=== PATIENT | male | born 1955 | race Caucasian/White ===

== ENCOUNTER 2019-01-18 03:02 | Inpatient (IN) | payer OTHER ==
[~2019-01-18] VITALS: Ht 175.3 cm; Wt 85.0 kg
[2019-01-18] VITALS (13 sets, daily range): BP systolic 126–130; BP diastolic 60–61; PULSE 78–88; RESP 20–30; Ht 175.3 cm; Wt 85.0 kg
[2019-01-18] MEDS ORDERED: NORepinephrine 8MG/250 ML (PMX 250 ML IV STA (03:18)
[2019-01-18] MEDS ORDERED: MIDAZOLAM (DRIP) 50 mg/50 mL 50 ML IV STA (03:18)
[2019-01-18] MEDS ORDERED: SODIUM CHLORIDE 0.9% 1L BAG IV* STA (03:18)
[2019-01-18] MEDS ORDERED: CEFEPIME 1GM/50 ML (PMX) 50 ML IVPB ONE (03:30)
[2019-01-18] MEDS ORDERED: VANCOMYCIN 1 GM (PMX) 250 ML IVPB ONE (03:30)
[2019-01-18] MEDS ORDERED: ACETAMINOPHEN 650 MG SUPP PR ONE ×2 (03:30→10:00)
--- NOTE | 2019-01-18 03:31 | ERD ---
ER Documentation Chief Complaint Chief Complaint bib ra from longterm for sob, aloc HPI This is a 63-year-old man brought in by EMS from longterm for decreased oxygen saturation while at the longterm, low blood pressure, and fever. EMS states systolic blood pressure was 70 mmHg at the scene and patient had dyspnea and oxygen saturation in the mid 80s while at the longterm. He did develop a fever today. Patient does have a history of functional quadriplegia lower extremity contractures, sacral decubitus ulcers, diabetes mellitus, hyperlipidemia, BPH, hypertension, depression, UTIs, dysphagia. HPI obtained by reviewing longterm records and speaking to EMS ROS All systems reviewed and are negative except as per history of present illness. Allergies Allergies: Coded Allergies: Unknown: Unable to obtain (Unverified , 01/18/19) PMhx/Soc Hypertension, diabetes mellitus, functional quadriplegia with lower extremity contractures, bedbound state, decubitus ulcers, BPH, depression Hx Respiratory Disorders: Yes (acute respiratory failure ) Hx Cardiac Disorders: Yes (malformations of heart, htn, hyperlipidemia ) Hx Miscellaneous Medical Probl: Yes (contractures) Hx Alcohol Use: No Hx Substance Use: No Hx Tobacco Use: No Smoking Status: Never smoker FmHx Family History: No diabetes Physical Exam Vitals Vital Signs Date Temp Pulse Resp B/P (MAP) Pulse Ox O2 O2 Flow FiO2 Time Delivery Rate 01/18/19 139 31 98/76 (83) 100 [place] 04:30 l Ventilato r 01/18/19 101.7 138 35 111/92 100 [place] 04:15 (98) l Ventilato r 01/18/19 101.7 04:11 01/18/19 126 33 94/61 (72) 100 [place] 04:00 l Ventilato r 01/18/19 131 37 87/51 (63) 100 [place] 03:45 l Ventilato r 01/18/19 133 34 75/49 (58) 100 [place] 03:36 l Ventilato r 01/18/19 131 23 100/66 97 [place] 03:14 (77) l Ventilato r 01/18/19 101.9 128 36 82/53 (63) 100 03:08 01/18/19 99.0 131 20 100/66 100 Room Air 03:08 (77) Physical Exam Const: Elderly, chronically debilitated appearing man, dyspneic, tachypneic, febrile HEENT: Dry mucous membranes, pink conjunctive a, eyes closed, no cervical spine deformity Resp: Poor breath sounds bilaterally, diminished breath sounds on the left, no wheezing or stridor Cardio: Tachycardic and regular Abd: Soft, non tender, non distended. No guarding or masses Skin: Hot to touch, no lacerations or hematomas, skin examination to the buttocks and sacrum deferred Ext: No cyanosis, or edema, calves symmetrical, bilateral lower extremity contractures with diffuse muscular wasting Neur: Eyes closed patient nonverbal, bilateral lower extremity contractures Result Diagram: 01/18/1931201/18/19312 Results 24 hrs Laboratory Tests Test 01/18/19 03:13 01/18/19 03:24 White Blood Count 14.6 10^3/ul Red Blood Count 2.33 10^6/ul Hemoglobin 7.0 g/dl Hematocrit 24.7 % Mean Corpuscular Volume 106.0 fl Mean Corpuscular Hemoglobin 30.0 pg Mean Corpuscular Hemoglobin Concent 28.3 g/dl Red Cell Distribution Width 19.4 % Platelet Count 126 10^3/UL Mean Platelet Volume 11.2 fl Immature Granulocytes % 0.500 % Neutrophils % 57.5 % Lymphocytes % 36.6 % Monocytes % 4.5 % Eosinophils % 0.8 % Basophils % 0.1 % Nucleated Red Blood Cells % 0.0 /100WBC Immature Granulocytes # 0.080 10^3/ul Neutrophils # 8.4 10^3/ul Lymphocytes # 5.4 10^3/ul Monocytes # 0.7 10^3/ul Eosinophils # 0.1 10^3/ul Basophils # 0.0 10^3/ul Nucleated Red Blood Cells # 0.0 10^3/ul Prothrombin Time 20.9 Sec Prothrombin Time Ratio 1.6 INR International Normalized Ratio 1.79 Activated Partial Thromboplast Time 37.1 Sec Sodium Level 169 mmol/L Potassium Level 4.3 mmol/L Chloride Level 140 mmol/L Carbon Dioxide Level 24 mmol/L Anion Gap 5 Blood Urea Nitrogen 38 mg/dl Creatinine 3.08 mg/dl Est Glomerular Filtrat Rate mL/min 21 mL/min Glucose Level 114 mg/dl Calcium Level 8.1 mg/dl Total Bilirubin 0.2 mg/dl Direct Bilirubin 0.00 mg/dl Indirect Bilirubin 0.2 mg/dl Aspartate Amino Transf (AST/SGOT) 49 IU/L Alanine Aminotransferase (ALT/SGPT) 10 IU/L Alkaline Phosphatase 170 IU/L Troponin I 0.052 ng/ml Total Protein 7.3 g/dl Albumin 2.2 g/dl Globulin 5.10 g/dl Albumin/Globulin Ratio 0.43 Lipase 43 U/L POC Venous Lactate 2.7 mmol/L Current Medications Medications Dose Sig/Maureen Start Time Status Last (Trade) Ordered Route PRN Stop Time Admin Dose Reason Admin Sodium 5,000 ml BOLUS OVER 2 01/18/19 DC 01/18/19 Chloride HOURS STAT 03:18 03:30 (NS) IV* 01/18/19 03:22 250 ml @ ONCE STAT 01/18/19 01/18/19 Norepinephrin 7.5 mls/hr IV 03:18 01/19/19 03:38 e 12:37 Vancomycin 250 ml @ ONCE ONCE 01/18/19 01/18/19 HCl 125 mls/hr IVPB 03:30 04:37 01/18/19 05:29 Cefepime HCl 50 ml @ ONCE ONCE 01/18/19 DC 01/18/19 100 mls/hr IVPB 03:30 03:51 01/18/19 03:59 650 mg ONCE ONCE 01/18/19 DC 01/18/19 Acetaminophen ID 03:30 04:11 (Tylenol 01/18/19 03:31 Supp) Midazolam 50 ml @ 3 ONCE STAT 01/18/19 01/18/19 HCl mls/hr IV 03:18 04:01 01/18/19 19:57 Lorazepam 2 mg ONCE ONCE 01/18/19 DC 01/18/19 (Ativan) IV 04:00 03:58 01/18/19 04:01 Procedures/[facility] IV line was established patient was placed on air sampling and monitoring rhythm strip revealed a sinus rhythm at about narrow complex tachycardia at 140 bpm with upright P and T waves. Patient was febrile, blood and urine cultures have been ordered results are pending I will follow-up EKG performed, read by me revealed sinus tachycardia at 141 bpm, left axis deviation, intraventricular block with a QRS duration of 128 ms, prolonged QT at 511 ms, deep T wave inversions diffusely, no ST elevations or depressions noted Endotracheal Intubation by me: Pre assessment performed. Patient given etomidate 20 mg IV and 100 mg of succinylcholine IV Pre-oxygenation performed with 100% oxygen RSI: Performed w/o complication or hypoxic events. Medications as ordered. Blade: 4.0 ET Tube: 7.5 cm Depth: 21 cm at the lip Intubation confirmed by colorimetric CO2, equal breath sounds, quiet over the stomach. Central Line Placement by me: After the patient was consented and a time out was performed, appropriate hand hygiene was performed, the skin site was fully prepped and maximal sterile barrier technique was employed where the patient was sterilely draped, and the provider wore a mask and sterile gown and gloves. Anesthesia: 1% lidocaine locally Location: Right subclavian vein Device: Multiple lumen Technique: Seldinger technique. Secured with suture. Results: Venous return from all ports with easy saline flush. No complications. The entire guide wire retrieved and disposed of. ED Ultrasound: Central line placed by me using concurrent ultrasound guidance done using sterile technique. Real time image archived in the medical record confirms vascular anatomy. Chest X-ray 1V Interpreted by me: Central line in SVC, Normal soft tissue, No evidence of pneumothorax. ET tube is in place above the karin although it was later advanced 2 cm, sternotomy wires are present, left parapneumonic effusion I administered about 5 L normal saline IV for dehydration and septic shock, he was given cefepime 1 g IV and vancomycin 1 g IV. He was also given acetaminophen per rectum for fever CBC revealed a mild leukocytosis of 15 and anemia with a hemoglobin of 7, electrolytes were abnormal with hyponatremia at 169 and acute kidney injury and dehydration with a BUN/creatinine of 38/3.1, liver function tests were unremarkable, troponin was negative, urine analysis is also been ordered results are pending I will follow-up Patient's infectious symptoms have not stabilized and the patient is at risk of rapid decompensation. The patient will be admitted for careful hydration, antibiotic therapy, and infectious source control. SEVERE SEPSIS CRITERIA: Infectious source: Pneumonia End organ damage indicated by: [Lactate > 2.0 mmol/L Hypotension (SBP < 90 or >40 mmHG drop or MAP < 65) Acute Resp Failure (sat < 92% w/o oxygen) SEPSIS MANAGEMENT Time of recognition of sepsis: Upon arrival. Time of recognition of severe sepsis: severe sepsis at this time]. Time of recognition of septic shock: septic shock at this time]. 3 HOUR BUNDLE Blood cultures x 2 before broad-spectrum antibiotics: Yes 30 ml/kg NS bolus completed Initial lactate 2.7 Repeat lactate pending SEPTIC SHOCK ASSESSMENT: No lactic acid > 4.0 Yes persistent hypotension (SBP < 90 or 40 mmHg drop, MAP < 65) despite 30 mL/kg IV fluid bolus VOLUME REASSESSMENT FOR SEPTIC SHOCK: Reevaluation Time: 0340 Temp 100.8 F, BP 100/60, heart rate 130 bpm, respiratory rate 20 breaths/min, oxygen saturation 98% intubated Heart tachycardic and regular Lungs crackles at the left lung Skin hot and dry to touch Cap Refill less than 2 seconds Peripheral pulses radially present PERSISTENT HYPOTENSION TREATMENT: Comfort care no Central line: Right subclavian vein line placed Vasopressor started Levophed I considered further perfusion assessment with CVP measurement, SCVO2, bedside ultrasound volume assessment, passive leg raise, trial of further fluid bolus. And proceeded with 30 ml/kg fluid bolus of NSS, broad spectrum antibiotics, and admission. CRITICAL CARE: Critical care time 55 minutes, this was time separate from other billable procedures. Emergent fluid management while maintaining close respiratory support. Provision of immediate and broad-spectrum antibiotic therapy. Simultaneous assessment for possible sources in order to direct targeted therapy. Consideration for invasive and chemical support to prevent cardiopulmonary collapse. Critical care time is independent of procedures performed. Accepting Care Team: Current data and ongoing care discussed. Time: Time of admission Primary Provider: Hospitalist Consulting: Infectious disease and pulmonology Outstanding Data: none Departure Diagnosis: Primary Impression: Acute respiratory failure Respiratory failure complication: hypoxia and hypercapnia Qualified Codes: J96.01 - Acute respiratory failure with hypoxia; J96.02 - Acute respiratory failure with hypercapnia Additional Impressions: Septic shock Healthcare-associated pneumonia Acute dehydration Acute kidney injury Condition: Critical IJEOMA GALO MD Jan 18, 2019 03:31
[2019-01-18] MEDS ORDERED: LORAZEPAM 2 MG INJ IV ONE (04:00)
[2019-01-18] MEDS ORDERED: VANCOMYCIN IV PER PHARMACY XX SCH (09:30)
[2019-01-18] MEDS: DEXTROSE 5% 1,000 ML IV SCH (10:02)
[2019-01-18] MEDS: PIPER-TAZO 2.25 GM (PMX) 50 ML IVPB SCH ×3 (10:25→22:43)
[2019-01-18] MEDS ORDERED: ACET-2047 PO (10:49)
[2019-01-18] MEDS ORDERED: MUCO4 NEB (10:50)
[2019-01-18] MEDS ORDERED: ASPI81TA52 PO (10:52)
[2019-01-18] MEDS ORDERED: ARGI1POW19 PO (10:52)
[2019-01-18] MEDS ORDERED: ATOR40TA68 PO (10:52)
[2019-01-18] MEDS ORDERED: MAGN400O19 PO (10:53)
[2019-01-18] MEDS ORDERED: FER325 PO (10:54)
[2019-01-18] MEDS ORDERED: BISA10SU55 RC (10:54)
[2019-01-18] MEDS ORDERED: DIV250 PO (10:56)
[2019-01-18] MEDS ORDERED: CEFT1PIG2 IVPB (10:57)
[2019-01-18] MEDS ORDERED: CALC600T24 PO (10:58)
[2019-01-18] MEDS ORDERED: NA P133E39 RC (10:59)
[2019-01-18] MEDS ORDERED: ASCO500C7 PO (11:00)
[2019-01-18] MEDS ORDERED: LEVA0.634 INHALATION (11:00)
[2019-01-18] MEDS ORDERED: VANC1VIA2 IV (11:01)
[2019-01-18] MEDS ORDERED: TAMS-14 PO (11:02)
[2019-01-18] MEDS ORDERED: AMIN30LI5 PO (11:03)
[2019-01-18] MEDS ORDERED: HYDR-4011 PO ×3 (11:04→11:06)
[2019-01-18] MEDS ORDERED: MULT-275 PO (11:07)
[2019-01-18] MEDS ORDERED: MAGN400T27 PO (11:07)
[2019-01-18] MEDS ORDERED: ESCI10TA PO (11:08)
[2019-01-18] MEDS ORDERED: LAMO25TA8 PO (11:08)
[2019-01-18] MEDS ORDERED: LACT20SO2 PO (11:09)
[2019-01-18] MEDS ORDERED: LANT3I SC (11:10)
[2019-01-18] MEDS ORDERED: IPRA3AMP29 INHALATION (11:10)
[2019-01-18] MEDS ORDERED: SACC250C PO (11:11)
[2019-01-18] MEDS ORDERED: PIPE3.374 IVPB (11:12)
[2019-01-18] MEDS ORDERED: VANCOMYCIN 750 MG (PMX) 250 ML IVPB ONE (12:00)
--- NOTE | 2019-01-18 14:07 | CONS ---
Assessment/Plan Assessment/Plan Assessment/Plan (Daily) 1. acute hyperkalemia 2. acute On chronic renal failure due to ATN from septic shock 3. acute hypoxemic respiratory failure intubated on ventilator 2/2 Health care associated PNA 4. Septic shock on levophed 2/2 PNA 5. acute hypernatremia 6. H/O quadriplegia 7. H/o CAD s/p CABG 8. H/O HTN 9. H/o sacral decubitus s/p debridement before [facility]. [facility] Plan: IV abx for PNA, renally dose all abx and monitor electrolytes IVF D5W at 125 cc/hr IV abx zosyn and vancomycin for PNA coverage, Renally dose all abx and monitor electorlytes follow upn Cx, Uric acid, CK total wiht AM labs Thanks for consultation, Mariana oneill Consultation Date/Type/Reason Admit Date/Time 01/18/2019 Date of Consultation: Jan 18, 2019 Type of Consult NEPHROLOGY Reason for Consultation acute kidney injury, Hyperkalemia Requesting Provider: FELICITAS LAZARO MD Date/Time of Note DATE: 01/18/19 TIME: 14:06 Hx of Present Illness 63-year-old male residing at senior care facility with history of a quadriplegia was brought in by the paramedics after he was noted to have hypoxia and altered mental status. Initial systolic blood pressure was 70 and oxygen saturation was in the mid 80s. The patient has bilateral lower extremity co ntractures, multiple sacral decubiti, type 2 diabetes mellitus and hypertension.Initial evaluation revealed acute hypoxemic respiratory failure and evidence of sepsis. The patient was intubated. White blood cell count was 14.6 and hemoglobin was low at 7. Serum sodium was 169 with BUN of 39 and creatinine of 3.08. Initial serum lactate was 2.7 and repeat serum lactate was 2.1. Chest x-ray showed dense left lower lobe infiltrate and possible effusion. Renal has been consulted for acute hyperkalemia, acute on chronic renal failure Pt intuabted for acute hypxoemci respiratory failure Subjective hx not possible: pt non-verbal, pt critical status, other (on BIPAP) Past Medical History Medical History: other (quadriplegia, CAD H/o IL, h/o HTN, h/o possibel CKD ) Home Meds Reported Medications Ujrnxcpjymky-Antl-Qyynzxqd,Iso (ZOSYN 3.375 GM GALAXY BAG) 3.375 Gm/50 Ml Froz.piggy, 3.375 GM IVPB Q6, EA 01/18/19 Saccharomyces Boulardii* (Florastor*) 250 Mg Cap, 250 MG PO BID, CAP 01/18/19 Insulin Glargine* (Lantus*) 100 Unit/Ml Soln, 6 UNIT SC QHS, #1 VIAL 01/18/19 Ipratropium-Albuterol (Ipratropium-Albuterol) 0.5-3 Mg/3 Ml Ampul.neb, 3 ML INHALATION Q6 PRN for WHEEZING AND SOB, #30 VIAL 01/18/19 Lactulose* (Lactulose*) 20 Gm/30 Ml Solution, 20 GM PO BID, ML 01/18/19 Lamotrigine* (Lamotrigine*) 25 Mg Tablet, 25 MG PO BID, TAB 01/18/19 Escitalopram Oxalate* (Lexapro*) 10 Mg Tablet, 10 MG PO DAILY, #30 TAB 01/18/19 Magnesium Oxide* (Mag-Oxide*) 400 Mg Tablet, 400 MG PO TID, TAB 01/18/19 Multivitamin with Minerals (Daily Vitamin Formula-Minerals) 1 Each Tablet, 1 EACH PO DAILY, TAB 01/18/19 Hydrocodone/Acetaminophen ([place] 5-325 Tablet) 1 Each Tablet, 1 EACH PO Q4 PRN for PAIN 4-7, TAB 01/18/19 Hydrocodone/Acetaminophen ([place] 5-325 Tablet) 1 Each Tablet, 1 EACH PO 30 MIN PRIOR TO W/C PRN for PAIN, TAB 01/18/19 Hydrocodone/Acetaminophen ([place] 5-325 Tablet) 1 Each Tablet, 2 EACH PO Q4 PRN for PAIN 8-10, TAB 01/18/19 Amino Acids/Protein Hydrolys (Pro-Stat Awc Liquid) 30 Ml Liquid, 30 ML PO TID DILUTE WITH 30ML WATER 01/18/19 Tamsulosin Hcl* (Flomax*) 0.4 Mg Cap.er.24h, 0.4 MG PO HS, CAP 01/18/19 Vancomycin HCl (Vancomycin HCl) 1 Gm Vial, 1 GM IV DAILY PRN for FEVER, VIAL 01/18/19 Ascorbic Acid* (Vitamin C*) 500 Mg Capsule.sa, 500 MG PO DAILY, CAP 01/18/19 Levalbuterol Hcl* (Levalbuterol Hcl*) 0.63 Mg/3 Ml Vial.neb, 0.63 MG INHALATION Q6H PRN for WHEEZING AND SOB, VIAL 01/18/19 Sodium Phosphate,Roane-Dibasic (Enema Ready To Use) 133 Ml Enema, 133 ML RC EVERY 3 DAYS PRN for CONSTIPATION, ENEMA 01/18/19 Calcium Carbonate* (Calcium Carbonate*) 600 MG Ca Tab, 600 MG PO BID, TAB 01/18/19 Ceftriaxone Sod* (Rocephin* 1GM/50ML (PMX)) 1 Gm/50 Ml Iv.soln., 1 GM IVPB QHS, EA 01/18/19 Divalproex Sodium* (Divalproex Sodium*) 250 Mg Tablet.dr, 750 MG PO BID, #90 TAB 01/18/19 Ferrous Sulfate* (Ferrous Sulfate*) 325 Mg Tabec, 325 MG PO DAILY, TAB 01/18/19 Bisacodyl (Dulcolax) 10 Mg Supp.rect, 10 MG RC PRN PRN for CONSTIPATION, SUPP.RECT 01/18/19 Magnesium Hydroxide* (Milk Of Magnesia*) 400 Mg/5 Ml Oral.susp, 30 ML PO DAILY PRN for CONSTIPATION, ML 01/18/19 Atorvastatin* (Atorvastatin*) 40 Mg Tablet, 40 MG PO QHS, #30 TAB 01/18/19 Aspirin (Low Dose Aspirin) 81 Mg Tablet.dr, 81 MG PO DAILY, #30 TAB 01/18/19 Arginine/Ascorbate Sod/Eric AC (Arginaid Powder) 1 Each Powd.pack, 1 EACH PO BID DISOLVE IN 120MLS WATER 01/18/19 Acetylcysteine* (Mucomyst*) 4 Ml Soln, 3 ML NEB TID, EA 01/18/19 Acetaminophen* (Acetaminophen*) 650 Mg Tablet, 650 MG PO Q6H PRN for ELEVATED TEMPERATURE, #30 TAB OVER 101 01/18/19 Medications Current Medications Norepinephrine 250 ml @ 7.5 mls/hr ONCE STAT IV Last administered on 01/18/19at 03:38; Admin Dose 7.5 MLS/HR; Start 01/18/19 at 03:18; Stop 01/19/19 at 12:37 Midazolam HCl 50 ml @ 3 mls/hr ONCE STAT IV Last administered on 01/18/19at 04:01; Admin Dose 3 MLS/HR; Start 01/18/19 at 03:18; Stop 01/18/19 at 19:57 Dextrose 1,000 ml @ 120 mls/hr Q8H20M IV Last administered on 01/18/19at 10:02; Admin Dose 120 MLS/HR; Start 01/18/19 at 09:30 Vancomycin HCl (Vanco Iv Per Pharmacy) VANCOMYCIN PER PHARMACY PER PROTOCOL XX ; Start 01/18/19 at 09:30 Piperacillin Sod/ Tazobactam Sod 50 ml @ 100 mls/hr Q8 IVPB Last administered on 01/18/19at 10:25; Admin Dose 100 MLS/HR; Start 01/18/19 at 09:30 Allergies: Coded Allergies: Sulfa (Sulfonamide Antibiotics) (Verified Allergy, Unknown, 01/18/19) Past Surgical History Past Surgical Hx: other (CABG, H/o Debridement for sacral decubitus ) Social History Alcohol Use: none Smoking Status: Never smoker Drug Use: none Exam/Review of Systems Exam Vitals Vital Signs Date Temp Pulse Resp B/P (MAP) Pulse Ox O2 O2 Flow FiO2 Time Delivery Rate 01/18/19 80 26 104/53 100 [place] 13:00 (70) l Ventilato r 01/18/19 35 12:34 01/18/19 100.4 12:30 Intake and Output 01/17/19 01/17/19 01/18/19 1515:00 23:00 07:00 IntakeIntake Total 50 ml BalanceBalance 50 ml Constitutional: distress, other (moderate to severe distress , intubated on ventilator ) Head: normocephalic Eyes: nl conjunctiva ENMT: intubated, other (ET tube in place ) Neck: supple, non-tender Respiratory: congested cough, diminished breath sounds, wheezing Cardiovascular: regular rate and rhythm, nl pulses Gastrointestinal: soft, non-tender Musculoskeletal: other (Contracture of extremities ) Extremities: normal pulses Neurological: other (Uncooperative due to Intubated on ventilator ) Results Result Diagram: 01/18/19 0313 01/18/19 0313 Results 24hrs Laboratory Tests Test 01/18/19 03:13 01/18/19 03:24 01/18/19 04:30 01/18/19 04:47 White Blood Count 14.6 H Red Blood Count 2.33 L Hemoglobin 7.0 L Hematocrit 24.7 L Mean Corpuscular 106.0 H Volume Mean Corpuscular 30.0 Hemoglobin Mean Corpuscular 28.3 L Hemoglobin Concen t Red Cell 19.4 H Distribution Width Platelet Count 126 L Mean Platelet 11.2 H Volume Immature 0.500 H Granulocytes % Neutrophils % 57.5 Lymphocytes % 36.6 Monocytes % 4.5 Eosinophils % 0.8 Basophils % 0.1 Nucleated Red 0.0 Blood Cells % Immature 0.080 H Granulocytes # Neutrophils # 8.4 H Lymphocytes # 5.4 H Monocytes # 0.7 Eosinophils # 0.1 Basophils # 0.0 Nucleated Red 0.0 Blood Cells # Prothrombin Time 20.9 H Prothrombin Time 1.6 Ratio INR International 1.79 Normalized Ratio Activated 37.1 H Partial Thrombopl ast Time Sodium Level 169 *H Potassium Level 4.3 Chloride Level 140 H Carbon Dioxide 24 Level Anion Gap 5 Blood Urea 38 H Nitrogen Creatinine 3.08 H Est Glomerular 21 L Filtrat Rate mL/min Glucose Level 114 Calcium Level 8.1 L Total Bilirubin 0.2 Direct Bilirubin 0.00 Indirect 0.2 Bilirubin Aspartate Amino 49 H Transf (AST/SGOT) Alanine 10 L Aminotransferase (ALT/SGPT) Alkaline 170 H Phosphatase Troponin I 0.052 Total Protein 7.3 Albumin 2.2 L Globulin 5.10 H Albumin/Globulin 0.43 Ratio Lipase 43 POC Venous 2.7 *H Lactate Blood Gas Blood arterial Specimen Source Arterial Blood 01/18/2019 4:50:0 Date Drawn 0 AM Arterial Blood pH 7.333 L (Temp corrected) Arterial Blood 38.8 pCO2 (Temp correct) Arterial Blood 205.2 H pO2 (Temp corrected) Arterial Blood 20.1 L HCO3 Arterial Blood -5.3 L Base Excess Arterial Blood 99.2 H Oxygen Saturation Aníbal Test ACCEPTAB Arterial Blood Right Radial Gas Puncture Site Arterial 0.3 Blood Carboxyhemo globin Arterial Blood 0.5 Methemoglobin Blood Gas A-a O2 469.0 H Differential Oxyhemoglobin 98.4 Percent Blood Gas 37.0 Temperature Blood Gas 16.0 Respiration Rate Blood Gas Actual 33 Respiration Rate Blood Gas VENT - AC Modality FiO2 100.0 Blood Gas Tidal 500.0 Volume Blood Gas Low 5.0 PEEP Setting Blood Gas MM Notified Whom Blood Gas 01/18/2019 4:57:0 Notified Time 0 AM Urine Color YELLOW Urine Clarity CLOUDY A Urine pH 5.0 Urine Specific 1.013 [place] Urine Ketones NEGATIVE Urine Nitrite NEGATIVE Urine Bilirubin NEGATIVE Urine NEGATIVE Urobilinogen Urine Leukocyte 3+ H Esterase Urine Microscopic 29 H RBC Urine Microscopic > 182 H WBC Urine Bacteria FEW A Urine Hemoglobin 2+ H Urine Glucose NEGATIVE Urine Total NEGATIVE Protein Test 01/18/19 05:18 01/18/19 07:10 Lactic Acid Level 2.1 *H 2.1 *H Medications Medication Current Medications Norepinephrine 250 ml @ 7.5 mls/hr ONCE STAT IV Last administered on 01/18/19at 03:38; Admin Dose 7.5 MLS/HR; Start 01/18/19 at 03:18; Stop 01/19/19 at 12:37 Midazolam HCl 50 ml @ 3 mls/hr ONCE STAT IV Last administered on 01/18/19at 04:01; Admin Dose 3 MLS/HR; Start 01/18/19 at 03:18; Stop 01/18/19 at 19:57 Dextrose 1,000 ml @ 120 mls/hr Q8H20M IV Last administered on 01/18/19at 10:02; Admin Dose 120 MLS/HR; Start 01/18/19 at 09:30 Vancomycin HCl (Vanco Iv Per Pharmacy) VANCOMYCIN PER PHARMACY PER PROTOCOL XX ; Start 01/18/19 at 09:30 Piperacillin Sod/ Tazobactam Sod 50 ml @ 100 mls/hr Q8 IVPB Last administered on 01/18/19at 10:25; Admin Dose 100 MLS/HR; Start 01/18/19 at 09:30 TONIO SOOD MD Jan 18, 2019 14:06
--- NOTE | 2019-01-18 17:26 | HP ---
DATE OF ADMISSION: 01/18/2019 CHIEF COMPLAINT: Shortness of breath and altered level of consciousness. HISTORY OF PRESENT ILLNESS: A 63-year-old male residing at snf facility with history of a quadriplegia was brought in by the paramedics after he was noted to have hypoxia and altered mental status. Initial systolic blood pressure was 70 and oxygen saturation was in the mid 80s. The patie nt has bilateral lower extremity contractures, multiple sacral decubiti, type 2 diabetes mellitus and hypertension. Initial evaluation revealed acute hypoxemic respiratory failure and evidence of sepsis. The patient was intubated. White blood cell count was 14.6 and hemoglobin was low at 7. Serum sodium was 169 wi th BUN of 39 and creatinine of 3.08. Initial serum lactate was 2.7 and repeat serum lactate was 2.1. Chest x-ray showed dense left lower lobe infiltrate and possible effusion. PHYSICAL EXAMINATION: GENERAL: Well-developed, well-nourished male who is intubated and sedated. VITAL SIGNS: Blood pressure 109/59, respiration 28, pulse 94, temperature 100.4. LUNGS: Bilateral rhonchi with rales at the bases. CARDIAC: Regular rate and rhythm. No murmurs, rubs or gallops. ABDOMEN: Soft. Normoactive bowel sounds. EXTREMITIES: With diffuse muscular atrophy and contractures. Decubitus ulcer noted on the right pos terior shoulder and sacral area as well as bilateral feet. ASSESSMENT: 1. A 63-year-old male with acute hypoxemic respiratory failure requiring mechanical ventilation. 2. Healthcare-associated pneumonia. 3. Rule out sepsis. 4. Marked hypernatremia. 5. Dehydration. 6. Acute versus chronic kidney disease. 7. Quadriplegia. 8. Type 2 diabetes mellitus. 9. Hyperlipidemia. 10. Benign prostatic hyperplasia. 11. History of hypertension. 12. Chronic depression. 13. History of dysphagia. PLAN: 1. Admit to ICU, IV vancomycin and Zosyn. Continue pressors. 2. Ventilatory management. 3. Pulmonary and renal consultations were requested. Dictated By: FELICITAS GRECO/NTS Conf#: [id number] DID#: [id number] CC: BHAVIN BARROW MD;*End*
[2019-01-18] MEDS ORDERED: DEXTROSE 50% 50 ML SYRINGE IV PRN ×2 (23:30)
[2019-01-18] MEDS ORDERED: GLUCOSE GEL 15 GRAM TUBE PO PRN ×2 (23:30)
[2019-01-18] MEDS ORDERED: GLUCOSE GEL 15 GRAM TUBE BUCCAL PRN (23:30)
[2019-01-18] MEDS ORDERED: MIDAZOLAM (DRIP) 50 mg/50 mL 50 ML IV SCH (23:30)
[2019-01-18] MEDS ORDERED: GLUCAGON 1 MG INJ IM PRN (23:30)
[2019-01-19] VITALS (53 sets, daily range): BP systolic 71–124; BP diastolic 41–68; PULSE 75–122; RESP 13–39
[2019-01-19] MEDS: INSULIN ASPART [NOVOLOG] 3 ML PEN SC SCH ×6 (01:00→21:00)
[2019-01-19] MEDS: DEXTROSE 5% 1,000 ML IV SCH ×4 (01:41→18:04)
[2019-01-19] MEDS ORDERED: PENDING SANTYL ORDER FOR WOUND CARE XX PRN (02:00)
[2019-01-19] MEDS: PIPER-TAZO 2.25 GM (PMX) 50 ML IVPB SCH ×3 (05:39→22:00)
--- NOTE | 2019-01-19 08:02 | CONS ---
DATE OF ADMISSION: 01/18/2019 DATE OF CONSULTATION: REASON FOR CONSULTATION: Ventilator management. Thank you, ____, for this consultation. HISTORY OF PRESENT ILLNESS: This is a 64-year-old gentleman brought in from detention facility for increasing shortness of breath, altered mental status, found to be hypotensive, hypoxemic, requi ring emergent intubation and mechanical ventilation. Few further details are available. The patient apparently has dementia, dysphagia, sacral decubitus ulcers, diabetes mellitus, quadriplegia per [facility] rt. PAST MEDICAL HISTORY: As above. MEDICATIONS: Per chart. ALLERGIES: NONE. SOCIAL HISTORY: Nonsmoker, no alcohol, no history of drug use. FAMILY HISTORY: Noncontributory. SYSTEMS REVIEW: A 12-point review of systems unable to perform. PHYSICAL EXAMINATION: GENERAL: Elderly gentleman, orally intubated on mechanical ventilation, appears comfortable at rest, no acute distress. VITAL SIGNS: T-max 100.4, pulse is 94, blood pressure 109/59, O2 saturation 96%, FIO2 of 35%, orally intubated. NECK: Supple. No JVD or lymphadenopathy. CARDIAC: S1, S2, no added sounds or murmurs. CHEST: Diminished air entry bilaterally. ABDOMEN: Soft, nontender. No guarding or rebound. EXTREMITIES: No cyanosis, clubbing of bleeding. NEUROLOGIC: Generalized weakness. LABORATORY DATA: Sodium 159, potassium 4.3, BUN 38, creatinine 3.08. INR 1.79. DIAGNOSTIC DATA: Chest x-ray was reviewed, showed dense left lower lobe pneumonia with possible effu ramirez. IMPRESSION: 1. Likely healthcare-associated pneumonia. 2. Septic shock. 3. Functional quadriplegia. 4. History of dysphagia. 5. Incomplete data. PLAN: 1. Continue broad-spectrum antibiotics. 2. Pending cultures. 3. Vasopressor support. 4. Volume resuscitation. 5. IV fluids for hyponatremia and renal failure, likely prerenal in origin. Dictated By: BHAVIN VASQUEZ/HEMAL Conf#: [id number] DID#: [id number]
[2019-01-19] MEDS: ACETAMINOPHEN 650 MG SUPP PR PRN (09:27)
--- NOTE | 2019-01-19 09:34 | CONS ---
Consult Date/Type/Reason Admit Date/Time Jan 18, 2019 at 04:19 Initial Consult Date Type of Consult Pulmonary Date/Time of Note DATE: 01/19/19 TIME: 09:31 Subjective Orally intubated on mechanical ventilation. Continues mechanical ventilation not opening eyes or following commands yet. History of intracerebral hemorrhage and CVA with underlying psychiatric disorder. Objective Vital Signs Date Temp Pulse Resp B/P (MAP) Pulse Ox O2 O2 Flow FiO2 Time Delivery Rate 01/19/19 100.8 09:27 01/19/19 92 26 99 08:30 01/19/19 113/66 Mechanica 08:00 (82) l Ventilato r 01/19/19 40 05:05 Intake and Output 01/18/19 01/18/19 01/19/19 1515:00 23:00 07:00 IntakeIntake Total 650 ml 672 ml 1009 ml OutputOutput Total 350 ml 400 ml BalanceBalance 300 ml 272 ml 1009 ml Exam PHYSICAL EXAMINATION: GENERAL: Elderly gentleman, orally intubated on mechanical ventilation, appears comfortable at rest, no acute distress. VITAL SIGNS: NECK: Supple. No JVD or lymphadenopathy. CARDIAC: S1, S2, no added sounds or murmurs. CHEST: Diminished air entry bilaterally. ABDOMEN: Soft, nontender. No guarding or rebound. EXTREMITIES: No cyanosis, clubbing of bleeding. NEUROLOGIC: Generalized weakness. Vent Setting Ventilator Support Mode: AC Fraction of Inspired Oxygen pe: 40 Positive End Expiratory Pressu: 5.0 Results/Medications Result Diagram: 01/19/19 0430 01/19/19 0430 Results 24 hrs Laboratory Tests Test 01/18/19 14:19 01/19/19 04:30 01/19/19 07:00 01/19/19 09:02 Urine Eosinophils 0.0 % Urine Random 48.59 Creatinine Urine Random 68 Sodium Urine 1.13 Protein/Creatinine Ratio Urine Total 55.0 H Protein White Blood Count 13.8 H Red Blood Count 3.00 #L Hemoglobin 8.8 #L Hematocrit 29.1 L Mean Corpuscular 97.0 Volume Mean Corpuscular 29.3 Hemoglobin Mean Corpuscular 30.2 L Hemoglobin Concent Red Cell 19.9 H Distribution Width Platelet Count 122 L Mean Platelet 11.0 H Volume Immature 1.000 H Granulocytes % Neutrophils % Lymphocytes % Monocytes % Eosinophils % Basophils % Nucleated Red 0.1 H Blood Cells % Immature 0.140 H Granulocytes # Neutrophils # Lymphocytes # Monocytes # Eosinophils # Basophils # Nucleated Red Blood Cells # Sodium Level 167 *H Potassium Level 3.3 L Chloride Level 139 H Carbon Dioxide 23 Level Anion Gap 5 Blood Urea 34 H Nitrogen Creatinine 2.48 H Est Glomerular 26 L Filtrat Rate mL/min Glucose Level 119 Uric Acid 6.2 Calcium Level 8.0 L Creatine Kinase 122 Blood Gas Specimen Blood arterial Source Arterial Blood 01/19/2019 8:14:28 Date Drawn AM Arterial Blood pH 7.414 (Temp corrected) Arterial Blood 30.2 L pCO2 (Temp correct) Arterial Blood pO2 93.2 (Temp corrected) Arterial Blood 18.9 L HCO3 Arterial Blood -4.8 L Base Excess Arterial Blood 96.4 Oxygen Saturation Aníbal Test ACCEPTAB Arterial Blood Gas Right Radial Puncture Site Arterial 0.3 Blood Carboxyhemog lobin Arterial Blood 0.3 Methemoglobin Blood Gas A-a O2 157.3 H Differential Oxyhemoglobin 95.8 Percent Blood Gas 37.0 Temperature Blood Gas 16.0 Respiration Rate Blood Gas Actual 25 Respiration Rate Blood Gas Modality VENT - AC FiO2 40.0 Blood Gas Tidal 500.0 Volume Blood Gas Low PEEP 5.0 Setting Blood Gas Notified TM Whom Blood Gas Notified 01/19/2019 8:37:06 Time AM Bedside Glucose 105 Medications Current Medications Norepinephrine 250 ml @ 7.5 mls/hr ONCE STAT IV Last administered on 01/18/19at 03:38; Admin Dose 7.5 MLS/HR; Start 01/18/19 at 03:18; Stop 01/19/19 at 12:37 Dextrose 1,000 ml @ 125 mls/hr Q8H IV Last administered on 01/19/19at 02:47; Admin Dose 125 MLS/HR; Start 01/18/19 at 09:30 Vancomycin HCl (Vanco Iv Per Pharmacy) VANCOMYCIN PER PHARMACY PER PROTOCOL XX ; Start 01/18/19 at 09:30 Piperacillin Sod/ Tazobactam Sod 50 ml @ 100 mls/hr Q8 IVPB Last administered on 01/19/19at 05:39; Admin Dose 100 MLS/HR; Start 01/18/19 at 09:30 Midazolam HCl 50 ml @ 1 mls/hr TITRATE IV Last administered on 01/19/19at 02:47; Admin Dose 2 MLS/HR; Start 01/18/19 at 23:30 Insulin Aspart (Novolog Insulin Pen) NOVOLOG *MODERATE* ALGORI... Q4H SC ; Start 01/19/19 at 01:00 Miscellaneous Information 1 ea NOTE XX ; Start 01/18/19 at 23:30 Glucose (Glutose) 15 gm Q15M PRN PO DECREASED GLUCOSE; Start 01/18/19 at 23:30 Glucose (Glutose) 22.5 gm Q15M PRN PO DECREASED GLUCOSE; Start 01/18/19 at 23:30 Dextrose (D50w Syringe) 25 ml Q15M PRN IV DECREASED GLUCOSE; Start 01/18/19 at 23:30 Dextrose (D50w Syringe) 50 ml Q15M PRN IV DECREASED GLUCOSE; Start 01/18/19 at 23:30 Glucagon (Glucagen) 1 mg Q15M PRN IM DECREASED GLUCOSE; Start 01/18/19 at 23:30 Glucose (Glutose) 15 gm Q15M PRN BUCCAL DECREASED GLUCOSE; Start 01/18/19 at 23:30 Miscellaneous Information (Pending [facility] Order For Wound Care) This patient berg... PRN PRN XX WOUND CARE; Start 01/19/19 at 02:00 Acetaminophen (Tylenol Supp) 650 mg Q6H PRN [place] temp > 100.4F Last administered on 01/19/19at 09:27; Admin Dose 650 MG; Start 01/19/19 at 09:00 Assessment/Plan Hospital Course (Demo Recall) IMPRESSION: 1. Likely healthcare-associated pneumonia. 2. Status post septic shock. 3. Functional quadriplegia. 4. History of dysphagia. 5. Hypoxemic respiratory failure PLAN: 1. Continue broad-spectrum antibiotics. 2. Pending cultures. 3. Vasopressor support. 4. Volume resuscitation. 5. IV fluids for hyponatremia and renal failure, likely prerenal in origin. 6. Continue mechanical ventilation. 7. Nasogastric tube placement and tube feeding with free water. Critical care time 40 minutes overall prognosis guarded. BHAVIN BARROW MD, [facility] Jan 19, 2019 09:34
--- NOTE | 2019-01-19 10:00 | PN ---
Date/Time of Note Date/Time of Note DATE: 01/19/19 TIME: 09:57 Subjective Remains intubated and sedated Objective Vitals Vital Signs Date Temp Pulse Resp B/P (MAP) Pulse Ox O2 O2 Flow FiO2 Time Delivery Rate 01/19/19 100.8 09:27 01/19/19 92 26 99 08:30 01/19/19 113/66 Mechanica 08:00 (82) l Ventilato r 01/19/19 40 05:05 Intake and Output 01/18/19 01/18/19 01/19/19 1515:00 23:00 07:00 IntakeIntake Total 650 ml 672 ml 1009 ml OutputOutput Total 350 ml 400 ml BalanceBalance 300 ml 272 ml 1009 ml Bilateral rhonchi. Rales at the bases Regular rate and rhythm no murmurs or gallops Soft normoactive bowel sounds No edema Results Result Diagram: 01/19/19 0430 01/19/19 0430 Medications Medications Current Medications Norepinephrine 250 ml @ 7.5 mls/hr ONCE STAT IV Last administered on 01/18/19at 03:38; Admin Dose 7.5 MLS/HR; Start 01/18/19 at 03:18; Stop 01/19/19 at 12:37 Dextrose 1,000 ml @ 125 mls/hr Q8H IV Last administered on 01/19/19at 02:47; Admin Dose 125 MLS/HR; Start 01/18/19 at 09:30 Vancomycin HCl (Vanco Iv Per Pharmacy) VANCOMYCIN PER PHARMACY PER PROTOCOL XX ; Start 01/18/19 at 09:30 Piperacillin Sod/ Tazobactam Sod 50 ml @ 100 mls/hr Q8 IVPB Last administered on 01/19/19at 05:39; Admin Dose 100 MLS/HR; Start 01/18/19 at 09:30 Midazolam HCl 50 ml @ 1 mls/hr TITRATE IV Last administered on 01/19/19at 02:47; Admin Dose 2 MLS/HR; Start 01/18/19 at 23:30 Insulin Aspart (Novolog Insulin Pen) NOVOLOG *MODERATE* ALGORI... Q4H SC ; Start 01/19/19 at 01:00 Miscellaneous Information 1 ea NOTE XX ; Start 01/18/19 at 23:30 Glucose (Glutose) 15 gm Q15M PRN PO DECREASED GLUCOSE; Start 01/18/19 at 23:30 Glucose (Glutose) 22.5 gm Q15M PRN PO DECREASED GLUCOSE; Start 01/18/19 at 23:30 Dextrose (D50w Syringe) 25 ml Q15M PRN IV DECREASED GLUCOSE; Start 01/18/19 at 23:30 Dextrose (D50w Syringe) 50 ml Q15M PRN IV DECREASED GLUCOSE; Start 01/18/19 at 23:30 Glucagon (Glucagen) 1 mg Q15M PRN IM DECREASED GLUCOSE; Start 01/18/19 at 23:30 Glucose (Glutose) 15 gm Q15M PRN BUCCAL DECREASED GLUCOSE; Start 01/18/19 at 23:30 [facility] This patient berg... PRN PRN XX WOUND CARE; Start 01/19/19 at 02:00 Acetaminophen (Tylenol Supp) 650 mg Q6H PRN [place] temp > 100.4F Last administered on 01/19/19at 09:27; Admin Dose 650 MG; Start 01/19/19 at 09:00 VTE Prophylaxis SCD applied (from Nsg): Yes Lines/Catheters IV Catheter Type: Saline Lock Jenkins in Place: Yes Cont'd jenkins catheter reason: pres ulcer contaminated by urine Assessment/Plan Assessment/Plan A 63-year-old male with acute hypoxemic respiratory failure, on mechanical ventilation Bilateral aspiration pneumonia, recurrent Dysphasia History of hemorrhagic CVA in September 2018 Bipolar affective disorder Schizophrenia Multiple decubitus ulcers Bedridden state Continue ventilatory management Continue broad-spectrum antibiotics Arranged G-tube placement after patient is medically stable I had a long discussion with patient's son and brother. Patient is full code. FELICITAS LAZARO MD Jan 19, 2019 10:00
--- NOTE | 2019-01-19 11:48 | CONS ---
Assessment/Plan Assessment/Plan Assessment/Plan (Daily) 1. acute hyperkalemia 2. acute On chronic renal failure due to ATN from septic shock 3. acute hypoxemic respiratory failure intubated on ventilator 2/2 Health care associated PNA 4. Septic shock on levophed 2/2 PNA 5. acute hypernatremia 6. H/O quadriplegia 7. H/o CAD s/p CABG 8. H/O HTN 9. H/o sacral decubitus s/p debridement before 10. [facility] Plan: IV abx for PNA, renally dose all abx and monitor electrolytes IVF D5W at 125 cc/hr, Na improving to 167, BUN/Cr 34/2.48, K stable making good urine output IV abx zosyn and vancomycin for PNA coverage, Renally dose all abx and monitor electorlytes no acute indication for HD at this time Ventilator management as per pulmonary will follow up Consultation Date/Type/Reason Admit Date/Time Jan 18, 2019 at 04:19 Initial Consult Date Date/Time of Note DATE: 01/19/19 TIME: 11:48 24 HR Interval Summary Free Text/Dictation pt remains intubated, sedated on ventilator, BP stable, on levophed Exam/Review of Systems Exam Vitals Vital Signs Date Temp Pulse Resp B/P (MAP) Pulse Ox O2 O2 Flow FiO2 Time Delivery Rate 01/19/19 78 23 97 40 11:07 01/19/19 124/63 11:00 (83) 01/19/19 97.8 10:30 01/19/19 Mechanical 08:00 Ventilator Intake and Output 01/18/19 01/18/19 01/19/19 1515:00 23:00 07:00 IntakeIntake Total 650 ml 672 ml 1009 ml OutputOutput Total 350 ml 400 ml BalanceBalance 300 ml 272 ml 1009 ml Results Result Diagram: 01/19/19 0430 01/19/19 0430 Results 24hrs Laboratory Tests Test 01/18/19 14:19 01/19/19 04:30 01/19/19 07:00 01/19/19 09:02 Urine Eosinophils 0.0 % Urine Random 48.59 Creatinine Urine Random 68 Sodium Urine 1.13 Protein/Creatinine Ratio Urine Total 55.0 H Protein White Blood Count 13.8 H Red Blood Count 3.00 #L Hemoglobin 8.8 #L Hematocrit 29.1 L Mean Corpuscular 97.0 Volume Mean Corpuscular 29.3 Hemoglobin Mean Corpuscular 30.2 L Hemoglobin Concent Red Cell 19.9 H Distribution Width Platelet Count 122 L Mean Platelet 11.0 H Volume Immature 1.000 H Granulocytes % Neutrophils % Segmented 54 Neutrophils % (Manual) Band Neutrophils % 29 H (Manual) Lymphocytes % Lymphocytes % 14 L (Manual) Monocytes % Monocytes % 2 (Manual) Eosinophils % Basophils % Basophils % 1 (Manual) Nucleated Red 0.1 H Blood Cells % Immature 0.140 H Granulocytes # Neutrophils # Neutrophils # 8.0 H (Manual) Band Neutrophils # 4.0 H Lymphocytes 1.9 (Manual) Lymphocytes # Monocytes # Monocytes # 0.2 L (Manual) Eosinophils # Basophils # Basophils # 0.1 H (Manual) Nucleated Red Blood Cells # Platelet Estimate DECREASED Polychromasia 2+ Sodium Level 167 *H Potassium Level 3.3 L Chloride Level 139 H Carbon Dioxide 23 Level Anion Gap 5 Blood Urea 34 H Nitrogen Creatinine 2.48 H Est Glomerular 26 L Filtrat Rate mL/min Glucose Level 119 Uric Acid 6.2 Calcium Level 8.0 L Creatine Kinase 122 Blood Gas Specimen Blood arterial Source Arterial Blood 01/19/2019 8:14:28 Date Drawn AM Arterial Blood pH 7.414 (Temp corrected) Arterial Blood 30.2 L pCO2 (Temp correct) Arterial Blood pO2 93.2 (Temp corrected) Arterial Blood 18.9 L HCO3 Arterial Blood -4.8 L Base Excess Arterial Blood 96.4 Oxygen Saturation Aníbal Test ACCEPTAB Arterial Blood Gas Right Radial Puncture Site Arterial 0.3 Blood Carboxyhemog lobin Arterial Blood 0.3 Methemoglobin Blood Gas A-a O2 157.3 H Differential Oxyhemoglobin 95.8 Percent Blood Gas 37.0 Temperature Blood Gas 16.0 Respiration Rate Blood Gas Actual 25 Respiration Rate Blood Gas Modality VENT - AC FiO2 40.0 Blood Gas Tidal 500.0 Volume Blood Gas Low PEEP 5.0 Setting Blood Gas Notified TM Whom Blood Gas Notified 01/19/2019 8:37:06 Time AM Bedside Glucose 105 Medications Medication Current Medications Norepinephrine 250 ml @ 7.5 mls/hr ONCE STAT IV Last administered on 01/18/19at 03:38; Admin Dose 7.5 MLS/HR; Start 01/18/19 at 03:18; Stop 01/19/19 at 12:37 Dextrose 1,000 ml @ 125 mls/hr Q8H IV Last administered on 01/19/19at 10:21; Admin Dose 125 MLS/HR; Start 01/18/19 at 09:30 Vancomycin HCl (Vanco Iv Per Pharmacy) VANCOMYCIN PER PHARMACY PER PROTOCOL XX ; Start 01/18/19 at 09:30 Piperacillin Sod/ Tazobactam Sod 50 ml @ 100 mls/hr Q8 IVPB Last administered on 01/19/19at 05:39; Admin Dose 100 MLS/HR; Start 01/18/19 at 09:30 Midazolam HCl 50 ml @ 1 mls/hr TITRATE IV Last administered on 01/19/19at 02:47; Admin Dose 2 MLS/HR; Start 01/18/19 at 23:30 Insulin Aspart (Novolog Insulin Pen) NOVOLOG *MODERATE* ALGORI... Q4H SC ; Start 01/19/19 at 01:00 Miscellaneous Information 1 ea NOTE XX ; Start 01/18/19 at 23:30 Glucose (Glutose) 15 gm Q15M PRN PO DECREASED GLUCOSE; Start 01/18/19 at 23:30 Glucose (Glutose) 22.5 gm Q15M PRN PO DECREASED GLUCOSE; Start 01/18/19 at 23:30 Dextrose (D50w Syringe) 25 ml Q15M PRN IV DECREASED GLUCOSE; Start 01/18/19 at 23:30 Dextrose (D50w Syringe) 50 ml Q15M PRN IV DECREASED GLUCOSE; Start 01/18/19 at 23:30 Glucagon (Glucagen) 1 mg Q15M PRN IM DECREASED GLUCOSE; Start 01/18/19 at 23:30 Glucose (Glutose) 15 gm Q15M PRN BUCCAL DECREASED GLUCOSE; Start 01/18/19 at 23:30 Miscellaneous Information (Pending [facility] Order For Wound Care) This patient berg... PRN PRN XX WOUND CARE; Start 01/19/19 at 02:00 Acetaminophen (Tylenol Supp) 650 mg Q6H PRN [place] temp > 100.4F Last administered on 01/19/19at 09:27; Admin Dose 650 MG; Start 01/19/19 at 09:00 TONIO SOOD MD Jan 19, 2019 11:48
[2019-01-19] MEDS ORDERED: FENTAnyl 50 MCG/ML VIAL ONE (16:21)
[2019-01-19] MEDS ORDERED: FENTAnyl 50 MCG/ML VIAL IV ONE (16:30)
--- NOTE | 2019-01-19 17:09 | CONS ---
Assessment/Plan Assessment/Plan Assessment/Plan (Daily) Grade 4 decubitus ulcer, needs debridement and wound VAC dressing. Consultation Date/Type/Reason Admit Date/Time Jan 18, 2019 at 04:19 Date of Consultation: Jan 19, 2019 Type of Consult Surgical Date/Time of Note DATE: 01/19/19 TIME: 16:57 Hx of Present Illness A 63-year-old male residing at longterm facility with history of a quadriplegia was brought in by the paramedics after he was noted to have hypoxia and altered mental status. Initial systolic blood pressure was 70 and oxygen saturation was in the mid 80s. The patient has bilateral lower extremity contractures, multiple sacral decubiti, type 2 diabetes mellitus and hypertension. Initial evaluation revealed acute hypoxemic respiratory failure and evidence of sepsis. The patient was intubated. White blood cell count was 14.6 and hemoglobin was low at 7. Serum sodium was 169 with BUN of 39 and creatinine of 3.08. Initial serum lactate was 2.7 and repeat serum lactate was 2.1. Chest x- ray showed dense left lower lobe infiltrate and possible effusion. Patient was admitted to the ICU and I was called for decubitus ulcers. Subjective hx not possible: other (Intubated) Past Medical History Medical History: diabetes, renal disease Home Meds Reported Medications Ommmrtrlylsr-Irus-Hswpngvw,Iso (ZOSYN 3.375 GM GALAXY BAG) 3.375 Gm/50 Ml Froz.piggy, 3.375 GM IVPB Q6, EA 01/18/19 Saccharomyces Boulardii* (Florastor*) 250 Mg Cap, 250 MG PO BID, CAP 01/18/19 Insulin Glargine* (Lantus*) 100 Unit/Ml Soln, 6 UNIT SC QHS, #1 VIAL 01/18/19 Ipratropium-Albuterol (Ipratropium-Albuterol) 0.5-3 Mg/3 Ml Ampul.neb, 3 ML INHALATION Q6 PRN for WHEEZING AND SOB, #30 VIAL 01/18/19 Lactulose* (Lactulose*) 20 Gm/30 Ml Solution, 20 GM PO BID, ML 01/18/19 Lamotrigine* (Lamotrigine*) 25 Mg Tablet, 25 MG PO BID, TAB 01/18/19 Escitalopram Oxalate* (Lexapro*) 10 Mg Tablet, 10 MG PO DAILY, #30 TAB 01/18/19 Magnesium Oxide* (Mag-Oxide*) 400 Mg Tablet, 400 MG PO TID, TAB 01/18/19 Multivitamin with Minerals (Daily Vitamin Formula-Minerals) 1 Each Tablet, 1 EACH PO DAILY, TAB 01/18/19 Hydrocodone/Acetaminophen ([place] 5-325 Tablet) 1 Each Tablet, 1 EACH PO Q4 PRN for PAIN 4-7, TAB 01/18/19 Hydrocodone/Acetaminophen ([place] 5-325 Tablet) 1 Each Tablet, 1 EACH PO 30 MIN PRIOR TO W/C PRN for PAIN, TAB 01/18/19 Hydrocodone/Acetaminophen ([place] 5-325 Tablet) 1 Each Tablet, 2 EACH PO Q4 PRN for PAIN 8-10, TAB 01/18/19 Amino Acids/Protein Hydrolys (Pro-Stat Awc Liquid) 30 Ml Liquid, 30 ML PO TID DILUTE WITH 30ML WATER 01/18/19 Tamsulosin Hcl* (Flomax*) 0.4 Mg Cap.er.24h, 0.4 MG PO HS, CAP 01/18/19 Vancomycin HCl (Vancomycin HCl) 1 Gm Vial, 1 GM IV DAILY PRN for FEVER, VIAL 01/18/19 Ascorbic Acid* (Vitamin C*) 500 Mg Capsule.sa, 500 MG PO DAILY, CAP 01/18/19 Levalbuterol Hcl* (Levalbuterol Hcl*) 0.63 Mg/3 Ml Vial.neb, 0.63 MG INHALATION Q6H PRN for WHEEZING AND SOB, VIAL 01/18/19 Sodium Phosphate,[place]-Dibasic (Enema Ready To Use) 133 Ml Enema, 133 ML RC EVERY 3 DAYS PRN for CONSTIPATION, ENEMA 01/18/19 Calcium Carbonate* (Calcium Carbonate*) 600 MG Ca Tab, 600 MG PO BID, TAB 01/18/19 Ceftriaxone Sod* (Rocephin* 1GM/50ML (PMX)) 1 Gm/50 Ml Iv.soln., 1 GM IVPB QHS, EA 01/18/19 Divalproex Sodium* (Divalproex Sodium*) 250 Mg Tablet.dr, 750 MG PO BID, #90 TAB 01/18/19 Ferrous Sulfate* (Ferrous Sulfate*) 325 Mg Tabec, 325 MG PO DAILY, TAB 01/18/19 Bisacodyl (Dulcolax) 10 Mg Supp.rect, 10 MG RC PRN PRN for CONSTIPATION, SUPP.RECT 01/18/19 Magnesium Hydroxide* (Milk Of Magnesia*) 400 Mg/5 Ml Oral.susp, 30 ML PO DAILY PRN for CONSTIPATION, ML 01/18/19 Atorvastatin* (Atorvastatin*) 40 Mg Tablet, 40 MG PO QHS, #30 TAB 01/18/19 Aspirin (Low Dose Aspirin) 81 Mg Tablet.dr, 81 MG PO DAILY, #30 TAB 01/18/19 Arginine/Ascorbate Sod/Eric AC (Arginaid Powder) 1 Each Powd.pack, 1 EACH PO BID DISOLVE IN 120MLS WATER 01/18/19 Acetylcysteine* (Mucomyst*) 4 Ml Soln, 3 ML NEB TID, EA 01/18/19 Acetaminophen* (Acetaminophen*) 650 Mg Tablet, 650 MG PO Q6H PRN for ELEVATED TEMPERATURE, #30 TAB OVER 101 01/18/19 Medications Current Medications Dextrose 1,000 ml @ 125 mls/hr Q8H IV Last administered on 01/19/19at 10:21; Admin Dose 125 MLS/HR; Start 01/18/19 at 09:30 Vancomycin HCl (Vanco Iv Per Pharmacy) VANCOMYCIN PER PHARMACY PER PROTOCOL XX ; Start 01/18/19 at 09:30 Piperacillin Sod/ Tazobactam Sod 50 ml @ 100 mls/hr Q8 IVPB Last administered on 01/19/19at 14:00; Admin Dose 100 MLS/HR; Start 01/18/19 at 09:30 Midazolam HCl 50 ml @ 1 mls/hr TITRATE IV Last administered on 01/19/19at 02:47; Admin Dose 2 MLS/HR; Start 01/18/19 at 23:30 Insulin Aspart (Novolog Insulin Pen) NOVOLOG *MODERATE* ALGORI... Q4H SC ; Start 01/19/19 at 01:00 Miscellaneous Information 1 ea NOTE XX ; Start 01/18/19 at 23:30 Glucose (Glutose) 15 gm Q15M PRN PO DECREASED GLUCOSE; Start 01/18/19 at 23:30 Glucose (Glutose) 22.5 gm Q15M PRN PO DECREASED GLUCOSE; Start 01/18/19 at 23:30 Dextrose (D50w Syringe) 25 ml Q15M PRN IV DECREASED GLUCOSE; Start 01/18/19 at 23:30 Dextrose (D50w Syringe) 50 ml Q15M PRN IV DECREASED GLUCOSE; Start 01/18/19 at 23:30 Glucagon (Glucagen) 1 mg Q15M PRN IM DECREASED GLUCOSE; Start 01/18/19 at 23:30 Glucose (Glutose) 15 gm Q15M PRN BUCCAL DECREASED GLUCOSE; Start 01/18/19 at 23:30 Miscellaneous Information (Pending [facility] Order For Wound Care) This patient berg... PRN PRN XX WOUND CARE; Start 01/19/19 at 02:00 Acetaminophen (Tylenol Supp) 650 mg Q6H PRN [place] temp > 100.4F Last administered on 01/19/19at 09:27; Admin Dose 650 MG; Start 01/19/19 at 09:00 Vancomycin HCl 1.5 gm/Sodium Chloride 250 ml @ 83.333 mls/ hr Q36H IVPB ; Start 01/19/19 at 23:00 Allergies: Coded Allergies: Sulfa (Sulfonamide Antibiotics) (Verified Allergy, Unknown, 01/18/19) Social History Smoking Status: Former smoker Exam/Review of Systems Exam Vitals Vital Signs Date Temp Pulse Resp B/P (MAP) Pulse Ox O2 O2 Flow FiO2 Time Delivery Rate 01/19/19 92 16:00 01/19/19 24 95 15:30 01/19/19 118/66 15:00 (83) 01/19/19 98.7 Mechanical 12:00 Ventilator 01/19/19 40 11:07 Intake and Output 01/18/19 01/18/19 01/19/19 1515:00 23:00 07:00 IntakeIntake Total 650 ml 672 ml 1009 ml OutputOutput Total 350 ml 400 ml 140 ml BalanceBalance 300 ml 272 ml 869 ml Extremities: other (Extremities are edematous posterior dry pressure ulcers on the both heels.) Skin: other (Large decubitus grade 4 pressure ulcer at the sacrum area with bone exposed) Results Result Diagram: 01/19/19 0430 01/19/19 0430 Results 24hrs Laboratory Tests Test 01/19/19 04:30 01/19/19 07:00 01/19/19 09:02 01/19/19 14:44 White Blood Count 13.8 H Red Blood Count 3.00 #L Hemoglobin 8.8 #L Hematocrit 29.1 L Mean Corpuscular 97.0 Volume Mean Corpuscular 29.3 Hemoglobin Mean Corpuscular 30.2 L Hemoglobin Concent Red Cell 19.9 H Distribution Width Platelet Count 122 L Mean Platelet 11.0 H Volume Immature 1.000 H Granulocytes % Neutrophils % Segmented 54 Neutrophils % (Manual) Band Neutrophils % 29 H (Manual) Lymphocytes % Lymphocytes % 14 L (Manual) Monocytes % Monocytes % 2 (Manual) Eosinophils % Basophils % Basophils % 1 (Manual) Nucleated Red 0.1 H Blood Cells % Immature 0.140 H Granulocytes # Neutrophils # Neutrophils # 8.0 H (Manual) Band Neutrophils # 4.0 H Lymphocytes 1.9 (Manual) Lymphocytes # Monocytes # Monocytes # 0.2 L (Manual) Eosinophils # Basophils # Basophils # 0.1 H (Manual) Nucleated Red Blood Cells # Platelet Estimate DECREASED Polychromasia 2+ Sodium Level 167 *H Potassium Level 3.3 L Chloride Level 139 H Carbon Dioxide 23 Level Anion Gap 5 Blood Urea 34 H Nitrogen Creatinine 2.48 H Est Glomerular 26 L Filtrat Rate mL/min Glucose Level 119 Uric Acid 6.2 Calcium Level 8.0 L Creatine Kinase 122 Blood Gas Specimen Blood arterial Source Arterial Blood 01/19/2019 8:14:28 Date Drawn AM Arterial Blood pH 7.414 (Temp corrected) Arterial Blood 30.2 L pCO2 (Temp correct) Arterial Blood pO2 93.2 (Temp corrected) Arterial Blood 18.9 L HCO3 Arterial Blood -4.8 L Base Excess Arterial Blood 96.4 Oxygen Saturation Aníbal Test ACCEPTAB Arterial Blood Gas Right Radial Puncture Site Arterial 0.3 Blood Carboxyhemog lobin Arterial Blood 0.3 Methemoglobin Blood Gas A-a O2 157.3 H Differential Oxyhemoglobin 95.8 Percent Blood Gas 37.0 Temperature Blood Gas 16.0 Respiration Rate Blood Gas Actual 25 Respiration Rate Blood Gas Modality VENT - AC FiO2 40.0 Blood Gas Tidal 500.0 Volume Blood Gas Low PEEP 5.0 Setting Blood Gas Notified TM Whom Blood Gas Notified 01/19/2019 8:37:06 Time AM Bedside Glucose 105 109 Medications Medication Current Medications Dextrose 1,000 ml @ 125 mls/hr Q8H IV Last administered on 01/19/19at 10:21; Admin Dose 125 MLS/HR; Start 01/18/19 at 09:30 Vancomycin HCl (Vanco Iv Per Pharmacy) VANCOMYCIN PER PHARMACY PER PROTOCOL XX ; Start 01/18/19 at 09:30 Piperacillin Sod/ Tazobactam Sod 50 ml @ 100 mls/hr Q8 IVPB Last administered on 01/19/19at 14:00; Admin Dose 100 MLS/HR; Start 01/18/19 at 09:30 Midazolam HCl 50 ml @ 1 mls/hr TITRATE IV Last administered on 01/19/19at 02:47; Admin Dose 2 MLS/HR; Start 01/18/19 at 23:30 Insulin Aspart (Novolog Insulin Pen) NOVOLOG *MODERATE* ALGORI... Q4H SC ; Start 01/19/19 at 01:00 Miscellaneous Information 1 ea NOTE XX ; Start 01/18/19 at 23:30 Glucose (Glutose) 15 gm Q15M PRN PO DECREASED GLUCOSE; Start 01/18/19 at 23:30 Glucose (Glutose) 22.5 gm Q15M PRN PO DECREASED GLUCOSE; Start 01/18/19 at 23:30 Dextrose (D50w Syringe) 25 ml Q15M PRN IV DECREASED GLUCOSE; Start 01/18/19 at 23:30 Dextrose (D50w Syringe) 50 ml Q15M PRN IV DECREASED GLUCOSE; Start 01/18/19 at 23:30 Glucagon (Glucagen) 1 mg Q15M PRN IM DECREASED GLUCOSE; Start 01/18/19 at 23:30 Glucose (Glutose) 15 gm Q15M PRN BUCCAL DECREASED GLUCOSE; Start 01/18/19 at 23:30 Miscellaneous Information (Pending [facility] Order For Wound Care) This patient berg... PRN PRN XX WOUND CARE; Start 01/19/19 at 02:00 Acetaminophen (Tylenol Supp) 650 mg Q6H PRN [place] temp > 100.4F Last administered on 01/19/19at 09:27; Admin Dose 650 MG; Start 01/19/19 at 09:00 Vancomycin HCl 1.5 gm/Sodium Chloride 250 ml @ 83.333 mls/ hr Q36H IVPB ; Start 01/19/19 at 23:00 DALTON MCADAMS MD Jan 19, 2019 17:08
--- NOTE | 2019-01-19 17:12 | OPR ---
Date/Time of Note Date/Time of Note DATE: 01/19/19 TIME: 17:09 Operative Report Procedure Date: Jan 19, 2019 Preoperative Diagnosis Sacral decubitus ulcer grade 4 Postoperative Diagnosis The same Operation/Procedure Performed Debridement of the sacral decubitus ulcer and vacuum dressing applied Surgeon see signature line Ux Ui Designer None Anesthesia Type: moderate sedation Estimated Blood Loss: 0 - 10 ml's Transfusion none Specimen None Grafts/Implants none Complications none Pt Condition Post Procedure: critical Disposition: other (ICU) Indications Large decubitus ulcer 20 x 20 cm in the sacral area with bone exposed Procedure Description The patient was placed in the left lateral decubitus position. The old dressing was removed. The wound was debrided using Munoz scissors until the viable tissue encountered. After that pulse irrigation was used to washout the that partic les. The form from wound VAC dressing was trimmed accordingly and placed in the wound. Sterile adhesive dressing was applied. Wound VAC machine connected. However because of the moderate bleeding no vacuum was maintained. The dressing was reapplied. DALTON MCADAMS MD Jan 19, 2019 17:12
[2019-01-19] MEDS ORDERED: KETOROLAC 30 MG INJ IV STA (18:59)
[2019-01-19] MEDS ORDERED: KETOROLAC 15 MG INJ IV PRN (19:00)
[2019-01-19] MEDS: NORepinephrine 8MG/250 ML (PMX 250 ML IV SCH (20:10)
--- NOTE | 2019-01-19 20:29 | CONS ---
Assessment/Plan Assessment/Plan Problems: (1) Decubitus ulcer, heel, left, unstageable Comment: Currently there is no clinical indication of infection coming from the left heel decubitus ulceration. Continue heel protection and elevation. Continue dry dressing changes. Continue to monitor. (2) Decubitus ulcer of right heel, stage 1 Comment: Currently there is no clinical indication of infection. There is webspace maceration on the right foot which needs to be painted with Betadine. Monitor daily. (3) Onychomycosis Comment: Debridement at bedside will be arranged. (4) Acute kidney injury Status: Acute (5) Acute respiratory failure Status: Acute Qualifiers: Qualified Codes: J96.01 - Acute respiratory failure with hypoxia; J96.02 - Acute respiratory failure with hypercapnia (6) Acute dehydration Status: Acute (7) Septic shock Status: Acute (8) Healthcare-associated pneumonia Status: Acute (9) Erythrasma Comment: Betadine to be painted between the third and fourth webspace on the right foot. Assessment/Plan (Daily) Thank you again for involving me in the care of this patient. If you have any questions regarding this case, please feel free to contact me at pager: [phone] or reach me at mobile: [phone]. Consultation Date/Type/Reason Admit Date/Time Jan 18, 2019 at 04:19 Date of Consultation: Jan 19, 2019 Type of Consult Foot and ankle surgery Reason for Consultation Evaluation of multiple ulcerations of both feet Date/Time of Note DATE: 01/19/19 TIME: 20:23 Hx of Present Illness Thank you very much for your kind consultation. As you very well know this is a 63-year-old male patient who normally resides at a [place] [facility] facility with history of quadriplegia. He was brought in by paramedics after he was noted to have hypoxia and altered mental status. Currently he is at the intensive care unit at [facility]. Patient has multiple medical problems including type 2 diabetes mellitus, hypertension, multiple sacral decubiti, current multiple foot decubitus ulcerations. Patient's family was present in the room. Subjective hx not possible: pt non-verbal Past Medical History Medical History: diabetes, renal disease Home Meds Reported Medications Fhjwkkvufjrb-Lbet-Rirzzfwx,Iso (ZOSYN 3.375 GM GALAXY BAG) 3.375 Gm/50 Ml Froz.piggy, 3.375 GM IVPB Q6, EA 01/18/19 Saccharomyces Boulardii* (Florastor*) 250 Mg Cap, 250 MG PO BID, CAP 01/18/19 Insulin Glargine* (Lantus*) 100 Unit/Ml Soln, 6 UNIT SC QHS, #1 VIAL 01/18/19 Ipratropium-Albuterol (Ipratropium-Albuterol) 0.5-3 Mg/3 Ml Ampul.neb, 3 ML INHALATION Q6 PRN for WHEEZING AND SOB, #30 VIAL 01/18/19 Lactulose* (Lactulose*) 20 Gm/30 Ml Solution, 20 GM PO BID, ML 01/18/19 Lamotrigine* (Lamotrigine*) 25 Mg Tablet, 25 MG PO BID, TAB 01/18/19 Escitalopram Oxalate* (Lexapro*) 10 Mg Tablet, 10 MG PO DAILY, #30 TAB 01/18/19 Magnesium Oxide* (Mag-Oxide*) 400 Mg Tablet, 400 MG PO TID, TAB 01/18/19 Multivitamin with Minerals (Daily Vitamin Formula-Minerals) 1 Each Tablet, 1 EACH PO DAILY, TAB 01/18/19 Hydrocodone/Acetaminophen ([place] 5-325 Tablet) 1 Each Tablet, 1 EACH PO Q4 PRN for PAIN 4-7, TAB 01/18/19 Hydrocodone/Acetaminophen ([place] 5-325 Tablet) 1 Each Tablet, 1 EACH PO 30 MIN PRIOR TO W/C PRN for PAIN, TAB 01/18/19 Hydrocodone/Acetaminophen ([place] 5-325 Tablet) 1 Each Tablet, 2 EACH PO Q4 PRN for PAIN 8-10, TAB 01/18/19 Amino Acids/Protein Hydrolys (Pro-Stat Awc Liquid) 30 Ml Liquid, 30 ML PO TID DILUTE WITH 30ML WATER 01/18/19 Tamsulosin Hcl* (Flomax*) 0.4 Mg Cap.er.24h, 0.4 MG PO HS, CAP 01/18/19 Vancomycin HCl (Vancomycin HCl) 1 Gm Vial, 1 GM IV DAILY PRN for FEVER, VIAL 01/18/19 Ascorbic Acid* (Vitamin C*) 500 Mg Capsule.sa, 500 MG PO DAILY, CAP 01/18/19 Levalbuterol Hcl* (Levalbuterol Hcl*) 0.63 Mg/3 Ml Vial.neb, 0.63 MG INHALATION Q6H PRN for WHEEZING AND SOB, VIAL 01/18/19 Sodium Phosphate,[place]-Dibasic (Enema Ready To Use) 133 Ml Enema, 133 ML RC EVERY 3 DAYS PRN for CONSTIPATION, ENEMA 01/18/19 Calcium Carbonate* (Calcium Carbonate*) 600 MG Ca Tab, 600 MG PO BID, TAB 01/18/19 Ceftriaxone Sod* (Rocephin* 1GM/50ML (PMX)) 1 Gm/50 Ml Iv.soln., 1 GM IVPB QHS, EA 01/18/19 Divalproex Sodium* (Divalproex Sodium*) 250 Mg Tablet.dr, 750 MG PO BID, #90 TAB 01/18/19 Ferrous Sulfate* (Ferrous Sulfate*) 325 Mg Tabec, 325 MG PO DAILY, TAB 01/18/19 Bisacodyl (Dulcolax) 10 Mg Supp.rect, 10 MG RC PRN PRN for CONSTIPATION, SUPP.RECT 01/18/19 Magnesium Hydroxide* (Milk Of Magnesia*) 400 Mg/5 Ml Oral.susp, 30 ML PO DAILY PRN for CONSTIPATION, ML 01/18/19 Atorvastatin* (Atorvastatin*) 40 Mg Tablet, 40 MG PO QHS, #30 TAB 01/18/19 Aspirin (Low Dose Aspirin) 81 Mg Tablet.dr, 81 MG PO DAILY, #30 TAB 01/18/19 Arginine/Ascorbate Sod/Eric AC (Arginaid Powder) 1 Each Powd.pack, 1 EACH PO BID DISOLVE IN 120MLS WATER 01/18/19 Acetylcysteine* (Mucomyst*) 4 Ml Soln, 3 ML NEB TID, EA 01/18/19 Acetaminophen* (Acetaminophen*) 650 Mg Tablet, 650 MG PO Q6H PRN for ELEVATED TEMPERATURE, #30 TAB OVER 101 01/18/19 Medications Current Medications Dextrose 1,000 ml @ 125 mls/hr Q8H IV Last administered on 01/19/19at 18:04; Admin Dose 125 MLS/HR; Start 01/18/19 at 09:30 Vancomycin HCl (Vanco Iv Per Pharmacy) VANCOMYCIN PER PHARMACY PER PROTOCOL XX ; Start 01/18/19 at 09:30 Piperacillin Sod/ Tazobactam Sod 50 ml @ 100 mls/hr Q8 IVPB Last administered on 01/19/19at 14:00; Admin Dose 100 MLS/HR; Start 01/18/19 at 09:30 Midazolam HCl 50 ml @ 1 mls/hr TITRATE IV Last administered on 01/19/19at 02:47; Admin Dose 2 MLS/HR; Start 01/18/19 at 23:30 Insulin Aspart (Novolog Insulin Pen) NOVOLOG *MODERATE* ALGORI... Q4H SC ; Start 01/19/19 at 01:00 Miscellaneous Information 1 ea NOTE XX ; Start 01/18/19 at 23:30 Glucose (Glutose) 15 gm Q15M PRN PO DECREASED GLUCOSE; Start 01/18/19 at 23:30 Glucose (Glutose) 22.5 gm Q15M PRN PO DECREASED GLUCOSE; Start 01/18/19 at 23:30 Dextrose (D50w Syringe) 25 ml Q15M PRN IV DECREASED GLUCOSE; Start 01/18/19 at 23:30 Dextrose (D50w Syringe) 50 ml Q15M PRN IV DECREASED GLUCOSE; Start 01/18/19 at 23:30 Glucagon (Glucagen) 1 mg Q15M PRN IM DECREASED GLUCOSE; Start 01/18/19 at 23:30 Glucose (Glutose) 15 gm Q15M PRN BUCCAL DECREASED GLUCOSE; Start 01/18/19 at 23:30 Miscellaneous Information (Pending [facility] Order For Wound Care) This patient berg... PRN PRN XX WOUND CARE; Start 01/19/19 at 02:00 Acetaminophen (Tylenol Supp) [address] temp > 100.4F Last administered on 01/19/19at 09:27; Admin Dose 650 MG; Start 01/19/19 at 09:00 Vancomycin HCl 1.5 gm/Sodium Chloride 250 ml @ 83.333 mls/ hr Q36H IVPB ; Start 01/19/19 at 23:00 Ketorolac Tromethamine (Toradol) 15 mg Q6H PRN IV PAIN; Start 01/19/19 at 19:00; Stop 01/22/19 at 18:59 Norepinephrine 250 ml @ 1.875 mls/ hr TITRATE IV Last administered on 01/19/19at 20:10; Admin Dose 15 MLS/HR; Start 01/19/19 at 20:00 Sodium Hypochlorite ([place]ak[place] Diluted ()) 1 applic BID TP ; Start 01/19/19 at 21:00 Allergies: Coded Allergies: Sulfa (Sulfonamide Antibiotics) (Verified Allergy, Unknown, 01/18/19) Social History Smoking Status: Former smoker Exam/Review of Systems Exam Vitals Vital Signs Date Temp Pulse Resp B/P (MAP) Pulse Ox O2 O2 Flow FiO2 Time Delivery Rate 01/19/19 118 35 99/61 (74) 93 18:30 01/19/19 40 17:33 01/19/19 98.8 Mechanical 16:00 Ventilator Intake and Output 01/18/19 01/18/19 01/19/19 1515:00 23:00 07:00 IntakeIntake Total 650 ml 672 ml 1009 ml OutputOutput Total 350 ml 400 ml 140 ml BalanceBalance 300 ml 272 ml 869 ml Exam Patient is laying supine in bed, intubated and nonverbal. Bilateral feet are in heel elevators and protectors. Both were removed along with the bandaging. On the left foot patient has a dry 3 x 3 cm black eschar located on the medial aspect of the left heel. There is no indication of fluctuance on examination and no erythema surrounding the wound. There is no bleeding and no pus present. No malodor noted. Patient does have a small area of excoriation on the lateral left foot as well along with thickened yellow toenails. The right foot has a m ilder dry eschar on the medial aspect of the heel along with a larger decubitus ulceration on the lateral right foot. Patient has +2 dorsalis pedis and posterior tibial pulses bilaterally with extensive edema of the foot on both sides. Labs reviewed. Results Result Diagram: 01/19/19 0430 01/19/19 0430 Results 24hrs Laboratory Tests Test 01/19/19 04:30 01/19/19 07:00 01/19/19 09:02 01/19/19 14:44 White Blood Count 13.8 H Red Blood Count 3.00 #L Hemoglobin 8.8 #L Hematocrit 29.1 L Mean Corpuscular 97.0 Volume Mean Corpuscular 29.3 Hemoglobin Mean Corpuscular 30.2 L Hemoglobin Concent Red Cell 19.9 H Distribution Width Platelet Count 122 L Mean Platelet 11.0 H Volume Immature 1.000 H Granulocytes % Neutrophils % Segmented 54 Neutrophils % (Manual) Band Neutrophils % 29 H (Manual) Lymphocytes % Lymphocytes % 14 L (Manual) Monocytes % Monocytes % 2 (Manual) Eosinophils % Basophils % Basophils % 1 (Manual) Nucleated Red 0.1 H Blood Cells % Immature 0.140 H Granulocytes # Neutrophils # Neutrophils # 8.0 H (Manual) Band Neutrophils # 4.0 H Lymphocytes 1.9 (Manual) Lymphocytes # Monocytes # Monocytes # 0.2 L (Manual) Eosinophils # Basophils # Basophils # 0.1 H (Manual) Nucleated Red Blood Cells # Platelet Estimate DECREASED Polychromasia 2+ Sodium Level 167 *H Potassium Level 3.3 L Chloride Level 139 H Carbon Dioxide 23 Level Anion Gap 5 Blood Urea 34 H Nitrogen Creatinine 2.48 H Est Glomerular 26 L Filtrat Rate mL/min Glucose Level 119 Uric Acid 6.2 Calcium Level 8.0 L Creatine Kinase 122 Blood Gas Specimen Blood arterial Source Arterial Blood 01/19/2019 8:14:28 Date Drawn AM Arterial Blood pH 7.414 (Temp corrected) Arterial Blood 30.2 L pCO2 (Temp correct) Arterial Blood pO2 93.2 (Temp corrected) Arterial Blood 18.9 L HCO3 Arterial Blood -4.8 L Base Excess Arterial Blood 96.4 Oxygen Saturation Aníbal Test ACCEPTAB Arterial Blood Gas Right Radial Puncture Site Arterial 0.3 Blood Carboxyhemog lobin Arterial Blood 0.3 Methemoglobin Blood Gas A-a O2 157.3 H Differential Oxyhemoglobin 95.8 Percent Blood Gas 37.0 Temperature Blood Gas 16.0 Respiration Rate Blood Gas Actual 25 Respiration Rate Blood Gas Modality VENT - AC FiO2 40.0 Blood Gas Tidal 500.0 Volume Blood Gas Low PEEP 5.0 Setting Blood Gas Notified TM Whom Blood Gas Notified 01/19/2019 8:37:06 Time AM Bedside Glucose 105 109 Test 01/19/19 18:00 Bedside Glucose 130 Medications Medication Current Medications Dextrose 1,000 ml @ 125 mls/hr Q8H IV Last administered on 01/19/19at 18:04; Admin Dose 125 MLS/HR; Start 01/18/19 at 09:30 Vancomycin HCl (Vanco Iv Per Pharmacy) VANCOMYCIN PER PHARMACY PER PROTOCOL XX ; Start 01/18/19 at 09:30 Piperacillin Sod/ Tazobactam Sod 50 ml @ 100 mls/hr Q8 IVPB Last administered on 01/19/19at 14:00; Admin Dose 100 MLS/HR; Start 01/18/19 at 09:30 Midazolam HCl 50 ml @ 1 mls/hr TITRATE IV Last administered on 01/19/19at 02:47; Admin Dose 2 MLS/HR; Start 01/18/19 at 23:30 Insulin Aspart (Novolog Insulin Pen) NOVOLOG *MODERATE* ALGORI... Q4H SC ; Start 01/19/19 at 01:00 Miscellaneous Information 1 ea NOTE XX ; Start 01/18/19 at 23:30 Glucose (Glutose) 15 gm Q15M PRN PO DECREASED GLUCOSE; Start 01/18/19 at 23:30 Glucose (Glutose) 22.5 gm Q15M PRN PO DECREASED GLUCOSE; Start 01/18/19 at 23:30 Dextrose (D50w Syringe) 25 ml Q15M PRN IV DECREASED GLUCOSE; Start 01/18/19 at 23:30 Dextrose (D50w Syringe) 50 ml Q15M PRN IV DECREASED GLUCOSE; Start 01/18/19 at 23:30 Glucagon (Glucagen) 1 mg Q15M PRN IM DECREASED GLUCOSE; Start 01/18/19 at 23:30 Glucose (Glutose) 15 gm Q15M PRN BUCCAL DECREASED GLUCOSE; Start 01/18/19 at 23:30 Miscellaneous Information (Pending [facility] Order For Wound Care) This patient berg... PRN PRN XX WOUND CARE; Start 01/19/19 at 02:00 Acetaminophen (Tylenol Supp) [address] temp > 100.4F Last administered on 01/19/19at 09:27; Admin Dose 650 MG; Start 01/19/19 at 09:00 Vancomycin HCl 1.5 gm/Sodium Chloride 250 ml @ 83.333 mls/ hr Q36H IVPB ; Start 01/19/19 at 23:00 Ketorolac Tromethamine (Toradol) 15 mg Q6H PRN IV PAIN; Start 01/19/19 at 19:00; Stop 01/22/19 at 18:59 Norepinephrine 250 ml @ 1.875 mls/ hr TITRATE IV Last administered on 01/19/19at 20:10; Admin Dose 15 MLS/HR; Start 01/19/19 at 20:00 Sodium Hypochlorite (Dakins Diluted (1/40)) 1 applic BID TP ; Start 01/19/19 at 21:00 CHAPO DENTON DPM Jan 19, 2019 20:29
[2019-01-19] MEDS: DAKINS 0.0125%(1/40) 473 ML SOLUTION TP SCH (21:00)
[2019-01-19] MEDS: VANCOMYCIN HCL 1.5 GM in SOD CHLORIDE 0.9% 250 ML IVPB SCH (23:00)
[2019-01-20] VITALS (90 sets, daily range): BP systolic 86–125; BP diastolic 47–70; PULSE 70–97; RESP 13–31
[2019-01-20] MEDS: INSULIN ASPART [NOVOLOG] 3 ML PEN SC SCH ×6 (03:03→20:22)
[2019-01-20] MEDS: PIPER-TAZO 2.25 GM (PMX) 50 ML IVPB SCH ×3 (05:14→21:05)
[2019-01-20] MEDS: DEXTROSE 5% 1,000 ML IV SCH ×4 (05:15→21:06)
[2019-01-20] MEDS ORDERED: SOD CHLORIDE 0.9% 250 ML IV* ONE (07:05)
[2019-01-20] MEDS ORDERED: POTASSIUM CHLORIDE 20 MEQ POWDER FOR ORAL SOLN GTB ONE (07:30)
--- NOTE | 2019-01-20 08:58 | PN ---
Date/Time of Note Date/Time of Note DATE: 01/20/19 TIME: 08:55 Subjective Remains intubated and sedated Objective Vitals Vital Signs Date Temp Pulse Resp B/P (MAP) Pulse Ox O2 O2 Flow FiO2 Time Delivery Rate 01/20/19 98.1 77 23 113/61 97 Mechanical 08:00 (78) Ventilator 01/20/19 30 07:24 Intake and Output 01/19/19 01/19/19 01/20/19 1515:00 23:00 07:00 IntakeIntake Total 915 ml 1304.625 ml 1264.25 ml OutputOutput Total 1250 ml 610 ml 255 ml BalanceBalance -335 ml 694.625 ml 1009.25 ml Bilateral rhonchi Regular rate and rhythm no murmurs or gallops Soft normoactive bowel sounds No edema Results Result Diagram: 01/20/1942901/20/19429 Medications Medications Current Medications Dextrose 1,000 ml @ 125 mls/hr Q8H IV Last administered on 01/20/19at 05:15; Admin Dose 125 MLS/HR; Start 01/18/19 at 09:30 Vancomycin HCl (Vanco Iv Per Pharmacy) VANCOMYCIN PER PHARMACY PER PROTOCOL XX ; Start 01/18/19 at 09:30 Piperacillin Sod/ Tazobactam Sod 50 ml @ 100 mls/hr Q8 IVPB Last administered on 01/20/19at 05:14; Admin Dose 100 MLS/HR; Start 01/18/19 at 09:30 Midazolam HCl 50 ml @ 1 mls/hr TITRATE IV Last administered on 01/19/19at 02:47; Admin Dose 2 MLS/HR; Start 01/18/19 at 23:30 Insulin Aspart (Novolog Insulin Pen) NOVOLOG *MODERATE* ALGORI... Q4H SC Last administered on 01/20/19at 08:42; Admin Dose 2 UNIT; Start 01/19/19 at 01:00 Miscellaneous Information 1 ea NOTE XX ; Start 01/18/19 at 23:30 Glucose (Glutose) 15 gm Q15M PRN PO DECREASED GLUCOSE; Start 01/18/19 at 23:30 Glucose (Glutose) 22.5 gm Q15M PRN PO DECREASED GLUCOSE; Start 01/18/19 at 23:30 Dextrose (D50w Syringe) 25 ml Q15M PRN IV DECREASED GLUCOSE; Start 01/18/19 at 23:30 Dextrose (D50w Syringe) 50 ml Q15M PRN IV DECREASED GLUCOSE; Start 01/18/19 at 23:30 Glucagon (Glucagen) 1 mg Q15M PRN IM DECREASED GLUCOSE; Start 01/18/19 at 23:30 Glucose (Glutose) 15 gm Q15M PRN BUCCAL DECREASED GLUCOSE; Start 01/18/19 at 23:30 Miscellaneous Information [facility] This patient berg... PRN PRN XX WOUND CARE; Start 01/19/19 at 02:00 Acetaminophen (Tylenol Supp) 650 mg Q6H PRN [place] temp > 100.4F Last administered on 01/19/19at 09:27; Admin Dose 650 MG; Start 01/19/19 at 09:00 Vancomycin HCl 1.5 gm/Sodium Chloride 250 ml @ 83.333 mls/ hr Q36H IVPB Last administered on 01/19/19at 23:00; Admin Dose 83.333 MLS/HR; Start 01/19/19 at 23:00 Ketorolac Tromethamine (Toradol) 15 mg Q6H PRN IV PAIN; Start 01/19/19 at 19:00; Stop 01/22/19 at 18:59 Norepinephrine 250 ml @ 1.875 mls/ hr TITRATE IV Last administered on 01/19/19at 20:10; Admin Dose 15 MLS/HR; Start 01/19/19 at 20:00 Sodium Hypochlorite (Dakins Diluted (1/40)) 1 applic BID TP ; Start 01/19/19 at 21:00 VTE Prophylaxis Risk score (from Nsg)>0 risk: 10 SCD applied (from Nsg): Yes Lines/Catheters IV Catheter Type: Saline Lock Jenkins in Place: Yes Cont'd jenkins catheter reason: pres ulcer contaminated by urine Assessment/Plan Assessment/Plan 63-year-old male with recurrent aspiration pneumonia Acute hypoxemic respiratory failure Dysphasia History of hemorrhagic CVA Chronic debilitation Sacral decubitus ulcer. Status post bedside debridement Bilateral heel pressure ulcers with eschar Recurrent anemia due to acute blood loss Type 2 diabetes mellitus Acute on chronic kidney disease Hypokalemia Continue current therapy Transfuse 2 units of packed RBC Potassium supplementation Pulmonary, podiatry, general surgery follow-up FELICITAS LAZARO MD 2, 2019 08:58
[2019-01-20] MEDS: DAKINS 0.0125%(1/40) 473 ML SOLUTION TP SCH ×2 (09:02→21:58)
--- NOTE | 2019-01-20 09:44 | CONS ---
Consult Date/Type/Reason Admit Date/Time Jan 18, 2019 at 04:19 Initial Consult Date Type of Consult Pulmonary Date/Time of Note DATE: 01/20/19 TIME: 09:43 Subjective Status post debridement of sacral decubitus ulcer with moderate blood loss currently requiring vasopressors and receiving packed red blood cells. Neurologically remains unchanged. Objective Vital Signs Date Temp Pulse Resp B/P (MAP) Pulse Ox O2 O2 Flow FiO2 Time Delivery Rate 01/20/19 77 08:00 01/20/19 98.1 23 113/61 97 Mechanical 08:00 (78) Ventilator 01/20/19 30 07:24 Intake and Output 01/19/19 01/19/19 01/20/19 1515:00 23:00 07:00 IntakeIntake Total 915 ml 1304.625 ml 1264.25 ml OutputOutput Total 1250 ml 610 ml 255 ml BalanceBalance -335 ml 694.625 ml 1009.25 ml Exam PHYSICAL EXAMINATION: GENERAL: Elderly gentleman, orally intubated on mechanical ventilation, appears comfortable at rest, no acute distress. VITAL SIGNS: NECK: Supple. No JVD or lymphadenopathy. CARDIAC: S1, S2, no added sounds or murmurs. CHEST: Diminished air entry bilaterally. ABDOMEN: Soft, nontender. No guarding or rebound. EXTREMITIES: No cyanosis, clubbing of bleeding. NEUROLOGIC: Generalized weakness. Vent Setting Ventilator Support Mode: AC Fraction of Inspired Oxygen pe: 30 Positive End Expiratory Pressu: 5.0 Results/Medications Result Diagram: 01/20/19 0430 01/20/19 0430 Results 24 hrs Laboratory Tests Test 01/19/19 14:44 01/19/19 18:00 01/20/19 02:57 01/20/19 04:30 Bedside Glucose 109 130 180 White Blood Count 13.4 H Red Blood Count 2.43 L Hemoglobin 7.2 L Hematocrit 23.7 L Mean Corpuscular 97.5 Volume Mean Corpuscular 29.6 Hemoglobin Mean Corpuscular 30.4 L Hemoglobin Concent Red Cell 19.1 H Distribution Width Platelet Count 81 #L Mean Platelet 11.3 H Volume Immature 0.700 H Granulocytes % Neutrophils % 74.3 Lymphocytes % 19.2 Monocytes % 4.0 Eosinophils % 1.6 Basophils % 0.2 Nucleated Red Blood 0.1 H Cells % Immature 0.100 H Granulocytes # Neutrophils # 9.9 H Lymphocytes # 2.6 Monocytes # 0.5 Eosinophils # 0.2 Basophils # 0.0 Nucleated Red Blood 0.0 Cells # Sodium Level 160 H Potassium Level 2.9 *L Chloride Level 133 H Carbon Dioxide 23 Level Anion Gap 4 L Blood Urea Nitrogen 35 H Creatinine 2.57 H Est Glomerular 25 L Filtrat Rate mL/min Glucose Level 136 Calcium Level 8.0 L Test 01/20/19 04:46 01/20/19 05:26 01/20/19 08:28 Lab Scanned Report BLOOD TRANSFUSION Bedside Glucose 143 158 Medications Current Medications Dextrose 1,000 ml @ 125 mls/hr Q8H IV Last administered on 01/20/19at 05:15; Admin Dose 125 MLS/HR; Start 01/18/19 at 09:30 Vancomycin HCl (Vanco Iv Per Pharmacy) VANCOMYCIN PER PHARMACY PER PROTOCOL XX ; Start 01/18/19 at 09:30 Piperacillin Sod/ Tazobactam Sod 50 ml @ 100 mls/hr Q8 IVPB Last administered on 01/20/19at 05:14; Admin Dose 100 MLS/HR; Start 01/18/19 at 09:30 Midazolam HCl 50 ml @ 1 mls/hr TITRATE IV Last administered on 01/19/19at 02:47; Admin Dose 2 MLS/HR; Start 01/18/19 at 23:30 Insulin Aspart (Novolog Insulin Pen) NOVOLOG *MODERATE* ALGORI... Q4H SC Last administered on 01/20/19at 08:42; Admin Dose 2 UNIT; Start 01/19/19 at 01:00 Miscellaneous Information 1 ea NOTE XX ; Start 01/18/19 at 23:30 Glucose (Glutose) 15 gm Q15M PRN PO DECREASED GLUCOSE; Start 01/18/19 at 23:30 Glucose (Glutose) 22.5 gm Q15M PRN PO DECREASED GLUCOSE; Start 01/18/19 at 23:30 Dextrose (D50w Syringe) 25 ml Q15M PRN IV DECREASED GLUCOSE; Start 01/18/19 at 23:30 Dextrose (D50w Syringe) 50 ml Q15M PRN IV DECREASED GLUCOSE; Start 01/18/19 at 23:30 Glucagon (Glucagen) 1 mg Q15M PRN IM DECREASED GLUCOSE; Start 01/18/19 at 23:30 Glucose (Glutose) 15 gm Q15M PRN BUCCAL DECREASED GLUCOSE; Start 01/18/19 at 23:30 Miscellaneous Information (Pending [facility] Order For Wound Care) This patient berg... PRN PRN XX WOUND CARE; Start 01/19/19 at 02:00 Acetaminophen (Tylenol Supp) 650 mg Q6H PRN [place] temp > 100.4F Last administered on 01/19/19at 09:27; Admin Dose 650 MG; Start 01/19/19 at 09:00 Vancomycin HCl 1.5 gm/Sodium Chloride 250 ml @ 83.333 mls/ hr Q36H IVPB Last administered on 01/19/19at 23:00; Admin Dose 83.333 MLS/HR; Start 01/19/19 at 23:00 Ketorolac Tromethamine (Toradol) 15 mg Q6H PRN IV PAIN; Start 01/19/19 at 19:00; Stop 01/22/19 at 18:59 Norepinephrine 250 ml @ 1.875 mls/ hr TITRATE IV Last administered on 01/19/19at 20:10; Admin Dose 15 MLS/HR; Start 01/19/19 at 20:00 Sodium Hypochlorite (Dakins Diluted (/40)) 1 applic BID TP Last administered on 01/20/19at 09:02; Admin Dose 1 APPLIC; Start 01/19/19 at 21:00 Assessment/Plan Hospital Course (Demo Recall) IMPRESSION: 1. Likely healthcare-associated pneumonia. 2. Status post septic shock. 3. Functional quadriplegia. 4. History of dysphagia. 5. Hypoxemic respiratory failure 6. Significant decubitus ulcer status post debridement. PLAN: 1. Continue broad-spectrum antibiotics. 2. Antibiotics per primary team 3. Vasopressor support. 4. Volume resuscitation. PRBCs 5. Increase free water per nasogastric tube. 6. Continue mechanical ventilation. 7. Nasogastric tube feeding Critical care time 40 minutes overall prognosis guarded. BHAVIN BARROW MD, [facility] Jan 20, 2019 09:44
[2019-01-20] MEDS ORDERED: POTASSIUM CHLORIDE 100 ML IVPB ONE (10:00)
--- NOTE | 2019-01-20 10:06 | CONS ---
Assessment/Plan Assessment/Plan Assessment/Plan (Daily) 1. acute hyperkalemia 2. acute On chronic renal failure due to ATN from septic shock 3. acute hypoxemic respiratory failure intubated on ventilator 2/2 Health care associated PNA 4. Septic shock on levophed 2/2 PNA 5. acute hypernatremia 6. H/O quadriplegia 7. H/o CAD s/p CABG 8. H/O HTN 9. H/o sacral decubitus s/p debridement before 10. [facility] Plan: BUN/cr 34/2.27, Na improved to 156- Continue IVF D5W at 125 cc/hr , making good urine output IV abx zosyn and vancomycin for PNA coverage, Renally dose all abx and monitor electorlytes no acute indication for HD at this time Ventilator management as per pulmonary will follow up Consultation Date/Type/Reason Admit Date/Time Jan 18, 2019 at 04:19 Initial Consult Date Type of Consult NEPHROLOGY Requesting Provider: FELICITAS LAZARO MD Date/Time of Note DATE: 01/20/19 TIME: 10:06 Exam/Review of Systems Exam Vitals Vital Signs Date Temp Pulse Resp B/P (MAP) Pulse Ox O2 O2 Flow FiO2 Time Delivery Rate 01/20/19 80 27 97 30 09:49 01/20/19 98.1 113/61 Mechanical 08:00 (78) Ventilator Intake and Output 01/19/19 01/19/19 01/20/19 1515:00 23:00 07:00 IntakeIntake Total 915 ml 1304.625 ml 1264.25 ml OutputOutput Total 1250 ml 610 ml 255 ml BalanceBalance -335 ml 694.625 ml 1009.25 ml Exam GENERAL: , orally intubated on mechanical ventilation, appears comfortable at rest, no acute distress. NECK: Supple. No JVD or lymphadenopathy. CARDIAC: S1, S2, RRR, no murmur CHEST: Bilateral coarse BS+, no wheezing ABDOMEN: Soft, nontender. No guarding or rebound. EXTREMITIES: No cyanosis, clubbing of bleeding. + jenkins catheter NEUROLOGIC: Generalized weakness. Results Result Diagram: 01/20/19 0430 01/20/19 0430 Results 24hrs Laboratory Tests Test 01/19/19 14:44 01/19/19 18:00 01/20/19 02:57 01/20/19 04:30 Bedside Glucose 109 130 180 White Blood Count 13.4 H Red Blood Count 2.43 L Hemoglobin 7.2 L Hematocrit 23.7 L Mean Corpuscular 97.5 Volume Mean Corpuscular 29.6 Hemoglobin Mean Corpuscular 30.4 L Hemoglobin Concent Red Cell 19.1 H Distribution Width Platelet Count 81 #L Mean Platelet 11.3 H Volume Immature 0.700 H Granulocytes % Neutrophils % 74.3 Lymphocytes % 19.2 Monocytes % 4.0 Eosinophils % 1.6 Basophils % 0.2 Nucleated Red Blood 0.1 H Cells % Immature 0.100 H Granulocytes # Neutrophils # 9.9 H Lymphocytes # 2.6 Monocytes # 0.5 Eosinophils # 0.2 Basophils # 0.0 Nucleated Red Blood 0.0 Cells # Sodium Level 160 H Potassium Level 2.9 *L Chloride Level 133 H Carbon Dioxide 23 Level Anion Gap 4 L Blood Urea Nitrogen 35 H Creatinine 2.57 H Est Glomerular 25 L Filtrat Rate mL/min Glucose Level 136 Calcium Level 8.0 L Test 01/20/19 04:46 01/20/19 05:26 01/20/19 08:28 Lab Scanned Report BLOOD TRANSFUSION Bedside Glucose 143 158 Medications Medication Current Medications Dextrose 1,000 ml @ 125 mls/hr Q8H IV Last administered on 01/20/19at 05:15; Admin Dose 125 MLS/HR; Start 01/18/19 at 09:30 Vancomycin HCl (Vanco Iv Per Pharmacy) VANCOMYCIN PER PHARMACY PER PROTOCOL XX ; Start 01/18/19 at 09:30 Piperacillin Sod/ Tazobactam Sod 50 ml @ 100 mls/hr Q8 IVPB Last administered on 01/20/19at 05:14; Admin Dose 100 MLS/HR; Start 01/18/19 at 09:30 Midazolam HCl 50 ml @ 1 mls/hr TITRATE IV Last administered on 01/19/19at 02:47; Admin Dose 2 MLS/HR; Start 01/18/19 at 23:30 Insulin Aspart (Novolog Insulin Pen) NOVOLOG *MODERATE* ALGORI... Q4H SC Last administered on 01/20/19at 08:42; Admin Dose 2 UNIT; Start 01/19/19 at 01:00 Miscellaneous Information 1 ea NOTE XX ; Start 01/18/19 at 23:30 Glucose (Glutose) 15 gm Q15M PRN PO DECREASED GLUCOSE; Start 01/18/19 at 23:30 Glucose (Glutose) 22.5 gm Q15M PRN PO DECREASED GLUCOSE; Start 01/18/19 at 23:30 Dextrose (D50w Syringe) 25 ml Q15M PRN IV DECREASED GLUCOSE; Start 01/18/19 at 23:30 Dextrose (D50w Syringe) 50 ml Q15M PRN IV DECREASED GLUCOSE; Start 01/18/19 at 23:30 Glucagon (Glucagen) 1 mg Q15M PRN IM DECREASED GLUCOSE; Start 01/18/19 at 23:30 Glucose (Glutose) 15 gm Q15M PRN BUCCAL DECREASED GLUCOSE; Start 01/18/19 at 23:30 Miscellaneous Information [facility] This patient berg... PRN PRN XX WOUND CARE; Start 01/19/19 at 02:00 Acetaminophen (Tylenol Supp) 650 mg Q6H PRN [place] temp > 100.4F Last administered on 01/19/19at 09:27; Admin Dose 650 MG; Start 01/19/19 at 09:00 Vancomycin HCl 1.5 gm/Sodium Chloride 250 ml @ 83.333 mls/ hr Q36H IVPB Last administered on 01/19/19at 23:00; Admin Dose 83.333 MLS/HR; Start 01/19/19 at 23:00 Ketorolac Tromethamine (Toradol) 15 mg Q6H PRN IV PAIN; Start 01/19/19 at 19:00; Stop 01/22/19 at 18:59 Norepinephrine 250 ml @ 1.875 mls/ hr TITRATE IV Last administered on 01/19/19at 20:10; Admin Dose 15 MLS/HR; Start 01/19/19 at 20:00 Sodium Hypochlorite (Dakins Diluted (40)) 1 applic BID TP Last administered on 01/20/19at 09:02; Admin Dose 1 APPLIC; Start 01/19/19 at 21:00 Potassium Chloride 100 ml @ 50 mls/hr ONCE ONCE IVPB ; Start 01/20/19 at 10:00; Stop 01/20/19 at 11:59 TONIO SOOD MD Jan 20, 2019 10:06
[2019-01-20] MEDS: NORepinephrine 8MG/250 ML (PMX 250 ML IV SCH (18:37)
--- NOTE | 2019-01-20 23:49 | PN ---
Date/Time of Note Date/Time of Note DATE: 01/20/19 TIME: 23:48 Assessment/Plan Lines/Catheters IV Catheter Type (from [facility]): Central Line Garcia in Place (from [facility]): Yes Exam/Review of Systems Vital Signs Vitals Vital Signs Date Temp Pulse Resp B/P (MAP) Pulse Ox O2 O2 Flow FiO2 Time Delivery Rate 01/20/19 82 16 99/59 (72) 98 23:15 01/20/19 Mechanical 23:00 Ventilator 01/20/19 98.1 20:00 01/20/19 30 20:00 Intake and Output 01/19/19 01/19/19 01/20/19 1515:00 23:00 07:00 IntakeIntake Total 915 ml 1304.625 ml 1264.25 ml OutputOutput Total 1250 ml 610 ml 255 ml BalanceBalance -335 ml 694.625 ml 1009.25 ml Results Result Diagram: 01/20/19 1830 01/20/19 1553 CHAPO DENTON DPM Jan 20, 2019 23:49
[2019-01-21] VITALS (50 sets, daily range): BP systolic 88–117; BP diastolic 49–73; PULSE 77–106; RESP 13–33
[2019-01-21] MEDS: INSULIN ASPART [NOVOLOG] 3 ML PEN SC SCH ×6 (00:42→20:59)
[2019-01-21] MEDS: PIPER-TAZO 2.25 GM (PMX) 50 ML IVPB SCH ×3 (05:30→21:32)
[2019-01-21] MEDS: DEXTROSE 5% 1,000 ML IV SCH (05:31)
[2019-01-21] MEDS: DAKINS 0.0125%(1/40) 473 ML SOLUTION TP SCH ×2 (08:04→21:04)
--- NOTE | 2019-01-21 09:14 | PN ---
Date/Time of Note Date/Time of Note DATE: 01/21/19 TIME: 09:11 Subjective Remains intubated. Opens his eyes Objective Vitals Vital Signs Date Temp Pulse Resp B/P (MAP) Pulse Ox O2 O2 Flow FiO2 Time Delivery Rate 01/21/19 30 07:44 01/21/19 91 27 113/57 96 Mechanical 06:00 (75) Ventilator 01/21/19 98.7 04:00 Intake and Output 01/20/19 01/20/19 01/21/19 1515:00 23:00 07:00 IntakeIntake Total 2089.725 ml 1644.75 ml 1714.375 ml OutputOutput Total 270 ml 310 ml 395 ml BalanceBalance 1819.725 ml 1334.75 ml 1319.375 ml Bilateral rhonchi Regular rate and rhythm Soft normoactive bowel sounds Diffuse edema especially in bilateral hands Results Result Diagram: 01/21/19 0414 01/21/19 0414 Medications Medications Current Medications Vancomycin HCl (Vanco Iv Per Pharmacy) VANCOMYCIN PER PHARMACY PER PROTOCOL XX ; Start 01/18/19 at 09:30 Piperacillin Sod/ Tazobactam Sod 50 ml @ 100 mls/hr Q8 IVPB Last administered on 01/21/19at 05:30; Admin Dose 100 MLS/HR; Start 01/18/19 at 09:30 Midazolam HCl 50 ml @ 1 mls/hr TITRATE IV Last administered on 01/19/19at 02:47; Admin Dose 2 MLS/HR; Start 01/18/19 at 23:30 Insulin Aspart (Novolog Insulin Pen) NOVOLOG *MODERATE* ALGORI... Q4H SC Last administered on 01/20/19at 08:42; Admin Dose 2 UNIT; Start 01/19/19 at 01:00 Miscellaneous Information 1 ea NOTE XX ; Start 01/18/19 at 23:30 Glucose (Glutose) 15 gm Q15M PRN PO DECREASED GLUCOSE; Start 01/18/19 at 23:30 Glucose (Glutose) 22.5 gm Q15M PRN PO DECREASED GLUCOSE; Start 01/18/19 at 23:30 Dextrose (D50w Syringe) 25 ml Q15M PRN IV DECREASED GLUCOSE; Start 01/18/19 at 23:30 Dextrose (D50w Syringe) 50 ml Q15M PRN IV DECREASED GLUCOSE; Start 01/18/19 at 23:30 Glucagon (Glucagen) 1 mg Q15M PRN IM DECREASED GLUCOSE; Start 01/18/19 at 23:30 Glucose (Glutose) 15 gm Q15M PRN BUCCAL DECREASED GLUCOSE; Start 01/18/19 at 23:30 Misc[facility] This patient berg... PRN PRN XX WOUND CARE; Start 01/19/19 at 02:00 Acetaminophen (Tylenol Supp) 650 mg Q6H PRN [place] temp > 100.4F Last administered on 01/19/19at 09:27; Admin Dose 650 MG; Start 01/19/19 at 09:00 Vancomycin HCl 1.5 gm/Sodium Chloride 250 ml @ 83.333 mls/ hr Q36H IVPB Last administered on 01/19/19at 23:00; Admin Dose 83.333 MLS/HR; Start 01/19/19 at 23:00 Ketorolac Tromethamine (Toradol) 15 mg Q6H PRN IV PAIN; Start 01/19/19 at 19:00; Stop 01/22/19 at 18:59 Norepinephrine 250 ml @ 1.875 mls/ hr TITRATE IV Last administered on 01/20/19at 18:37; Admin Dose 3.75 MLS/HR; Start 01/19/19 at 20:00 Sodium Hypochlorite (Dakins Diluted (1/40)) 1 applic BID TP Last administered on 01/21/19at 08:04; Admin Dose 1 APPLIC; Start 01/19/19 at 21:00 Morphine Sulfate (morphine) 2 mg Q4H PRN IV SEVERE PAIN LEVEL 7-10; Start 01/21/19 at 08:30 VTE Prophylaxis Risk score (from Nsg)>0 risk: 11 SCD applied (from Nsg): Yes Lines/Catheters IV Catheter Type: Saline Lock Jenkins in Place: Yes Cont'd jenkins catheter reason: pres ulcer contaminated by urine Assessment/Plan Assessment/Plan 63-year-old male with acute hypoxemic respiratory failure Bilateral aspiration pneumonia Dysphagia Stage III chronic kidney disease Hypernatremia, improved Dehydration Sacral decub ulcer, status post debridement Bilateral heel pressure ulcers with eschar History of hemorrhagic CVA Chronic debilitation Acute blood loss anemia, stable post transfusion Type 2 diabetes mellitus Continue current therapy Wean off the ventilator NG tube feeding Discontinue IV fluid Pulmonary, surgical, podiatry follow-up FELICITAS LAZARO MD Jan 21, 2019 09:14
[2019-01-21] MEDS: VANCOMYCIN HCL 1.5 GM in SOD CHLORIDE 0.9% 250 ML IVPB SCH (10:24)
[2019-01-21] MEDS: LANSOPRAZOLE 30 MG CAP NGT SCH (10:24)
--- NOTE | 2019-01-21 11:26 | CONS ---
Assessment/Plan Assessment/Plan Assessment/Plan (Daily) 1. acute hyperkalemia 2. acute On chronic renal failure due to ATN from septic shock 3. acute hypoxemic respiratory failure intubated on ventilator 2/2 Health care associated PNA 4. Septic shock on levophed 2/2 PNA 5. acute hypernatremia 6. H/O quadriplegia 7. H/o CAD s/p CABG 8. H/O HTN 9. 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 Plan: BUN/cr 35/2.29, Na improved to 155- Continue IVF D5W at 125 cc/hr , making good urine output IV abx zosyn and vancomycin for PNA coverage, Renally dose all abx and monitor electorlytes no acute indication for HD at this time Ventilator management as per pulmonary will follow up Consultation Date/Type/Reason Admit Date/Time Jan 18, 2019 at 04:19 Initial Consult Date Type of Consult NEPHROLOGY Requesting Provider: FELICITAS LAZARO MD Date/Time of Note DATE: 01/21/19 TIME: 11:26 Exam/Review of Systems Exam Vitals Vital Signs Date Temp Pulse Resp B/P (MAP) Pulse Ox O2 O2 Flow FiO2 Time Delivery Rate 01/21/19 92 27 102/63 98 Mechanical 10:00 (76) Ventilator 01/21/19 99.4 08:00 01/21/19 30 07:44 Intake and Output 01/20/19 01/20/19 01/21/19 1515:00 23:00 07:00 IntakeIntake Total 2089.725 ml 1644.75 ml 1754.375 ml OutputOutput Total 270 ml 310 ml 455 ml BalanceBalance 1819.725 ml 1334.75 ml 1299.375 ml Results Result Diagram: 01/21/19 0414 01/21/19 0414 Results 24hrs Laboratory Tests Test 01/20/19 12:57 01/20/19 15:53 01/20/19 17:34 01/20/19 18:30 Bedside Glucose 95 132 Sodium Level 156 H Potassium Level 3.8 Chloride Level 131 H Carbon Dioxide 23 Level Anion Gap 2 L Blood Urea Nitrogen 34 H Creatinine 2.27 H Est Glomerular 29 L Filtrat Rate mL/min Glucose Level 143 Calcium Level 8.0 L Phosphorus Level 3.9 Hemoglobin 8.5 L Hematocrit 26.9 L Test 01/20/19 20:21 01/21/19 00:42 01/21/19 04:14 01/21/19 04:58 Bedside Glucose 115 140 White Blood Count 12.2 H Red Blood Count 2.94 #L Hemoglobin 8.5 L Hematocrit 26.8 L Mean Corpuscular 91.2 Volume Mean Corpuscular 28.9 L Hemoglobin Mean Corpuscular 31.7 L Hemoglobin Concent Red Cell 19.8 H Distribution Width Platelet Count 73 L Mean Platelet 12.0 H Volume Immature 0.600 H Granulocytes % Neutrophils % Segmented 69 Neutrophils % (Manual) Band Neutrophils % 1 (Manual) Lymphocytes % Lymphocytes % 24 (Manual) Monocytes % Monocytes % 2 (Manual) Eosinophils % Eosinophils % 4 (Manual) Basophils % Nucleated Red Blood 0.0 Cells % Immature 0.070 H Granulocytes # Neutrophils # Neutrophils # 8.4 H (Manual) Band Neutrophils # 0.1 Lymphocytes 2.9 (Manual) Lymphocytes # 2.9 Monocytes # 0.2 L Monocytes # 0.2 L (Manual) Eosinophils # 0.5 Basophils # Nucleated Red Blood Cells # Polychromasia 1+ Hypochromasia 1+ Sodium Level 155 H Potassium Level 3.5 Chloride Level 128 H Carbon Dioxide 24 Level Anion Gap 3 L Blood Urea Nitrogen 35 H Creatinine 2.29 H Est Glomerular 29 L Filtrat Rate mL/min Glucose Level 119 Calcium Level 7.7 L Phosphorus Level 3.4 Magnesium Level 2.5 Lab Scanned Report BLOOD TRANSFUSION Test 01/21/19 05:00 01/21/19 05:30 01/21/19 08:03 01/21/19 09:29 Stool Occult Blood NEGATIVE Bedside Glucose 124 126 Lab Scanned Report REFERENCE LAB Medications Medication Current Medications Vancomycin HCl (Vanco Iv Per Pharmacy) VANCOMYCIN PER PHARMACY PER PROTOCOL XX ; Start 01/18/19 at 09:30 Piperacillin Sod/ Tazobactam Sod 50 ml @ 100 mls/hr Q8 IVPB Last administered on 01/21/19at 05:30; Admin Dose 100 MLS/HR; Start 01/18/19 at 09:30 Midazolam HCl 50 ml @ 1 mls/hr TITRATE IV Last administered on 01/19/19at 02:47; Admin Dose 2 MLS/HR; Start 01/18/19 at 23:30 Insulin Aspart (Novolog Insulin Pen) NOVOLOG *MODERATE* ALGORI... Q4H SC Last administered on 01/20/19at 08:42; Admin Dose 2 UNIT; Start 01/19/19 at 01:00 Miscellaneous Information 1 ea NOTE XX ; Start 01/18/19 at 23:30 Glucose (Glutose) 15 gm Q15M PRN PO DECREASED GLUCOSE; Start 01/18/19 at 23:30 Glucose (Glutose) 22.5 gm Q15M PRN PO DECREASED GLUCOSE; Start 01/18/19 at 23:30 Dextrose (D50w Syringe) 25 ml Q15M PRN IV DECREASED GLUCOSE; Start 01/18/19 at 23:30 Dextrose (D50w Syringe) 50 ml Q15M PRN IV DECREASED GLUCOSE; Start 01/18/19 at 23:30 Glucagon (Glucagen) 1 mg Q15M PRN IM DECREASED GLUCOSE; Start 01/18/19 at 23:30 Glucose (Glutose) 15 gm Q15M PRN BUCCAL DECREASED GLUCOSE; Start 01/18/19 at 23:30 Miscellaneous Information (Pending [facility] Order For Wound Care) This patient berg... PRN PRN XX WOUND CARE; Start 01/19/19 at 02:00 Acetaminophen (Tylenol Supp) 650 mg Q6H PRN [place] temp > 100.4F Last administered on 01/19/19at 09:27; Admin Dose 650 MG; Start 01/19/19 at 09:00 Vancomycin HCl 1.5 gm/Sodium Chloride 250 ml @ 83.333 mls/ hr Q36H IVPB Last administered on 01/21/19at 10:24; Admin Dose 83.333 MLS/HR; Start 01/19/19 at 23:00 Ketorolac Tromethamine (Toradol) 15 mg Q6H PRN IV PAIN; Start 01/19/19 at 19:00; Stop 01/22/19 at 18:59 Norepinephrine 250 ml @ 1.875 mls/ hr TITRATE IV Last administered on 01/20/19at 18:37; Admin Dose 3.75 MLS/HR; Start 01/19/19 at 20:00 Sodium Hypochlorite (Dakins Diluted (40)) 1 applic BID TP Last administered on 01/21/19at 08:04; Admin Dose 1 APPLIC; Start 01/19/19 at 21:00 Morphine Sulfate (morphine) 2 mg Q4H PRN IV SEVERE PAIN LEVEL 7-10; Start 01/21/19 at 08:30 Lansoprazole (Prevacid) 30 mg DAILY@06 NGT Last administered on 01/21/19at 10:24; Admin Dose 30 MG; Start 01/21/19 at 10:00 TONIO SOOD MD Jan 21, 2019 11:26
--- NOTE | 2019-01-21 11:55 | CONS ---
Consult Date/Type/Reason Admit Date/Time Jan 18, 2019 at 04:19 Initial Consult Date Type of Consult Pulmonary Requesting Provider: FELICITAS LAZARO MD Date/Time of Note DATE: 01/21/19 TIME: 11:54 Subjective Continues mechanical ventilation remains mostly somnolent. Currently off vasopressors IV fluids on hold. Status post packed cell transfusion pending wound VAC. Objective Vital Signs Date Temp Pulse Resp B/P (MAP) Pulse Ox O2 O2 Flow FiO2 Time Delivery Rate 01/21/19 92 27 102/63 98 Mechanical 10:00 (76) Ventilator 01/21/19 99.4 08:00 01/21/19 30 07:44 Intake and Output 01/20/19 01/20/19 01/21/19 1515:00 23:00 07:00 IntakeIntake Total 2089.725 ml 1644.75 ml 1754.375 ml OutputOutput Total 270 ml 310 ml 455 ml BalanceBalance 1819.725 ml 1334.75 ml 1299.375 ml Exam PHYSICAL EXAMINATION: GENERAL: Elderly gentleman, orally intubated on mechanical ventilation, appears comfortable at rest, no acute distress. VITAL SIGNS: NECK: Supple. No JVD or lymphadenopathy. CARDIAC: S1, S2, no added sounds or murmurs. CHEST: Diminished air entry bilaterally. ABDOMEN: Soft, nontender. No guarding or rebound. EXTREMITIES: No cyanosis, clubbing of bleeding. NEUROLOGIC: Generalized weakness. Vent Setting Ventilator Support Mode: AC Fraction of Inspired Oxygen pe: 30 Positive End Expiratory Pressu: 5.0 Results/Medications Result Diagram: 01/21/19 0414 01/21/19 0414 Results 24 hrs Laboratory Tests Test 01/20/19 12:57 01/20/19 15:53 01/20/19 17:34 01/20/19 18:30 Bedside Glucose 95 132 Sodium Level 156 H Potassium Level 3.8 Chloride Level 131 H Carbon Dioxide 23 Level Anion Gap 2 L Blood Urea Nitrogen 34 H Creatinine 2.27 H Est Glomerular 29 L Filtrat Rate mL/min Glucose Level 143 Calcium Level 8.0 L Phosphorus Level 3.9 Hemoglobin 8.5 L Hematocrit 26.9 L Test 01/20/19 20:21 01/21/19 00:42 01/21/19 04:14 01/21/19 04:58 Bedside Glucose 115 140 White Blood Count 12.2 H Red Blood Count 2.94 #L Hemoglobin 8.5 L Hematocrit 26.8 L Mean Corpuscular 91.2 Volume Mean Corpuscular 28.9 L Hemoglobin Mean Corpuscular 31.7 L Hemoglobin Concent Red Cell 19.8 H Distribution Width Platelet Count 73 L Mean Platelet 12.0 H Volume Immature 0.600 H Granulocytes % Neutrophils % Segmented 69 Neutrophils % (Manual) Band Neutrophils % 1 (Manual) Lymphocytes % Lymphocytes % 24 (Manual) Monocytes % Monocytes % 2 (Manual) Eosinophils % Eosinophils % 4 (Manual) Basophils % Nucleated Red Blood 0.0 Cells % Immature 0.070 H Granulocytes # Neutrophils # Neutrophils # 8.4 H (Manual) Band Neutrophils # 0.1 Lymphocytes 2.9 (Manual) Lymphocytes # 2.9 Monocytes # 0.2 L Monocytes # 0.2 L (Manual) Eosinophils # 0.5 Basophils # Nucleated Red Blood Cells # Polychromasia 1+ Hypochromasia 1+ Sodium Level 155 H Potassium Level 3.5 Chloride Level 128 H Carbon Dioxide 24 Level Anion Gap 3 L Blood Urea Nitrogen 35 H Creatinine 2.29 H Est Glomerular 29 L Filtrat Rate mL/min Glucose Level 119 Calcium Level 7.7 L Phosphorus Level 3.4 Magnesium Level 2.5 Lab Scanned Report BLOOD TRANSFUSION Test 01/21/19 05:00 01/21/19 05:30 01/21/19 08:03 01/21/19 09:29 Stool Occult Blood NEGATIVE Bedside Glucose 124 126 Lab Scanned Report REFERENCE LAB Medications Current Medications Vancomycin HCl (Vanco Iv Per Pharmacy) VANCOMYCIN PER PHARMACY PER PROTOCOL XX ; Start 01/18/19 at 09:30 Piperacillin Sod/ Tazobactam Sod 50 ml @ 100 mls/hr Q8 IVPB Last administered on 01/21/19at 05:30; Admin Dose 100 MLS/HR; Start 01/18/19 at 09:30 Midazolam HCl 50 ml @ 1 mls/hr TITRATE IV Last administered on 01/19/19at 02:47; Admin Dose 2 MLS/HR; Start 01/18/19 at 23:30 Insulin Aspart (Novolog Insulin Pen) NOVOLOG *MODERATE* ALGORI... Q4H SC Last administered on 01/20/19at 08:42; Admin Dose 2 UNIT; Start 01/19/19 at 01:00 Miscellaneous Information 1 ea NOTE XX ; Start 01/18/19 at 23:30 Glucose (Glutose) 15 gm Q15M PRN PO DECREASED GLUCOSE; Start 01/18/19 at 23:30 Glucose (Glutose) 22.5 gm Q15M PRN PO DECREASED GLUCOSE; Start 01/18/19 at 23:30 Dextrose (D50w Syringe) 25 ml Q15M PRN IV DECREASED GLUCOSE; Start 01/18/19 at 23:30 Dextrose (D50w Syringe) 50 ml Q15M PRN IV DECREASED GLUCOSE; Start 01/18/19 at 23:30 Glucagon (Glucagen) 1 mg Q15M PRN IM DECREASED GLUCOSE; Start 01/18/19 at 23:30 Glucose (Glutose) 15 gm Q15M PRN BUCCAL DECREASED GLUCOSE; Start 01/18/19 at 23:30 Miscellaneous Information (Pending [facility] Order For Wound Care) This patient h a... PRN PRN XX WOUND CARE; Start 01/19/19 at 02:00 Acetaminophen (Tylenol Supp) 650 mg Q6H PRN [place] temp > 100.4F Last administered on 01/19/19at 09:27; Admin Dose 650 MG; Start 01/19/19 at 09:00 Vancomycin HCl 1.5 gm/Sodium Chloride 250 ml @ 83.333 mls/ hr Q36H IVPB Last administered on 01/21/19at 10:24; Admin Dose 83.333 MLS/HR; Start 01/19/19 at 23:00 Ketorolac Tromethamine (Toradol) 15 mg Q6H PRN IV PAIN; Start 01/19/19 at 19:00; Stop 01/22/19 at 18:59 Norepinephrine 250 ml @ 1.875 mls/ hr TITRATE IV Last administered on 01/20/19at 18:37; Admin Dose 3.75 MLS/HR; Start 01/19/19 at 20:00 Sodium Hypochlorite (Dakins Diluted (40)) 1 applic BID TP Last administered on 01/21/19at 08:04; Admin Dose 1 APPLIC; Start 01/19/19 at 21:00 Morphine Sulfate (morphine) 2 mg Q4H PRN IV SEVERE PAIN LEVEL 7-10; Start 01/21/19 at 08:30 Lansoprazole (Prevacid) 30 mg DAILY@06 NGT Last administered on 01/21/19at 10:24; Admin Dose 30 MG; Start 01/21/19 at 10:00 Assessment/Plan Hospital Course (Demo Recall) IMPRESSION: 1. Likely healthcare-associated pneumonia. 2. Status post septic shock. 3. Functional quadriplegia. 4. History of dysphagia. 5. Hypoxemic respiratory failure 6. Significant decubitus ulcer status post debridement. 7. Encephalopathy possibly worsening toxic metabolic questionable new CVA PLAN: 1. Continue broad-spectrum antibiotics. 2. Antibiotics per primary team 3. Vasopressor support. 4. Volume resuscitation. PRBCs monitor H&H 5. Increase free water per nasogastric tube. 6. Continue mechanical ventilation. 7. Nasogastric tube feeding 8. CT head noncontrast Critical care time 40 minutes overall prognosis guarded. BHAVIN BARROW MD, [facility] Jan 21, 2019 11:55
--- NOTE | 2019-01-21 16:58 | CONS ---
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 Patient seen in collaboration with CC: ANDREY MEJÍA MD ; Consultation Date/Type/Reason Admit Date/Time Jan 18, 2019 at 04:19 Date of Consultation: Jan 21, 2019 Type of Consult Gastroenterology Reason for Consultation PEG placement Requesting Provider: FELICITAS LAZARO MD Date/Time of Note DATE: 01/21/19 TIME: 16:27 Hx of Present Illness This is a 63-year-old male with past medical history of dysphagia, bipolar/schizophrenia, CABG, CKD, sacral decubitus ulcer, hemorrhagic CVA, type 2 DM, and functional quadriplegia who resides in nursing home facility. He was brought into the ED by paramedics for altered mental status, hypotension, and hypoxemia requiring emergent intubation and mechanical ventilation. He was diagnosed with healthcare associated pneumonia, placed on broad-spectrum antibiotics, vasopressors, and transferred to ICU. Really has NG tube tolerating tube feeding well. GIs been consulted for possible PEG placement. Currently son is at bedside as patient is nonverbal he states he is decision- maker for his father. He states dysphagia was first noted in October and has become progressively worse and he is concerned about his father's caloric intake. Discussed possibility of PEG tube I reviewed risk/benefits of sedation and procedure patient son verbalized understanding and is agreeable disgusted that this procedure would not take place tomorrow as it is a holiday and only open for lifesaving procedures therefore would likely occur on Saturday again understanding was verbalized and agreed upon Subjective hx not possible: pt critical status Past Medical History Medical History: other (quadriplegia, CAD H/o MA, h/o HTN, h/o possibel CKD ) Home Meds Reported Medications Gvxuprhbxclx-Yyww-Nizdykbz,Iso (ZOSYN 3.375 GM GALAXY BAG) 3.375 Gm/50 Ml Froz .piggy, 3.375 GM IVPB Q6, EA 01/18/19 Saccharomyces Boulardii* (Florastor*) 250 Mg Cap, 250 MG PO BID, CAP 01/18/19 Insulin Glargine* (Lantus*) 100 Unit/Ml Soln, 6 UNIT SC QHS, #1 VIAL 01/18/19 Ipratropium-Albuterol (Ipratropium-Albuterol) 0.5-3 Mg/3 Ml Ampul.neb, 3 ML INHALATION Q6 PRN for WHEEZING AND SOB, #30 VIAL 01/18/19 Lactulose* (Lactulose*) 20 Gm/30 Ml Solution, 20 GM PO BID, ML 01/18/19 Lamotrigine* (Lamotrigine*) 25 Mg Tablet, 25 MG PO BID, TAB 01/18/19 Escitalopram Oxalate* (Lexapro*) 10 Mg Tablet, 10 MG PO DAILY, #30 TAB 01/18/19 Magnesium Oxide* (Mag-Oxide*) 400 Mg Tablet, 400 MG PO TID, TAB 01/18/19 Multivitamin with Minerals (Daily Vitamin Formula-Minerals) 1 Each Tablet, 1 EACH PO DAILY, TAB 01/18/19 Hydrocodone/Acetaminophen (Pavillion 5-325 Tablet) 1 Each Tablet, 1 EACH PO Q4 PRN for PAIN 4-7, TAB 01/18/19 Hydrocodone/Acetaminophen (Pavillion 5-325 Tablet) 1 Each Tablet, 1 EACH PO 30 MIN PRIOR TO W/C PRN for PAIN, TAB 01/18/19 Hydrocodone/Acetaminophen (Pavillion 5-325 Tablet) 1 Each Tablet, 2 EACH PO Q4 PRN for PAIN 8-10, TAB 01/18/19 Amino Acids/Protein Hydrolys (Pro-Stat Awc Liquid) 30 Ml Liquid, 30 ML PO TID DILUTE WITH 30ML WATER 01/18/19 Tamsulosin Hcl* (Flomax*) 0.4 Mg Cap.er.24h, 0.4 MG PO HS, CAP 01/18/19 Vancomycin HCl (Vancomycin HCl) 1 Gm Vial, 1 GM IV DAILY PRN for FEVER, VIAL 01/18/19 Ascorbic Acid* (Vitamin C*) 500 Mg Capsule.sa, 500 MG PO DAILY, CAP 01/18/19 Levalbuterol Hcl* (Levalbuterol Hcl*) 0.63 Mg/3 Ml Vial.neb, 0.63 MG INHALATION Q6H PRN for WHEEZING AND SOB, VIAL 01/18/19 Sodium Phosphate,[place]-Dibasic (Enema Ready To Use) 133 Ml Enema, 133 ML RC EVERY 3 DAYS PRN for CONSTIPATION, ENEMA 01/18/19 Calcium Carbonate* (Calcium Carbonate*) 600 MG Ca Tab, 600 MG PO BID, TAB 01/18/19 Ceftriaxone Sod* (Rocephin* 1GM/50ML (PMX)) 1 Gm/50 Ml Iv.soln., 1 GM IVPB QHS, EA 01/18/19 Divalproex Sodium* (Divalproex Sodium*) 250 Mg Tablet.dr, 750 MG PO BID, #90 TAB 01/18/19 Ferrous Sulfate* (Ferrous Sulfate*) 325 Mg Tabec, 325 MG PO DAILY, TAB 01/18/19 Bisacodyl (Dulcolax) 10 Mg Supp.rect, 10 MG RC PRN PRN for CONSTIPATION, SUPP.RECT 01/18/19 Magnesium Hydroxide* (Milk Of Magnesia*) 400 Mg/5 Ml Oral.susp, 30 ML PO DAILY PRN for CONSTIPATION, ML 01/18/19 Atorvastatin* (Atorvastatin*) 40 Mg Tablet, 40 MG PO QHS, #30 TAB 01/18/19 Aspirin (Low Dose Aspirin) 81 Mg Tablet.dr, 81 MG PO DAILY, #30 TAB 01/18/19 Arginine/Ascorbate Sod/Eric AC (Arginaid Powder) 1 Each Powd.pack, 1 EACH PO BID DISOLVE IN 120MLS WATER 01/18/19 Acetylcysteine* (Mucomyst*) 4 Ml Soln, 3 ML NEB TID, EA 01/18/19 Acetaminophen* (Acetaminophen*) 650 Mg Tablet, 650 MG PO Q6H PRN for ELEVATED TEMPERATURE, #30 TAB OVER 101 01/18/19 Medications Current Medications Vancomycin HCl (Vanco Iv Per Pharmacy) VANCOMYCIN PER PHARMACY PER PROTOCOL XX ; Start 01/18/19 at 09:30 Piperacillin Sod/ Tazobactam Sod 50 ml @ 100 mls/hr Q8 IVPB Last administered on 01/21/19at 05:30; Admin Dose 100 MLS/HR; Start 01/18/19 at 09:30 Midazolam HCl 50 ml @ 1 mls/hr TITRATE IV Last administered on 01/19/19at 02:47; Admin Dose 2 MLS/HR; Start 01/18/19 at 23:30 Insulin Aspart (Novolog Insulin Pen) NOVOLOG *MODERATE* ALGORI... Q4H SC Last administered on 01/20/19at 08:42; Admin Dose 2 UNIT; Start 01/19/19 at 01:00 Miscellaneous Information 1 ea NOTE XX ; Start 01/18/19 at 23:30 Glucose (Glutose) 15 gm Q15M PRN PO DECREASED GLUCOSE; Start 01/18/19 at 23:30 Glucose (Glutose) 22.5 gm Q15M PRN PO DECREASED GLUCOSE; Start 01/18/19 at 23:30 Dextrose (D50w Syringe) 25 ml Q15M PRN IV DECREASED GLUCOSE; Start 01/18/19 at 23:30 Dextrose (D50w Syringe) 50 ml Q15M PRN IV DECREASED GLUCOSE; Start 01/18/19 at 23:30 Glucagon (Glucagen) 1 mg Q15M PRN IM DECREASED GLUCOSE; Start 01/18/19 at 23:30 Glucose (Glutose) 15 gm Q15M PRN BUCCAL DECREASED GLUCOSE; Start 01/18/19 at 23:30 Miscellaneous Information (Pending [facility] Order For Wound Care) This patient berg... PRN PRN XX WOUND CARE; Start 01/19/19 at 02:00 Acetaminophen (Tylenol Supp) 650 mg Q6H PRN DC temp > 100.4F Last administered on 01/19/19at 09:27; Admin Dose 650 MG; Start 01/19/19 at 09:00 Vancomycin HCl 1.5 gm/Sodium Chloride 250 ml @ 83.333 mls/ hr Q36H IVPB Last administered on 01/21/19at 10:24; Admin Dose 83.333 MLS/HR; Start 01/19/19 at 23:00 Ketorolac Tromethamine (Toradol) 15 mg Q6H PRN IV PAIN; Start 01/19/19 at 19:00; Stop 01/22/19 at 18:59 Norepinephrine 250 ml @ 1.875 mls/ hr TITRATE IV Last administered on 01/20/19at 18:37; Admin Dose 3.75 MLS/HR; Start 01/19/19 at 20:00 Sodium Hypochlorite (Dakins Diluted ()) 1 applic BID TP Last administered on 01/21/19at 08:04; Admin Dose 1 APPLIC; Start 01/19/19 at 21:00 Morphine Sulfate (morphine) 2 mg Q4H PRN IV SEVERE PAIN LEVEL 7-10; Start 01/21 at 08:30 Lansoprazole (Prevacid) 30 mg DAILY@06 NGT Last administered on 01/21/19at 10:24; Admin Dose 30 MG; Start 01/21/19 at 10:00 Miscellaneous Information (*Rx Drug Level Order Reminder*) VANCO TR 01/22 AT 2200 2200 ONCE XX ; Start 01/22/19 at 22:00; Stop 01/22/19 at 22:01 Allergies: Coded Allergies: Sulfa (Sulfonamide Antibiotics) (Verified Allergy, Unknown, 01/18/19) Past Surgical History Past Surgical Hx: other (CABG, H/o Debridement for sacral decubitus ) Social History Alcohol Use: none Smoking Status: Former smoker Drug Use: none Exam/Review of Systems Exam Vitals Vital Signs Date Temp Pulse Resp B/P (MAP) Pulse Ox O2 O2 Flow FiO2 Time Delivery Rate 01/21/19 89 23 100 30 13:58 01/21/19 98.3 104/58 Mechanical 12:00 (73) Ventilator Intake and Output 01/20/19 01/20/19 01/21/19 1515:00 23:00 07:00 IntakeIntake Total 2089.725 ml 1644.75 ml 1754.375 ml OutputOutput Total 270 ml 310 ml 455 ml BalanceBalance 1819.725 ml 1334.75 ml 1299.375 ml Constitutional: other (opens eyes, intuabted, off pressors ) Head: normocephalic Neck: supple Respiratory: crackles/rales Cardiovascular: regular rate and rhythm Gastrointestinal: soft, bowel sounds Results Result Diagram: 01/21/19 0414 01/21/19 0414 Results 24hrs Laboratory Tests Test 01/20/19 17:34 01/20/19 18:30 01/20/19 20:21 01/21/19 00:42 Bedside Glucose 132 115 140 Hemoglobin 8.5 L Hematocrit 26.9 L Test 01/21/19 04:14 01/21/19 04:58 01/21/19 05:00 01/21/19 05:30 White Blood Count 12.2 H Red Blood Count 2.94 #L Hemoglobin 8.5 L Hematocrit 26.8 L Mean Corpuscular 91.2 Volume Mean Corpuscular 28.9 L Hemoglobin Mean Corpuscular 31.7 L Hemoglobin Concent Red Cell 19.8 H Distribution Width Platelet Count 73 L Mean Platelet 12.0 H Volume Immature 0.600 H Granulocytes % Neutrophils % Segmented 69 Neutrophils % (Manual) Band Neutrophils % 1 (Manual) Lymphocytes % Lymphocytes % 24 (Manual) Monocytes % Monocytes % 2 (Manual) Eosinophils % Eosinophils % 4 (Manual) Basophils % Nucleated Red Blood 0.0 Cells % Immature 0.070 H Granulocytes # Neutrophils # Neutrophils # 8.4 H (Manual) Band Neutrophils # 0.1 Lymphocytes 2.9 (Manual) Lymphocytes # 2.9 Monocytes # 0.2 L Monocytes # 0.2 L (Manual) Eosinophils # 0.5 Basophils # Nucleated Red Blood Cells # Polychromasia 1+ Hypochromasia 1+ Sodium Level 155 H Potassium Level 3.5 Chloride Level 128 H Carbon Dioxide 24 Level Anion Gap 3 L Blood Urea Nitrogen 35 H Creatinine 2.29 H Est Glomerular 29 L Filtrat Rate mL/min Glucose Level 119 Calcium Level 7.7 L Phosphorus Level 3.4 Magnesium Level 2.5 Lab Scanned Report BLOOD TRANSFUSION Stool Occult Blood NEGATIVE Bedside Glucose 124 Test 01/21/19 08:03 01/21/19 09:29 01/21/19 12:20 Bedside Glucose 126 123 Lab Scanned Report REFERENCE LAB Medications Medication Current Medications Vancomycin HCl (Vanco Iv Per Pharmacy) VANCOMYCIN PER PHARMACY PER PROTOCOL XX ; Start 01/18/19 at 09:30 Piperacillin Sod/ Tazobactam Sod 50 ml @ 100 mls/hr Q8 IVPB Last administered on 01/21/19at 05:30; Admin Dose 100 MLS/HR; Start 01/18/19 at 09:30 Midazolam HCl 50 ml @ 1 mls/hr TITRATE IV Last administered on 01/19/19at 02:47; Admin Dose 2 MLS/HR; Start 01/18/19 at 23:30 Insulin Aspart (Novolog Insulin Pen) NOVOLOG *MODERATE* ALGORI... Q4H SC Last administered on 01/20/19at 08:42; Admin Dose 2 UNIT; Start 01/19/19 at 01:00 Miscellaneous Information 1 ea NOTE XX ; Start 01/18/19 at 23:30 Glucose (Glutose) 15 gm Q15M PRN PO DECREASED GLUCOSE; Start 01/18/19 at 23:30 Glucose (Glutose) 22.5 gm Q15M PRN PO DECREASED GLUCOSE; Start 01/18/19 at 23:30 Dextrose (D50w Syringe) 25 ml Q15M PRN IV DECREASED GLUCOSE; Start 01/18/19 at 23:30 Dextrose (D50w Syringe) 50 ml Q15M PRN IV DECREASED GLUCOSE; Start 01/18/19 at 23:30 Glucagon (Glucagen) 1 mg Q15M PRN IM DECREASED GLUCOSE; Start 01/18/19 at 23:30 Glucose (Glutose) 15 gm Q15M PRN BUCCAL DECREASED GLUCOSE; Start 01/18/19 at 23:30 Miscellaneous Information (Pending [facility] Order For Wound Care) This patient berg... PRN PRN XX WOUND CARE; Start 01/19/19 at 02:00 Acetaminophen (Tylenol Supp) 650 mg Q6H PRN DC temp > 100.4F Last administered on 01/19/19at 09:27; Admin Dose 650 MG; Start 01/19/19 at 09:00 Vancomycin HCl 1.5 gm/Sodium Chloride 250 ml @ 83.333 mls/ hr Q36H IVPB Last administered on 01/21/19at 10:24; Admin Dose 83.333 MLS/HR; Start 01/19/19 at 23:00 Ketorolac Tromethamine (Toradol) 15 mg Q6H PRN IV PAIN; Start 01/19/19 at 19:00; Stop 01/22/19 at 18:59 Norepinephrine 250 ml @ 1.875 mls/ hr TITRATE IV Last administered on 01/20/19at 18:37; Admin Dose 3.75 MLS/HR; Start 01/19/19 at 20:00 Sodium Hypochlorite (Dakins Diluted ()) 1 applic BID TP Last administered on 01/21/19at 08:04; Admin Dose 1 APPLIC; Start 01/19/19 at 21:00 Morphine Sulfate (morphine) 2 mg Q4H PRN IV SEVERE PAIN LEVEL 7-10; Start at 08:30 Lansoprazole (Prevacid) 30 mg DAILY@06 NGT Last administered on 01/21/19at 10:24; Admin Dose 30 MG; Start 01/21/19 at 10:00 Miscellaneous Information (*Rx Drug Level Order Reminder*) ARSEN GU 01/22 AT 2200 2200 ONCE XX ; Start 01/22/19 at 22:00; Stop 01/22/19 at 22:01 FRITZ JOYCE Jan 21, 2019 16:48
[2019-01-21] MEDS: ASCORBIC ACID 500 MG TAB NGT SCH (21:00)
[2019-01-22] VITALS (36 sets, daily range): BP systolic 110–143; BP diastolic 56–76; PULSE 76–95; RESP 17–28
[2019-01-22] MEDS: INSULIN ASPART [NOVOLOG] 3 ML PEN SC SCH ×6 (01:00→21:11)
[2019-01-22] MEDS: LANSOPRAZOLE 30 MG CAP NGT SCH (05:46)
[2019-01-22] MEDS: PIPER-TAZO 2.25 GM (PMX) 50 ML IVPB SCH ×3 (05:46→21:09)
[2019-01-22] MEDS ORDERED: PANTOPRAZOLE 40 MG INJ IV SCH (06:00)
[2019-01-22] MEDS: ZINC SULFATE 220 MG CAP NGT SCH (09:45)
[2019-01-22] MEDS: ASCORBIC ACID 500 MG TAB NGT SCH ×2 (09:45→21:09)
[2019-01-22] MEDS: DAKINS 0.0125%(1/40) 473 ML SOLUTION TP SCH ×2 (09:45→21:09)
--- NOTE | 2019-01-22 10:11 | PN ---
Date/Time of Note Date/Time of Note DATE: 01/22/19 TIME: 09:59 Assessment/Plan VTE Prophylaxis Risk score (from Nsg)>0 risk: 10 SCD applied (from Nsg): Yes Pharmacological prophylaxis: other (scds) Lines/Catheters IV Catheter Type (from Nrsg): Central Line Central line still needed: Yes (meds) Urinary Cath still in place: Yes Reason Cath still needed: other (indicate) (monitor output) Assessment/Plan Hospital Course Summary Assessment and Plan: Assessment: Progressive dysphagia Respiratory Failure- intubated on MV 2/ to PNA Pneumonia on broad-spectrum antibiotics Status post septic shock Normocytic anemia Coagulopathy- improved CKD Hypernatremiaimproving plan hypertension Diabetes, type II Decubitus ulcer -S/p debridement of the sacral decubitus ulcer and vacuum dressing applied Functional quadriplegia History of questionable hemorrhagic CVA History of CABG-2009 Plan: NPO after midnight for PEG tomorrow Endoscopy - risks/benefits/alternatives/indications of procedure and sedation/anesthesia discussed with patient's son who states understanding and gives informed consent to proceed. Patient seen in collaboration with Subjective: Course reviewed with nursing staff Patient interviewed and examined All labs, imaging and other results reviewed The patient appears comfortable, edmundo TF well No over night events. will continues to monitor Currently off pressors PHYSICAL EXAMINATION: GENERAL: Intubated on MV- opens eyes SKIN: No lesions HEAD: Normocephalic, atraumatic, no tenderness. EYES: Pupils equal reactive to light and accommodation, no discharge. EARS/NOSE AND THROAT: Ears normal, nose normal. NECK: Supple, no masses CHEST: Inspection within normal limits. CARDIOVASCULAR: Heart: Regular rate and rhythm RESPIRATORY: Rhonchi- intubated on MV GASTROINTESTINAL AND LIVER: Abdomen: Soft, non tenderness, non-distended, no hernias, no masses, no organomegaly, no ascites, no guarding, no rebound tende rness, normoactive bowel sounds. Rectal: Deferred. Result Diagram: 01/22/19 0415 01/22/19 0415 Results 24hrs Laboratory Tests Test 01/21/19 12:20 01/21/19 16:55 01/21/19 20:57 01/22/19 01:08 Bedside Glucose 123 126 152 136 Test 01/22/19 04:15 01/22/19 05:39 01/22/19 09:44 White Blood Count 12.7 H Red Blood Count 2.96 L Hemoglobin 8.6 L Hematocrit 26.9 L Mean Corpuscular Volume 90.9 Mean Corpuscular 29.1 Hemoglobin Mean Corpuscular 32.0 Hemoglobin Concent Red Cell Distribution 19.1 H Width Platelet Count 77 L Mean Platelet Volume 11.9 H Immature Granulocytes % 0.800 H Neutrophils % 74.1 Segmented Neutrophils 60 % (Manual) Band Neutrophils % 11 H (Manual) Lymphocytes % 19.6 Lymphocytes % (Manual) 20 Monocytes % 4.0 Monocytes % (Manual) 4 Eosinophils % 1.3 Eosinophils % (Manual) 3 Basophils % 0.2 Basophils % (Manual) 1 Myelocytes % (Manual) 1 H Nucleated Red Blood 0.0 Cells % Immature Granulocytes # 0.100 H Neutrophils # 9.4 H Neutrophils # (Manual) 7.8 H Band Neutrophils # 1.3 H Lymphocytes (Manual) 2.5 Lymphocytes # 2.5 Monocytes # 0.5 Monocytes # (Manual) 0.5 Eosinophils # 0.2 Basophils # 0.0 Basophils # (Manual) 0.1 H Myelocytes # 0.1 H Nucleated Red Blood 0.0 Cells # Platelet Estimate DECREASED Polychromasia 3+ Poikilocytosis 2+ Anisocytosis 2+ Macrocytosis 1+ Prothrombin Time 16.0 #H Prothrombin Time Ratio 1.3 INR International 1.27 Normalized Ratio Sodium Level 154 H Potassium Level 3.3 L Chloride Level 126 H Carbon Dioxide Level 25 Anion Gap 3 L Blood Urea Nitrogen 32 H Creatinine 2.01 H Est Glomerular Filtrat 34 L Rate mL/min Glucose Level 132 Calcium Level 7.9 L Bedside Glucose 143 120 Exam/Review of Systems Exam Vitals Vital Signs Date Temp Pulse Resp B/P (MAP) Pulse Ox O2 O2 Flow FiO2 Time Delivery Rate 01/22/19 82 23 123/61 100 Mechanical 09:00 (81) Ventilator 01/22/19 99.7 08:00 01/22/19 30 05:05 Intake and Output 01/21/19 01/21/19 01/22/19 1515:00 23:00 07:00 IntakeIntake Total 1015.2 ml 710 ml 865 ml OutputOutput Total 485 ml 590 ml 610 ml BalanceBalance 530.2 ml 120 ml 255 ml Results Results 24hrs Laboratory Tests Test 01/21/19 12:20 01/21/19 16:55 01/21/19 20:57 01/22/19 01:08 Bedside Glucose 123 126 152 136 Test 01/22/19 04:15 01/22/19 05:39 01/22/19 09:44 White Blood Count 12.7 H Red Blood Count 2.96 L Hemoglobin 8.6 L Hematocrit 26.9 L Mean Corpuscular Volume 90.9 Mean Corpuscular 29.1 Hemoglobin Mean Corpuscular 32.0 Hemoglobin Concent Red Cell Distribution 19.1 H Width Platelet Count 77 L Mean Platelet Volume 11.9 H Immature Granulocytes % 0.800 H Neutrophils % 74.1 Segmented Neutrophils 60 % (Manual) Band Neutrophils % 11 H (Manual) Lymphocytes % 19.6 Lymphocytes % (Manual) 20 Monocytes % 4.0 Monocytes % (Manual) 4 Eosinophils % 1.3 Eosinophils % (Manual) 3 Basophils % 0.2 Basophils % (Manual) 1 Myelocytes % (Manual) 1 H Nucleated Red Blood 0.0 Cells % Immature Granulocytes # 0.100 H Neutrophils # 9.4 H Neutrophils # (Manual) 7.8 H Band Neutrophils # 1.3 H Lymphocytes (Manual) 2.5 Lymphocytes # 2.5 Monocytes # 0.5 Monocytes # (Manual) 0.5 Eosinophils # 0.2 Basophils # 0.0 Basophils # (Manual) 0.1 H Myelocytes # 0.1 H Nucleated Red Blood 0.0 Cells # Platelet Estimate DECREASED Polychromasia 3+ Poikilocytosis 2+ Anisocytosis 2+ Macrocytosis 1+ Prothrombin Time 16.0 #H Prothrombin Time Ratio 1.3 INR International 1.27 Normalized Ratio Sodium Level 154 H Potassium Level 3.3 L Chloride Level 126 H Carbon Dioxide Level 25 Anion Gap 3 L Blood Urea Nitrogen 32 H Creatinine 2.01 H Est Glomerular Filtrat 34 L Rate mL/min Glucose Level 132 Calcium Level 7.9 L Bedside Glucose 143 120 Medications Medication Current Medications Vancomycin HCl (Vanco Iv Per Pharmacy) VANCOMYCIN PER PHARMACY PER PROTOCOL XX ; Start 01/18/19 at 09:30 Piperacillin Sod/ Tazobactam Sod 50 ml @ 100 mls/hr Q8 IVPB Last administered on 01/22/19at 05:46; Admin Dose 100 MLS/HR; Start 01/18/19 at 09:30 Midazolam HCl 50 ml @ 1 mls/hr TITRATE IV Last administered on 01/19/19at 02:47; Admin Dose 2 MLS/HR; Start 01/18/19 at 23:30 Insulin Aspart (Novolog Insulin Pen) NOVOLOG *MODERATE* ALGORI... Q4H SC Last a dministered on 01/22/19at 05:42; Admin Dose 2 UNIT; Start 01/19/19 at 01:00 Miscellaneous Information 1 ea NOTE XX ; Start 01/18/19 at 23:30 Glucose (Glutose) 15 gm Q15M PRN PO DECREASED GLUCOSE; Start 01/18/19 at 23:30 Glucose (Glutose) 22.5 gm Q15M PRN PO DECREASED GLUCOSE; Start 01/18/19 at 23:30 Dextrose (D50w Syringe) 25 ml Q15M PRN IV DECREASED GLUCOSE; Start 01/18/19 at 23:30 Dextrose (D50w Syringe) 50 ml Q15M PRN IV DECREASED GLUCOSE; Start 01/18/19 at 23:30 Glucagon (Glucagen) 1 mg Q15M PRN IM DECREASED GLUCOSE; Start 01/18/19 at 23:30 Glucose (Glutose) 15 gm Q15M PRN BUCCAL DECREASED GLUCOSE; Start 01/18/19 at 23:30 Miscellaneous Information (Pending [facility] Order For Wound Care) This patient berg... PRN PRN XX WOUND CARE; Start 01/19/19 at 02:00 Acetaminophen (Tylenol Supp) 650 mg Q6H PRN [place] temp > 100.4F Last administered on 01/19/19at 09:27; Admin Dose 650 MG; Start 01/19/19 at 09:00 Vancomycin HCl 1.5 gm/Sodium Chloride 250 ml @ 83.333 mls/ hr Q36H IVPB Last administered on 01/21/19at 10:24; Admin Dose 83.333 MLS/HR; Start 01/19/19 at 23:00 Ketorolac Tromethamine (Toradol) 15 mg Q6H PRN IV PAIN; Start 01/19/19 at 19:00; Stop 01/22/19 at 18:59 Norepinephrine 250 ml @ 1.875 mls/ hr TITRATE IV Last administered on 01/20/19at 18:37; Admin Dose 3.75 MLS/HR; Start 01/19/19 at 20:00 Sodium Hypochlorite (Dakins Diluted ()) 1 applic BID TP Last administered on 01/22/19at 09:45; Admin Dose 1 APPLIC; Start 01/19/19 at 21:00 Morphine Sulfate (morphine) 2 mg Q4H PRN IV SEVERE PAIN LEVEL 7-10; Start 01/21/19 at 08:30 Lansoprazole (Prevacid) 30 mg DAILY@06 NGT Last administered on 01/22/19at 05:46; Admin Dose 30 MG; Start 01/21/19 at 10:00 Miscellaneous Information (*Rx Drug Level Order Reminder*) CHATAO TR 01/22 AT 2200 2200 ONCE XX ; Start 01/22/19 at 22:00; Stop 01/22/19 at 22:01 Zinc Sulfate (Zinc Sulfate) 220 mg DAILY NGT Last administered on 01/22/19at 09:45; Admin Dose 220 MG; Start 01/22/19 at 09:00 Ascorbic Acid (Vitamin C) 500 mg BID NGT Last administered on 01/22/19at 09:45; Admin Dose 500 MG; Start 01/21/19 at 21:00 FRITZ JOYCE Jan 22, 2019 10:09
--- NOTE | 2019-01-22 10:37 | CONS ---
Assessment/Plan Assessment/Plan Assessment/Plan (Daily) 1. acute hyperkalemia 2. acute On chronic renal failure due to ATN from septic shock 3. acute hypoxemic respiratory failure intubated on ventilator 2/2 Health care associated PNA 4. Septic shock on levophed 2/2 PNA 5. acute hypernatremia 6. H/O quadriplegia 7. H/o CAD s/p CABG 8. H/O HTN 9. 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 Plan: BUN/cr 32/2.01, Na improved to 154, K 3.3- off IVF now, KCl 20mEQ IV x 1 dose now - making good urine output IV abx zosyn and vancomycin for PNA coverage, Renally dose all abx and monitor electorlytes no acute indication for HD at this time Ventilator management as per pulmonary will follow up Consultation Date/Type/Reason Admit Date/Time Jan 18, 2019 at 04:19 Initial Consult Date Type of Consult NEPHROLOGY Requesting Provider: FELICITAS LAZARO MD Date/Time of Note DATE: 01/22/19 TIME: 10:37 Exam/Review of Systems Exam Vitals Vital Signs Date Temp Pulse Resp B/P (MAP) Pulse Ox O2 O2 Flow FiO2 Time Delivery Rate 01/22/19 82 23 123/61 100 Mechanical 09:00 (81) Ventilator 01/22/19 99.7 08:00 01/22/19 30 05:05 Intake and Output 01/21/19 01/21/19 01/22/19 1515:00 23:00 07:00 IntakeIntake Total 1015.2 ml 710 ml 865 ml OutputOutput Total 485 ml 590 ml 610 ml BalanceBalance 530.2 ml 120 ml 255 ml Exam GENERAL: , orally intubated on mechanical ventilation, appears comfortable at rest, no acute distress. NECK: Supple. No JVD or lymphadenopathy. CARDIAC: S1, S2, RRR, no murmur CHEST: Bilateral coarse BS+, no wheezing ABDOMEN: Soft, nontender. No guarding or rebound. EXTREMITIES: No cyanosis, clubbing of bleeding. + jenkins catheter NEUROLOGIC: Generalized weakness. Results Result Diagram: 01/22/19 0415 01/22/19 0415 Results 24hrs Laboratory Tests Test 01/21/19 12:20 01/21/19 16:55 01/21/19 20:57 01/22/19 01:08 Bedside Glucose 123 126 152 136 Test 01/22/19 04:15 01/22/19 05:39 01/22/19 09:44 White Blood Count 12.7 H Red Blood Count 2.96 L Hemoglobin 8.6 L Hematocrit 26.9 L Mean Corpuscular Volume 90.9 Mean Corpuscular 29.1 Hemoglobin Mean Corpuscular 32.0 Hemoglobin Concent Red Cell Distribution 19.1 H Width Platelet Count 77 L Mean Platelet Volume 11.9 H Immature Granulocytes % 0.800 H Neutrophils % 74.1 Segmented Neutrophils 60 % (Manual) Band Neutrophils % 11 H (Manual) Lymphocytes % 19.6 Lymphocytes % (Manual) 20 Monocytes % 4.0 Monocytes % (Manual) 4 Eosinophils % 1.3 Eosinophils % (Manual) 3 Basophils % 0.2 Basophils % (Manual) 1 Myelocytes % (Manual) 1 H Nucleated Red Blood 0.0 Cells % Immature Granulocytes # 0.100 H Neutrophils # 9.4 H Neutrophils # (Manual) 7.8 H Band Neutrophils # 1.3 H Lymphocytes (Manual) 2.5 Lymphocytes # 2.5 Monocytes # 0.5 Monocytes # (Manual) 0.5 Eosinophils # 0.2 Basophils # 0.0 Basophils # (Manual) 0.1 H Myelocytes # 0.1 H Nucleated Red Blood 0.0 Cells # Platelet Estimate DECREASED Polychromasia 3+ Poikilocytosis 2+ Anisocytosis 2+ Macrocytosis 1+ Prothrombin Time 16.0 #H Prothrombin Time Ratio 1.3 INR International 1.27 Normalized Ratio Sodium Level 154 H Potassium Level 3.3 L Chloride Level 126 H Carbon Dioxide Level 25 Anion Gap 3 L Blood Urea Nitrogen 32 H Creatinine 2.01 H Est Glomerular Filtrat 34 L Rate mL/min Glucose Level 132 Calcium Level 7.9 L Bedside Glucose 143 120 Medications Medication Current Medications Vancomycin HCl (Vanco Iv Per Pharmacy) VANCOMYCIN PER PHARMACY PER PROTOCOL XX ; Start 01/18/19 at 09:30 Piperacillin Sod/ Tazobactam Sod 50 ml @ 100 mls/hr Q8 IVPB Last administered on 01/22/19at 05:46; Admin Dose 100 MLS/HR; Start 01/18/19 at 09:30 Midazolam HCl 50 ml @ 1 mls/hr TITRATE IV Last administered on 01/19/19at 02:47; Admin Dose 2 MLS/HR; Start 01/18/19 at 23:30 Insulin Aspart (Novolog Insulin Pen) NOVOLOG *MODERATE* ALGORI... Q4H SC Last administered on 01/22/19at 05:42; Admin Dose 2 UNIT; Start 01/19/19 at 01:00 Miscellaneous Information 1 ea NOTE XX ; Start 01/18/19 at 23:30 Glucose (Glutose) 15 gm Q15M PRN PO DECREASED GLUCOSE; Start 01/18/19 at 23:30 Glucose (Glutose) 22.5 gm Q15M PRN PO DECREASED GLUCOSE; Start 01/18/19 at 23:30 Dextrose (D50w Syringe) 25 ml Q15M PRN IV DECREASED GLUCOSE; Start 01/18/19 at 23:30 Dextrose (D50w Syringe) 50 ml Q15M PRN IV DECREASED GLUCOSE; Start 01/18/19 at 23:30 Glucagon (Glucagen) 1 mg Q15M PRN IM DECREASED GLUCOSE; Start 01/18/19 at 23:30 Glucose (Glutose) 15 gm Q15M PRN BUCCAL DECREASED GLUCOSE; Start 01/18/19 at 23:30 [facility] This patient berg... PRN PRN XX WOUND CARE; Start 01/19/19 at 02:00 Acetaminophen (Tylenol Supp) 650 mg Q6H PRN [place] temp > 100.4F Last administered on 01/19/19at 09:27; Admin Dose 650 MG; Start 01/19/19 at 09:00 Vancomycin HCl 1.5 gm/Sodium Chloride 250 ml @ 83.333 mls/ hr Q36H IVPB Last a dministered on 01/21/19at 10:24; Admin Dose 83.333 MLS/HR; Start 01/19/19 at 23:00 Ketorolac Tromethamine (Toradol) 15 mg Q6H PRN IV PAIN; Start 01/19/19 at 19:00; Stop 01/22/19 at 18:59 Norepinephrine 250 ml @ 1.875 mls/ hr TITRATE IV Last administered on 01/20/19at 18:37; Admin Dose 3.75 MLS/HR; Start 01/19/19 at 20:00 Sodium Hypochlorite (Dakins Diluted ()) 1 applic BID TP Last administered on 01/22/19at 09:45; Admin Dose 1 APPLIC; Start 01/19/19 at 21:00 Morphine Sulfate (morphine) 2 mg Q4H PRN IV SEVERE PAIN LEVEL 7-10; Start 01/21/19 at 08:30 Lansoprazole (Prevacid) 30 mg DAILY@06 NGT Last administered on 01/22/19at 05:46; Admin Dose 30 MG; Start 01/21/19 at 10:00 Miscellaneous Information (*Rx Drug Level Order Reminder*) VANCO TR 01/22 AT 2200 2200 ONCE XX ; Start 01/22/19 at 22:00; Stop 01/22/19 at 22:01 Zinc Sulfate (Zinc Sulfate) 220 mg DAILY NGT Last administered on 01/22/19at 09:45; Admin Dose 220 MG; Start 01/22/19 at 09:00 Ascorbic Acid (Vitamin C) 500 mg BID NGT Last administered on 01/22/19at 09:45; Admin Dose 500 MG; Start 01/21/19 at 21:00 TONIO SOOD MD Jan 22, 2019 10:37
[2019-01-22] MEDS ORDERED: POTASSIUM CHLORIDE 100 ML IVPB ONE (11:00)
--- NOTE | 2019-01-22 11:14 | PN ---
Date/Time of Note Date/Time of Note DATE: 01/22/19 TIME: 11:12 Subjective Patient remains intubated Objective Vitals Vital Signs Date Temp Pulse Resp B/P (MAP) Pulse Ox O2 O2 Flow FiO2 Time Delivery Rate 01/22/19 82 23 123/61 100 Mechanical 09:00 (81) Ventilator 01/22/19 99.7 08:00 01/22/19 30 05:05 Intake and Output 01/21/19 01/21/19 01/22/19 1515:00 23:00 07:00 IntakeIntake Total 1015.2 ml 710 ml 865 ml OutputOutput Total 485 ml 590 ml 610 ml BalanceBalance 530.2 ml 120 ml 255 ml Bilateral rhonchi Regular rate and rhythm no murmurs or gallops Soft normoactive bowel sounds Diffuse edema Results Result Diagram: 01/22/19 0415 01/22/19 0415 Medications Medications Current Medications Vancomycin HCl (Vanco Iv Per Pharmacy) VANCOMYCIN PER PHARMACY PER PROTOCOL XX ; Start 01/18/19 at 09:30 Piperacillin Sod/ Tazobactam Sod 50 ml @ 100 mls/hr Q8 IVPB Last administered on 01/22/19at 05:46; Admin Dose 100 MLS/HR; Start 01/18/19 at 09:30 Midazolam HCl 50 ml @ 1 mls/hr TITRATE IV Last administered on 01/19/19at 02:47; Admin Dose 2 MLS/HR; Start 01/18/19 at 23:30 Insulin Aspart (Novolog Insulin Pen) NOVOLOG *MODERATE* ALGORI... Q4H SC Last administered on 01/22/19at 05:42; Admin Dose 2 UNIT; Start 01/19/19 at 01:00 Miscellaneous Information 1 ea NOTE XX ; Start 01/18/19 at 23:30 Glucose (Glutose) 15 gm Q15M PRN PO DECREASED GLUCOSE; Start 01/18/19 at 23:30 Glucose (Glutose) 22.5 gm Q15M PRN PO DECREASED GLUCOSE; Start 01/18/19 at 23:30 Dextrose (D50w Syringe) 25 ml Q15M PRN IV DECREASED GLUCOSE; Start 01/18/19 at 23:30 Dextrose (D50w Syringe) 50 ml Q15M PRN IV DECREASED GLUCOSE; Start 01/18/19 at 23:30 Glucagon (Glucagen) 1 mg Q15M PRN IM DECREASED GLUCOSE; Start 01/18/19 at 23:30 Glucose (Glutose) 15 gm Q15M PRN BUCCAL DECREASED GLUCOSE; Start 01/18/19 at 2 3:30 [facility] This patient berg... PRN PRN XX WOUND CARE; Start 01/19/19 at 02:00 Acetaminophen (Tylenol Supp) 650 mg Q6H PRN [place] temp > 100.4F Last administered on 01/19/19at 09:27; Admin Dose 650 MG; Start 01/19/19 at 09:00 Vancomycin HCl 1.5 gm/Sodium Chloride 250 ml @ 83.333 mls/ hr Q36H IVPB Last administered on 01/21/19at 10:24; Admin Dose 83.333 MLS/HR; Start 01/19/19 at 23:00 Ketorolac Tromethamine (Toradol) 15 mg Q6H PRN IV PAIN; Start 01/19/19 at 19:00; Stop 01/22/19 at 18:59 Norepinephrine 250 ml @ 1.875 mls/ hr TITRATE IV Last administered on 01/20/19at 18:37; Admin Dose 3.75 MLS/HR; Start 01/19/19 at 20:00 Sodium Hypochlorite (Dakins Diluted ()) 1 applic BID TP Last administered on 01/22/19at 09:45; Admin Dose 1 APPLIC; Start 01/19/19 at 21:00 Morphine Sulfate (morphine) 2 mg Q4H PRN IV SEVERE PAIN LEVEL 7-10; Start 01/21/19 at 08:30 Lansoprazole (Prevacid) 30 mg DAILY@06 NGT Last administered on 01/22/19at 05:46; Admin Dose 30 MG; Start 01/21/19 at 10:00 Miscellaneous Information (*Rx Drug Level Order Reminder*) VANCO TR 01/22 AT 2200 2200 ONCE XX ; Start 01/22/19 at 22:00; Stop 01/22/19 at 22:01 Zinc Sulfate (Zinc Sulfate) 220 mg DAILY NGT Last administered on 01/22/19at 09:45; Admin Dose 220 MG; Start 01/22/19 at 09:00 Ascorbic Acid (Vitamin C) 500 mg BID NGT Last administered on 01/22/19at 09:45; Admin Dose 500 MG; Start 01/21/19 at 21:00 Potassium Chloride 100 ml @ 50 mls/hr ONCE ONCE IVPB ; Start 01/22/19 at 11:00; Stop 01/22/19 at 12:59 VTE Prophylaxis Risk score (from [facility] [place])>0 risk: 10 SCD applied (from [facility] [place]): Yes Lines/Catheters IV Catheter Type: Saline Lock Jenkins in Place: Yes Cont'd jenkins catheter reason: pres ulcer contaminated by urine Assessment/Plan Assessment/Plan 63-year-old male with aspiration pneumonia Acute hypoxemic respiratory failure Dysphagia History of hemorrhagic stroke Chronic debilitation Stage III chronic kidney disease Acute blood loss anemia, stable Sacral decubitus ulcer, status post debridement Bilateral heel ulcers with dry eschar Continue current therapy Proceed with PEG placement in a.m. Pulmonary and GI follow-up FELICITAS LAZARO MD Jan 22, 2019 11:14
--- NOTE | 2019-01-22 11:16 | CONS ---
Consult Date/Type/Reason Admit Date/Time Jan 18, 2019 at 04:19 Initial Consult Date 01/21/19 Type of Consultation: Pulm/CCM Requesting Provider: FELICITAS LAZARO MD Date/Time of Note DATE: 01/22/19 TIME: 11:10 Subjective No events. Off sedation. Awake but not following commands. Objective Vitals Vital Signs Date Temp Pulse Resp B/P (MAP) Pulse Ox O2 O2 Flow FiO2 Time Delivery Rate 01/22/19 82 23 123/61 100 Mechanical 09:00 (81) Ventilator 01/22/19 99.7 08:00 01/22/19 30 05:05 Intake and Output 01/21/19 01/21/19 01/22/19 1515:00 23:00 07:00 IntakeIntake Total 1015.2 ml 710 ml 865 ml OutputOutput Total 485 ml 590 ml 610 ml BalanceBalance 530.2 ml 120 ml 255 ml Exam GENERAL: Elderly gentleman, orally intubated on mechanical ventilation, appears comfortable at rest, no acute distress. NECK: Supple. No JVD or lymphadenopathy. CARDIAC: S1, S2, no added sounds or murmurs. CHEST: Diminished air entry bilaterally. ABDOMEN: Soft, nontender. No guarding or rebound. EXTREMITIES: No cyanosis, clubbing of bleeding. NEUROLOGIC: Generalized weakness. Results/Medications Result Diagram: 01/22/19 0415 01/22/19 0415 Results 24 hrs Laboratory Tests Test 01/21/19 12:20 01/21/19 16:55 01/21/19 20:57 01/22/19 01:08 Bedside Glucose 123 126 152 136 Test 01/22/19 04:15 01/22/19 05:39 01/22/19 09:44 White Blood Count 12.7 H Red Blood Count 2.96 L Hemoglobin 8.6 L Hematocrit 26.9 L Mean Corpuscular Volume 90.9 Mean Corpuscular 29.1 Hemoglobin Mean Corpuscular 32.0 Hemoglobin Concent Red Cell Distribution 19.1 H Width Platelet Count 77 L Mean Platelet Volume 11.9 H Immature Granulocytes % 0.800 H Neutrophils % 74.1 Segmented Neutrophils 60 % (Manual) Band Neutrophils % 11 H (Manual) Lymphocytes % 19.6 Lymphocytes % (Manual) 20 Monocytes % 4.0 Monocytes % (Manual) 4 Eosinophils % 1.3 Eosinophils % (Manual) 3 Basophils % 0.2 Basophils % (Manual) 1 Myelocytes % (Manual) 1 H Nucleated Red Blood 0.0 Cells % Immature Granulocytes # 0.100 H Neutrophils # 9.4 H Neutrophils # (Manual) 7.8 H Band Neutrophils # 1.3 H Lymphocytes (Manual) 2.5 Lymphocytes # 2.5 Monocytes # 0.5 Monocytes # (Manual) 0.5 Eosinophils # 0.2 Basophils # 0.0 Basophils # (Manual) 0.1 H Myelocytes # 0.1 H Nucleated Red Blood 0.0 Cells # Platelet Estimate DECREASED Polychromasia 3+ Poikilocytosis 2+ Anisocytosis 2+ Macrocytosis 1+ Prothrombin Time 16.0 #H Prothrombin Time Ratio 1.3 INR International 1.27 Normalized Ratio Sodium Level 154 H Potassium Level 3.3 L Chloride Level 126 H Carbon Dioxide Level 25 Anion Gap 3 L Blood Urea Nitrogen 32 H Creatinine 2.01 H Est Glomerular Filtrat 34 L Rate mL/min Glucose Level 132 Calcium Level 7.9 L Bedside Glucose 143 120 Home Meds Reported Medications Jkmxjmgmnmui-Tclo-Luzgintg,Iso (ZOSYN 3.375 GM GALAXY BAG) 3.375 Gm/50 Ml Froz.piggy, 3.375 GM IVPB Q6, EA 01/18/19 Saccharomyces Boulardii* (Florastor*) 250 Mg Cap, 250 MG PO BID, CAP 01/18/19 Insulin Glargine* (Lantus*) 100 Unit/Ml Soln, 6 UNIT SC QHS, #1 VIAL 01/18/19 Ipratropium-Albuterol (Ipratropium-Albuterol) 0.5-3 Mg/3 Ml Ampul.neb, 3 ML INHALATION Q6 PRN for WHEEZING AND SOB, #30 VIAL 01/18/19 Lactulose* (Lactulose*) 20 Gm/30 Ml Solution, 20 GM PO BID, ML 01/18/19 Lamotrigine* (Lamotrigine*) 25 Mg Tablet, 25 MG PO BID, TAB 01/18/19 Escitalopram Oxalate* (Lexapro*) 10 Mg Tablet, 10 MG PO DAILY, #30 TAB 01/18/19 Magnesium Oxide* (Mag-Oxide*) 400 Mg Tablet, 400 MG PO TID, TAB 01/18/19 Multivitamin with Minerals (Daily Vitamin Formula-Minerals) 1 Each Tablet, 1 EACH PO DAILY, TAB 01/18/19 Hydrocodone/Acetaminophen ([place] 5-325 Tablet) 1 Each Tablet, 1 EACH PO Q4 PRN for PAIN 4-7, TAB 01/18/19 Hydrocodone/Acetaminophen ([place] 5-325 Tablet) 1 Each Tablet, 1 EACH PO 30 MIN P RIOR TO W/C PRN for PAIN, TAB 01/18/19 Hydrocodone/Acetaminophen ([place] 5-325 Tablet) 1 Each Tablet, 2 EACH PO Q4 PRN for PAIN 8-10, TAB 01/18/19 Amino Acids/Protein Hydrolys (Pro-Stat Awc Liquid) 30 Ml Liquid, 30 ML PO TID DILUTE WITH 30ML WATER 01/18/19 Tamsulosin Hcl* (Flomax*) 0.4 Mg Cap.er.24h, 0.4 MG PO HS, CAP 01/18/19 Vancomycin HCl (Vancomycin HCl) 1 Gm Vial, 1 GM IV DAILY PRN for FEVER, VIAL 01/18/19 Ascorbic Acid* (Vitamin C*) 500 Mg Capsule.sa, 500 MG PO DAILY, CAP 01/18/19 Levalbuterol Hcl* (Levalbuterol Hcl*) 0.63 Mg/3 Ml Vial.neb, 0.63 MG INHALATION Q6H PRN for WHEEZING AND SOB, VIAL 01/18/19 Sodium Phosphate,[place]-Dibasic (Enema Ready To Use) 133 Ml Enema, 133 ML RC EVERY 3 DAYS PRN for CONSTIPATION, ENEMA 01/18/19 Calcium Carbonate* (Calcium Carbonate*) 600 MG Ca Tab, 600 MG PO BID, TAB 01/18/19 Ceftriaxone Sod* (Rocephin* 1GM/50ML (PMX)) 1 Gm/50 Ml Iv.soln., 1 GM IVPB QHS, EA 01/18/19 Divalproex Sodium* (Divalproex Sodium*) 250 Mg Tablet.dr, 750 MG PO BID, #90 TAB 01/18/19 Ferrous Sulfate* (Ferrous Sulfate*) 325 Mg Tabec, 325 MG PO DAILY, TAB 01/18/19 Bisacodyl (Dulcolax) 10 Mg Supp.rect, 10 MG RC PRN PRN for CONSTIPATION, SUPP.RECT 01/18/19 Magnesium Hydroxide* (Milk Of Magnesia*) 400 Mg/5 Ml Oral.susp, 30 ML PO DAILY PRN for CONSTIPATION, ML 01/18/19 Atorvastatin* (Atorvastatin*) 40 Mg Tablet, 40 MG PO QHS, #30 TAB 01/18/19 Aspirin (Low Dose Aspirin) 81 Mg Tablet.dr, 81 MG PO DAILY, #30 TAB 01/18/19 Arginine/Ascorbate Sod/Eric AC (Arginaid Powder) 1 Each Powd.pack, 1 EACH PO BID DISOLVE IN 120MLS WATER 01/18/19 Acetylcysteine* (Mucomyst*) 4 Ml Soln, 3 ML NEB TID, EA 01/18/19 Acetaminophen* (Acetaminophen*) 650 Mg Tablet, 650 MG PO Q6H PRN for ELEVATED TEMPERATURE, #30 TAB OVER 101 01/18/19 Medications Current Medications Vancomycin HCl (Vanco Iv Per Pharmacy) VANCOMYCIN PER PHARMACY PER PROTOCOL XX ; Start 01/18/19 at 09:30 Piperacillin Sod/ Tazobactam Sod 50 ml @ 100 mls/hr Q8 IVPB Last administered on 01/22/19at 05:46; Admin Dose 100 MLS/HR; Start 01/18/19 at 09:30 Midazolam HCl 50 ml @ 1 mls/hr TITRATE IV Last administered on 01/19/19at 02:47; Admin Dose 2 MLS/HR; Start 01/18/19 at 23:30 Insulin Aspart (Novolog Insulin Pen) NOVOLOG *MODERATE* ALGORI... Q4H SC Last administered on 01/22/19at 05:42; Admin Dose 2 UNIT; Start 01/19/19 at 01:00 Miscellaneous Information 1 ea NOTE XX ; Start 01/18/19 at 23:30 Glucose (Glutose) 15 gm Q15M PRN PO DECREASED GLUCOSE; Start 01/18/19 at 23:30 Glucose (Glutose) 22.5 gm Q15M PRN PO DECREASED GLUCOSE; Start 01/18/19 at 23:30 Dextrose (D50w Syringe) 25 ml Q15M PRN IV DECREASED GLUCOSE; Start 01/18/19 at 23:30 Dextrose (D50w Syringe) 50 ml Q15M PRN IV DECREASED GLUCOSE; Start 01/18/19 at 23:30 Glucagon (Glucagen) 1 mg Q15M PRN IM DECREASED GLUCOSE; Start 01/18/19 at 23:30 Glucose (Glutose) 15 gm Q15M PRN BUCCAL DECREASED GLUCOSE; Start 01/18/19 at 23:30 Miscellaneous Information (Pending [facility] Order For Wound Care) This patient berg... PRN PRN XX WOUND CARE; Start 01/19/19 at 02:00 Acetaminophen (Tylenol Supp) 650 mg Q6H PRN [place] temp > 100.4F Last administered on 01/19/19at 09:27; Admin Dose 650 MG; Start 01/19/19 at 09:00 Vancomycin HCl 1.5 gm/Sodium Chloride 250 ml @ 83.333 mls/ hr Q36H IVPB Last administered on 01/21/19 10:24; Admin Dose 83.333 MLS/HR; Start 01/19/19 at 23:00 Ketorolac Tromethamine (Toradol) 15 mg Q6H PRN IV PAIN; Start 01/19/19 at 19:00; Stop 01/22/19 at 18:59 Norepinephrine 250 ml @ 1.875 mls/ hr TITRATE IV Last administered on 01/20/19at 18:37; Admin Dose 3.75 MLS/HR; Start 01/19/19 at 20:00 Sodium Hypochlorite (Dakins Diluted (1/40)) 1 applic BID TP Last administered on 01/22/19at 09:45; Admin Dose 1 APPLIC; Start 01/19/19 at 21:00 Morphine Sulfate (morphine) 2 mg Q4H PRN IV SEVERE PAIN LEVEL 7-10; Start 01/21/19 at 08:30 Lansoprazole (Prevacid) 30 mg DAILY@06 NGT Last administered on 01/22/19at 05:46; Admin Dose 30 MG; Start 01/21/19 at 10:00 Miscellaneous Information (*Rx Drug Level Order Reminder*) VANCO TR 01/22 AT 2200 2200 ONCE XX ; Start 01/22/19 at 22:00; Stop 01/22/19 at 22:01 Zinc Sulfate (Zinc Sulfate) 220 mg DAILY NGT Last administered on 01/22/19at 09:45; Admin Dose 220 MG; Start 01/22/19 at 09:00 Ascorbic Acid (Vitamin C) 500 mg BID NGT Last administered on 01/22/19at 09:45; Admin Dose 500 MG; Start 01/21/19 at 21:00 Potassium Chloride 100 ml @ 50 mls/hr ONCE ONCE IVPB ; Start 01/22/19 at 11:00; Stop 01/22/19 at 12:59 Assessment/Plan Assessment/Plan (Daily) IMP: 1. Respiratory Failure--query HCAP vs. aspiration 2. Status post septic shock. 3. Functional quadriplegia. 4. History of dysphagia. 5. Anemia/thrombocytopenia 6. Significant decubitus ulcer status post debridement. 7. Encephalopathy possibly worsening toxic metabolic questionable new CVA RECS: 1. Continue broad-spectrum antibiotics 2. Vent --> wean in am as tolerated 3. Hold sedative . 4. Transfuse PRBC; follow H/H 5. Await PEG 6. Continue TF/Free H20 Critical care time 40 minutes LAN ZAMARRIPA MD Jan 22, 2019 11:16
[2019-01-23] VITALS (35 sets, daily range): BP systolic 103–147; BP diastolic 48–93; PULSE 85–105; RESP 17–32
[2019-01-23] MEDS: INSULIN ASPART [NOVOLOG] 3 ML PEN SC SCH ×6 (00:59→20:56)
[2019-01-23] MEDS: PIPER-TAZO 2.25 GM (PMX) 50 ML IVPB SCH ×3 (05:02→21:00)
[2019-01-23] MEDS: LANSOPRAZOLE 30 MG CAP NGT SCH (05:02)
[2019-01-23] MEDS ORDERED: POTASSIUM CHLORIDE 100 ML IVPB ONE ×2 (07:00→10:30)
[2019-01-23] MEDS: ASCORBIC ACID 500 MG TAB NGT SCH (09:00)
[2019-01-23] MEDS: ZINC SULFATE 220 MG CAP NGT SCH (09:00)
--- NOTE | 2019-01-23 09:10 | CONS ---
Consult Date/Type/Reason Admit Date/Time Jan 18, 2019 at 04:19 Initial Consult Date Type of Consult Pulmonary Requesting Provider: FELICITAS LAZARO MD Date/Time of Note DATE: 01/23/19 TIME: 09:09 Subjective Continues mechanical ventilation CPAP trial this morning. Eyes open but not following commands. Objective Vital Signs Date Temp Pulse Resp B/P (MAP) Pulse Ox O2 O2 Flow FiO2 Time Delivery Rate 01/23/19 92 25 124/69 100 Mechanical 06:00 (87) Ventilator 01/23/19 30 05:07 01/23/19 99.5 04:00 Intake and Output 01/22/19 01/22/19 01/23/19 1414:59 22:59 06:59 IntakeIntake Total 700 ml 680 ml 110 ml OutputOutput Total 890 ml 1470 ml 1086 ml BalanceBalance -190 ml -790 ml -976 ml Exam GENERAL: Elderly gentleman, orally intubated on mechanical ventilation, appears comfortable at rest, no acute distress. NECK: Supple. No JVD or lymphadenopathy. CARDIAC: S1, S2, no added sounds or murmurs. CHEST: Diminished air entry bilaterally. ABDOMEN: Soft, nontender. No guarding or rebound. EXTREMITIES: No cyanosis, clubbing of bleeding. NEUROLOGIC: Generalized weakness. Vent Setting Ventilator Support Mode: AC Fraction of Inspired Oxygen pe: 30 Positive End Expiratory Pressu: 5.0 Results/Medications Result Diagram: 01/23/19 0450 01/23/19 0450 Results 24 hrs Laboratory Tests Test 01/22/19 09:44 01/22/19 14:15 01/22/19 17:29 01/22/19 21:08 Bedside Glucose 120 117 121 160 Test 01/22/19 22:25 01/23/19 00:57 01/23/19 04:50 01/23/19 04:58 Vancomycin Level Trough 23.4 *H Bedside Glucose 158 151 White Blood Count 10.7 Red Blood Count 2.91 L Hemoglobin 8.4 L Hematocrit 27.2 L Mean Corpuscular Volume 93.5 Mean Corpuscular 28.9 L Hemoglobin Mean Corpuscular 30.9 L Hemoglobin Concent Red Cell Distribution 18.6 H Width Platelet Count 85 L Mean Platelet Volume 11.5 H Immature Granulocytes % 0.800 H Neutrophils % 70.8 Lymphocytes % 21.1 Monocytes % 5.5 Eosinophils % 1.4 Basophils % 0.4 Nucleated Red Blood 0.0 Cells % Immature Granulocytes # 0.090 H Neutrophils # 7.6 H Lymphocytes # 2.3 Monocytes # 0.6 Eosinophils # 0.2 Basophils # 0.0 Nucleated Red Blood 0.0 Cells # Sodium Level 156 H Potassium Level 3.4 L Chloride Level 128 H Carbon Dioxide Level 25 Anion Gap 3 L Blood Urea Nitrogen 31 H Creatinine 1.85 H Est Glomerular Filtrat 37 L Rate mL/min Glucose Level 139 Calcium Level 7.6 L Medications Current Medications Vancomycin HCl (Vanco Iv Per Pharmacy) VANCOMYCIN PER PHARMACY PER PROTOCOL XX ; Start 01/18/19 at 09:30 Piperacillin Sod/ Tazobactam Sod 50 ml @ 100 mls/hr Q8 IVPB Last administered on 01/23/19at 05:02; Admin Dose 100 MLS/HR; Start 01/18/19 at 09:30 Midazolam HCl 50 ml @ 1 mls/hr TITRATE IV Last administered on 01/19/19at 02:47; Admin Dose 2 MLS/HR; Start 01/18/19 at 23:30 Insulin Aspart (Novolog Insulin Pen) NOVOLOG *MODERATE* ALGORI... Q4H SC Last administered on 01/23/19at 05:01; Admin Dose 2 UNIT; Start 01/19/19 at 01:00 Miscellaneous Information 1 ea NOTE XX ; Start 01/18/19 at 23:30 Glucose (Glutose) 15 gm Q15M PRN PO DECREASED GLUCOSE; Start 01/18/19 at 23:30 Glucose (Glutose) 22.5 gm Q15M PRN PO DECREASED GLUCOSE; Start 01/18/19 at 23:30 Dextrose (D50w Syringe) 25 ml Q15M PRN IV DECREASED GLUCOSE; Start 01/18/19 at 23:30 Dextrose (D50w Syringe) 50 ml Q15M PRN IV DECREASED GLUCOSE; Start 01/18/19 at 23:30 Glucagon (Glucagen) 1 mg Q15M PRN IM DECREASED GLUCOSE; Start 01/18/19 at 23:30 Glucose (Glutose) 15 gm Q15M PRN BUCCAL DECREASED GLUCOSE; Start 01/18/19 at 23:30 Miscellaneous Information (Pending [facility] Order For Wound Care) This patient berg... PRN PRN XX WOUND CARE; Start 01/19/19 at 02:00 Acetaminophen (Tylenol Supp) 650 mg Q6H PRN [place] temp > 100.4F Last administered on 01/19/19 09:27; Admin Dose 650 MG; Start 01/19/19 at 09:00 Norepinephrine 250 ml @ 1.875 mls/ hr TITRATE IV Last administered on 01/20/19 18:37; Admin Dose 3.75 MLS/HR; Start 01/19/19 at 20:00 Sodium Hypochlorite (Dakins Diluted ()) 1 applic BID TP Last administered on 01/22/19 21:09; Admin Dose 1 APPLIC; Start 01/19/19 at 21:00 Morphine Sulfate (morphine) 2 mg Q4H PRN IV SEVERE PAIN LEVEL 7-10; Start 01/21/19 at 08:30 Lansoprazole (Prevacid) 30 mg DAILY@06 NGT Last administered on 01/22/19 05:46; Admin Dose 30 MG; Start 01/21/19 at 10:00 Zinc Sulfate (Zinc Sulfate) 220 mg DAILY NGT Last administered on 01/22/19at 09:45; Admin Dose 220 MG; Start 01/22/19 at 09:00 Ascorbic Acid (Vitamin C) 500 mg BID NGT Last administered on 01/22/19 21:09; Admin Dose 500 MG; Start 01/21/19 at 21:00 Vancomycin HCl 1.25 gm/Sodium Chloride 250 ml @ 83.333 mls/ hr Q48H IVPB ; Start 01/24/19 at 08:00 Assessment/Plan Hospital Course (Demo Recall) IMPRESSION: 1. Likely healthcare-associated pneumonia. 2. Status post septic shock. 3. Functional quadriplegia. 4. History of dysphagia. 5. Hypoxemic respiratory failure 6. Significant decubitus ulcer status post debridement. 7. Encephalopathy possibly worsening toxic metabolic questionable new CVA PLAN: 1. Continue broad-spectrum antibiotics. 2. Antibiotics per primary team 3. Vasopressor support as needed. 4. Volume resuscitation. PRBCs monitor H&H 5. Increase free water per nasogastric tube. 6. Continue mechanical ventilation. CPAP trial this morning. Critical care time 40 minutes overall prognosis guarded. We will discuss with family CODE STATUS and reintubation status.? BHAVIN BARROW MD, [facility] Jan 23, 2019 09:10
[2019-01-23] MEDS ORDERED: ETOMIDATE 20 MG INJ ONE (09:46)
[2019-01-23] MEDS ORDERED: PROPOFOL 20 ML ONE (09:46)
--- NOTE | 2019-01-23 10:18 | PREAC ---
Date/Time of Note Date/Time of Note DATE: 01/23/19 TIME: 10:15 Anesthesia Eval and Record Evaluation Time Pre-Procedure Interview DATE: 01/23/19 TIME: 10:15 Age 63 Sex male NPO: 8 hrs Preoperative diagnosis failure to thrive dysphagia Planned procedure egd peg Past Medical History Past Medical History: Includes Endo: Diabetes Pulm: Other (resp failure) Neuro: Other (paraplkegia) Psych: Depression Surgery & Anesthesia Issues No known issue Meds Anticoagulation: No Beta Yanna within 24 hr: No Reason Beta Yanna not given: Pt. not on B-Yanna Reported Medications Wzpbqlyqhfro-Bkng-Imqqnzgg,Iso (ZOSYN 3.375 GM GALAXY BAG) 3.375 Gm/50 Ml Froz.piggy, 3.375 GM IVPB Q6, EA 01/18/19 Saccharomyces Boulardii* (Florastor*) 250 Mg Cap, 250 MG PO BID, CAP 01/18/19 Insulin Glargine* (Lantus*) 100 Unit/Ml Soln, 6 UNIT SC QHS, #1 VIAL 01/18/19 Ipratropium-Albuterol (Ipratropium-Albuterol) 0.5-3 Mg/3 Ml Ampul.neb, 3 ML INHALATION Q6 PRN for WHEEZING AND SOB, #30 VIAL 01/18/19 Lactulose* (Lactulose*) 20 Gm/30 Ml Solution, 20 GM PO BID, ML 01/18/19 Lamotrigine* (Lamotrigine*) 25 Mg Tablet, 25 MG PO BID, TAB 01/18/19 Escitalopram Oxalate* (Lexapro*) 10 Mg Tablet, 10 MG PO DAILY, #30 TAB 01/18/19 Magnesium Oxide* (Mag-Oxide*) 400 Mg Tablet, 400 MG PO TID, TAB 01/18/19 Multivitamin with Minerals (Daily Vitamin Formula-Minerals) 1 Each Tablet, 1 EACH PO DAILY, TAB 01/18/19 Hydrocodone/Acetaminophen ([place] 5-325 Tablet) 1 Each Tablet, 1 EACH PO Q4 PRN for PAIN 4-7, TAB 01/18/19 Hydrocodone/Acetaminophen ([place] 5-325 Tablet) 1 Each Tablet, 1 EACH PO 30 MIN PRIOR TO W/C PRN for PAIN, TAB 01/18/19 Hydrocodone/Acetaminophen ([place] 5-325 Tablet) 1 Each Tablet, 2 EACH PO Q4 PRN for PAIN 8-10, TAB 01/18/19 Amino Acids/Protein Hydrolys (Pro-Stat Awc Liquid) 30 Ml Liquid, 30 ML PO TID DILUTE WITH 30ML WATER 01/18/19 Tamsulosin Hcl* (Flomax*) 0.4 Mg Cap.er.24h, 0.4 MG PO HS, CAP 01/18/19 Vancomycin HCl (Vancomycin HCl) 1 Gm Vial, 1 GM IV DAILY PRN for FEVER, VIAL 01/18/19 Ascorbic Acid* (Vitamin C*) 500 Mg Capsule.sa, 500 MG PO DAILY, CAP 01/18/19 Levalbuterol Hcl* (Levalbuterol Hcl*) 0.63 Mg/3 Ml Vial.neb, 0.63 MG INHALATION Q6H PRN for WHEEZING AND SOB, VIAL 01/18/19 Sodium Phosphate,[place]-Dibasic (Enema Ready To Use) 133 Ml Enema, 133 ML RC EVERY 3 DAYS PRN for CONSTIPATION, ENEMA 01/18/19 Calcium Carbonate* (Calcium Carbonate*) 600 MG Ca Tab, 600 MG PO BID, TAB 01/18/19 Ceftriaxone Sod* (Rocephin* 1GM/50ML (PMX)) 1 Gm/50 Ml Iv.soln., 1 GM IVPB QHS, EA 01/18/19 Divalproex Sodium* (Divalproex Sodium*) 250 Mg Tablet.dr, 750 MG PO BID, #90 TAB 01/18/19 Ferrous Sulfate* (Ferrous Sulfate*) 325 Mg Tabec, 325 MG PO DAILY, TAB 01/18/19 Bisacodyl (Dulcolax) 10 Mg Supp.rect, 10 MG RC PRN PRN for CONSTIPATION, SUPP.RECT 01/18/19 Magnesium Hydroxide* (Milk Of Magnesia*) 400 Mg/5 Ml Oral.susp, 30 ML PO DAILY PRN for CONSTIPATION, ML 01/18/19 Atorvastatin* (Atorvastatin*) 40 Mg Tablet, 40 MG PO QHS, #30 TAB 01/18/19 Aspirin (Low Dose Aspirin) 81 Mg Tablet.dr, 81 MG PO DAILY, #30 TAB 01/18/19 [place]ine/Ascorbate Sod/Eric AC (Arginaid Powder) 1 Each Powd.pack, 1 EACH PO BID DISOLVE IN 120MLS WATER 01/18/19 Acetylcysteine* (Mucomyst*) 4 Ml Soln, 3 ML NEB TID, EA 01/18/19 Acetaminophen* (Acetaminophen*) 650 Mg Tablet, 650 MG PO Q6H PRN for ELEVATED TEMPERATURE, #30 TAB OVER 101 01/18/19 Current Medications Vancomycin HCl (Vanco Iv Per Pharmacy) VANCOMYCIN PER PHARMACY PER PROTOCOL XX ; Start 01/18/19 at 09:30 Piperacillin Sod/ Tazobactam Sod 50 ml @ 100 mls/hr Q8 IVPB Last administered on 01/23/19at 05:02; Admin Dose 100 MLS/HR; Start 01/18/19 at 09:30 Midazolam HCl 50 ml @ 1 mls/hr TITRATE IV Last administered on 01/19/19at 02:47; Admin Dose 2 MLS/HR; Start 01/18/19 at 23:30 Insulin Aspart (Novolog Insulin Pen) NOVOLOG *MODERATE* ALGORI... Q4H SC Last administered on 01/23/19at 05:01; Admin Dose 2 UNIT; Start 01/19/19 at 01:00 Miscellaneous Information 1 ea NOTE XX ; Start 01/18/19 at 23:30 Glucose (Glutose) 15 gm Q15M PRN PO DECREASED GLUCOSE; Start 01/18/19 at 23:30 Glucose (Glutose) 22.5 gm Q15M PRN PO DECREASED GLUCOSE; Start 01/18/19 at 23:30 Dextrose (D50w Syringe) 25 ml Q15M PRN IV DECREASED GLUCOSE; Start 01/18/19 at 23:30 Dextrose (D50w Syringe) 50 ml Q15M PRN IV DECREASED GLUCOSE; Start 01/18/19 at 23:30 Glucagon (Glucagen) 1 mg Q15M PRN IM DECREASED GLUCOSE; Start 01/18/19 at 23:30 Glucose (Glutose) 15 gm Q15M PRN BUCCAL DECREASED GLUCOSE; Start 01/18/19 at 23:30 Miscellaneous Information (Pending [facility] Order For Wound Care) This patient berg... PRN PRN XX WOUND CARE; Start 01/19/19 at 02:00 Acetaminophen (Tylenol Supp) 650 mg Q6H PRN [place] temp > 100.4F Last administered on 01/19/19at 09:27; Admin Dose 650 MG; Start 01/19/19 at 09:00 Norepinephrine 250 ml @ 1.875 mls/ hr TITRATE IV Last administered on 01/20/19at 18:37; Admin Dose 3.75 MLS/HR; Start 01/19/19 at 20:00 Sodium Hypochlorite (Dakins Diluted ()) 1 applic BID TP Last administered on 01/22/19at 21:09; Admin Dose 1 APPLIC; Start 01/19/19 at 21:00 Morphine Sulfate (morphine) 2 mg Q4H PRN IV SEVERE PAIN LEVEL 7-10; Start 01/21/19 at 08:30 Lansoprazole (Prevacid) 30 mg DAILY@06 NGT Last administered on 01/22/19at 05:46; Admin Dose 30 MG; Start 01/21/19 at 10:00 Zinc Sulfate (Zinc Sulfate) 220 mg DAILY NGT Last administered on 01/22/19at 09:45; Admin Dose 220 MG; Start 01/22/19 at 09:00 Ascorbic Acid (Vitamin C) 500 mg BID NGT Last administered on 01/22/19at 21:09; Admin Dose 500 MG; Start 01/21/19 at 21:00 Vancomycin HCl 1.25 gm/Sodium Chloride 250 ml @ 83.333 mls/ hr Q48H IVPB ; Start 01/24/19 at 08:00 Meds reviewed: Yes Allergies Coded Allergies: Sulfa (Sulfonamide Antibiotics) (Verified Allergy, Unknown, 01/18/19) Allergies Reviewed: Yes Labs/Studies Labs Reviewed: Reviewed by anesthesiologist Result Diagram: 01/23/19 0450 01/23/19 0450 Laboratory Tests 01/23/19 04:50 test: Negative Pre-procedure Exam Last vitals Vital Signs Date Temp Pulse Resp B/P (MAP) Pulse Ox O2 O2 Flow FiO2 Time Delivery Rate 01/23/19 92 25 124/69 100 Mechanical 06:00 (87) Ventilator 01/23/19 30 05:07 01/23/19 99.5 04:00 Airway: Adequate mouth opening Mallampati: Mallampati II Teeth: Normal Lung: Normal Heart: Normal ASA Physical Status ASA physical status: 3 Emergency: None Planned Anesthetic General/MAC: MAC Pre-operative Attestations Prior to commencing anesthesia and surgery, the patient was re-evaluated, there was verification of: *The patient's identity *The results of appropriate recent lab work and preoperative vital signs *The above evaluation not changing prior to induction *Anesthetic plan, risk benefits, alternative and complications discussed with patient/family; questions answered; patient/family understands, accepts and wishes to proceed. DAVID PALMA MD Jan 23, 2019 10:18
--- NOTE | 2019-01-23 10:21 | CONS ---
Assessment/Plan Assessment/Plan Assessment/Plan (Daily) 1. acute hyperkalemia 2. acute On chronic renal failure due to ATN from septic shock 3. acute hypoxemic respiratory failure intubated on ventilator 2/2 Health care associated PNA 4. Septic shock on levophed 2/2 PNA 5. acute hypernatremia 6. H/O quadriplegia 7. H/o CAD s/p CABG 8. H/O HTN 9. H/o sacral decubitus s/p debridement before 10. [employer] Plan: BUN/cr 31/1.85 Na improved to 156, K 3.4- making adequate urine output, IVF D5W with KCl 20MEQ at 70 cc/hr x 2 liter then stop IV abx zosyn and vancomycin for PNA coverage, Renally dose all abx and monitor electorlytes no acute indication for HD at this time Ventilator management as per pulmonary- possible weaning plan tomorrow will follow up Consultation Date/Type/Reason Admit Date/Time Jan 18, 2019 at 04:19 Initial Consult Date Type of Consult NEPHROLOGY Requesting Provider: FELICITAS LAZARO MD Date/Time of Note DATE: 01/23/19 TIME: 10:21 Exam/Review of Systems Exam Vitals Vital Signs Date Temp Pulse Resp B/P (MAP) Pulse Ox O2 O2 Flow FiO2 Time Delivery Rate 01/23/19 92 25 124/69 100 Mechanical 06:00 (87) Ventilator 01/23/19 30 05:07 01/23/19 99.5 04:00 Intake and Output 01/22/19 01/22/19 01/23/19 1414:59 22:59 06:59 IntakeIntake Total 700 ml 680 ml 110 ml OutputOutput Total 890 ml 1470 ml 1086 ml BalanceBalance -190 ml -790 ml -976 ml Exam GENERAL: Intubated on ventilator NECK: Supple. No JVD or lymphadenopathy. CARDIAC: S1, S2, RRR, no murmur CHEST: Bilateral coarse BS+, no wheezing ABDOMEN: Soft, nontender. No guarding or rebound. EXTREMITIES: No cyanosis, clubbing of bleeding. + jenkins catheter NEUROLOGIC: Generalized weakness. Results Result Diagram: 01/23/19 0450 01/23/19 0450 Results 24hrs Laboratory Tests Test 01/22/19 14:15 01/22/19 17:29 01/22/19 21:08 01/22/19 22:25 Bedside Glucose 117 121 160 Vancomycin Level 23.4 *H Trough Test 01/23/19 00:57 01/23/19 04:50 01/23/19 04:58 01/23/19 09:00 Bedside Glucose 158 151 White Blood Count 10.7 Red Blood Count 2.91 L Hemoglobin 8.4 L Hematocrit 27.2 L Mean Corpuscular 93.5 Volume Mean Corpuscular 28.9 L Hemoglobin Mean Corpuscular 30.9 L Hemoglobin Concent Red Cell 18.6 H Distribution Width Platelet Count 85 L Mean Platelet 11.5 H Volume Immature 0.800 H Granulocytes % Neutrophils % 70.8 Lymphocytes % 21.1 Monocytes % 5.5 Eosinophils % 1.4 Basophils % 0.4 Nucleated Red 0.0 Blood Cells % Immature 0.090 H Granulocytes # Neutrophils # 7.6 H Lymphocytes # 2.3 Monocytes # 0.6 Eosinophils # 0.2 Basophils # 0.0 Nucleated Red 0.0 Blood Cells # Sodium Level 156 H Potassium Level 3.4 L Chloride Level 128 H Carbon Dioxide 25 Level Anion Gap 3 L Blood Urea 31 H Nitrogen Creatinine 1.85 H Est Glomerular 37 L Filtrat Rate mL/min Glucose Level 139 Calcium Level 7.6 L Blood Gas Specimen Blood arterial Source Arterial Blood 01/23/2019 9:53:10 Date Drawn AM Arterial Blood pH 7.478 H (Temp corrected) Arterial Blood 34.1 L pCO2 (Temp correct) Arterial Blood pO2 81.1 (Temp corrected) Arterial Blood 24.7 HCO3 Arterial Blood 1.3 Base Excess Arterial Blood 95.9 Oxygen Saturation Aníbal Test ACCEPTAB Arterial Blood Gas Right Radial Puncture Site Arterial 0.3 Blood Carboxyhemog lobin Arterial Blood 0.1 Methemoglobin Blood Gas A-a O2 92.7 H Differential Oxyhemoglobin 95.5 Percent Blood Gas 37.0 Temperature Blood Gas Actual 29 Respiration Rate Blood Gas Modality VENT - CPAP FiO2 30.0 Blood Gas Low PEEP 5.0 Setting Blood Gas Pressure 10 Support Blood Gas Notified TM Whom Blood Gas Notified 01/23/2019 10:06:02 Time AM Medications Medication Current Medications Vancomycin HCl (Vanco Iv Per Pharmacy) VANCOMYCIN PER PHARMACY PER PROTOCOL XX ; Start 01/18/19 at 09:30 Piperacillin Sod/ Tazobactam Sod 50 ml @ 100 mls/hr Q8 IVPB Last administered on 01/23/19at 05:02; Admin Dose 100 MLS/HR; Start 01/18/19 at 09:30 Midazolam HCl 50 ml @ 1 mls/hr TITRATE IV Last administered on 01/19/19at 02:47; Admin Dose 2 MLS/HR; Start 01/18/19 at 23:30 Insulin Aspart (Novolog Insulin Pen) NOVOLOG *MODERATE* ALGORI... Q4H SC Last administered on 01/23/19at 05:01; Admin Dose 2 UNIT; Start 01/19/19 at 01:00 Miscellaneous Information 1 ea NOTE XX ; Start 01/18/19 at 23:30 Glucose (Glutose) 15 gm Q15M PRN PO DECREASED GLUCOSE; Start 01/18/19 at 23:30 Glucose (Glutose) 22.5 gm Q15M PRN PO DECREASED GLUCOSE; Start 01/18/19 at 23:30 Dextrose (D50w Syringe) 25 ml Q15M PRN IV DECREASED GLUCOSE; Start 01/18/19 at 23:30 Dextrose (D50w Syringe) 50 ml Q15M PRN IV DECREASED GLUCOSE; Start 01/18/19 at 23:30 Glucagon (Glucagen) 1 mg Q15M PRN IM DECREASED GLUCOSE; Start 01/18/19 at 23:30 Glucose (Glutose) 15 gm Q15M PRN BUCCAL DECREASED GLUCOSE; Start 01/18/19 at 23:30 Miscellaneous Information (Pending [facility] Order For Wound Care) This patient berg... PRN PRN XX WOUND CARE; Start 01/19/19 at 02:00 Acetaminophen (Tylenol Supp) 650 mg Q6H PRN [place] temp > 100.4F Last administered on 01/19/19at 09:27; Admin Dose 650 MG; Start 01/19/19 at 09:00 Norepinephrine 250 ml @ 1.875 mls/ hr TITRATE IV Last administered on 01/20/19at 18:37; Admin Dose 3.75 MLS/HR; Start 01/19/19 at 20:00 Sodium Hypochlorite (Dakins Diluted ()) 1 applic BID TP Last administered on 01/22/19at 21:09; Admin Dose 1 APPLIC; Start 01/19/19 at 21:00 Morphine Sulfate (morphine) 2 mg Q4H PRN IV SEVERE PAIN LEVEL 7-10; Start 01/21/19 at 08:30 Lansoprazole (Prevacid) 30 mg DAILY@06 NGT Last administered on 01/22/19at 05:46; Admin Dose 30 MG; Start 01/21/19 at 10:00 Zinc Sulfate (Zinc Sulfate) 220 mg DAILY NGT Last administered on 01/22/19at 09:45; Admin Dose 220 MG; Start 01/22/19 at 09:00 Ascorbic Acid (Vitamin C) 500 mg BID NGT Last administered on 01/22/19at 21:09; Admin Dose 500 MG; Start 01/21/19 at 21:00 Vancomycin HCl 1.25 gm/Sodium Chloride 250 ml @ 83.333 mls/ hr Q48H IVPB ; Start 01/24/19 at 08:00 TONIO SOOD MD Jan 23, 2019 10:21
[2019-01-23] MEDS ORDERED: CEFAZOLIN 1 GM/50 ML (PMX) 50 ML IVPB STA (10:26)
--- NOTE | 2019-01-23 11:36 | PAC ---
Date/Time of Note Date/Time of Note DATE: 01/23/19 TIME: 11:36 Post-Anesthesia Notes Post-Anesthesia Note Last documented vital signs Vital Signs Date Temp Pulse Resp B/P (MAP) Pulse Ox O2 O2 Flow FiO2 Time Delivery Rate 01/23/19 88 08:00 01/23/19 25 124/69 100 Mechanical 06:00 (87) Ventilator 01/23/19 30 05:07 01/23/19 99.5 04:00 Activity: WNL Respiratory function: WNL Cardiovascular function: WNL Mental status: Baseline Pain reasonably controlled: Yes Hydration appropriate: Yes Nausea/Vomiting absent: Yes DAVID PALMA MD Jan 23, 2019 11:36
--- NOTE | 2019-01-23 12:01 | OPPN ---
Date/Time of Note Date/Time of Note DATE: 01/23/19 TIME: 11:58 Proc Note GI Procedure Date 01/23/19 Indication: treatment Pre-procedure Diagnosis Enteral feeding requirement Post-procedure Diagnosis Impression: Incidental 1 cm fundal gastric ulcer with slightly nodular borders. Biopsies obtained Uneventful PEG. Placement of [place] 20 gastrostomy tube. Plan: Increase lansoprazole to 30 mg twice daily. Review pathology. Start feedings tomorrow morning. Gastrostomy tube may be used for flushes and medications today . Procedure Performed: Other (EGD plus biopsies plus PEG) Surgeon see signature line Director Of Pulmonary Unit none Anesthesia Type: MAC Anesthesiologist: DAVID PALMA MD Tourniquet Time none EBL none Transfusion required none Biopsy 1: Gastric ulcer fundus of the stomach Grafts/Implants none Tubes/Drains none Complication(s) none Disposition: other (ICU) Procedure Description After informed consent, with the patient/relatives understanding the procedure, its indications, potential risks and complications, including but not limited to: Allergic reaction, bleeding, perforation or infection, and all after all pertinent questions were answered to the patient's satisfaction, patient/relative signed witnessed informed consent. Following this, premedication was administered slowly IV push under care of cardiovascular respiratory monitoring with pulse oximetry, and automatic blood pressure, and quality assurance monitor chassis. Once to sedative effect was achieved the patient was placed in the left lateral decubitus, the panendoscope was introduced and advanced under visual control. Careful examination of the upper gastrointestinal tract, both on insertion as well as withdrawal of the instrument disclosed following findings: ESOPHAGUS: The mucosa of the entire esophagus was carefully examined and showed the following findings: The mucosa appears within normal limits. There is no evidence of esophagitis, varices, neoplasm or stricture. No hiatal hernia identified. STOMACH: Upon entrance to the stomach air was insufflated, the gastric tinoco distended normally. The mucosa of the fundus, body and antrum of the stomach was carefully examined both head-on and on retroflexion, and showed the following findings: There is a 1 cm cratered ulcer in the fundus. The edges are slightly nodular. Biopsies were obtained. Otherwise the mucosa appears within normal limits with no abnormalities. There is no evidence of gastritis or neoplasm. PYLORUS: The pylorus was carefully examined and showed the following findings: The pylorus appears patent and within normal limits, with no evidence of gastric outlet obstruction. DUODENUM: The duodenal mucosa was carefully examined in the duodenal bulb as well as the second portion of the duodenum and showed the following findings: The mucosa appears unremarkable with no evidence of duodenitis, ulcer or neoplasm. The instrument was then brought back to the stomach and the anterior wall mid- body was identified by transillumination and "finger indentation", this area was then marked in the anterior wall of the abdomen, it was cleansed with Betadine and infiltrated with Xylocaine 1%. Following this a trocar needle was introduced into the gastric lumen under visual control with the endoscope, once in the gastric lumen a guide wire was advanced and secured with a polypectomy snare, at this point the endoscope was withdrawn bringing the guidewire out through the patient's mouth. Following this a [place] #20 gastrostomy tube was introduced over the guidewire, with the Sacruperto-Abimael technique without difficulty, a small incision was performed in the skin to allow easy passage of the G-tube, once the position of the gastrostomy was confirmed, the external stopper and connectors were installed, and a clean dressing applied. The patient tolerated the procedure well and was transferred out of the endoscopy suite awake, and in good condition to continue recovery under observation, feedings will start in the next 12-24 hours and the discharge in the care will be instituted. Copies To: CC: ANDREY MEJÍA MD ; ANDREY MEJÍA MD Jan 23, 2019 12:01
[2019-01-23] MEDS: DAKINS 0.0125%(1/40) 473 ML SOLUTION TP SCH ×2 (14:03→20:56)
[2019-01-23] MEDS: D5W + KCL 20 MEQ 1,000 ML IV SCH (14:03)
[2019-01-23] MEDS ORDERED: LANSOPRAZOLE 30 MG CAP NGT SCH (18:00)
[2019-01-23] MEDS: ASCORBIC ACID 500 MG TAB GTB SCH (20:56)
[2019-01-24] VITALS (29 sets, daily range): BP systolic 103–131; BP diastolic 50–71; PULSE 80–106; RESP 21–31
[2019-01-24] MEDS: INSULIN ASPART [NOVOLOG] 3 ML PEN SC SCH ×6 (01:02→21:27)
[2019-01-24] MEDS: PIPER-TAZO 2.25 GM (PMX) 50 ML IVPB SCH ×3 (05:18→21:25)
[2019-01-24] MEDS: D5W + KCL 20 MEQ 1,000 ML IV SCH (05:18)
[2019-01-24] MEDS: LANSOPRAZOLE 30 MG CAP GTB SCH ×2 (05:19→18:19)
--- NOTE | 2019-01-24 08:40 | CONS ---
Consult Date/Type/Reason Admit Date/Time Jan 18, 2019 at 04:19 Initial Consult Date Type of Consult Pulmonary Requesting Provider: FELICITAS LAZARO MD Date/Time of Note DATE: 01/24/19 TIME: 08:38 Subjective Tolerated weaning trial yesterday. Extubation was held secondary to G-tube placement. Objective Vital Signs Date Temp Pulse Resp B/P (MAP) Pulse Ox O2 O2 Flow FiO2 Time Delivery Rate 01/24/19 94 100 30 08:31 01/24/19 26 07:32 01/24/19 98.8 06:28 01/24/19 123/61 Mechanical 06:00 (81) Ventilator Intake and Output 01/23/19 01/23/19 01/24/19 1515:00 23:00 07:00 IntakeIntake Total 85 ml 610 ml 540 ml OutputOutput Total 850 ml 1540 ml 960 ml BalanceBalance -765 ml -930 ml -420 ml Exam GENERAL: Elderly gentleman, orally intubated on mechanical ventilation, appears comfortable at rest, no acute distress. NECK: Supple. No JVD or lymphadenopathy. CARDIAC: S1, S2, no added sounds or murmurs. CHEST: Diminished air entry bilaterally. ABDOMEN: Soft, nontender. No guarding or rebound. EXTREMITIES: No cyanosis, clubbing of bleeding. NEUROLOGIC: Generalized weakness. Vent Setting Ventilator Support Mode: CPAP, PS Fraction of Inspired Oxygen pe: 30 Positive End Expiratory Pressu: 5.0 Results/Medications Result Diagram: 01/24/19 0410 01/24/19 0410 Results 24 hrs Laboratory Tests Test 01/23/19 09:00 01/23/19 14:02 01/23/19 18:13 01/23/19 20:55 Blood Gas Specimen Blood arterial Source Arterial Blood 01/23/2019 9:53:10 Date Drawn AM Arterial Blood pH 7.478 H (Temp corrected) Arterial Blood 34.1 L pCO2 (Temp correct) Arterial Blood pO2 81.1 (Temp corrected) Arterial Blood 24.7 HCO3 Arterial Blood 1.3 Base Excess Arterial Blood 95.9 Oxygen Saturation Aníbal Test ACCEPTAB Arterial Blood Gas Right Radial Puncture Site Arterial 0.3 Blood Carboxyhemog lobin Arterial Blood 0.1 Methemoglobin Blood Gas A-a O2 92.7 H Differential Oxyhemoglobin 95.5 Percent Blood Gas 37.0 Temperature Blood Gas Actual 29 Respiration Rate Blood Gas Modality VENT - CPAP FiO2 30.0 Blood Gas Low PEEP 5.0 Setting Blood Gas Pressure 10 Support Blood Gas Notified TM Whom Blood Gas Notified 01/23/2019 10:06:02 Time AM Bedside Glucose 102 124 140 Test 01/24/19 00:59 01/24/19 04:10 01/24/19 05:17 Bedside Glucose 141 122 White Blood Count 9.4 Red Blood Count 2.79 L Hemoglobin 8.1 L Hematocrit 25.8 L Mean Corpuscular 92.5 Volume Mean Corpuscular 29.0 Hemoglobin Mean Corpuscular 31.4 L Hemoglobin Concent Red Cell 18.5 H Distribution Width Platelet Count 118 #L Mean Platelet 12.2 H Volume Immature 0.500 H Granulocytes % Neutrophils % Segmented 49 Neutrophils % (Manual) Band Neutrophils % 9 H (Manual) Lymphocytes % Lymphocytes % 29 (Manual) Reactive 10 H Lymphocytes % (Manual) Monocytes % Monocytes % 1 (Manual) Eosinophils % Eosinophils % 2 (Manual) Basophils % Nucleated Red 0.0 Blood Cells % Immature 0.050 H Granulocytes # Neutrophils # Neutrophils # 4.7 (Manual) Band Neutrophils # 0.8 H Lymphocytes 2.7 (Manual) Lymphocytes # Reactive 0.9 H Lymphocytes # Monocytes # Monocytes # 0.0 L (Manual) Eosinophils # Basophils # Nucleated Red Blood Cells # Platelet Estimate DECREASED Poikilocytosis 1+ Anisocytosis 1+ Sodium Level 157 H Potassium Level 3.3 L Chloride Level 130 H Carbon Dioxide 26 Level Anion Gap 1 L Blood Urea 27 H Nitrogen Creatinine 1.99 H Est Glomerular 34 L Filtrat Rate mL/min Glucose Level 128 Calcium Level 8.3 L Phosphorus Level 3.7 Magnesium Level 2.4 Medications Current Medications Vancomycin HCl (Vanco Iv Per Pharmacy) VANCOMYCIN PER PHARMACY PER PROTOCOL XX ; Start 01/18/19 at 09:30 Piperacillin Sod/ Tazobactam Sod 50 ml @ 100 mls/hr Q8 IVPB Last administered on 01/24/19at 05:18; Admin Dose 100 MLS/HR; Start 01/18/19 at 09:30 Midazolam HCl 50 ml @ 1 mls/hr TITRATE IV Last administered on 01/19/19at 02:47; Admin Dose 2 MLS/HR; Start 01/18/19 at 23:30 Insulin Aspart (Novolog Insulin Pen) NOVOLOG *MODERATE* ALGORI... Q4H SC Last administered on 01/24/19at 01:02; Admin Dose 2 UNIT; Start 01/19/19 at 01:00 Miscellaneous Information 1 ea NOTE XX ; Start 01/18/19 at 23:30 Glucose (Glutose) 15 gm Q15M PRN PO DECREASED GLUCOSE; Start 01/18/19 at 23:30 Glucose (Glutose) 22.5 gm Q15M PRN PO DECREASED GLUCOSE; Start 01/18/19 at 23:30 Dextrose (D50w Syringe) 25 ml Q15M PRN IV DECREASED GLUCOSE; Start 01/18/19 at 23:30 Dextrose (D50w Syringe) 50 ml Q15M PRN IV DECREASED GLUCOSE; Start 01/18/19 at 23:30 Glucagon (Glucagen) 1 mg Q15M PRN IM DECREASED GLUCOSE; Start 01/18/19 at 23:30 Glucose (Glutose) 15 gm Q15M PRN BUCCAL DECREASED GLUCOSE; Start 01/18/19 at 23:30 Miscellaneous Information ([facility]ending [facility] Care) This patient berg... PRN PRN XX WOUND CARE; Start 01/19/19 at 02:00 Acetaminophen (Tylenol Supp) [address] temp > 100.4F Last administered on 01/19/19at 09:27; Admin Dose 650 MG; Start 01/19/19 at 09:00 Norepinephrine 250 ml @ 1.875 mls/ hr TITRATE IV Last administered on 01/20/19at 18:37; Admin Dose 3.75 MLS/HR; Start 01/19/19 at 20:00 Sodium Hypochlorite (Dakins Diluted ()) 1 applic BID TP Last administered on 01/23/19at 20:56; Admin Dose 1 APPLIC; Start 01/19/19 at 21:00 Morphine Sulfate (morphine) 2 mg Q4H PRN IV SEVERE PAIN LEVEL 7-10; Start 01/21/19 at 08:30 Zinc Sulfate (Zinc Sulfate) 220 mg DAILY NGT Last administered on 01/22/19at 09:45; Admin Dose 220 MG; Start 01/22/19 at 09:00 Vancomycin HCl 1.25 gm/Sodium Chloride 250 ml @ 83.333 mls/ hr Q48H IVPB ; Start 01/24/19 at 08:00 Potassium Chloride/Dextrose 1,000 ml @ 70 mls/hr [id number] IV Last administered on 01/24/19at 05:18; Admin Dose 70 MLS/HR; Start 01/23/19 at 13:00; Stop 01/24/19 at 17:34 Ascorbic Acid (Vitamin C) 500 mg BID GTB Last administered on 01/23/19at 20:56; Admin Dose 500 MG; Start 01/23/19 at 21:00 Lansoprazole (Prevacid) 30 mg BID@0600,1800 GTB Last administered on 01/24/19at 05:19; Admin Dose 30 MG; Start 01/24/19 at 06:00 Assessment/Plan Hospital Course (Demo Recall) IMPRESSION: 1. Likely healthcare-associated pneumonia. 2. Status post septic shock. 3. Functional quadriplegia. 4. History of dysphagia. Status post G-tube 5. Hypoxemic respiratory failure 6. Significant decubitus ulcer status post debridement. 7. Encephalopathy possibly worsening toxic metabolic questionable new CVA PLAN: 1. Continue broad-spectrum antibiotics. 2. Antibiotics per primary team 3. Vasopressor support as needed. 4. Tube feeding as tolerated 5. Increase free water per nasogastric tube. 6. Continue mechanical ventilation. CPAP trial this morning. Critical care time 40 minutes overall prognosis guarded. Family wish to keep the patient full code for now which includes reintubation if extubated. BHAVIN BARROW MD, [facility] Jan 24, 2019 08:39
[2019-01-24] MEDS: ZINC SULFATE 220 MG CAP PEG SCH (10:00)
[2019-01-24] MEDS: VANCOMYCIN HCL 1.25 GM in SOD CHLORIDE 0.9% 250 ML IVPB SCH (10:00)
[2019-01-24] MEDS: ASCORBIC ACID 500 MG TAB GTB SCH ×2 (10:00→21:25)
[2019-01-24] MEDS: DAKINS 0.0125%(1/40) 473 ML SOLUTION TP SCH ×2 (10:01→21:25)
--- NOTE | 2019-01-24 10:01 | PN ---
Date/Time of Note Date/Time of Note DATE: 01/24/19 TIME: 09:59 Subjective Remains intubated. Does not follow any commands. Objective Vitals Vital Signs Date Temp Pulse Resp B/P (MAP) Pulse Ox O2 O2 Flow FiO2 Time Delivery Rate 01/24/19 93 29 99 30 09:10 01/24/19 98.8 06:28 01/24/19 123/61 Mechanical 06:00 (81) Ventilator Intake and Output 01/23/19 01/23/19 01/24/19 1515:00 23:00 07:00 IntakeIntake Total 85 ml 610 ml 540 ml OutputOutput Total 850 ml 1540 ml 960 ml BalanceBalance -765 ml -930 ml -420 ml Bilateral rhonchi Regular rate and rhythm no murmurs or gallops Soft nontender nondistended normoactive bowel sounds G-tube in place No edema Results Result Diagram: 01/24/19 0410 01/24/19 0410 Medications Medications Current Medications Vancomycin HCl (Vanco Iv Per Pharmacy) VANCOMYCIN PER PHARMACY PER PROTOCOL XX ; Start 01/18/19 at 09:30 Piperacillin Sod/ Tazobactam Sod 50 ml @ 100 mls/hr Q8 IVPB Last administered on 01/24/19at 05:18; Admin Dose 100 MLS/HR; Start 01/18/19 at 09:30 Midazolam HCl 50 ml @ 1 mls/hr TITRATE IV Last administered on 01/19/19at 02:47; Admin Dose 2 MLS/HR; Start 01/18/19 at 23:30 Insulin Aspart (Novolog Insulin Pen) NOVOLOG *MODERATE* ALGORI... Q4H SC Last administered on 01/24/19at 01:02; Admin Dose 2 UNIT; Start 01/19/19 at 01:00 Miscellaneous Information 1 ea NOTE XX ; Start 01/18/19 at 23:30 Glucose (Glutose) 15 gm Q15M PRN PO DECREASED GLUCOSE; Start 01/18/19 at 23:30 Glucose (Glutose) 22.5 gm Q15M PRN PO DECREASED GLUCOSE; Start 01/18/19 at 23:30 Dextrose (D50w Syringe) 25 ml Q15M PRN IV DECREASED GLUCOSE; Start 01/18/19 at 23:30 Dextrose (D50w Syringe) 50 ml Q15M PRN IV DECREASED GLUCOSE; Start 01/18/19 at 23:30 Glucagon (Glucagen) 1 mg Q15M PRN IM DECREASED GLUCOSE; Start 01/18/19 at 23:30 Glucose (Glutose) 15 gm Q15M PRN BUCCAL DECREASED GLUCOSE; Start 01/18/19 at 23:30 Miscellaneous Information (Pending [facility] Order For Wound Care) This patient berg... PRN PRN XX WOUND CARE; Start 01/19/19 at 02:00 Acetaminophen (Tylenol Supp) 650 mg Q6H PRN [place] temp > 100.4F Last administered on 01/19/19at 09:27; Admin Dose 650 MG; Start 01/19/19 at 09:00 Norepinephrine 250 ml @ 1.875 mls/ hr TITRATE IV Last administered on 01/20/19at 18:37; Admin Dose 3.75 MLS/HR; Start 01/19/19 at 20:00 Sodium Hypochlorite (Dakins Diluted ()) 1 applic BID TP Last administered on 01/23/19at 20:56; Admin Dose 1 APPLIC; Start 01/19/19 at 21:00 Morphine Sulfate (morphine) 2 mg Q4H PRN IV SEVERE PAIN LEVEL 7-10; Start 01/21/19 at 08:30 Vancomycin HCl 1.25 gm/Sodium Chloride 250 ml @ 83.333 mls/ hr Q48H IVPB ; Start 01/24/19 at 08:00 Potassium Chloride/Dextrose 1,000 ml @ 70 mls/hr [id number] IV Last administered on 01/24/19at 05:18; Admin Dose 70 MLS/HR; Start 01/23/19 at 13:00; Stop 01/24/19 at 17:34 Ascorbic Acid (Vitamin C) 500 mg BID GTB Last administered on 01/23/19at 20:56; Admin Dose 500 MG; Start 01/23/19 at 21:00 Lansoprazole (Prevacid) 30 mg BID@0600,1800 GTB Last administered on 01/24/19at 05:19; Admin Dose 30 MG; Start 01/24/19 at 06:00 Zinc Sulfate (Zinc Sulfate) 220 mg DAILY PEG ; Start 01/24/19 at 09:00 VTE Prophylaxis Risk score (from Nsg)>0 risk: 6 SCD applied (from Nsg): Yes Lines/Catheters IV Catheter Type: Saline Lock Jenkins in Place: Yes Cont'd jenkins catheter reason: pres ulcer contaminated by urine Assessment/Plan Assessment/Plan 63-year-old male with recurrent aspiration pneumonia Acute respiratory failure, on ventilator Dysphagia, status post G-tube placement History of hemorrhagic CVA Hypernatremia Chronic debilitation Anemia Stage III chronic kidney disease Continue current therapy Wean off the ventilator Address CODE STATUS with the son Pulmonary and renal follow-up FELICITAS LAZARO MD Jan 24, 2019 10:01
[2019-01-24] MEDS ORDERED: VANCOMYCIN HCL 1.5 GM in SOD CHLORIDE 0.9% 250 ML IVPB SCH (11:00)
--- NOTE | 2019-01-24 11:16 | CONS ---
Assessment/Plan Assessment/Plan Assessment/Plan (Daily) 1. acute hyperkalemia 2. acute On chronic renal failure due to ATN from septic shock 3. acute hypoxemic respiratory failure intubated on ventilator 2/2 Health care associated PNA 4. Septic shock on levophed 2/2 PNA 5. acute hypernatremia 6. H/O quadriplegia 7. H/o CAD s/p CABG 8. H/O HTN 9. 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 Plan: BUN/cr27/1.99, Na improved to 157, K 3.3- making adequate urine output, IVF D5W with KCl 20MEQ at 70 cc/hr x 2 liter then stop IV abx zosyn and vancomycin for PNA coverage, Renally dose all abx and monitor electorlytes no acute indication for HD at this time Ventilator management as per pulmonary- possible weaning plan today will follow up Consultation Date/Type/Reason Admit Date/Time Jan 18, 2019 at 04:19 Initial Consult Date Type of Consult NEPHROLOGY Requesting Provider: FELICITAS LAZARO MD Date/Time of Note DATE: 01/24/19 TIME: 11:15 24 HR Interval Summary Free Text/Dictation pt is on CPAP trial, ET tube is above, Pulmonary informed about it. Exam/Review of Systems Exam Vitals Vital Signs Date Temp Pulse Resp B/P (MAP) Pulse Ox O2 O2 Flow FiO2 Time Delivery Rate 01/24/19 90 30 128/65 99 Mechanical 10:00 (86) Ventilator 01/24/19 30 09:10 01/24/19 99.7 08:00 Intake and Output 01/23/19 01/23/19 01/24/19 1515:00 23:00 07:00 IntakeIntake Total 85 ml 610 ml 540 ml OutputOutput Total 850 ml 1540 ml 960 ml BalanceBalance -765 ml -930 ml -420 ml Exam GENERAL: Intubated on ventilator NECK: Supple. No JVD or lymphadenopathy. CARDIAC: S1, S2, RRR, no murmur CHEST: Bilateral coarse BS+, no wheezing ABDOMEN: Soft, nontender. No guarding or rebound. EXTREMITIES: No cyanosis, clubbing of bleeding. + jenkins catheter NEUROLOGIC: intubated on ventialtor Results Result Diagram: 01/24/1940901/24/19409 Results 24hrs Laboratory Tests Test 01/23/19 14:02 01/23/19 18:13 01/23/19 20:55 01/24/19 00:59 Bedside Glucose 102 124 140 141 Test 01/24/19 04:10 01/24/19 05:17 01/24/19 09:59 01/24/19 10:45 White Blood Count 9.4 Red Blood Count 2.79 L Hemoglobin 8.1 L Hematocrit 25.8 L Mean Corpuscular 92.5 Volume Mean Corpuscular 29.0 Hemoglobin Mean Corpuscular 31.4 L Hemoglobin Concent Red Cell 18.5 H Distribution Width Platelet Count 118 #L Mean Platelet 12.2 H Volume Immature 0.500 H Granulocytes % Neutrophils % Segmented 49 Neutrophils % (Manual) Band Neutrophils % 9 H (Manual) Lymphocytes % Lymphocytes % 29 (Manual) Reactive 10 H Lymphocytes % (Manual) Monocytes % Monocytes % 1 (Manual) Eosinophils % Eosinophils % 2 (Manual) Basophils % Nucleated Red 0.0 Blood Cells % Immature 0.050 H Granulocytes # Neutrophils # Neutrophils # 4.7 (Manual) Band Neutrophils # 0.8 H Lymphocytes 2.7 (Manual) Lymphocytes # Reactive 0.9 H Lymphocytes # Monocytes # Monocytes # 0.0 L (Manual) Eosinophils # Basophils # Nucleated Red Blood Cells # Platelet Estimate DECREASED Poikilocytosis 1+ Anisocytosis 1+ Sodium Level 157 H Potassium Level 3.3 L Chloride Level 130 H Carbon Dioxide 26 Level Anion Gap 1 L Blood Urea 27 H Nitrogen Creatinine 1.99 H Est Glomerular 34 L Filtrat Rate mL/min Glucose Level 128 Calcium Level 8.3 L Phosphorus Level 3.7 Magnesium Level 2.4 Bedside Glucose 122 140 Blood Gas Specimen Blood arterial Source Arterial Blood 01/24/2019 10:55:11 Date Drawn AM Arterial Blood pH 7.483 H (Temp corrected) Arterial Blood 35.6 pCO2 (Temp correct) Arterial Blood pO2 84.2 (Temp corrected) Arterial Blood 26.1 H HCO3 Arterial Blood 2.6 Base Excess Arterial Blood 96.0 Oxygen Saturation Aníbal Test ACCEPTAB Arterial Blood Gas Right Radial Puncture Site Arterial 0.3 Blood Carboxyhemog lobin Arterial Blood 0.2 Methemoglobin Blood Gas A-a O2 87.9 H Differential Oxyhemoglobin 95.5 Percent Blood Gas 37.0 Temperature Blood Gas Actual 28 Respiration Rate Blood Gas Modality VENT - CPAP FiO2 30.0 Blood Gas Low PEEP 5.0 Setting Blood Gas Pressure 10 Support Blood Gas Critical MILTON Gonzales RN Value Read Back Blood Gas Notified KB Whom Blood Gas Notified 01/24/2019 11:05:05 Time AM Medications Medication Current Medications Vancomycin HCl (Vanco Iv Per Pharmacy) VANCOMYCIN PER PHARMACY PER PROTOCOL XX ; Start 01/18/19 at 09:30 Piperacillin Sod/ Tazobactam Sod 50 ml @ 100 mls/hr Q8 IVPB Last administered on 01/24/19at 05:18; Admin Dose 100 MLS/HR; Start 01/18/19 at 09:30 Midazolam HCl 50 ml @ 1 mls/hr TITRATE IV Last administered on 01/19/19at 02:47; Admin Dose 2 MLS/HR; Start 01/18/19 at 23:30 Insulin Aspart (Novolog Insulin Pen) NOVOLOG *MODERATE* ALGORI... Q4H SC Last administered on 01/24/19at 01:02; Admin Dose 2 UNIT; Start 01/19/19 at 01:00 Miscellaneous Information 1 ea NOTE XX ; Start 01/18/19 at 23:30 Glucose (Glutose) 15 gm Q15M PRN PO DECREASED GLUCOSE; Start 01/18/19 at 23:30 Glucose (Glutose) 22.5 gm Q15M PRN PO DECREASED GLUCOSE; Start 01/18/19 at 23:30 Dextrose (D50w Syringe) 25 ml Q15M PRN IV DECREASED GLUCOSE; Start 01/18/19 at 23:30 Dextrose (D50w Syringe) 50 ml Q15M PRN IV DECREASED GLUCOSE; Start 01/18/19 at 23:30 Glucagon (Glucagen) 1 mg Q15M PRN IM DECREASED GLUCOSE; Start 01/18/19 at 23:30 Glucose (Glutose) 15 gm Q15M PRN BUCCAL DECREASED GLUCOSE; Start 01/18/19 at 23:30 Miscellaneous Information (Pending [facility] Order For Wound Care) This patient berg... PRN PRN XX WOUND CARE; Start 01/19/19 at 02:00 Acetaminophen (Tylenol Supp) [address] temp > 100.4F Last administered on 01/19/19at 09:27; Admin Dose 650 MG; Start 01/19/19 at 09:00 Norepinephrine 250 ml @ 1.875 mls/ hr TITRATE IV Last administered on 01/20/19 18:37; Admin Dose 3.75 MLS/HR; Start 01/19/19 at 20:00 Sodium Hypochlorite (Dakins Diluted ()) 1 applic BID TP Last administered on 01/24/19 10:01; Admin Dose 1 APPLIC; Start 01/19/19 at 21:00 Morphine Sulfate (morphine) 2 mg Q4H PRN IV SEVERE PAIN LEVEL 7-10; Start 01/21/19 at 08:30 Vancomycin HCl 1.25 gm/Sodium Chloride 250 ml @ 83.333 mls/ hr Q48H IVPB Last administered on 01/24/19 10:00; Admin Dose 83.333 MLS/HR; Start 01/24/19 at 08:00 Potassium Chloride/Dextrose 1,000 ml @ 70 mls/hr [id number] IV Last administered on 01/24/19 05:18; Admin Dose 70 MLS/HR; Start 01/23/19 at 13:00; Stop 01/24/19 at 17:34 Ascorbic Acid (Vitamin C) 500 mg BID GTB Last administered on 01/24/19at 10:00; Admin Dose 500 MG; Start 01/23/19 at 21:00 Lansoprazole (Prevacid) 30 mg BID@0600,1800 GTB Last administered on 01/24/19 05:19; Admin Dose 30 MG; Start 01/24/19 at 06:00 Zinc Sulfate (Zinc Sulfate) 220 mg DAILY PEG Last administered on 01/24/19at 10:00; Admin Dose 220 MG; Start 01/24/19 at 09:00 TONIO SOOD MD Jan 24, 2019 11:16
[2019-01-25] VITALS (8 sets, daily range): BP systolic 102–116; BP diastolic 52–70; PULSE 74–136; RESP 19–29
[2019-01-25] MEDS: INSULIN ASPART [NOVOLOG] 3 ML PEN SC SCH ×6 (00:45→21:00)
[2019-01-25] MEDS: PIPER-TAZO 2.25 GM (PMX) 50 ML IVPB SCH ×3 (05:57→21:25)
[2019-01-25] MEDS: LANSOPRAZOLE 30 MG CAP GTB SCH ×2 (05:57→18:34)
[2019-01-25] MEDS: ZINC SULFATE 220 MG CAP PEG SCH (08:46)
[2019-01-25] MEDS: ASCORBIC ACID 500 MG TAB GTB SCH ×2 (08:47→21:24)
[2019-01-25] MEDS: SOD CHLORIDE 0.9% 250 ML IV* ONE (10:31)
--- NOTE | 2019-01-25 10:32 | PN ---
Date/Time of Note Date/Time of Note DATE: 01/25/19 TIME: 10:29 Subjective Alert but unresponsive. Does not follow any commands Objective Vitals Vital Signs Date Temp Pulse Resp B/P (MAP) Pulse Ox O2 O2 Flow FiO2 Time Delivery Rate 01/25/19 99.4 89 22 102/52 96 Nasal 2.0 08:05 (69) Cannula 01/24/19 30 09:10 Intake and Output 01/24/19 01/24/19 01/25/19 1515:00 23:00 07:00 IntakeIntake Total 675.000 ml 1100 ml 690 ml OutputOutput Total 835 ml 1110 ml 805 ml BalanceBalance -160.000 ml -10 ml -115 ml Bilateral rhonchi Rapid rate. No murmurs or gallops Soft normoactive bowel sounds G-tube in place Mild edema in all extremities Results Result Diagram: 01/25/1939 01/25/1939 Medications Medications Current Medications Vancomycin HCl (Vanco Iv Per Pharmacy) VANCOMYCIN PER PHARMACY PER PROTOCOL XX ; Start 01/18/19 at 09:30 Piperacillin Sod/ Tazobactam Sod 50 ml @ 100 mls/hr Q8 IVPB Last administered on 01/25/19at 05:57; Admin Dose 100 MLS/HR; Start 01/18/19 at 09:30 Insulin Aspart (Novolog Insulin Pen) NOVOLOG *MODERATE* ALGORI... Q4H SC Last administered on 01/25/19at 00:45; Admin Dose 2 UNIT; Start 01/19/19 at 01:00 Miscellaneous Information 1 ea NOTE XX ; Start 01/18/19 at 23:30 Glucose (Glutose) 15 gm Q15M PRN PO DECREASED GLUCOSE; Start 01/18/19 at 23:30 Glucose (Glutose) 22.5 gm Q15M PRN PO DECREASED GLUCOSE; Start 01/18/19 at 23:30 Dextrose (D50w Syringe) 25 ml Q15M PRN IV DECREASED GLUCOSE; Start 01/18/19 at 23:30 Dextrose (D50w Syringe) 50 ml Q15M PRN IV DECREASED GLUCOSE; Start 01/18/19 at 23:30 Glucagon (Glucagen) 1 mg Q15M PRN IM DECREASED GLUCOSE; Start 01/18/19 at 23:30 Glucose (Glutose) 15 gm Q15M PRN BUCCAL DECREASED GLUCOSE; Start 01/18/19 at 23:30 Miscellaneous Information (Pending [facility] Order For Wound Care) This patient berg... PRN PRN XX WOUND CARE; Start 01/19/19 at 02:00 Acetaminophen (Tylenol Supp) 650 mg Q6H PRN [place] temp > 100.4F Last administered on 01/19/19at 09:27; Admin Dose 650 MG; Start 01/19/19 at 09:00 Sodium Hypochlorite (Dakins Diluted ()) 1 applic BID TP Last administered on 01/24/19at 21:25; Admin Dose 1 APPLIC; Start 01/19/19 at 21:00 Morphine Sulfate (morphine) 2 mg Q4H PRN IV SEVERE PAIN LEVEL 7-10; Start at 08:30 Vancomycin HCl 1.25 gm/Sodium Chloride 250 ml @ 83.333 mls/ hr Q48H IVPB Last administered on 01/24/19at 10:00; Admin Dose 83.333 MLS/HR; Start 01/24/19 at 08:00 Ascorbic Acid (Vitamin C) 500 mg BID GTB Last administered on 01/25/19at 08:47; Admin Dose 500 MG; Start 01/23/19 at 21:00 Lansoprazole (Prevacid) 30 mg BID@0600,1800 GTB Last administered on 01/25/19at 05:57; Admin Dose 30 MG; Start 01/24/19 at 06:00 Zinc Sulfate (Zinc Sulfate) 220 mg DAILY PEG Last administered on 01/25/19at 08: 46; Admin Dose 220 MG; Start 01/24/19 at 09:00 Miscellaneous Information (*Rx Drug Level Order Reminder*) VANCO TR LEVEL PRIOR... 0700 ONCE XX ; Start 01/26/19 at 07:00; Stop 01/26/19 at 07:01 VTE Prophylaxis Risk score (from Nsg)>0 risk: 7 SCD applied (from Nsg): Yes Lines/Catheters IV Catheter Type: Saline Lock Jenkins in Place: Yes Cont'd jenkins catheter reason: pres ulcer contaminated by urine Assessment/Plan Assessment/Plan 63-year-old male with recurrent aspiration pneumonia Acute hypoxemic respiratory failure, status post extubation History of hemorrhagic CVA Encephalopathy Recurrent anemia Sinus tachycardia Stage III chronic kidney disease Hypernatremia Sacral decubitus ulcer, status post debridement Bilateral heel ulcers with dry eschar Full code. I had a long conversation with his son and other family members. They wish for him to be full code despite his poor prognosis Transfuse 2 units of packed RBC Continue free water flushes Monitor labs Pulmonary and renal follow-up FELICITAS LAZARO MD Jan 25, 2019 10:32
--- NOTE | 2019-01-25 11:07 | CONS ---
Consult Date/Type/Reason Admit Date/Time Jan 18, 2019 at 04:19 Initial Consult Date Type of Consult Pulmonary Requesting Provider: FELICITAS LAZARO MD Date/Time of Note DATE: 01/25/19 TIME: 11:02 Subjective Patient stable post extubation remains tachycardic. Objective Vital Signs Date Temp Pulse Resp B/P (MAP) Pulse Ox O2 O2 Flow FiO2 Time Delivery Rate 01/25/19 99.4 89 22 102/52 96 Nasal 2.0 08:05 (69) Cannula 01/24/19 30 09:10 Intake and Output 01/24/19 01/24/19 01/25/19 1515:00 23:00 07:00 IntakeIntake Total 675.000 ml 1100 ml 690 ml OutputOutput Total 835 ml 1110 ml 805 ml BalanceBalance -160.000 ml -10 ml -115 ml Exam GENERAL: Elderly gentleman, remains stable on nasal cannula. NECK: Supple. No JVD or lymphadenopathy. CARDIAC: S1, S2, no added sounds or murmurs. Tachycardic CHEST: Diminished air entry bilaterally. ABDOMEN: Soft, nontender. No guarding or rebound. EXTREMITIES: No cyanosis, clubbing of bleeding. NEUROLOGIC: Generalized weakness. Vent Setting Ventilator Support Mode: CPAP, PS Fraction of Inspired Oxygen pe: 30 Positive End Expiratory Pressu: 5.0 Results/Medications Result Diagram: 01/25/19 0539 01/25/19 0539 Results 24 hrs Laboratory Tests Test 01/24/19 13:38 01/24/19 18:18 01/24/19 21:24 01/25/19 00:44 Bedside Glucose 128 133 191 172 Test 01/25/19 05:39 01/25/19 05:51 01/25/19 08:51 White Blood Count 8.9 Red Blood Count 2.51 L Hemoglobin 7.1 L Hematocrit 23.6 L Mean Corpuscular Volume 94.0 Mean Corpuscular 28.3 L Hemoglobin Mean Corpuscular 30.1 L Hemoglobin Concent Red Cell Distribution 18.4 H Width Platelet Count 133 L Mean Platelet Volume 11.8 H Immature Granulocytes % 0.400 Neutrophils % 62.1 Lymphocytes % 28.4 Monocytes % 6.3 Eosinophils % 2.6 Basophils % 0.2 Nucleated Red Blood 0.0 Cells % Immature Granulocytes # 0.040 H Neutrophils # 5.5 Lymphocytes # 2.5 Monocytes # 0.6 Eosinophils # 0.2 Basophils # 0.0 Nucleated Red Blood 0.0 Cells # Sodium Level 157 H Potassium Level 3.7 Chloride Level 132 H Carbon Dioxide Level 23 Anion Gap 2 L Blood Urea Nitrogen 25 H Creatinine 1.77 H Est Glomerular Filtrat 39 L Rate mL/min Glucose Level 97 Calcium Level 8.1 L Phosphorus Level 3.7 Magnesium Level 2.3 Bedside Glucose 98 153 Medications Current Medications Vancomycin HCl (Vanco Iv Per Pharmacy) VANCOMYCIN PER PHARMACY PER PROTOCOL XX ; Start 01/18/19 at 09:30 Piperacillin Sod/ Tazobactam Sod 50 ml @ 100 mls/hr Q8 IVPB Last administered on 01/25/19at 05:57; Admin Dose 100 MLS/HR; Start 01/18/19 at 09:30 Insulin Aspart (Novolog Insulin Pen) NOVOLOG *MODERATE* ALGORI... Q4H SC Last administered on 01/25/19at 10:29; Admin Dose 2 UNIT; Start 01/19/19 at 01:00 Miscellaneous Information 1 ea NOTE XX ; Start 01/18/19 at 23:30 Glucose (Glutose) 15 gm Q15M PRN PO DECREASED GLUCOSE; Start 01/18/19 at 23:30 Glucose (Glutose) 22.5 gm Q15M PRN PO DECREASED GLUCOSE; Start 01/18/19 at 23:30 Dextrose (D50w Syringe) 25 ml Q15M PRN IV DECREASED GLUCOSE; Start 01/18/19 at 23:30 Dextrose (D50w Syringe) 50 ml Q15M PRN IV DECREASED GLUCOSE; Start 01/18/19 at 23:30 Glucagon (Glucagen) 1 mg Q15M PRN IM DECREASED GLUCOSE; Start 01/18/19 at 23:30 Glucose (Glutose) 15 gm Q15M PRN BUCCAL DECREASED GLUCOSE; Start 01/18/19 at 23:30 Miscellaneous Information (Pending [facility] Order For Wound Care) This patient berg... PRN PRN XX WOUND CARE; Start 01/19/19 at 02:00 Acetaminophen (Tylenol Supp) 650 mg Q6H PRN [place] temp > 100.4F Last administered on 01/19/19at 09:27; Admin Dose 650 MG; Start 01/19/19 at 09:00 Sodium Hypochlorite (Dakins Diluted (1/40)) 1 applic BID TP Last administered on 01/24/19at 21:25; Admin Dose 1 APPLIC; Start 01/19/19 at 21:00 Morphine Sulfate (morphine) 2 mg Q4H PRN IV SEVERE PAIN LEVEL 7-10; Start 01/21/19 at 08:30 Vancomycin HCl 1.25 gm/Sodium Chloride 250 ml @ 83.333 mls/ hr Q48H IVPB Last administered on 01/24/19at 10:00; Admin Dose 83.333 MLS/HR; Start 01/24/19 at 08:00 Ascorbic Acid (Vitamin C) 500 mg BID GTB Last administered on 01/25/19at 08:47; Admin Dose 500 MG; Start 01/23/19 at 21:00 Lansoprazole (Prevacid) 30 mg BID@0600,1800 GTB Last administered on 01/25/19at 05:57; Admin Dose 30 MG; Start 01/24/19 at 06:00 Zinc Sulfate (Zinc Sulfate) 220 mg DAILY PEG Last administered on 01/25/19at 08:46; Admin Dose 220 MG; Start 01/24/19 at 09:00 Miscellaneous Information (*Rx Drug Level Order Reminder*) VANCO TR LEVEL PRIOR... 0700 ONCE XX ; Start 01/26/19 at 07:00; Stop 01/26/19 at 07:01 Assessment/Plan Hospital Course (Demo Recall) IMPRESSION: 1. Likely healthcare-associated pneumonia. 2. Status post septic shock. 3. Functional quadriplegia. 4. History of dysphagia. Status post G-tube 5. Hypoxemic respiratory failure 6. Significant decubitus ulcer status post debridement. 7. Encephalopathy possibly worsening toxic metabolic questionable new CVA PLAN: 1. Continue broad-spectrum antibiotics. 2. Antibiotics per primary team 3. Tachycardia noted. Consider cardiology evaluation. 4. Tube feeding as tolerated 5. Increase free water per nasogastric tube. Critical care time 40 minutes overall prognosis guarded. Family wish to keep the patient full code for now which includes reintubation if extubated. BHAVIN BARROW MD, [facility] Jan 25, 2019 11:07
--- NOTE | 2019-01-25 11:17 | CONS ---
Assessment/Plan Assessment/Plan Assessment/Plan (Daily) 1. acute hyperkalemia- now resolved 2. acute On chronic renal failure due to ATN from septic shock- Improving 3. acute hypoxemic respiratory failure intubated on ventilator 2/2 Health care associated PNA - s/p extubation on 01/24/19 4. Septic shock on levophed 2/2 PNA 5. acute hypernatremia- Improving 6. H/O quadriplegia 7. H/o CAD s/p CABG 8. H/O HTN 9. 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 Plan: BUN/cr 25/1.77, Na improved to 157, - Continue free water IV abx zosyn and vancomycin for PNA coverage, Renally dose all abx and monitor electorlytes no acute indication for HD at this time s/p Extubation on 01/24/19- doing well so far will follow up Consultation Date/Type/Reason Admit Date/Time Jan 18, 2019 at 04:19 Initial Consult Date Type of Consult NEPHROLOGY Requesting Provider: FELICITAS LAZARO MD Date/Time of Note DATE: 01/25/19 TIME: 11:17 Exam/Review of Systems Exam Vitals Vital Signs Date Temp Pulse Resp B/P (MAP) Pulse Ox O2 O2 Flow FiO2 Time Delivery Rate 01/25/19 99.4 89 22 102/52 96 Nasal 2.0 08:05 (69) Cannula 01/24/19 30 09:10 Intake and Output 01/24/19 01/24/19 01/25/19 1515:00 23:00 07:00 IntakeIntake Total 675.000 ml 1100 ml 690 ml OutputOutput Total 835 ml 1110 ml 805 ml BalanceBalance -160.000 ml -10 ml -115 ml Exam GENERAL alert, awake no acute distress NECK: Supple. No JVD or lymphadenopathy. CARDIAC: S1, S2, RRR, no murmur CHEST: Bilateral crackles +, no wheezing ABDOMEN: Soft, nontender. No guarding or rebound. EXTREMITIES: No cyanosis, clubbing of bleeding. + jenkins catheter NEUROLOGIC: Generalized weakness. Results Result Diagram: 01/25/19 0539 01/25/19 0539 Results 24hrs Laboratory Tests Test 01/24/19 13:38 01/24/19 18:18 01/24/19 21:24 01/25/19 00:44 Bedside Glucose 128 133 191 172 Test 01/25/19 05:39 01/25/19 05:51 01/25/19 08:51 White Blood Count 8.9 Red Blood Count 2.51 L Hemoglobin 7.1 L Hematocrit 23.6 L Mean Corpuscular Volume 94.0 Mean Corpuscular 28.3 L Hemoglobin Mean Corpuscular 30.1 L Hemoglobin Concent Red Cell Distribution 18.4 H Width Platelet Count 133 L Mean Platelet Volume 11.8 H Immature Granulocytes % 0.400 Neutrophils % 62.1 Lymphocytes % 28.4 Monocytes % 6.3 Eosinophils % 2.6 Basophils % 0.2 Nucleated Red Blood 0.0 Cells % Immature Granulocytes # 0.040 H Neutrophils # 5.5 Lymphocytes # 2.5 Monocytes # 0.6 Eosinophils # 0.2 Basophils # 0.0 Nucleated Red Blood 0.0 Cells # Sodium Level 157 H Potassium Level 3.7 Chloride Level 132 H Carbon Dioxide Level 23 Anion Gap 2 L Blood Urea Nitrogen 25 H Creatinine 1.77 H Est Glomerular Filtrat 39 L Rate mL/min Glucose Level 97 Calcium Level 8.1 L Phosphorus Level 3.7 Magnesium Level 2.3 Bedside Glucose 98 153 Medications Medication Current Medications Vancomycin HCl (Vanco Iv Per Pharmacy) VANCOMYCIN PER PHARMACY PER PROTOCOL XX ; Start 01/18/19 at 09:30 Piperacillin Sod/ Tazobactam Sod 50 ml @ 100 mls/hr Q8 IVPB Last administered on 01/25/19at 05:57; Admin Dose 100 MLS/HR; Start 01/18/19 at 09:30 Insulin Aspart (Novolog Insulin Pen) NOVOLOG *MODERATE* ALGORI... Q4H SC Last administered on 01/25/19at 10:29; Admin Dose 2 UNIT; Start 01/19/19 at 01:00 Miscellaneous Information 1 ea NOTE XX ; Start 01/18/19 at 23:30 Glucose (Glutose) 15 gm Q15M PRN PO DECREASED GLUCOSE; Start 01/18/19 at 23:30 Glucose (Glutose) 22.5 gm Q15M PRN PO DECREASED GLUCOSE; Start 01/18/19 at 23:30 Dextrose (D50w Syringe) 25 ml Q15M PRN IV DECREASED GLUCOSE; Start 01/18/19 at 23:30 Dextrose (D50w Syringe) 50 ml Q15M PRN IV DECREASED GLUCOSE; Start 01/18/19 at 23:30 Glucagon (Glucagen) 1 mg Q15M PRN IM DECREASED GLUCOSE; Start 01/18/19 at 23:30 Glucose (Glutose) 15 gm Q15M PRN BUCCAL DECREASED GLUCOSE; Start 01/18/19 at 23:30 Miscellaneous Information (Pending [facility] Order For Wound Care) This patient berg... PRN PRN XX WOUND CARE; Start 01/19/19 at 02:00 Acetaminophen (Tylenol Supp) 650 mg Q6H PRN [place] temp > 100.4F Last administered on 01/19/19at 09:27; Admin Dose 650 MG; Start 01/19/19 at 09:00 Sodium Hypochlorite (Dakins Diluted ()) 1 applic BID TP Last administered on 01/24/19at 21:25; Admin Dose 1 APPLIC; Start 01/19/19 at 21:00 Morphine Sulfate (morphine) 2 mg Q4H PRN IV SEVERE PAIN LEVEL 7-10; Start 01/21/19 at 08:30 Vancomycin HCl 1.25 gm/Sodium Chloride 250 ml @ 83.333 mls/ hr Q48H IVPB Last administered on 01/24/19at 10:00; Admin Dose 83.333 MLS/HR; Start 01/24/19 at 08:00 Ascorbic Acid (Vitamin C) 500 mg BID GTB Last administered on 01/25/19at 08:47; Admin Dose 500 MG; Start 01/23/19 at 21:00 Lansoprazole (Prevacid) 30 mg BID@0600,1800 GTB Last administered on 01/25/19at 05:57; Admin Dose 30 MG; Start 01/24/19 at 06:00 Zinc Sulfate (Zinc Sulfate) 220 mg DAILY PEG Last administered on 01/25/19at 08:46; Admin Dose 220 MG; Start 01/24/19 at 09:00 Miscellaneous Information (*Rx Drug Level Order Reminder*) VANCO TR LEVEL PRIOR... 0700 ONCE XX ; Start 01/26/19 at 07:00; Stop 01/26/19 at 07:01 TONIO SOOD MD Jan 25, 2019 11:17
[2019-01-25] MEDS: ACETAMINOPHEN 650 MG SUPP PR PRN (12:35)
[2019-01-25] MEDS: DAKINS 0.0125%(1/40) 473 ML SOLUTION TP SCH ×3 (16:42→21:30)
[2019-01-26 00:47] VITALS: BP 108/55; PULSE 88; RESP 18
[2019-01-26] MEDS: INSULIN ASPART [NOVOLOG] 3 ML PEN SC SCH ×6 (01:49→21:21)
[2019-01-26 04:00] VITALS: BP 124/64; PULSE 77; RESP 17
[2019-01-26] MEDS: LANSOPRAZOLE 30 MG CAP GTB SCH ×2 (05:13→17:37)
[2019-01-26] MEDS: PIPER-TAZO 2.25 GM (PMX) 50 ML IVPB SCH ×3 (05:13→21:17)
[2019-01-26 07:45] VITALS: BP 127/62; PULSE 76; RESP 18
[2019-01-26] MEDS: ASCORBIC ACID 500 MG TAB GTB SCH ×2 (08:40→21:17)
[2019-01-26] MEDS: VANCOMYCIN HCL 1.25 GM in SOD CHLORIDE 0.9% 250 ML IVPB SCH (08:40)
[2019-01-26] MEDS: DEXTROSE 5% 1,000 ML IV SCH ×3 (08:40→23:15)
[2019-01-26] MEDS: ZINC SULFATE 220 MG CAP PEG SCH (08:40)
[2019-01-26] MEDS ORDERED: FUROSEMIDE 20 MG INJ IV SCH (09:00)
[2019-01-26] MEDS: DAKINS 0.0125%(1/40) 473 ML SOLUTION TP SCH ×2 (09:00→21:20)
--- NOTE | 2019-01-26 09:56 | PN ---
Date/Time of Note Date/Time of Note DATE: 01/26/19 TIME: 09:54 Subjective Alert and comfortable. Objective Vitals Vital Signs Date Temp Pulse Resp B/P (MAP) Pulse Ox O2 O2 Flow FiO2 Time Delivery Rate 01/26/19 98.4 76 18 127/62 99 Nasal 4.0 07:45 (83) Cannula 01/24/19 30 09:10 Intake and Output 01/25/19 01/25/19 01/26/19 1414:59 22:59 06:59 IntakeIntake Total 1900 ml 1220 ml OutputOutput Total 1310 ml BalanceBalance 1900 ml -90 ml Bilateral rhonchi Regular rate and rhythm Soft nontender nondistended normoactive bowel sounds No clubbing cyanosis or edema Results Result Diagram: 01/26/19 0508 01/26/19 0508 Medications Medications Current Medications Vancomycin HCl (Vanco Iv Per Pharmacy) VANCOMYCIN PER PHARMACY PER PROTOCOL XX ; Start 01/18/19 at 09:30 Piperacillin Sod/ Tazobactam Sod 50 ml @ 100 mls/hr Q8 IVPB Last administered on 01/26/19at 05:13; Admin Dose 100 MLS/HR; Start 01/18/19 at 09:30 Insulin Aspart (Novolog Insulin Pen) NOVOLOG *MODERATE* ALGORI... Q4H SC Last administered on 01/26/19at 09:05; Admin Dose 2 UNIT; Start 01/19/19 at 01:00 Miscellaneous Information 1 ea NOTE XX ; Start 01/18/19 at 23:30 Glucose (Glutose) 15 gm Q15M PRN PO DECREASED GLUCOSE; Start 01/18/19 at 23:30 Glucose (Glutose) 22.5 gm Q15M PRN PO DECREASED GLUCOSE; Start 01/18/19 at 23: 30 Dextrose (D50w Syringe) 25 ml Q15M PRN IV DECREASED GLUCOSE; Start 01/18/19 at 23:30 Dextrose (D50w Syringe) 50 ml Q15M PRN IV DECREASED GLUCOSE; Start 01/18/19 at 23:30 Glucagon (Glucagen) 1 mg Q15M PRN IM DECREASED GLUCOSE; Start 01/18/19 at 23:30 Glucose (Glutose) 15 gm Q15M PRN BUCCAL DECREASED GLUCOSE; Start 01/18/19 at 23:30 Miscellaneous Information ([facility] This patient berg... PRN PRN XX WOUND CARE; Start 01/19/19 at 02:00 Acetaminophen (Tylenol Supp) 650 mg Q6H PRN [place] temp > 100.4F Last administered on 01/25/19 12:35; Admin Dose 650 MG; Start 01/19/19 at 09:00 Sodium Hypochlorite (Dakins Diluted ()) 1 applic BID TP Last administered on 01/25/19 16:42; Admin Dose 1 APPLIC; Start 01/19/19 at 21:00 Morphine Sulfate (morphine) 2 mg Q4H PRN IV SEVERE PAIN LEVEL 7-10; Start 01/21/19 at 08:30 Vancomycin HCl 1.25 gm/Sodium Chloride 250 ml @ 83.333 mls/ hr Q48H IVPB Last administered on 01/26/19 08:40; Admin Dose 83.333 MLS/HR; Start 01/24/19 at 08:00 Ascorbic Acid (Vitamin C) 500 mg BID GTB Last administered on 01/26/19 08:40; Admin Dose 500 MG; Start 01/23/19 at 21:00 Lansoprazole (Prevacid) 30 mg BID@0600,1800 GTB Last administered on 01/26/19 05:13; Admin Dose 30 MG; Start 01/24/19 at 06:00 Zinc Sulfate (Zinc Sulfate) 220 mg DAILY PEG Last administered on 01/26/19 08:40; Admin Dose 220 MG; Start 01/24/19 at 09:00 Dextrose 1,000 ml @ 100 mls/hr Q10H IV Last administered on 01/26/19 08:40; Admin Dose 100 MLS/HR; Start 01/26/19 at 08:00 Furosemide (Lasix) 20 mg DAILY IV Last administered on 01/26/19 08:46; Admin Dose 20 MG; Start 01/26/19 at 09:00 Potassium Chloride (Klor-Con 20) 40 meq BID PO ; Start 01/26/19 at 10:00; Status UNV VTE Prophylaxis Risk score (from Ns)>0 risk: 3 SCD applied (from Ns): Yes Lines/Catheters IV Catheter Type: Saline Lock Jenkins in Place: Yes Cont'd jenkins catheter reason: pres ulcer contaminated by urine Assessment/Plan Assessment/Plan 63-year-old male with recurrent aspiration pneumonia Acute hypoxemic respiratory failure, resolved History of hemorrhagic CVA and encephalopathy Chronic debilitation Persistent hypernatremia Recurrent anemia status post packed RBC transfusion Stage III chronic kidney disease Hypokalemia Type 2 diabetes mellitus Full CODE STATUS D5W at 100 cc an hour IV Lasix Monitor BMP and CBC Case was discussed with Dr. Mccoy Family is requesting a different care home facility FELICITAS LAZARO MD Jan 26, 2019 09:56
[2019-01-26] MEDS ORDERED: POTASSIUM CHLORIDE (SR) 20 MEQ TAB PO SCH (10:00)
[2019-01-26] MEDS ORDERED: POTASSIUM CHLORIDE 20 MEQ POWDER FOR ORAL SOLN GTB ONE ×2 (10:30→21:00)
[2019-01-26 11:42] VITALS: BP 122/64; PULSE 84; RESP 18
--- NOTE | 2019-01-26 12:16 | CONS ---
Assessment/Plan Assessment/Plan Assessment/Plan (Daily) 1. acute hyperkalemia- now resolved 2. acute On chronic renal failure due to ATN from septic shock- Improving 3. acute hypoxemic respiratory failure intubated on ventilator 2/2 Health care associated PNA - s/p extubation on 01/24/19 4. Septic shock on levophed 2/2 PNA 5. acute hypernatremia- Improving 6. H/O quadriplegia 7. H/o CAD s/p CABG 8. H/O HTN 9. H/o sacral decubitus s/p debridement before 10. [employer] underwriting Plan: BUN/cr 25/1.76, Na 162, - Continue free water, add D5W at 80 cc/hr x 2 liter then stop IV abx zosyn and vancomycin for PNA coverage, Renally dose all abx and monitor electorlytes will change lasix to PO tomorrow s/p Extubation on 01/24/19- doing well so far will follow up Consultation Date/Type/Reason Admit Date/Time Jan 18, 2019 at 04:19 Initial Consult Date Type of Consult NEPHROLOGY Requesting Provider: FELICITAS LAZARO MD Date/Time of Note DATE: 01/26/19 TIME: 12:16 Exam/Review of Systems Exam Vitals Vital Signs Date Temp Pulse Resp B/P (MAP) Pulse Ox O2 O2 Flow FiO2 Time Delivery Rate 01/26/19 98.4 84 18 122/64 94 11:42 (83) 01/26/19 Nasal 4.0 08:00 Cannula 01/24/19 30 09:10 Intake and Output 01/25/19 01/25/19 01/26/19 1515:00 23:00 07:00 IntakeIntake Total 2150 ml 970 ml OutputOutput Total 1310 ml BalanceBalance 2150 ml -340 ml Results Result Diagram: 01/26/19 0508 01/26/19 0508 Results 24hrs Laboratory Tests Test 01/25/19 13:39 01/25/19 17:37 01/25/19 21:29 01/26/19 01:44 Bedside Glucose 132 95 114 175 Test 01/26/19 05:03 01/26/19 05:08 01/26/19 07:14 01/26/19 08:59 Bedside Glucose 136 152 White Blood Count 10.6 Red Blood Count 3.35 #L Hemoglobin 9.8 #L Hematocrit 31.2 #L Mean Corpuscular Volume 93.1 Mean Corpuscular 29.3 Hemoglobin Mean Corpuscular 31.4 L Hemoglobin Concent Red Cell Distribution 17.6 H Width Platelet Count 154 Mean Platelet Volume 12.1 H Immature Granulocytes % 0.600 H Neutrophils % 64.3 Lymphocytes % 27.8 Monocytes % 4.9 Eosinophils % 2.1 Basophils % 0.3 Nucleated Red Blood 0.0 Cells % Immature Granulocytes # 0.060 H Neutrophils # 6.8 Lymphocytes # 2.9 Monocytes # 0.5 Eosinophils # 0.2 Basophils # 0.0 Nucleated Red Blood 0.0 Cells # Sodium Level 162 *H Potassium Level 3.3 L Chloride Level 132 H Carbon Dioxide Level 28 Anion Gap 2 L Blood Urea Nitrogen 25 H Creatinine 1.76 H Est Glomerular Filtrat 39 L Rate mL/min Glucose Level 137 # Calcium Level 8.0 L Vancomycin Level Trough 18.2 Medications Medication Current Medications Vancomycin HCl (Vanco Iv Per Pharmacy) VANCOMYCIN PER PHARMACY PER PROTOCOL XX ; Start 01/18/19 at 09:30 Piperacillin Sod/ Tazobactam Sod 50 ml @ 100 mls/hr Q8 IVPB Last administered on 01/26/19at 05:13; Admin Dose 100 MLS/HR; Start 01/18/19 at 09:30 Insulin Aspart (Novolog Insulin Pen) NOVOLOG *MODERATE* ALGORI... Q4H SC Last administered on 01/26/19at 09:05; Admin Dose 2 UNIT; Start 01/19/19 at 01:00 Miscellaneous Information 1 ea NOTE XX ; Start 01/18/19 at 23:30 Glucose (Glutose) 15 gm Q15M PRN PO DECREASED GLUCOSE; Start 01/18/19 at 23:30 Glucose (Glutose) 22.5 gm Q15M PRN PO DECREASED GLUCOSE; Start 01/18/19 at 23:30 Dextrose (D50w Syringe) 25 ml Q15M PRN IV DECREASED GLUCOSE; Start 01/18/19 at 23:30 Dextrose (D50w Syringe) 50 ml Q15M PRN IV DECREASED GLUCOSE; Start 01/18/19 at 23:30 Glucagon (Glucagen) 1 mg Q15M PRN IM DECREASED GLUCOSE; Start 01/18/19 at 23:30 Glucose (Glutose) 15 gm Q15M PRN BUCCAL DECREASED GLUCOSE; Start 01/18/19 at 23:30 Miscellaneous Information (Pending [facility] Order For Wound Care) This patient berg... PRN PRN XX WOUND CARE; Start 01/19/19 at 02:00 Acetaminophen (Tylenol Supp) 650 mg Q6H PRN [place] temp > 100.4F Last administered on 01/25/19 12:35; Admin Dose 650 MG; Start 01/19/19 at 09:00 Sodium Hypochlorite (Dakins Diluted ()) 1 applic BID TP Last administered on 01/25/19 16:42; Admin Dose 1 APPLIC; Start 01/19/19 at 21:00 Morphine Sulfate (morphine) 2 mg Q4H PRN IV SEVERE PAIN LEVEL 7-10; Start 01/21 at 08:30 Vancomycin HCl 1.25 gm/Sodium Chloride 250 ml @ 83.333 mls/ hr Q48H IVPB Last administered on 01/26/19 08:40; Admin Dose 83.333 MLS/HR; Start 01/24/19 at 08:00 Ascorbic Acid (Vitamin C) 500 mg BID GTB Last administered on 01/26/19 08:40; Admin Dose 500 MG; Start 01/23/19 at 21:00 Lansoprazole (Prevacid) 30 mg BID@0600,1800 GTB Last administered on 01/26/19 05:13; Admin Dose 30 MG; Start 01/24/19 at 06:00 Zinc Sulfate (Zinc Sulfate) 220 mg DAILY PEG Last administered on 01/26/19 08 :40; Admin Dose 220 MG; Start 01/24/19 at 09:00 Dextrose 1,000 ml @ 100 mls/hr Q10H IV Last administered on 01/26/19 08:40; Admin Dose 100 MLS/HR; Start 01/26/19 at 08:00 Furosemide (Lasix) 20 mg DAILY IV Last administered on 01/26/19 08:46; Admin Dose 20 MG; Start 01/26/19 at 09:00 TONIO SOOD MD Jan 26, 2019 12:16
--- NOTE | 2019-01-26 12:23 | CONS ---
Consult Date/Type/Reason Admit Date/Time Jan 18, 2019 at 04:19 Initial Consult Date Type of Consult Pulmonary Requesting Provider: FELICITAS LAZARO MD Date/Time of Note DATE: 01/26/19 TIME: 12:22 Subjective Patient is comfortable this morning no respiratory distress heart rate controlled. Objective Vital Signs Date Temp Pulse Resp B/P (MAP) Pulse Ox O2 O2 Flow FiO2 Time Delivery Rate 01/26/19 98.4 84 18 122/64 94 11:42 (83) 01/26/19 Nasal 4.0 08:00 Cannula 01/24/19 30 09:10 Intake and Output 01/25/19 01/25/19 01/26/19 1515:00 23:00 07:00 IntakeIntake Total 2150 ml 970 ml OutputOutput Total 1310 ml BalanceBalance 2150 ml -340 ml Exam GENERAL: Elderly gentleman, remains stable on nasal cannula. NECK: Supple. No JVD or lymphadenopathy. CARDIAC: S1, S2, no added sounds or murmurs. Tachycardic CHEST: Diminished air entry bilaterally. ABDOMEN: Soft, nontender. No guarding or rebound. EXTREMITIES: No cyanosis, clubbing of bleeding. NEUROLOGIC: Generalized weakness. Vent Setting Ventilator Support Mode: CPAP, PS Fraction of Inspired Oxygen pe: 30 Positive End Expiratory Pressu: 5.0 Results/Medications Result Diagram: 01/26/19 0508 01/26/19 0508 Results 24 hrs Laboratory Tests Test 01/25/19 13:39 01/25/19 17:37 01/25/19 21:29 01/26/19 01:44 Bedside Glucose 132 95 114 175 Test 01/26/19 05:03 01/26/19 05:08 01/26/19 07:14 01/26/19 08:59 Bedside Glucose 136 152 White Blood Count 10.6 Red Blood Count 3.35 #L Hemoglobin 9.8 #L Hematocrit 31.2 #L Mean Corpuscular Volume 93.1 Mean Corpuscular 29.3 Hemoglobin Mean Corpuscular 31.4 L Hemoglobin Concent Red Cell Distribution 17.6 H Width Platelet Count 154 Mean Platelet Volume 12.1 H Immature Granulocytes % 0.600 H Neutrophils % 64.3 Lymphocytes % 27.8 Monocytes % 4.9 Eosinophils % 2.1 Basophils % 0.3 Nucleated Red Blood 0.0 Cells % Immature Granulocytes # 0.060 H Neutrophils # 6.8 Lymphocytes # 2.9 Monocytes # 0.5 Eosinophils # 0.2 Basophils # 0.0 Nucleated Red Blood 0.0 Cells # Sodium Level 162 *H Potassium Level 3.3 L Chloride Level 132 H Carbon Dioxide Level 28 Anion Gap 2 L Blood Urea Nitrogen 25 H Creatinine 1.76 H Est Glomerular Filtrat 39 L Rate mL/min Glucose Level 137 # Calcium Level 8.0 L Vancomycin Level Trough 18.2 Medications Current Medications Vancomycin HCl (Vanco Iv Per Pharmacy) VANCOMYCIN PER PHARMACY PER PROTOCOL XX ; Start 01/18/19 at 09:30 Piperacillin Sod/ Tazobactam Sod 50 ml @ 100 mls/hr Q8 IVPB Last administered on 01/26/19at 05:13; Admin Dose 100 MLS/HR; Start 01/18/19 at 09:30 Insulin Aspart (Novolog Insulin Pen) NOVOLOG *MODERATE* ALGORI... Q4H SC Last administered on 01/26/19at 09:05; Admin Dose 2 UNIT; Start 01/19/19 at 01:00 Miscellaneous Information 1 ea NOTE XX ; Start 01/18/19 at 23:30 Glucose (Glutose) 15 gm Q15M PRN PO DECREASED GLUCOSE; Start 01/18/19 at 23:30 Glucose (Glutose) 22.5 gm Q15M PRN PO DECREASED GLUCOSE; Start 01/18/19 at 23:30 Dextrose (D50w Syringe) 25 ml Q15M PRN IV DECREASED GLUCOSE; Start 01/18/19 at 23:30 Dextrose (D50w Syringe) 50 ml Q15M PRN IV DECREASED GLUCOSE; Start 01/18/19 at 23:30 Glucagon (Glucagen) 1 mg Q15M PRN IM DECREASED GLUCOSE; Start 01/18/19 at 23:30 Glucose (Glutose) 15 gm Q15M PRN BUCCAL DECREASED GLUCOSE; Start 01/18/19 at 23:30 Miscellaneous Information (Pending [facility] Order For Wound Care) This patient berg... PRN PRN XX WOUND CARE; Start 01/19/19 at 02:00 Acetaminophen (Tylenol Supp) 650 mg Q6H PRN [place] temp > 100.4F Last administered on 01/25/19at 12:35; Admin Dose 650 MG; Start 01/19/19 at 09:00 Sodium Hypochlorite (Dakins Diluted ()) 1 applic BID TP Last administered on 01/25/19 16:42; Admin Dose 1 APPLIC; Start 01/19/19 at 21:00 Morphine Sulfate (morphine) 2 mg Q4H PRN IV SEVERE PAIN LEVEL 7-10; Start 01/21/19 at 08:30 Vancomycin HCl 1.25 gm/Sodium Chloride 250 ml @ 83.333 mls/ hr Q48H IVPB Last administered on 01/26/19 08:40; Admin Dose 83.333 MLS/HR; Start 01/24/19 at 08:00 Ascorbic Acid (Vitamin C) 500 mg BID GTB Last administered on 01/26/19 08:40; Admin Dose 500 MG; Start 01/23/19 at 21:00 Lansoprazole (Prevacid) 30 mg BID@0600,1800 GTB Last administered on 01/26/19 05:13; Admin Dose 30 MG; Start 01/24/19 at 06:00 Zinc Sulfate (Zinc Sulfate) 220 mg DAILY PEG Last administered on 01/26/19 08:40; Admin Dose 220 MG; Start 01/24/19 at 09:00 Dextrose 1,000 ml @ 75 mls/hr [id number] IV Last administered on 01/26/19 08:40; Admin Dose 100 MLS/HR; Start 01/26/19 at 08:00 Furosemide (Lasix) 20 mg DAILY IV Last administered on 01/26/19 08:46; Admin Dose 20 MG; Start 01/26/19 at 09:00 Assessment/Plan Hospital Course (Demo Recall) IMPRESSION: 1. Likely healthcare-associated pneumonia. 2. Status post septic shock. 3. Functional quadriplegia. 4. History of dysphagia. Status post G-tube 5. Hypoxemic respiratory failure 6. Significant decubitus ulcer status post debridement. 7. Encephalopathy possibly worsening toxic metabolic questionable new CVA 8. A. fib with RVR 9. Hypernatremia PLAN: 1. Continue broad-spectrum antibiotics. 2. Antibiotics per primary team 3. Tachycardia noted. Consider cardiology evaluation. 4. Tube feeding as tolerated 5. Increase free water per nasogastric tube. BH[facility]IN BARROW MD, [facility] Jan 26, 2019 12:23
[2019-01-26 13:00] VITALS: BP 125/66; PULSE 79; RESP 19
--- NOTE | 2019-01-26 17:54 | PN ---
Date/Time of Note Date/Time of Note DATE: 01/26/19 TIME: 17:47 Assessment/Plan VTE Prophylaxis Risk score (from Ns)>0 risk: 3 SCD applied (from Ns): Yes Pharmacological prophylaxis: other (scds) Lines/Catheters IV Catheter Type (from [facility]): Saline Lock Urinary Cath still in place: Yes Reason Cath still needed: other (indicate) (monitor output) Assessment/Plan Hospital Course Summary Assessment and Plan: Assessment: Progressive dysphagia Impression: Incidental 1 cm fundal gastric ulcer with slightly nodular borders. Biopsies obtained Uneventful PEG. Placement of Norwegian 20 gastrostomy tube. Gastric ulcer biopsies: -- Gastric mucosa with erosion and fresh hemorrhage. -- A Giemsa stain with an appropriate control, is negative for H. pylori organisms. -- No dysplasia or intestinal metaplasia is identified. Respiratory Failure- intubated on MV 2/ to PNA Pneumonia on broad-spectrum antibiotics Status post septic shock Normocytic anemia Coagulopathy- improved CKD Hypernatremiaimproving plan hypertension Diabetes, type II Decubitus ulcer -S/p debridement of the sacral decubitus ulcer and vacuum dressing applied Functional quadriplegia History of questionable hemorrhagic CVA History of CABG-2009 Plan: Increase lansoprazole to 30 mg twice daily. Review pathology. TF to goal PEG care daily and PRN GI will sign off but will be available upon request as needed Patient seen in collaboration with Subjective: Course reviewed with nursing staff Patient interviewed and examined All labs, imaging and other results reviewed Pt transferred to Med/Surg, edmundo Tf well Discussed results of EGD and bx with patient sn who verbalized understanding PHYSICAL EXAMINATION: GENERAL: elderly male, NAD SKIN: No lesions HEAD: Normocephalic, atraumatic, no tenderness. EYES: Pupils equal reactive to light and accommodation, no discharge. EARS/NOSE AND THROAT: Ears normal, nose normal. NECK: Supple, no masses CHEST: Inspection within normal limits. CARDIOVASCULAR: Heart: Regular rate and rhythm RESPIRATORY: Rhonchi- intubated on MV GASTROINTESTINAL AND LIVER: Abdomen: Soft, non tenderness, non-distended, no hernias, no masses, no organomegaly, no ascites, no guarding, no rebound tenderness, normoactive bowel sounds. Rectal: Deferred. Result Diagram: 01/26/19 0508 01/26/19 0508 Results 24hrs Laboratory Tests Test 01/25/19 21:29 01/26/19 01:44 01/26/19 05:03 01/26/19 05:08 Bedside Glucose 114 175 136 White Blood Count 10.6 Red Blood Count 3.35 #L Hemoglobin 9.8 #L Hematocrit 31.2 #L Mean Corpuscular Volume 93.1 Mean Corpuscular 29.3 Hemoglobin Mean Corpuscular 31.4 L Hemoglobin Concent Red Cell Distribution 17.6 H Width Platelet Count 154 Mean Platelet Volume 12.1 H Immature Granulocytes % 0.600 H Neutrophils % 64.3 Lymphocytes % 27.8 Monocytes % 4.9 Eosinophils % 2.1 Basophils % 0.3 Nucleated Red Blood 0.0 Cells % Immature Granulocytes # 0.060 H Neutrophils # 6.8 Lymphocytes # 2.9 Monocytes # 0.5 Eosinophils # 0.2 Basophils # 0.0 Nucleated Red Blood 0.0 Cells # Sodium Level 162 *H Potassium Level 3.3 L Chloride Level 132 H Carbon Dioxide Level 28 Anion Gap 2 L Blood Urea Nitrogen 25 H Creatinine 1.76 H Est Glomerular Filtrat 39 L Rate mL/min Glucose Level 137 # Calcium Level 8.0 L Test 01/26/19 07:14 01/26/19 08:59 01/26/19 13:49 Vancomycin Level Trough 18.2 Bedside Glucose 152 125 Exam/Review of Systems Exam Vitals Vital Signs Date Temp Pulse Resp B/P (MAP) Pulse Ox O2 O2 Flow FiO2 Time Delivery Rate 01/26/19 99 4.0 16:01 01/26/19 98.0 79 19 125/66 Room Air 13:00 (85) Nasal Cannula 01/24/19 30 09:10 Intake and Output 01/25/19 01/25/19 01/26/19 1515:00 23:00 07:00 IntakeIntake Total 2150 ml 970 ml OutputOutput Total 1310 ml BalanceBalance 2150 ml -340 ml Results Results 24hrs Laboratory Tests Test 01/25/19 21:29 01/26/19 01:44 01/26/19 05:03 01/26/19 05:08 Bedside Glucose 114 175 136 White Blood Count 10.6 Red Blood Count 3.35 #L Hemoglobin 9.8 #L Hematocrit 31.2 #L Mean Corpuscular Volume 93.1 Mean Corpuscular 29.3 Hemoglobin Mean Corpuscular 31.4 L Hemoglobin Concent Red Cell Distribution 17.6 H Width Platelet Count 154 Mean Platelet Volume 12.1 H Immature Granulocytes % 0.600 H Neutrophils % 64.3 Lymphocytes % 27.8 Monocytes % 4.9 Eosinophils % 2.1 Basophils % 0.3 Nucleated Red Blood 0.0 Cells % Immature Granulocytes # 0.060 H Neutrophils # 6.8 Lymphocytes # 2.9 Monocytes # 0.5 Eosinophils # 0.2 Basophils # 0.0 Nucleated Red Blood 0.0 Cells # Sodium Level 162 *H Potassium Level 3.3 L Chloride Level 132 H Carbon Dioxide Level 28 Anion Gap 2 L Blood Urea Nitrogen 25 H Creatinine 1.76 H Est Glomerular Filtrat 39 L Rate mL/min Glucose Level 137 # Calcium Level 8.0 L Test 01/26/19 07:14 01/26/19 08:59 01/26/19 13:49 Vancomycin Level Trough 18.2 Bedside Glucose 152 125 Medications Medication Current Medications Vancomycin HCl (Vanco Iv Per Pharmacy) VANCOMYCIN PER PHARMACY PER PROTOCOL XX ; Start 01/18/19 at 09:30 Piperacillin Sod/ Tazobactam Sod 50 ml @ 100 mls/hr Q8 IVPB Last administered on 01/26/19at 14:17; Admin Dose 100 MLS/HR; Start 01/18/19 at 09:30 Insulin Aspart (Novolog Insulin Pen) NOVOLOG *MODERATE* ALGORI... Q4H SC Last administered on 01/26/19at 09:05; Admin Dose 2 UNIT; Start 01/19/19 at 01:00 Miscellaneous Information 1 ea NOTE XX ; Start 01/18/19 at 23:30 Glucose (Glutose) 15 gm Q15M PRN PO DECREASED GLUCOSE; Start 01/18/19 at 23:30 Glucose (Glutose) 22.5 gm Q15M PRN PO DECREASED GLUCOSE; Start 01/18/19 at 23:30 Dextrose (D50w Syringe) 25 ml Q15M PRN IV DECREASED GLUCOSE; Start 01/18/19 at 23:30 Dextrose (D50w Syringe) 50 ml Q15M PRN IV DECREASED GLUCOSE; Start 01/18/19 at 23:30 Glucagon (Glucagen) 1 mg Q15M PRN IM DECREASED GLUCOSE; Start 01/18/19 at 23:30 Glucose (Glutose) 15 gm Q15M PRN BUCCAL DECREASED GLUCOSE; Start 01/18/19 at 23:30 Miscellaneous Information (Pending [facility] Order For Wound Care) This patient berg... PRN PRN XX WOUND CARE; Start 01/19/19 at 02:00 Acetaminophen (Tylenol Supp) 650 mg Q6H PRN [place] temp > 100.4F Last administered on 01/25/19 12:35; Admin Dose 650 MG; Start 01/19/19 at 09:00 Sodium Hypochlorite (Dakins Diluted ()) 1 applic BID TP Last administered on 01/25/19 16:42; Admin Dose 1 APPLIC; Start 01/19/19 at 21:00 Morphine Sulfate (morphine) 2 mg Q4H PRN IV SEVERE PAIN LEVEL 7-10; Start 01/21/19 at 08:30 Ascorbic Acid (Vitamin C) 500 mg BID GTB Last administered on 01/26/19 08:40; Admin Dose 500 MG; Start 01/23/19 at 21:00 Lansoprazole (Prevacid) 30 mg BID@0600,1800 GTB Last administered on 01/26/19 0 5:13; Admin Dose 30 MG; Start 01/24/19 at 06:00 Zinc Sulfate (Zinc Sulfate) 220 mg DAILY PEG Last administered on 01/26/19 08:40; Admin Dose 220 MG; Start 01/24/19 at 09:00 Dextrose 1,000 ml @ 75 mls/hr [id number] IV Last administered on 01/26/19 08:40; Admin Dose 100 MLS/HR; Start 01/26/19 at 08:00 Furosemide (Lasix) 20 mg DAILY IV Last administered on 01/26/19 08:46; Admin Dose 20 MG; Start 01/26/19 at 09:00 Potassium Chloride (Potassium Chloride Pwd/Soln) 40 meq ONCE ONCE GTB ; Start 01/26/19 at 21:00; Stop 01/26/19 at 21:01 Vancomycin HCl 250 ml @ 125 mls/hr Q48H IVPB ; Start 01/28/19 at 09:00 FRITZ JOYCE Jan 26, 2019 17:54
[2019-01-26 20:00] VITALS: BP 121/94; PULSE 85; RESP 16
[2019-01-26] MEDS: morphine 2 MG INJ IV PRN (21:17)
[2019-01-27] MEDS: INSULIN ASPART [NOVOLOG] 3 ML PEN SC SCH ×6 (01:00→21:29)
[2019-01-27 02:00] VITALS: BP 132/60; PULSE 85; RESP 19
[2019-01-27] MEDS: PIPER-TAZO 2.25 GM (PMX) 50 ML IVPB SCH ×3 (05:09→22:27)
[2019-01-27] MEDS: LANSOPRAZOLE 30 MG CAP GTB SCH ×2 (05:09→18:03)
[2019-01-27 07:57] VITALS: BP 112/55; PULSE 94; RESP 20
[2019-01-27] MEDS: DAKINS 0.0125%(1/40) 473 ML SOLUTION TP SCH ×2 (09:00→21:23)
[2019-01-27] MEDS: ZINC SULFATE 220 MG CAP PEG SCH (09:27)
[2019-01-27] MEDS: FUROSEMIDE 20 MG TAB PO SCH (09:28)
[2019-01-27] MEDS: ASCORBIC ACID 500 MG TAB GTB SCH ×2 (09:28→21:28)
[2019-01-27] MEDS ORDERED: QUET100T PO (11:06)
--- NOTE | 2019-01-27 11:29 | PN ---
Date/Time of Note Date/Time of Note DATE: 01/27/19 TIME: 11:26 Subjective Remains alert. Does not follow any commands Objective Vitals Vital Signs Date Temp Pulse Resp B/P (MAP) Pulse Ox O2 O2 Flow FiO2 Time Delivery Rate 01/27/19 99.7 94 20 112/55 97 07:57 (74) 01/27/19 3.0 03:12 01/26/19 Nasal 20:00 Cannula 01/24/19 30 09:10 Intake and Output 01/26/19 01/26/19 01/27/19 1515:00 23:00 07:00 IntakeIntake Total 50 ml 50 ml OutputOutput Total 2200 ml 900 ml 3000 ml BalanceBalance -2200 ml -850 ml -2950 ml Bilateral rhonchi Regular rate and rhythm Soft normoactive bowel sounds Diffuse edema Results Result Diagram: 01/27/19 0550 01/27/19 0550 Medications Medications Current Medications Vancomycin HCl (Vanco Iv Per Pharmacy) VANCOMYCIN PER PHARMACY PER PROTOCOL XX ; Start 01/18/19 at 09:30 Piperacillin Sod/ Tazobactam Sod 50 ml @ 100 mls/hr Q8 IVPB Last administered on 01/27/19at 05:09; Admin Dose 100 MLS/HR; Start 01/18/19 at 09:30 Insulin Aspart (Novolog Insulin Pen) NOVOLOG *MODERATE* ALGORI... Q4H SC Last administered on 01/27/19at 05:11; Admin Dose 4 UNIT; Start 01/19/19 at 01:00 Miscellaneous Information 1 ea NOTE XX ; Start 01/18/19 at 23:30 Glucose (Glutose) 15 gm Q15M PRN PO DECREASED GLUCOSE; Start 01/18/19 at 23:30 Glucose (Glutose) 22.5 gm Q15M PRN PO DECREASED GLUCOSE; Start 01/18/19 at 23:30 Dextrose (D50w Syringe) 25 ml Q15M PRN IV DECREASED GLUCOSE; Start 01/18/19 at 23:30 Dextrose (D50w Syringe) 50 ml Q15M PRN IV DECREASED GLUCOSE; Start 01/18/19 at 23:30 Glucagon (Glucagen) 1 mg Q15M PRN IM DECREASED GLUCOSE; Start 01/18/19 at 23:30 Glucose (Glutose) 15 gm Q15M PRN BUCCAL DECREASED GLUCOSE; Start 01/18/19 at 23:30 Miscellaneous Information (Pending Santyl Order For Wound Care) This patient berg... PRN PRN XX WOUND CARE; Start 01/19/19 at 02:00 Acetaminophen (Tylenol Supp) 650 mg Q6H PRN [place] temp > 100.4F Last administered on 01/25/19 12:35; Admin Dose 650 MG; Start 01/19/19 at 09:00 Sodium Hypochlorite (Dakins Diluted ()) 1 applic BID TP Last administered on 01/26/19 21:20; Admin Dose 1 APPLIC; Start 01/19/19 at 21:00 Morphine Sulfate (morphine) 2 mg Q4H PRN IV SEVERE PAIN LEVEL 7-10 Last administered on 01/26/19 21:17; Admin Dose 2 MG; Start 01/21/19 at 08:30 Ascorbic Acid (Vitamin C) 500 mg BID GTB Last administered on 01/27/19 09:28; Admin Dose 500 MG; Start 01/23/19 at 21:00 Lansoprazole (Prevacid) 30 mg BID@0600,1800 GTB Last administered on 01/27/19 05:09; Admin Dose 30 MG; Start 01/24/19 at 06:00 Zinc Sulfate (Zinc Sulfate) 220 mg DAILY PEG Last administered on 01/27/19 09:27; Admin Dose 220 MG; Start 01/24/19 at 09:00 Dextrose 1,000 ml @ 75 mls/hr [id number] IV Last administered on 01/26/19 23:15; Admin Dose 75 MLS/HR; Start 01/26/19 at 08:00 Vancomycin HCl 250 ml @ 125 mls/hr Q48H IVPB ; Start 01/28/19 at 09:00 Furosemide (Lasix) 20 mg DAILY PO Last administered on 01/27/19 09:28; Admin Dose 20 MG; Start 01/27/19 at 09:00 VTE Prophylaxis Risk score (from Nsg)>0 risk: 8 SCD applied (from Nsg): Yes Lines/Catheters IV Catheter Type: Saline Lock Jenkins in Place: Yes Cont'd jenkins catheter reason: pres ulcer contaminated by urine Assessment/Plan Assessment/Plan 63-year-old male with recurrent aspiration pneumonia Acute hypoxemic respiratory failure, resolved Dysphagia, status post G-tube placement 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 They requested [facility]. However patient is not a candidate. FELICITAS LAZARO MD Jan 27, 2019 11:29
[2019-01-27] MEDS: DEXTROSE 5% 1,000 ML IV SCH (12:39)
--- NOTE | 2019-01-27 17:07 | CONS ---
Assessment/Plan Assessment/Plan Assessment/Plan (Daily) 1. acute hyperkalemia- now resolved 2. acute On chronic renal failure due to ATN from septic shock- Improving 3. acute hypoxemic respiratory failure intubated on ventilator 2/2 Health care associated PNA - s/p extubation on 01/24/19 4. Septic shock on levophed 2/2 PNA 5. acute hypernatremia- Improving 6. H/O quadriplegia 7. H/o CAD s/p CABG 8. H/O HTN 9. 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 Plan: BUN/cr 25/1.85, Na 160, - Continue free water and D5W at 80 cc/hr x 2 liter then stop IV abx zosyn and vancomycin for PNA coverage, Renally dose all abx and monitor electorlytes lasix changed to 20mg po daily s/p Extubation on 01/24/19- doing well so far will follow up Consultation Date/Type/Reason Admit Date/Time Jan 18, 2019 at 04:19 Initial Consult Date Type of Consult NEPHROLOGY Requesting Provider: FELICITAS LAZARO MD Date/Time of Note DATE: 01/27/19 TIME: 17:07 Exam/Review of Systems Exam Vitals Vital Signs Date Temp Pulse Resp B/P (MAP) Pulse Ox O2 O2 Flow FiO2 Time Delivery Rate 01/27/19 Nasal 4.0 08:00 Cannula 01/27/19 99.7 94 20 112/55 97 07:57 (74) 01/24/19 30 09:10 Intake and Output 01/26/19 01/26/19 01/27/19 1515:00 23:00 07:00 IntakeIntake Total 50 ml 50 ml OutputOutput Total 2200 ml 900 ml 3000 ml BalanceBalance -2200 ml -850 ml -2950 ml Exam GENERAL alert, awake no acute distress NECK: Supple. No JVD or lymphadenopathy. CARDIAC: S1, S2, RRR, no murmur CHEST: Bilateral crackles +, no wheezing ABDOMEN: Soft, nontender. No guarding or rebound. EXTREMITIES: No cyanosis, clubbing of bleeding. + jenkins catheter NEUROLOGIC: Generalized weakness. Results Result Diagram: 01/27/19 0550 01/27/19 0550 Results 24hrs Laboratory Tests Test 01/26/19 17:46 01/26/19 20:59 01/27/19 01:31 01/27/19 05:06 Bedside Glucose 157 168 120 183 Test 01/27/19 05:50 01/27/19 09:24 01/27/19 12:36 White Blood Count 11.2 H Red Blood Count 3.37 L Hemoglobin 9.8 L Hematocrit 31.9 L Mean Corpuscular Volume 94.7 Mean Corpuscular 29.1 Hemoglobin Mean Corpuscular 30.7 L Hemoglobin Concent Red Cell Distribution 18.0 H Width Platelet Count 148 Mean Platelet Volume 11.9 H Immature Granulocytes % 0.500 H Neutrophils % 69.9 Lymphocytes % 23.0 Monocytes % 4.5 Eosinophils % 2.0 Basophils % 0.1 Nucleated Red Blood 0.3 H Cells % Immature Granulocytes # 0.060 H Neutrophils # 7.8 H Lymphocytes # 2.6 Monocytes # 0.5 Eosinophils # 0.2 Basophils # 0.0 Nucleated Red Blood 0.0 Cells # Sodium Level 160 H Potassium Level 3.6 Chloride Level 129 H Carbon Dioxide Level 29 Anion Gap 2 L Blood Urea Nitrogen 25 H Creatinine 1.85 H Est Glomerular Filtrat 37 L Rate mL/min Glucose Level 154 Calcium Level 8.2 L Bedside Glucose 138 174 Medications Medication Current Medications Vancomycin HCl (Vanco Iv Per Pharmacy) VANCOMYCIN PER PHARMACY PER PROTOCOL XX ; Start 01/18/19 at 09:30 Piperacillin Sod/ Tazobactam Sod 50 ml @ 100 mls/hr Q8 IVPB Last administered on 01/27/19at 13:20; Admin Dose 100 MLS/HR; Start 01/18/19 at 09:30 Insulin Aspart (Novolog Insulin Pen) NOVOLOG *MODERATE* ALGORI... Q4H SC Last administered on 01/27/19at 12:40; Admin Dose 2 UNIT; Start 01/19/19 at 01:00 Miscellaneous Information 1 ea NOTE XX ; Start 01/18/19 at 23:30 Glucose (Glutose) 15 gm Q15M PRN PO DECREASED GLUCOSE; Start 01/18/19 at 23:30 Glucose (Glutose) 22.5 gm Q15M PRN PO DECREASED GLUCOSE; Start 01/18/19 at 23:30 Dextrose (D50w Syringe) 25 ml Q15M PRN IV DECREASED GLUCOSE; Start 01/18/19 at 23:30 Dextrose (D50w Syringe) 50 ml Q15M PRN IV DECREASED GLUCOSE; Start 01/18/19 at 23:30 Glucagon (Glucagen) 1 mg Q15M PRN IM DECREASED GLUCOSE; Start 01/18/19 at 23:30 Glucose (Glutose) 15 gm Q15M PRN BUCCAL DECREASED GLUCOSE; Start 01/18/19 at 23:30 Miscellaneous Information (Pending Santyl Order For Wound Care) This patient berg... PRN PRN XX WOUND CARE; Start 01/19/19 at 02:00 Acetaminophen (Tylenol Supp) 650 mg Q6H PRN [place] temp > 100.4F Last administered on 01/25/19 12:35; Admin Dose 650 MG; Start 01/19/19 at 09:00 Sodium Hypochlorite (Dakins Diluted ()) 1 applic BID TP Last administered on 01/26/19 21:20; Admin Dose 1 APPLIC; Start 01/19/19 at 21:00 Morphine Sulfate (morphine) 2 mg Q4H PRN IV SEVERE PAIN LEVEL 7-10 Last administered on 01/26/19 21:17; Admin Dose 2 MG; Start 01/21/19 at 08:30 Ascorbic Acid (Vitamin C) 500 mg BID GTB Last administered on 01/27/19 09:28; Admin Dose 500 MG; Start 01/23/19 at 21:00 Lansoprazole (Prevacid) 30 mg BID@0600,1800 GTB Last administered on 01/27/19 05:09; Admin Dose 30 MG; Start 01/24/19 at 06:00 Zinc Sulfate (Zinc Sulfate) 220 mg DAILY PEG Last administered on 01/27/19 09: 27; Admin Dose 220 MG; Start 01/24/19 at 09:00 Vancomycin HCl 250 ml @ 125 mls/hr Q48H IVPB ; Start 01/28/19 at 09:00 Furosemide (Lasix) 20 mg DAILY PO Last administered on 01/27/19 09:28; Admin Dose 20 MG; Start 01/27/19 at 09:00 Dextrose 1,000 ml @ 80 mls/hr [id number] IV Last administered on 01/27/19 12:39; Admin Dose 80 MLS/HR; Start 01/27/19 at 11:30 TONIO SOOD MD Jan 27, 2019 17:07
[2019-01-27 20:05] VITALS: BP 125/59; PULSE 89; RESP 18
[2019-01-28] VITALS (33 sets, daily range): BP systolic 79–130; BP diastolic 57–74; PULSE 87–129; RESP 20–38
[2019-01-28] MEDS: DEXTROSE 5% 1,000 ML IV SCH
[2019-01-28] MEDS: INSULIN ASPART [NOVOLOG] 3 ML PEN SC SCH ×6 (01:09→21:19)
[2019-01-28] MEDS: PIPER-TAZO 2.25 GM (PMX) 50 ML IVPB SCH ×3 (05:41→21:14)
[2019-01-28] MEDS: LANSOPRAZOLE 30 MG CAP GTB SCH ×2 (05:41→17:55)
[2019-01-28] MEDS: ASCORBIC ACID 500 MG TAB GTB SCH ×2 (08:21→21:14)
[2019-01-28] MEDS: ZINC SULFATE 220 MG CAP PEG SCH (08:21)
[2019-01-28] MEDS: VANCOMYCIN 1 GM 250 ML IVPB SCH (08:21)
[2019-01-28] MEDS: FUROSEMIDE 20 MG TAB PO SCH (08:24)
[2019-01-28] MEDS: DAKINS 0.0125%(1/40) 473 ML SOLUTION TP SCH ×2 (08:25→21:17)
--- NOTE | 2019-01-28 10:09 | CONS ---
Assessment/Plan Assessment/Plan Assessment/Plan (Daily) 1. acute hyperkalemia- now resolved 2. acute On chronic renal failure due to ATN from septic shock- Improving 3. acute hypoxemic respiratory failure intubated on ventilator 2/2 Health care associated PNA - s/p extubation on 01/24/19 4. Septic shock on levophed 2/2 PNA 5. acute hypernatremia- Improving 6. H/O quadriplegia 7. H/o CAD s/p CABG 8. H/O HTN 9. 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 Plan: BUN/cr 32/1.81, Na 155, - D5W at 80 cc/hr IV abx zosyn and vancomycin for PNA coverage, Renally dose all abx and monitor electorlytes lasix changed to 20mg po daily s/p Extubation on 01/24/19- doing well so far will follow up Consultation Date/Type/Reason Admit Date/Time Jan 18, 2019 at 04:19 Initial Consult Date Type of Consult NEPHROLOGY Requesting Provider: FELICITAS LAZARO MD Date/Time of Note DATE: 01/28/19 TIME: 10:09 Exam/Review of Systems Exam Vitals Vital Signs Date Temp Pulse Resp B/P (MAP) Pulse Ox O2 O2 Flow FiO2 Time Delivery Rate 01/28/19 97.2 88 24 114/57 91 07:30 (76) 01/28/19 3.0 05:53 01/27/19 Nasal 20:00 Cannula 01/24/19 30 09:10 Intake and Output 01/27/19 01/27/19 01/28/19 1414:59 22:59 06:59 IntakeIntake Total 900 ml 1440 ml 100 ml OutputOutput Total 2350 ml 900 ml BalanceBalance 900 ml -910 ml -800 ml Results Result Diagram: 01/27/19 0550 01/28/19 0648 Results 24hrs Laboratory Tests Test 01/27/19 12:36 01/27/19 17:48 01/27/19 21:26 01/28/19 01:07 Bedside Glucose 174 176 163 147 Test 01/28/19 04:55 01/28/19 06:22 01/28/19 06:48 01/28/19 08:09 Bedside Glucose 141 144 Lab Scanned BLOOD TRANSFUSIO Report N Sodium Level 156 H Potassium Level 3.3 L Chloride Level 123 H Carbon Dioxide 33 H Level Anion Gap 0 L Blood Urea 29 H Nitrogen Creatinine 1.73 H Est Glomerular 40 L Filtrat Rate mL/min Glucose Level 144 Calcium Level 8.3 L Medications Medication Current Medications Vancomycin HCl (Vanco Iv Per Pharmacy) VANCOMYCIN PER PHARMACY PER PROTOCOL XX ; Start 01/18/19 at 09:30 Piperacillin Sod/ Tazobactam Sod 50 ml @ 100 mls/hr Q8 IVPB Last administered on 01/28/19at 05:41; Admin Dose 100 MLS/HR; Start 01/18/19 at 09:30 Insulin Aspart (Novolog Insulin Pen) NOVOLOG *MODERATE* ALGORI... Q4H SC Last administered on 01/28/19at 08:24; Admin Dose 2 UNIT; Start 01/19/19 at 01:00 Miscellaneous Information 1 ea NOTE XX ; Start 01/18/19 at 23:30 Glucose (Glutose) 15 gm Q15M PRN PO DECREASED GLUCOSE; Start 01/18/19 at 23:30 Glucose (Glutose) 22.5 gm Q15M PRN PO DECREASED GLUCOSE; Start 01/18/19 at 23:30 Dextrose (D50w Syringe) 25 ml Q15M PRN IV DECREASED GLUCOSE; Start 01/18/19 at 23:30 Dextrose (D50w Syringe) 50 ml Q15M PRN IV DECREASED GLUCOSE; Start 01/18/19 at 23:30 Glucagon (Glucagen) 1 mg Q15M PRN IM DECREASED GLUCOSE; Start 01/18/19 at 23:30 Glucose (Glutose) 15 gm Q15M PRN BUCCAL DECREASED GLUCOSE; Start 01/18/19 at 23:30 Miscellaneous Information (Pending [facility] Order For Wound Care) This patient berg... PRN PRN XX WOUND CARE; Start 01/19/19 at 02:00 Acetaminophen (Tylenol Supp) 650 mg Q6H PRN [place] temp > 100.4F Last administered on 01/25/19at 12:35; Admin Dose 650 MG; Start 01/19/19 at 09:00 Sodium Hypochlorite (Dakins Diluted ()) 1 applic BID TP Last administered on 01/28/19at 08:25; Admin Dose 1 APPLIC; Start 01/19/19 at 21:00 Morphine Sulfate (morphine) 2 mg Q4H PRN IV SEVERE PAIN LEVEL 7-10 Last administered on 01/26/19 21:17; Admin Dose 2 MG; Start 01/21/19 at 08:30 Ascorbic Acid (Vitamin C) 500 mg BID GTB Last administered on 01/28/19 08:21; Admin Dose 500 MG; Start 01/23/19 at 21:00 Lansoprazole (Prevacid) 30 mg BID@0600,1800 GTB Last administered on 01/28/19 05:41; Admin Dose 30 MG; Start 01/24/19 at 06:00 Zinc Sulfate (Zinc Sulfate) 220 mg DAILY PEG Last administered on 01/28/19 08:21; Admin Dose 220 MG; Start 01/24/19 at 09:00 Vancomycin HCl 250 ml @ 125 mls/hr Q48H IVPB Last administered on 01/28/19 08:21; Admin Dose 125 MLS/HR; Start 01/28/19 at 09:00 Furosemide (Lasix) 20 mg DAILY PO Last administered on 01/28/19 08:24; Admin Dose 20 MG; Start 01/27/19 at 09:00 TONIO SOOD MD Jan 28, 2019 10:09
[2019-01-28] MEDS ORDERED: POTASSIUM CHLORIDE 100 ML IVPB STA (10:10)
[2019-01-28] MEDS ORDERED: POTASSIUM CHLORIDE 20 MEQ POWDER FOR ORAL SOLN GTB ONE (10:30)
[2019-01-28] MEDS ORDERED: FUROSEMIDE 40 MG INJ IV ONE ×2 (10:30→15:30)
[2019-01-28] MEDS: D5W + KCL 20 MEQ 1,000 ML IV SCH ×3 (11:55→23:30)
--- NOTE | 2019-01-28 15:57 | CONS ---
Assessment/Plan Assessment/Plan Hospital Course (Demo Recall) Hypoxic respiratory failure Left lung collapse Sepsis Acute kidney injury Hypernatremia CAD with history of CABG Patient with acute worsening respiratory status afternoon with hypoxia, febrile Chest x-ray reveals left lung collapse likely secondary mucous plugging. Aggressive suctioning attempted but remains hypoxic Patient plan for intubation Pulmonary follow-up Renal follow-up given hypernatremia and volume status We will check echocardiogram Consultation Date/Type/Reason Admit Date/Time Jan 18, 2019 at 04:19 Type of Consult Cardiology Reason for Consultation Hypoxia Date/Time of Note DATE: 01/28/19 TIME: 15:52 Hx of Present Illness This is a 63-year-old male from [facility] facility past mental history of functional quadriplegia, CAD status post CABG was admitted secondary to respiratory failure, sepsis and acute kidney injury. Patient later extubated was briefly on the medical floor. Given hypernatremia, patient was receiving Lasix and IV fluids. This afternoon, patient with worsening respiratory status and hypoxia. Increased secretions as well. Patient also febrile. Rapid response was called because his cardiology condition was requested. Discussion with son, shortness of breath has become worse over this afternoon. Patient is minimally verbal. 12 point review of systems was performed with all pertinent positives and negatives mentioned above and all else is negative Past Medical History Functional quadriplegia Medical History: coronary artery disease, hypertension, renal disease Home Meds Active Scripts Quetiapine Fumarate* (Seroquel*) 100 Mg Tablet, 100 MG PO HS, #30 TAB Prov:FELICITAS LAZARO MD 01/27/19 Reported Medications Boqrfvzqvvlr-Ltvd-Iirthlat,Iso (ZOSYN 3.375 GM GALAXY BAG) 3.375 Gm/50 Ml Froz.piggy, 3.375 GM IVPB Q6, EA 01/18/19 Saccharomyces Boulardii* (Florastor*) 250 Mg Cap, 250 MG PO BID, CAP 01/18/19 Insulin Glargine* (Lantus*) 100 Unit/Ml Soln, 6 UNIT SC QHS, #1 VIAL 01/18/19 Ipratropium-Albuterol (Ipratropium-Albuterol) 0.5-3 Mg/3 Ml Ampul.neb, 3 ML INHALATION Q6 PRN for WHEEZING AND SOB, #30 VIAL 01/18/19 Lactulose* (Lactulose*) 20 Gm/30 Ml Solution, 20 GM PO BID, ML 01/18/19 Lamotrigine* (Lamotrigine*) 25 Mg Tablet, 25 MG PO BID, TAB 01/18/19 Escitalopram Oxalate* (Lexapro*) 10 Mg Tablet, 10 MG PO DAILY, #30 TAB 01/18/19 Magnesium Oxide* (Mag-Oxide*) 400 Mg Tablet, 400 MG PO TID, TAB 01/18/19 Multivitamin with Minerals (Daily Vitamin Formula-Minerals) 1 Each Tablet, 1 EACH PO DAILY, TAB 01/18/19 Tamsulosin Hcl* (Flomax*) 0.4 Mg Cap.er.24h, 0.4 MG PO HS, CAP 01/18/19 Vancomycin HCl (Vancomycin HCl) 1 Gm Vial, 1 GM IV DAILY PRN for FEVER, VIAL 01/18/19 Ascorbic Acid* (Vitamin C*) 500 Mg Capsule.sa, 500 MG PO DAILY, CAP 01/18/19 Levalbuterol Hcl* (Levalbuterol Hcl*) 0.63 Mg/3 Ml Vial.neb, 0.63 MG INHALATION Q6H PRN for WHEEZING AND SOB, VIAL 01/18/19 Sodium Phosphate,Jewell-Dibasic (Enema Ready To Use) 133 Ml Enema, 133 ML RC EVERY 3 DAYS PRN for CONSTIPATION, ENEMA 01/18/19 Calcium Carbonate* (Calcium Carbonate*) 600 MG Ca Tab, 600 MG PO BID, TAB 01/18/19 Ceftriaxone Sod* (Rocephin* 1GM/50ML (PMX)) 1 Gm/50 Ml Iv.soln., 1 GM IVPB QHS, EA 01/18/19 Divalproex Sodium* (Divalproex Sodium*) 250 Mg Tablet.dr, 750 MG PO BID, #90 TAB 01/18/19 Ferrous Sulfate* (Ferrous Sulfate*) 325 Mg Tabec, 325 MG PO DAILY, TAB 01/18/19 Magnesium Hydroxide* (Milk Of Magnesia*) 400 Mg/5 Ml Oral.susp, 30 ML PO DAILY PRN for CONSTIPATION, ML 01/18/19 Atorvastatin* (Atorvastatin*) 40 Mg Tablet, 40 MG PO QHS, #30 TAB 01/18/19 Aspirin (Low Dose Aspirin) 81 Mg Tablet.dr, 81 MG PO DAILY, #30 TAB 01/18/19 Acetaminophen* (Acetaminophen*) 650 Mg Tablet, 650 MG PO Q6H PRN for ELEVATED TEMPERATURE, #30 TAB OVER 101 01/18/19 Discontinued Reported Medications Hydrocodone/Acetaminophen (Ulen 5-325 Tablet) 1 Each Tablet, 1 EACH PO Q4 PRN for PAIN 4-7, TAB 01/18/19 Hydrocodone/Acetaminophen (Ulen 5-325 Tablet) 1 Each Tablet, 1 EACH PO 30 MIN PRIOR TO W/C PRN for PAIN, TAB 01/18/19 Hydrocodone/Acetaminophen (Ulen 5-325 Tablet) 1 Each Tablet, 2 EACH PO Q4 PRN for PAIN 8-10, TAB 01/18/19 Amino Acids/Protein Hydrolys (Pro-Stat Awc Liquid) 30 Ml Liquid, 30 ML PO TID DILUTE WITH 30ML WATER 01/18/19 Bisacodyl (Dulcolax) 10 Mg Supp.rect, 10 MG RC PRN PRN for CONSTIPATION, SUP P.RECT 01/18/19 Arginine/Ascorbate Sod/Eric AC (Arginaid Powder) 1 Each Powd.pack, 1 EACH PO BID DISOLVE IN 120MLS WATER 01/18/19 Acetylcysteine* (Mucomyst*) 4 Ml Soln, 3 ML NEB TID, EA 01/18/19 Medications Current Medications Vancomycin HCl (Vanco Iv Per Pharmacy) VANCOMYCIN PER PHARMACY PER PROTOCOL XX ; Start 01/18/19 at 09:30 Piperacillin Sod/ Tazobactam Sod 50 ml @ 100 mls/hr Q8 IVPB Last administered on 01/28/19at 05:41; Admin Dose 100 MLS/HR; Start 01/18/19 at 09:30 Insulin Aspart (Novolog Insulin Pen) NOVOLOG *MODERATE* ALGORI... Q4H SC Last administered on 01/28/19at 08:24; Admin Dose 2 UNIT; Start 01/19/19 at 01:00 Miscellaneous Information 1 ea NOTE XX ; Start 01/18/19 at 23:30 Glucose (Glutose) 15 gm Q15M PRN PO DECREASED GLUCOSE; Start 01/18/19 at 23:30 Glucose (Glutose) 22.5 gm Q15M PRN PO DECREASED GLUCOSE; Start 01/18/19 at 23:30 Dextrose (D50w Syringe) 25 ml Q15M PRN IV DECREASED GLUCOSE; Start 01/18/19 at 23:30 Dextrose (D50w Syringe) 50 ml Q15M PRN IV DECREASED GLUCOSE; Start 01/18/19 at 23:30 Glucagon (Glucagen) 1 mg Q15M PRN IM DECREASED GLUCOSE; Start 01/18/19 at 23:30 Glucose (Glutose) 15 gm Q15M PRN BUCCAL DECREASED GLUCOSE; Start 01/18/19 at 23:30 Miscellaneous Information (Pending [facility]yl Order For Wound Care) This patient berg... PRN PRN XX WOUND CARE; Start 01/19/19 at 02:00 Acetaminophen (Tylenol Supp) 650 mg Q6H PRN [place] temp > 100.4F Last administered on 01/25/19 12:35; Admin Dose 650 MG; Start 01/19/19 at 09:00 Sodium Hypochlorite (Dakins Diluted ()) 1 applic BID TP Last administered on 01/28/19 08:25; Admin Dose 1 APPLIC; Start 01/19/19 at 21:00 Morphine Sulfate (morphine) 2 mg Q4H PRN IV SEVERE PAIN LEVEL 7-10 Last administered on 01/26/19 21:17; Admin Dose 2 MG; Start 01/21/19 at 08:30 Ascorbic Acid (Vitamin C) 500 mg BID GTB Last administered on 01/28/19 08:21; Admin Dose 500 MG; Start 01/23/19 at 21:00 Lansoprazole (Prevacid) 30 mg BID@0600,1800 GTB Last administered on 01/28/19 05:41; Admin Dose 30 MG; Start 01/24/19 at 06:00 Zinc Sulfate (Zinc Sulfate) 220 mg DAILY PEG Last administered on 01/28/19 08:21; Admin Dose 220 MG; Start 01/24/19 at 09:00 Vancomycin HCl 250 ml @ 125 mls/hr Q48H IVPB Last administered on 01/28/19 08:21; Admin Dose 125 MLS/HR; Start 01/28/19 at 09:00 Furosemide (Lasix) 20 mg DAILY PO Last administered on 01/28/19 08:24; Admin Dose 20 MG; Start 01/27/19 at 09:00 Potassium Chloride/Dextrose 1,000 ml @ 80 mls/hr [id number] IV Last administered on 7/10/19at 11:55; Admin Dose 80 MLS/HR; Start 01/28/19 at 11:00; Stop 01/29/19 at 11:59 Allergies: Coded Allergies: Sulfa (Sulfonamide Antibiotics) (Verified Allergy, Unknown, 01/18/19) Past Surgical History Past Surgical Hx: coronary bypass surgery, other (CABG, H/o Debridement for sacral decubitus ) Social History Alcohol Use: none Smoking Status: Former smoker Drug Use: none Other Social History From detention facility Exam/Review of Systems Vital Signs Vitals Vital Signs Date Temp Pulse Resp B/P (MAP) Pulse Ox O2 O2 Flow FiO2 Time Delivery Rate 01/28/19 Nasal 4.0 08:30 Cannula 01/28/19 97.2 88 24 114/57 91 07:30 (76) 01/24/19 30 09:10 Intake and Output 01/27/19 01/27/19 01/28/19 1515:00 23:00 07:00 IntakeIntake Total 900 ml 1440 ml 100 ml OutputOutput Total 2350 ml 900 ml BalanceBalance 900 ml -910 ml -800 ml Exam Exam Awake, tachypneic, Head: normocephalic Respiratory: other (Coarse breath sounds, decreased breath sounds left lung field) Cardiovascular: regular rate and rhythm (S1-S2 heard) Gastrointestinal: soft, non-tender, bowel sounds Extremities: edema Labs Result Diagram: 01/27/19 0550 01/28/19 0648 Results 24hrs Laboratory Tests Test 01/27/19 17:48 01/27/19 21:26 01/28/19 01:07 01/28/19 04:55 Bedside Glucose 176 163 147 141 Test 01/28/19 06:22 01/28/19 06:48 01/28/19 08:09 01/28/19 12:03 Lab Scanned BLOOD TRANSFUSIO Report N Sodium Level 156 H Potassium Level 3.3 L Chloride Level 123 H Carbon Dioxide 33 H Level Anion Gap 0 L Blood Urea 29 H Nitrogen Creatinine 1.73 H Est Glomerular 40 L Filtrat Rate mL/min Glucose Level 144 Calcium Level 8.3 L Bedside Glucose 144 130 Test 01/28/19 15:25 Bedside Glucose 165 Medications Medications Current Medications Vancomycin HCl (Vanco Iv Per Pharmacy) VANCOMYCIN PER PHARMACY PER PROTOCOL XX ; Start 01/18/19 at 09:30 Piperacillin Sod/ Tazobactam Sod 50 ml @ 100 mls/hr Q8 IVPB Last administered on 01/28/19at 05:41; Admin Dose 100 MLS/HR; Start 01/18/19 at 09:30 Insulin Aspart (Novolog Insulin Pen) NOVOLOG *MODERATE* ALGORI... Q4H SC Last administered on 01/28/19 08:24; Admin Dose 2 UNIT; Start 01/19/19 at 01:00 Miscellaneous Information 1 ea NOTE XX ; Start 01/18/19 at 23:30 Glucose (Glutose) 15 gm Q15M PRN PO DECREASED GLUCOSE; Start 01/18/19 at 23:30 Glucose (Glutose) 22.5 gm Q15M PRN PO DECREASED GLUCOSE; Start 01/18/19 at 23:30 Dextrose (D50w Syringe) 25 ml Q15M PRN IV DECREASED GLUCOSE; Start 01/18/19 at 23:30 Dextrose (D50w Syringe) 50 ml Q15M PRN IV DECREASED GLUCOSE; Start 01/18/19 at 23:30 Glucagon (Glucagen) 1 mg Q15M PRN IM DECREASED GLUCOSE; Start 01/18/19 at 23:30 Glucose (Glutose) 15 gm Q15M PRN BUCCAL DECREASED GLUCOSE; Start 01/18/19 at 23:30 Miscellaneous Information (Pending [facility] Order For Wound Care) This patient berg... PRN PRN XX WOUND CARE; Start 01/19/19 at 02:00 Acetaminophen (Tylenol Supp) 650 mg Q6H PRN [place] temp > 100.4F Last administered on 01/25/19at 12:35; Admin Dose 650 MG; Start 01/19/19 at 09:00 Sodium Hypochlorite (Dakins Diluted ()) 1 applic BID TP Last administered on 01/28/19at 08:25; Admin Dose 1 APPLIC; Start 01/19/19 at 21:00 Morphine Sulfate (morphine) 2 mg Q4H PRN IV SEVERE PAIN LEVEL 7-10 Last administered on 01/26/19at 21:17; Admin Dose 2 MG; Start 01/21/19 at 08:30 Ascorbic Acid (Vitamin C) 500 mg BID GTB Last administered on 01/28/19at 08:21; Admin Dose 500 MG; Start 01/23/19 at 21:00 Lansoprazole (Prevacid) 30 mg BID@0600,1800 GTB Last administered on 01/28/19at 05:41; Admin Dose 30 MG; Start 01/24/19 at 06:00 Zinc Sulfate (Zinc Sulfate) 220 mg DAILY PEG Last administered on 01/28/19at 08:21; Admin Dose 220 MG; Start 01/24/19 at 09:00 Vancomycin HCl 250 ml @ 125 mls/hr Q48H IVPB Last administered on 01/28/19at 08:21; Admin Dose 125 MLS/HR; Start 01/28/19 at 09:00 Furosemide (Lasix) 20 mg DAILY PO Last administered on 01/28/19at 08:24; Admin Dose 20 MG; Start 01/27/19 at 09:00 Potassium Chloride/Dextrose 1,000 ml @ 80 mls/hr [id number] IV Last administered on 01/28/19at 11:55; Admin Dose 80 MLS/HR; Start 01/28/19 at 11:00; Stop 01/29/19 at 11:59 Randy Leone DO Jan 28, 2019 15:57
--- NOTE | 2019-01-28 16:03 | EN ---
Date/Time of Note Date/Time of Note DATE: 01/28/19 TIME: 15:59 Event Note Medicine Medicine Event Note FLEECER for hypoxia Patient found to have markedly worse hypoxia all of a sudden. Febrile, HD stable, tachycardic. Slightly labored breathing. O2 to 70s and not coming up with NRB. There was concern for hypervolemia so he was given a dose of lasix. Then XR showed L lung whiteout. We tried aggressive cough induction but saturations did not come up. We had no choice but to intubate him. I discussed this at length with his son at bedside. He will now be moved to the ICU May need bronchoscopy, to be determined by pulmonary Time 35 JOAQUIN Rangel MD Jan 28, 2019 16:03
[2019-01-28] MEDS ORDERED: ACETYLCYSTEINE 20% 4 ML VIAL NEB ONE (16:13)
[2019-01-28] MEDS ORDERED: ALBUTEROL/IPRATROPIUM (NEB) 3 ML AMP HHN ONE (16:13)
[2019-01-28] MEDS ORDERED: NORepinephrine 8MG/250 ML (PMX 250 ML IV SCH (17:30)
[2019-01-28] MEDS: VASOPRESSIN 60 UNIT in DEXTROSE 5% 60 ML IV SCH (18:00)
[2019-01-28] MEDS ORDERED: VASOPRESSIN 100 UNIT in SOD CHLORIDE 0.9% 95 ML IV SCH (18:00)
[2019-01-28] MEDS: ACETYLCYSTEINE 20% 4 ML VIAL NEB SCH (20:00)
[2019-01-28] MEDS: ALBUTEROL/IPRATROPIUM (NEB) 3 ML AMP HHN SCH (20:03)
--- NOTE | 2019-01-28 23:59 | EN ---
Date/Time of Note Date/Time of Note DATE: 01/28/19 TIME: 1630 ER Progress Note Consultation note Subjective: I was called to the patient's bedside on the floor for evaluation for emergent intubation. Briefly, this is a 63-year-old male who presented to the hospital with acute respiratory failure, pneumonia and septic shock. The patient had been intubated earlier in his hospital course, but he was ultimately extubated and transitioned to the floor. Unfortunately, the patient's respiratory status decompensated today. The patient became very hypoxic and was in respiratory distress. A chest x-ray was completed that demonstrated a full whiteout of his left lung. There is concern for worsening pneumonia versus lung collapse secondary to mucous plugging. Family history: As indicated on the initial history and physical of this visit Objective: Vital signs reviewed Const: Respiratory distress, well-developed, well-nourished Head: Normocephalic, Atraumatic Eyes: Normal Conjunctiva. ENT: Normal External Ears, Nose. Significant oral secretions. Neck: No meningismus. Resp: Significant respiratory distress with bilateral coarse breath sounds, left greater than right, hypoxia Cardio: Tachycardia Abd: Non distended Skin: No petechiae or rashes Ext: No cyanosis, or edema Neur: Unresponsive, does not open eyes on command or pain, minimally withdraws to pain, nonverbal, GCS less than 8. Assessment: Respiratory failure Plan: On assessment of the patient, I do feel that he requires emergent intubation. The patient's son was at bedside. The patient's primary physician and I discussed the risks and benefits of intubation with the patient's son. He verbally agreed to this emergent procedure. The patient was intubated without complication. I utilized an 8.0 ET tube as I am concerned that the patient is in fact mucous plugging and I suspect that he will require bronchoscopy in the hospital. The patient's primary admitting team will reassume care. ENDOTRACHEAL INTUBATION: Performed by me. Pre-assessment performed. Pre-oxygenation performed with 100% oxygen. RSI: Performed w/o complication or hypoxic events. Medications as ordered. Blade: Mac 4 via Video Larygnoscope ET Tube: 8.0 mm Depth: 24 cm at the lip Intubation confirmed by colorimetric CO2, equal breath sounds, quiet over the stomach. Chest X-ray 1V Interpreted by me: ET tube above the karin. Normal soft tissue, No pneumothorax. TSANG,ANAND MD Jan 28, 2019 23:58
[2019-01-29] VITALS (102 sets, daily range): BP systolic 69–123; BP diastolic 48–75; PULSE 94–122; RESP 16–31
[2019-01-29] MEDS: ALBUTEROL/IPRATROPIUM (NEB) 3 ML AMP HHN SCH ×4 (01:03→20:21)
[2019-01-29] MEDS: ACETYLCYSTEINE 20% 4 ML VIAL NEB SCH ×4 (01:03→20:22)
[2019-01-29] MEDS: INSULIN ASPART [NOVOLOG] 3 ML PEN SC SCH ×6 (01:53→21:22)
--- NOTE | 2019-01-29 04:19 | DS ---
DATE OF ADMISSION: 01/18/2019 DATE OF DISCHARGE: DISCHARGE DIAGNOSES: 1. A 63-year-old male with recurrent aspiration pneumonia. 2. Acute respiratory failure requiring mechanical ventilation. 3. Chronic dysphagia status post G-tube placement. 4. 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 5. 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 6. Hypernatremia. 7. Type 2 diabetes mellitus. 8. Bipolar affective disorder. 9. Schizophrenia. 10. Poor prognosis. PROCEDURES DURING HOSPITALIZATION: Renal ultrasound, CAT scan of the brain, MRI of the brain, MRI of abdomen. HISTORY OF PRESENT ILLNESS AND HOSPITAL COURSE: A 63-year-old unfortunate male with a history of hem orrhagic CVA several months prior to admission and chronic debilitation was transferred from detention facility after he was noted to have progressive shortness of breath. The patient was diagnos ed with recurrent aspiration pneumonia. He was intubated and remained in the ICU for several days. The patient had a history of chronic dysphagia following his stroke. He was completely unresponsive. I suspect that he was in a catatonic state due to his underlying bipolar affective disorder and joe izophrenia. GI consultation was requested and a G-tube was placed prior to extubation. The patient was then successfully extubated and transferred out of ICU. The patient had persistent hypernatremia. He was seen in consultation by Dr. Mccoy. He received D5W and free water through the G-tube. Serum sodium was 156 on the day of discharge. The patient also has stage III chronic kidney disease. BUN and creatinine were 29 and 1.73. His son and [id number] were very involved in his care. They requested brain MRI and abdominal M RI for previous history of adrenal mass. Brain MRI did not show any acute stroke or hemorrhage. Abd ominal MRI showed stable 3.7 cm left adrenal mass with focal calcification, most likely suggestive of prior hemorrhage. No intervention is warranted at this time. They recommended 6-month followup wit h repeat MRI with adrenal protocol. All of these findings were discussed with the son at the bedside . The patient carries an overall poor prognosis. He also had a sacral decubitus ulcer that underwen t incision and drainage by Dr. Avalos. A wound VAC was applied. The patient is now in a stable condi tion for transition to detention facility. IV antibiotics will be continued for additional 3 d ays. Please refer to medication reconciliation for the list of medications. Dictated By: FELICITAS GRECO/HEMAL Conf#: [id number] DID#: [id number] CC: TIA DENTON MD; ANDREY BARROW MD; TONIO MCCOY MD;*EndCC*
[2019-01-29] MEDS: VASOPRESSIN 60 UNIT in DEXTROSE 5% 60 ML IV SCH (05:11)
[2019-01-29] MEDS: PIPER-TAZO 2.25 GM (PMX) 50 ML IVPB SCH ×3 (05:16→22:56)
[2019-01-29] MEDS: LANSOPRAZOLE 30 MG CAP GTB SCH ×2 (05:18→17:58)
--- NOTE | 2019-01-29 09:13 | CONS ---
Consultation Date/Type/Reason Admit Date/Time Jan 18, 2019 at 04:19 Initial Consult Date 01/21/19 Type of Consult Pulmonary/critical care Patient developed respiratory failure last evening requiring intubation and then transferred to ICU. No CPR was done. Positive time I saw the patient, patient is orally intubated and despite being awake but is noncommunicative which apparently is his baseline mental status. Patient did not appear to be in any distress. General exam; elderly male, orally intubated. Awake. Currently in no distress. Noncommunicative. Reason for Consultation H EENT exam; supple neck, no JVD. No lymphadenopathy. Midline trachea. No thyromegaly. Orally intubated. Patient is edentulous. Pupils are small bilaterally. No neck masses. Chest exam; diminished but clear breath sounds. S1-S2 audible, no murmurs. Regular rhythm. Abdomen exam; soft, no organomegaly. G-tube in place. Bowel sounds are audible. Extremity exam; trace peripheral edema. Dressings applied to both feet. CHIEF DIETITIAN exam; patient awake but noncommunicative. Requesting Provider: FELICITAS LAZARO MD Date/Time of Note DATE: 01/29/19 TIME: 09:10 Exam/Review of Systems Exam Vitals Vital Signs Date Temp Pulse Resp B/P (MAP) Pulse Ox O2 O2 Flow FiO2 Time Delivery Rate 01/29/19 100.1 08:14 01/29/19 110 08:00 01/29/19 22 98 45 07:15 01/29/19 107/64 Mechanica 07:00 (78) l Ventilato r 01/28/19 4.0 08:30 Intake and Output 01/28/19 01/28/19 01/29/19 1515:00 23:00 07:00 IntakeIntake Total 250 ml 743.75 ml 636.25 ml OutputOutput Total 900 ml 560 ml BalanceBalance 250 ml -156.25 ml 76.25 ml Exam Ventilator setting; AC of 16, tidal volume 500, PEEP of 5, 45% FiO2. Patient is currently on Levophed at 3 mics per minute. Assessment and recommendations; 1. Patient initially admitted with pneumonia then developed respiratory failure due to left mainstem mucous plugging from likely poor cough reflex because of a dvanced dementia and chronic encephalopathy. Post intubation chest x-ray is markedly improved with complete resolution of left lung atelectasis. 2. Chronic renal insufficiency. 3. Prior CABG. 4. Peripheral vascular disease. 5. History of CVA. 6. Anemia and thrombocytopenia. Continue current supportive care. Patient likely will need to have a tracheostomy performed. Prognosis is guarded. 35 minutes of critical care time was spent evaluating the patient. Results Result Diagram: 01/29/19 0450 01/29/19 0450 Results 24hrs Laboratory Tests Test 01/28/19 12:03 01/28/19 14:45 01/28/19 15:15 01/28/19 15:25 Bedside Glucose 130 165 Urine Color STRAW Urine Clarity CLEAR Urine pH 8.0 Urine Specific 1.005 [place] Urine Ketones NEGATIVE Urine Nitrite NEGATIVE Urine Bilirubin NEGATIVE Urine NEGATIVE Urobilinogen Urine Leukocyte NEGATIVE Esterase Urine 9 H Microscopic RBC Urine 16 H Microscopic WBC Urine Bacteria FEW A Urine Hemoglobin 1+ H Urine Glucose NEGATIVE Urine Total NEGATIVE Protein Blood Gas Blood arterial Specimen Source Arterial Blood 01/28/2019 3:30: Date Drawn 00 PM Arterial Blood 7.528 H pH (Temp corrected) Arterial Blood 35.0 pCO2 (Temp correct) Arterial Blood 42.1 *L pO2 (Temp corrected) Arterial Blood 28.5 H HCO3 Arterial Blood 5.7 H Base Excess Arterial Blood 83.6 L Oxygen Saturatio n Aníbal Test ACCEPTAB Arterial Blood Right Radial Gas Puncture Site Arterial 0 Blood Carboxyhem oglobin Arterial Blood 0.2 Methemoglobin Blood Gas A-a O2 635.9 H Differential Oxyhemoglobin 83.4 L Percent Blood Gas 37.0 Temperature Blood Gas MASK - NRB Modality FiO2 100.[address] MARX Critical Value Read Back Blood Gas D.T. Notified Whom Blood Gas 01/28/2019 5:42: Notified Time 00 PM Test 01/28/19 15:32 01/28/19 15:54 01/28/19 17:14 01/28/19 17:43 Blood Gas Blood arterial Specimen Source Arterial Blood 01/28/2019 5:06: Date Drawn 20 PM Arterial Blood 7.498 H pH (Temp corrected) Arterial Blood 39.1 pCO2 (Temp correct) Arterial Blood 140.3 H pO2 (Temp corrected) Arterial Blood 29.7 H HCO3 Arterial Blood 6.1 H Base Excess Arterial Blood 98.7 H Oxygen Saturatio n Aníbal Test ACCEPTAB Arterial Blood Left Radial Gas Puncture Site Arterial 0.1 Blood Carboxyhem oglobin Arterial Blood 0.3 Methemoglobin Blood Gas A-a O2 533.6 H Differential Oxyhemoglobin 98.3 Percent Blood Gas 37.0 Temperature Blood Gas 16.0 Respiration Rate Blood Gas Actual 16 Respiration Rate Blood Gas VENT - AC Modality FiO2 100.0 Blood Gas Tidal 500.0 Volume Blood Gas Low 5.0 PEEP Setting Blood Gas [place] Notified Whom Blood Gas 01/28/2019 5:27: Notified Time 20 PM White Blood 13.7 #H 12.2 H Count Red Blood Count 3.65 L 3.71 L Hemoglobin 10.6 L 10.8 L Hematocrit 34.8 L 35.5 L Mean Corpuscular 95.3 95.7 Volume Mean Corpuscular 29.0 29.1 Hemoglobin Mean Corpuscular 30.5 L 30.4 L Hemoglobin Mily nt Red Cell 17.2 H 17.4 H Distribution Width Platelet Count 181 # 176 Mean Platelet 11.6 H 11.6 H Volume Immature 0.400 0.300 Granulocytes % Neutrophils % 52.1 70.6 Lymphocytes % 44.7 24.6 Monocytes % 2.0 3.2 Eosinophils % 0.7 1.1 Basophils % 0.1 0.2 Nucleated Red 0.1 H 0.2 H Blood Cells % Immature 0.050 H 0.040 H Granulocytes # Neutrophils # 7.1 8.6 H Lymphocytes # 6.1 H 3.0 H Monocytes # 0.3 0.4 Eosinophils # 0.1 0.1 Basophils # 0.0 0.0 Nucleated Red 0.0 0.0 Blood Cells # Sodium Level 155 H Potassium Level 4.2 Chloride Level 121 H Carbon Dioxide 31 Level Anion Gap 3 L Blood Urea 32 H Nitrogen Creatinine 1.81 H Est Glomerular 38 L Filtrat Rate mL/min Glucose Level 171 Lactic Acid 3.0 *H 2.2 *H Level Calcium Level 8.6 Total Bilirubin 0.5 Direct Bilirubin 0.00 Indirect 0.5 Bilirubin Aspartate Amino 104 H Transf (AST/SGOT ) Alanine 17 Aminotransferase (ALT/SGPT) Alkaline 168 H Phosphatase Total Protein 8.2 H Albumin 2.4 L Globulin 5.80 H Albumin/Globulin 0.41 Ratio Bedside Glucose 143 Test 01/28/19 21:18 01/29/19 01:48 01/29/19 04:50 01/29/19 05:18 Bedside Glucose 169 171 154 White Blood 16.8 #H Count Red Blood Count 3.34 L Hemoglobin 9.8 L Hematocrit 32.4 L Mean Corpuscular 97.0 Volume Mean Corpuscular 29.3 Hemoglobin Mean Corpuscular 30.2 L Hemoglobin Mily nt Red Cell 17.2 H Distribution Width Platelet Count 172 Mean Platelet 11.9 H Volume Immature 0.500 H Granulocytes % Neutrophils % 65.4 Lymphocytes % 30.2 Monocytes % 2.8 Eosinophils % 0.7 Basophils % 0.4 Nucleated Red 0.1 H Blood Cells % Immature 0.090 H Granulocytes # Neutrophils # 11.0 H Lymphocytes # 5.1 H Monocytes # 0.5 Eosinophils # 0.1 Basophils # 0.1 Nucleated Red 0.0 Blood Cells # Sodium Level 154 H Potassium Level 4.0 Chloride Level 118 H Carbon Dioxide 32 H Level Anion Gap 4 L Blood Urea 33 H Nitrogen Creatinine 2.09 H Est Glomerular 32 L Filtrat Rate mL/min Glucose Level 150 Calcium Level 8.6 Magnesium Level 2.0 Medications Medication Current Medications Vancomycin HCl (Vanco Iv Per Pharmacy) VANCOMYCIN PER PHARMACY PER PROTOCOL XX ; Start 01/18/19 at 09:30 Piperacillin Sod/ Tazobactam Sod 50 ml @ 100 mls/hr Q8 IVPB Last administered on 01/29/19at 05:16; Admin Dose 100 MLS/HR; Start 01/18/19 at 09:30 Insulin Aspart (Novolog Insulin Pen) NOVOLOG *MODERATE* ALGORI... Q4H SC Last administered on 01/29/19at 05:22; Admin Dose 2 UNIT; Start 01/19/19 at 01:00 Miscellaneous Information 1 ea NOTE XX ; Start 01/18/19 at 23:30 Glucose (Glutose) 15 gm Q15M PRN PO DECREASED GLUCOSE; Start 01/18/19 at 23:30 Glucose (Glutose) 22.5 gm Q15M PRN PO DECREASED GLUCOSE; Start 01/18/19 at 23:30 Dextrose (D50w Syringe) 25 ml Q15M PRN IV DECREASED GLUCOSE; Start 01/18/19 at 23:30 Dextrose (D50w Syringe) 50 ml Q15M PRN IV DECREASED GLUCOSE; Start 01/18/19 at 23:30 Glucagon (Glucagen) 1 mg Q15M PRN IM DECREASED GLUCOSE; Start 01/18/19 at 23:30 Glucose (Glutose) 15 gm Q15M PRN BUCCAL DECREASED GLUCOSE; Start 01/18/19 at 23:30 Miscellaneous Information (Pending [facility] Order For Wound Care) This patient berg... PRN PRN XX WOUND CARE; Start 01/19/19 at 02:00 Acetaminophen (Tylenol Supp) 650 mg Q6H PRN NM temp > 100.4F Last administered on 01/25/19 12:35; Admin Dose 650 MG; Start 01/19/19 at 09:00 Sodium Hypochlorite (Dakins Diluted ()) 1 applic BID TP Last administered on 01/28/19 21:17; Admin Dose 1 APPLIC; Start 01/19/19 at 21:00 Morphine Sulfate (morphine) 2 mg Q4H PRN IV SEVERE PAIN LEVEL 7-10 Last administered on 01/26/19 21:17; Admin Dose 2 MG; Start 01/21/19 at 08:30 Ascorbic Acid (Vitamin C) 500 mg BID GTB Last administered on 01/28/19 21:14; Admin Dose 500 MG; Start 01/23/19 at 21:00 Lansoprazole (Prevacid) 30 mg BID@0600,1800 GTB Last administered on 01/29/19 05:18; Admin Dose 30 MG; Start 01/24/19 at 06:00 Zinc Sulfate (Zinc Sulfate) 220 mg DAILY PEG Last administered on 01/28/19 08:21; Admin Dose 220 MG; Start 01/24/19 at 09:00 Vancomycin HCl 250 ml @ 125 mls/hr Q48H IVPB Last administered on 01/28/19 08:21; Admin Dose 125 MLS/HR; Start 01/28/19 at 09:00 Potassium Chloride/Dextrose 1,000 ml @ 80 mls/hr [id number] IV Last administered on 01/28/19 18:15; Admin Dose 80 MLS/HR; Start 01/28/19 at 11:00; Stop 01/29/19 at 11:59 Albuterol/ Ipratropium (Duoneb) 3 ml Q6H RESP THERAPY HHN Last administered on 01/29/19 01:03; Admin Dose 3 ML; Start 01/28/19 at 20:00 Acetylcysteine (Mucomyst) 2 ml Q6H RESP THERAPY NEB Last administered on 01/29/19at 01:03; Admin Dose 2 ML; Start 01/28/19 at 20:00 Norepinephrine 250 ml @ 1.875 mls/ hr PER PROTOCOL IV Last administered on 01/28/19at 21:39; Admin Dose 1.875 MLS/HR; Start 01/28/19 at 17:30 Vasopressin 60 unit/Dextrose 60 ml @ 1.2 mls/hr Q12H IV ; Start 01/28/19 at 18:00 BOOGIE SAPP Jan 29, 2019 09:13
[2019-01-29] MEDS: ZINC SULFATE 220 MG CAP PEG SCH (09:28)
[2019-01-29] MEDS: ASCORBIC ACID 500 MG TAB GTB SCH ×2 (09:28→21:09)
[2019-01-29] MEDS: DAKINS 0.0125%(1/40) 473 ML SOLUTION TP SCH ×2 (09:29→21:09)
--- NOTE | 2019-01-29 11:40 | PN ---
Date/Time of Note Date/Time of Note DATE: 01/29/19 TIME: 11:36 Subjective Patient remains intubated and unresponsive Objective Vitals Vital Signs Date Temp Pulse Resp B/P (MAP) Pulse Ox O2 O2 Flow FiO2 Time Delivery Rate 01/29/19 110 24 99 45 09:18 01/29/19 100.1 08:14 01/29/19 107/64 Mechanica 07:00 (78) l Ventilato r 01/28/19 4.0 08:30 Intake and Output 01/28/19 01/28/19 01/29/19 1515:00 23:00 07:00 IntakeIntake Total 250 ml 743.75 ml 636.25 ml OutputOutput Total 900 ml 560 ml BalanceBalance 250 ml -156.25 ml 76.25 ml Bilateral rhonchi and rales Regular rate and rhythm Soft normoactive bowel sounds Diffuse edema Results Result Diagram: 01/29/19 0450 01/29/19 0450 Medications Medications Current Medications Vancomycin HCl (Vanco Iv Per Pharmacy) VANCOMYCIN PER PHARMACY PER PROTOCOL XX ; Start 01/18/19 at 09:30 Piperacillin Sod/ Tazobactam Sod 50 ml @ 100 mls/hr Q8 IVPB Last administered on 01/29/19at 05:16; Admin Dose 100 MLS/HR; Start 01/18/19 at 09:30 Insulin Aspart (Novolog Insulin Pen) NOVOLOG *MODERATE* ALGORI... Q4H SC Last administered on 01/29/19at 05:22; Admin Dose 2 UNIT; Start 01/19/19 at 01:00 Miscellaneous Information 1 ea NOTE XX ; Start 01/18/19 at 23:30 Glucose (Glutose) 15 gm Q15M PRN PO DECREASED GLUCOSE; Start 01/18/19 at 23:30 Glucose (Glutose) 22.5 gm Q15M PRN PO DECREASED GLUCOSE; Start 01/18/19 at 23:30 Dextrose (D50w Syringe) 25 ml Q15M PRN IV DECREASED GLUCOSE; Start 01/18/19 at 23:30 Dextrose (D50w Syringe) 50 ml Q15M PRN IV DECREASED GLUCOSE; Start 01/18/19 at 23:30 Glucagon (Glucagen) 1 mg Q15M PRN IM DECREASED GLUCOSE; Start 01/18/19 at 23:30 Glucose (Glutose) 15 gm Q15M PRN BUCCAL DECREASED GLUCOSE; Start 01/18/19 at 23:30 Miscellaneous Information (Pending [facility] Order For Wound Care) This patient berg... PRN PRN XX WOUND CARE; Start 01/19/19 at 02:00 Acetaminophen (Tylenol Supp) 650 mg Q6H PRN PA temp > 100.4F Last administered on 01/25/19 12:35; Admin Dose 650 MG; Start 01/19/19 at 09:00 Sodium Hypochlorite (Dakins Diluted ()) 1 applic BID TP Last administered on 01/29/19 09:29; Admin Dose 1 APPLIC; Start 01/19/19 at 21:00 Morphine Sulfate (morphine) 2 mg Q4H PRN IV SEVERE PAIN LEVEL 7-10 Last administered on 01/26/19 21:17; Admin Dose 2 MG; Start 01/21/19 at 08:30 Ascorbic Acid (Vitamin C) 500 mg BID GTB Last administered on 01/29/19 09:28; Admin Dose 500 MG; Start 01/23/19 at 21:00 Lansoprazole (Prevacid) 30 mg BID@0600,1800 GTB Last administered on 01/29/19 05:18; Admin Dose 30 MG; Start 01/24/19 at 06:00 Zinc Sulfate (Zinc Sulfate) 220 mg DAILY PEG Last administered on 01/29/19 09:28; Admin Dose 220 MG; Start 01/24/19 at 09:00 Vancomycin HCl 250 ml @ 125 mls/hr Q48H IVPB Last administered on 01/28/19 08:21; Admin Dose 125 MLS/HR; Start 01/28/19 at 09:00 Potassium Chloride/Dextrose 1,000 ml @ 80 mls/hr [id number] IV Last administered on 01/28/19 18:15; Admin Dose 80 MLS/HR; Start 01/28/19 at 11:00; Stop 01/29/19 at 11:59 Albuterol/ Ipratropium (Duoneb) 3 ml Q6H RESP THERAPY HHN Last administered on 01/29/19 09:17; Admin Dose 3 ML; Start 01/28/19 at 20:00 Acetylcysteine (Mucomyst) 2 ml Q6H RESP THERAPY NEB Last administered on 7/11/19at 09:17; Admin Dose 2 ML; Start 01/28/19 at 20:00 Norepinephrine 250 ml @ 1.875 mls/ hr PER PROTOCOL IV Last administered on 01/28/19at 21:39; Admin Dose 1.875 MLS/HR; Start 01/28/19 at 17:30 Vasopressin 60 unit/Dextrose 60 ml @ 1.2 mls/hr Q12H IV ; Start 01/28/19 at 18:00 Quetiapine Fumarate (Seroquel) 100 mg DAILY GTB ; Start 01/29/19 at 11:30 VTE Prophylaxis Risk score (from Ns)>0 risk: 10 SCD applied (from [facility]): Yes Lines/Catheters IV Catheter Type: Saline Lock Jenkins in Place: Yes Cont'd jenkins catheter reason: pres ulcer contaminated by urine Assessment/Plan Assessment/Plan 63-year-old male with recurrent respiratory failure, requiring reintubation Mucous plug, resolved Recurrent aspiration pneumonia History of hemorrhagic CVA Acute on chronic kidney injury Hypernatremia Severe encephalopathy History of schizophrenia Bipolar affective disorder Poor prognosis Continue current therapy Wean off the ventilator Pulmonary, cardiology, and nephrology follow-up I had a long conversation with his son. Patient has very poor respiratory efforts and it would be very difficult to extubate him. FELICITAS LAZARO MD Jan 29, 2019 11:40
[2019-01-29] MEDS: DEXTROSE 5% 1,000 ML IV SCH (13:02)
--- NOTE | 2019-01-29 13:24 | CONS ---
Assessment/Plan Assessment/Plan Assessment/Plan (Daily) 1. acute hyperkalemia- now resolved 2. acute On chronic renal failure due to ATN from septic shock- Improving 3. acute hypoxemic respiratory failure intubated on ventilator 2/2 Health care associated PNA - s/p extubation on 01/24/19 4. Septic shock on levophed 2/2 PNA 5. acute hypernatremia- Improving 6. H/O quadriplegia 7. H/o CAD s/p CABG 8. H/O HTN 9. H/o sacral decubitus s/p debridement before 10. Nursing Home[facility] [employer] network development Plan: BUN/cr 33/2.09, Na 154, - changed IVF to D5W at 80 cc/hr IV abx zosyn and vancomycin for PNA coverage, Renally dose all abx and monitor electorlytes stopped PO lasix today s/p Extubation on 01/24/19- doing well so far will follow up Consultation Date/Type/Reason Admit Date/Time Jan 18, 2019 at 04:19 Initial Consult Date Type of Consult NEPHROLOGY Requesting Provider: FELICITAS LAZARO MD Date/Time of Note DATE: 01/29/19 TIME: 13:24 Exam/Review of Systems Exam Vitals Vital Signs Date Temp Pulse Resp B/P (MAP) Pulse Ox O2 O2 Flow FiO2 Time Delivery Rate 01/29/19 106 12:40 01/29/19 23 98 45 11:58 01/29/19 100.1 08:14 01/29/19 107/64 [place] 07:00 (78) l Ventilato r 01/28/19 4.0 08:30 Intake and Output 01/28/19 01/28/19 01/29/19 1515:00 23:00 07:00 IntakeIntake Total 250 ml 743.75 ml 636.25 ml OutputOutput Total 900 ml 560 ml BalanceBalance 250 ml -156.25 ml 76.25 ml Exam GENERAL alert, awake no acute distress NECK: Supple. No JVD or lymphadenopathy. CARDIAC: S1, S2, RRR, no murmur CHEST: Bilateral crackles +, no wheezing ABDOMEN: Soft, nontender. No guarding or rebound. EXTREMITIES: No cyanosis, clubbing of bleeding. + jenkins catheter NEUROLOGIC: Generalized weakness. Results Result Diagram: 7/11/19 0450 7/11/19 0450 Results 24hrs Laboratory Tests Test 01/28/19 14:45 01/28/19 15:15 01/28/19 15:25 01/28/19 15:32 Urine Color STRAW Urine Clarity CLEAR Urine pH 8.0 Urine Specific 1.005 [place] Urine Ketones NEGATIVE Urine Nitrite NEGATIVE Urine Bilirubin NEGATIVE Urine NEGATIVE Urobilinogen Urine Leukocyte NEGATIVE Esterase Urine 9 H Microscopic RBC Urine 16 H Microscopic WBC Urine Bacteria FEW A Urine Hemoglobin 1+ H Urine Glucose NEGATIVE Urine Total NEGATIVE Protein Blood Gas Blood arterial Blood arterial Specimen Source Arterial Blood 01/28/2019 3:30: 01/28/2019 5:06: Date Drawn 00 PM 20 PM Arterial Blood 7.528 H 7.498 H pH (Temp corrected) Arterial Blood 35.0 39.1 pCO2 (Temp correct) Arterial Blood 42.1 *L 140.3 H pO2 (Temp corrected) Arterial Blood 28.5 H 29.7 H HCO3 Arterial Blood 5.7 H 6.1 H Base Excess Arterial Blood 83.6 L 98.7 H Oxygen Saturatio n Aníbal Test ACCEPTAB ACCEPTAB Arterial Blood Right Radial Left Radial Gas Puncture Site Arterial 0 0.1 Blood Carboxyhem oglobin Arterial Blood 0.2 0.3 Methemoglobin Blood Gas A-a O2 635.9 H 533.6 H Differential Oxyhemoglobin 83.4 L 98.3 Percent Blood Gas 37.0 37.0 Temperature Blood Gas MASK - NRB VENT - AC Modality FiO2 100.[address] MARX Critical Value Read Back Blood Gas D.Trang R[place] Notified Whom Blood Gas 01/28/2019 5:42: 01/28/2019 5:27: Notified Time 00 PM 20 PM Bedside Glucose 165 Blood Gas 16.0 Respiration Rate Blood Gas Actual 16 Respiration Rate Blood Gas Tidal 500.0 Volume Blood Gas Low 5.0 PEEP Setting Test 01/28/19 15:54 01/28/19 17:14 01/28/19 17:43 01/28/19 21:18 White Blood 13.7 #H 12.2 H Count Red Blood Count 3.65 L 3.71 L Hemoglobin 10.6 L 10.8 L Hematocrit 34.8 L 35.5 L Mean Corpuscular 95.3 95.7 Volume Mean Corpuscular 29.0 29.1 Hemoglobin Mean Corpuscular 30.5 L 30.4 L Hemoglobin Mily nt Red Cell 17.2 H 17.4 H Distribution Width Platelet Count 181 # 176 Mean Platelet 11.6 H 11.6 H Volume Immature 0.400 0.300 Granulocytes % Neutrophils % 52.1 70.6 Lymphocytes % 44.7 24.6 Monocytes % 2.0 3.2 Eosinophils % 0.7 1.1 Basophils % 0.1 0.2 Nucleated Red 0.1 H 0.2 H Blood Cells % Immature 0.050 H 0.040 H Granulocytes # Neutrophils # 7.1 8.6 H Lymphocytes # 6.1 H 3.0 H Monocytes # 0.3 0.4 Eosinophils # 0.1 0.1 Basophils # 0.0 0.0 Nucleated Red 0.0 0.0 Blood Cells # Sodium Level 155 H Potassium Level 4.2 Chloride Level 121 H Carbon Dioxide 31 Level Anion Gap 3 L Blood Urea 32 H Nitrogen Creatinine 1.81 H Est Glomerular 38 L Filtrat Rate mL/min Glucose Level 171 Lactic Acid 3.0 *H 2.2 *H Level Calcium Level 8.6 Total Bilirubin 0.5 Direct Bilirubin 0.00 Indirect 0.5 Bilirubin Aspartate Amino 104 H Transf (AST/SGOT ) Alanine 17 Aminotransferase (ALT/SGPT) Alkaline 168 H Phosphatase Total Protein 8.2 H Albumin 2.4 L Globulin 5.80 H Albumin/Globulin 0.41 Ratio Bedside Glucose 143 169 Test 01/29/19 01:48 01/29/19 04:50 01/29/19 05:18 01/29/19 09:23 Bedside Glucose 171 154 132 White Blood 16.8 #H Count Red Blood Count 3.34 L Hemoglobin 9.8 L Hematocrit 32.4 L Mean Corpuscular 97.0 Volume Mean Corpuscular 29.3 Hemoglobin Mean Corpuscular 30.2 L Hemoglobin Mily nt Red Cell 17.2 H Distribution Width Platelet Count 172 Mean Platelet 11.9 H Volume Immature 0.500 H Granulocytes % Neutrophils % 65.4 Lymphocytes % 30.2 Monocytes % 2.8 Eosinophils % 0.7 Basophils % 0.4 Nucleated Red 0.1 H Blood Cells % Immature 0.090 H Granulocytes # Neutrophils # 11.0 H Lymphocytes # 5.1 H Monocytes # 0.5 Eosinophils # 0.1 Basophils # 0.1 Nucleated Red 0.0 Blood Cells # Sodium Level 154 H Potassium Level 4.0 Chloride Level 118 H Carbon Dioxide 32 H Level Anion Gap 4 L Blood Urea 33 H Nitrogen Creatinine 2.09 H Est Glomerular 32 L Filtrat Rate mL/min Glucose Level 150 Calcium Level 8.6 Magnesium Level 2.0 Medications Medication Current Medications Vancomycin HCl (Vanco Iv Per Pharmacy) VANCOMYCIN PER PHARMACY PER PROTOCOL XX ; Start 01/18/19 at 09:30 Piperacillin Sod/ Tazobactam Sod 50 ml @ 100 mls/hr Q8 IVPB Last administered on 01/29/19at 13:02; Admin Dose 100 MLS/HR; Start 01/18/19 at 09:30 Insulin Aspart (Novolog Insulin Pen) NOVOLOG *MODERATE* ALGORI... Q4H SC Last administered on 01/29/19at 05:22; Admin Dose 2 UNIT; Start 01/19/19 at 01:00 Miscellaneous Information 1 ea NOTE XX ; Start 01/18/19 at 23:30 Glucose (Glutose) 15 gm Q15M PRN PO DECREASED GLUCOSE; Start 01/18/19 at 23:30 Glucose (Glutose) 22.5 gm Q15M PRN PO DECREASED GLUCOSE; Start 01/18/19 at 23:30 Dextrose (D50w Syringe) 25 ml Q15M PRN IV DECREASED GLUCOSE; Start 01/18/19 at 23:30 Dextrose (D50w Syringe) 50 ml Q15M PRN IV DECREASED GLUCOSE; Start 01/18/19 at 23:30 Glucagon (Glucagen) 1 mg Q15M PRN IM DECREASED GLUCOSE; Start 01/18/19 at 23:30 Glucose (Glutose) 15 gm Q15M PRN BUCCAL DECREASED GLUCOSE; Start 01/18/19 at 23:30 [facility] This patient berg... PRN PRN XX WOUND CARE; Start 01/19/19 at 02:00 Acetaminophen (Tylenol Supp) 650 mg Q6H PRN ND temp > 100.4F Last administered on 01/25/19at 12:35; Admin Dose 650 MG; Start 01/19/19 at 09:00 Sodium Hypochlorite (Dakins Diluted ()) 1 applic BID TP Last administered on 01/29/19at 09:29; Admin Dose 1 APPLIC; Start 01/19/19 at 21:00 Morphine Sulfate (morphine) 2 mg Q4H PRN IV SEVERE PAIN LEVEL 7-10 Last administered on 01/26/19 21:17; Admin Dose 2 MG; Start 01/21/19 at 08:30 Ascorbic Acid (Vitamin C) 500 mg BID GTB Last administered on 01/29/19 09:28; Admin Dose 500 MG; Start 01/23/19 at 21:00 Lansoprazole (Prevacid) 30 mg BID@0600,1800 GTB Last administered on 01/29/19 05:18; Admin Dose 30 MG; Start 01/24/19 at 06:00 Zinc Sulfate (Zinc Sulfate) 220 mg DAILY PEG Last administered on 01/29/19 09:28; Admin Dose 220 MG; Start 01/24/19 at 09:00 Vancomycin HCl 250 ml @ 125 mls/hr Q48H IVPB Last administered on 01/28/19 08:21; Admin Dose 125 MLS/HR; Start 01/28/19 at 09:00 Albuterol/ Ipratropium (Duoneb) 3 ml Q6H RESP THERAPY HHN Last administered on 01/29/19 09:17; Admin Dose 3 ML; Start 01/28/19 at 20:00 Acetylcysteine (Mucomyst) 2 ml Q6H RESP THERAPY NEB Last administered on 01/29/19 09:17; Admin Dose 2 ML; Start 01/28/19 at 20:00 Norepinephrine 250 ml @ 1.875 mls/ hr PER PROTOCOL IV Last administered on 01/28/19 21:39; Admin Dose 1.875 MLS/HR; Start 01/28/19 at 17:30 Vasopressin 60 unit/Dextrose 60 ml @ 1.2 mls/hr Q12H IV ; Start 01/28/19 at 18:00 Quetiapine Fumarate (Seroquel) 100 mg DAILY GTB ; Start 01/29/19 at 11:30 Dextrose 1,000 ml @ 80 mls/hr [id number] IV Last administered on 01/29/19 13:02; Admin Dose 80 MLS/HR; Start 01/29/19 at 13:00 TONIO SOOD MD Jan 29, 2019 13:24
[2019-01-29] MEDS: QUETIAPINE 100 MG TAB GTB SCH (14:42)
--- NOTE | 2019-01-29 16:21 | RADRPT ---
Echocardiogram Report Patient Name: BRENNA WONGPatient ID: [id number] : 1955 (63y 2m)Study Date: 01/29/2019 8:35:37 AM Gender: MAccession #: [id number] Tech: Agustin Mueller [facility] Location: [facility] Ref.Physician: RANDY LEONE Height(Cm): BSA: Weight(Kg): Quality: AdequateOrder Physician: RANDY LEONE Account #: Procedures: Echocardiographic Report: Transthoracic echocardiogram with complete 2D, M-Mode, and doppler examination. Indications: Hypoxia. Measurements: 2D/M Mode Doppler Measurement Value Normal Range Measurement Value Normal Range LVIDd 2D 4.2 [ 4.2 - 5.8 ] cm AV Peak Ian 1.2 [ 100.0 - 170.0 ] cm/sec LVIDs 2D 3.0 [ 2.5 - 4.0 ] cm AV Peak PG 6.0 [ 2.0 - 9.0 ] mmHg LVPWd 2D 1.1 [ 0.6 - 1.0 ] cm LVOT Peak Ian 1.0 [ 70.0 - 110.0 ] cm/sec IVSd 2D 1.1 [ 0.6 - 1.0 ] cm LVOT Peak PG 4.0 [ 2.0 - 6.0 ] mmHg AoR Diam 2D 3.0 [ 2.6 - 3.4 ] cm EDV 2D 76.8 [ 62.0 - 150.0 ] ml ESV 2D 36.2 [ 21.0 - 61.0 ] ml EF 2D 52.9 [ 52.0 - 72.0 ] percent LA Dimen 2D 2.8 [ 3.0 - 4.0 ] cm Findings: Left Ventricle: Overall, normal left ventricular systolic function. Not all segments visualized. Normal left ventricular cavity size. Mild concentric left ventricular hypertrophy. Ejection fraction is visually estimated at 60 %. Tissue Doppler/Mitral Doppler indices are consistent with impaired relaxation (Stage I diastolic dysfunction). Right Ventricle: Normal right ventricular size. Normal right ventricular systolic function. Left Atrium: The left atrium is normal in size. Right Atrium: The right atrium is normal in size. Mitral Valve: Normal appearance of the mitral valve. Mild mitral annular calcification. Trace mitral regurgitation. Aortic Valve: Normal appearance of the aortic valve. No significant aortic stenosis or insufficiency. Tricuspid Valve: Normal appearance and function of the tricuspid valve with trace physiologic regurgitation. Pulmonic Valve: Normal pulmonic valve appearance. Pericardium: Normal pericardium with no significant pericardial effusion. Aorta: Normal aortic root. IVC: Inferior vena cava without respiratory collapse, however, patient on ventilator. Conclusions: Overall, normal left ventricular systolic function. Not all segments visualized. Normal left ventricular cavity size. Mild concentric left ventricular hypertrophy. Ejection fraction is visually estimated at 60 %. Tissue Doppler/Mitral Doppler indices are consistent with impaired relaxation (Stage I diastolic dysfunction). Normal right ventricular size. Normal right ventricular systolic function. The left atrium is normal in size. The right atrium is normal in size. No significant valvular stenosis or regurgitation seen. Normal pericardium with no significant pericardial effusion. Electronically Signed By: Randy Leone 2019-01-29 16:20:29 PDT
--- NOTE | 2019-01-29 18:10 | CONS ---
Assessment/Plan Assessment/Plan Hospital Course (Demo Recall) Hypoxic respiratory failure Left lung collapse Hypotension, on IV pressor Sepsis Acute kidney injury Hypernatremia CAD with history of CABG Preserved left ventricular ejection fraction Chest x-ray improved after intubation Vent management as per pulmonary Titrate IV pressor to maintain SBP greater than 90 and/or map above 60 Renal follow-up given hypernatremia and volume status No antihypertensives or AV rizwan blocking agents at the current time given sinus tachycardia Extensive discussion had with patient's family including son at bedside Greater than 40 minutes of critical care time taken in the care of this patient Consultation Date/Type/Reason Admit Date/Time Jan 18, 2019 at 04:19 Initial Consult Date 01/21/19 Type of Consult Cardiology Requesting Provider: FELICITAS LAZARO MD Date/Time of Note DATE: 01/29/19 TIME: 18:07 24 HR Interval Summary Free Text/Dictation Patient remains intubated, blood pressure has been labile with intermittent sinus tachycardia. Exam/Review of Systems Vital Signs Vitals Vital Signs Date Temp Pulse Resp B/P (MAP) Pulse Ox O2 O2 Flow FiO2 Time Delivery Rate 01/29/19 107 25 98 45 17:39 01/29/19 102/57 15:30 (72) 01/29/19 Mechanical 15:00 Ventilator 01/29/19 99.5 11:30 01/28/19 4.0 08:30 Intake and Output 01/28/19 01/28/19 01/29/19 1515:00 23:00 07:00 IntakeIntake Total 250 ml 743.75 ml 641.875 ml OutputOutput Total 900 ml 560 ml BalanceBalance 250 ml -156.25 ml 81.875 ml Exam Exam Intubated, no distress, not responding to verbal stimuli Head: normocephalic ENMT: intubated Respiratory: other (Coarse breath sounds bilaterally, no wheezing) Cardiovascular: regular rate and rhythm, other (S1-S2 heard) Gastrointestinal: soft, non-tender, bowel sounds Genitourinary - Male: other (Garcia present) Extremities: edema Neurological: other (No response to verbal stimuli) Labs Result Diagram: 01/29/19 0450 01/29/19 0450 Results 24hrs Laboratory Tests Test 01/28/19 21:18 01/29/19 01:48 01/29/19 04:50 01/29/19 05:18 Bedside Glucose 169 171 154 White Blood Count 16.8 #H Red Blood Count 3.34 L Hemoglobin 9.8 L Hematocrit 32.4 L Mean Corpuscular 97.0 Volume Mean Corpuscular 29.3 Hemoglobin Mean Corpuscular 30.2 L Hemoglobin Concent Red Cell 17.2 H Distribution Width Platelet Count 172 Mean Platelet Volume 11.9 H Immature 0.500 H Granulocytes % Neutrophils % 65.4 Lymphocytes % 30.2 Monocytes % 2.8 Eosinophils % 0.7 Basophils % 0.4 Nucleated Red Blood 0.1 H Cells % Immature 0.090 H Granulocytes # Neutrophils # 11.0 H Lymphocytes # 5.1 H Monocytes # 0.5 Eosinophils # 0.1 Basophils # 0.1 Nucleated Red Blood 0.0 Cells # Sodium Level 154 H Potassium Level 4.0 Chloride Level 118 H Carbon Dioxide Level 32 H Anion Gap 4 L Blood Urea Nitrogen 33 H Creatinine 2.09 H Est Glomerular 32 L Filtrat Rate mL/min Glucose Level 150 Calcium Level 8.6 Magnesium Level 2.0 Test 01/29/19 09:23 01/29/19 13:28 Bedside Glucose 132 133 Medications Medications Current Medications Vancomycin HCl (Vanco Iv Per Pharmacy) VANCOMYCIN PER PHARMACY PER PROTOCOL XX ; Start 01/18/19 at 09:30 Piperacillin Sod/ Tazobactam Sod 50 ml @ 100 mls/hr Q8 IVPB Last administered on 01/29/19at 13:02; Admin Dose 100 MLS/HR; Start 01/18/19 at 09:30 Insulin Aspart (Novolog Insulin Pen) NOVOLOG *MODERATE* ALGORI... Q4H SC Last administered on 01/29/19at 05:22; Admin Dose 2 UNIT; Start 01/19/19 at 01:00 Miscellaneous Information 1 ea NOTE XX ; Start 01/18/19 at 23:30 Glucose (Glutose) 15 gm Q15M PRN PO DECREASED GLUCOSE; Start 01/18/19 at 23:30 Glucose (Glutose) 22.5 gm Q15M PRN PO DECREASED GLUCOSE; Start 01/18/19 at 23:30 Dextrose (D50w Syringe) 25 ml Q15M PRN IV DECREASED GLUCOSE; Start 01/18/19 at 23:30 Dextrose (D50w Syringe) 50 ml Q15M PRN IV DECREASED GLUCOSE; Start 01/18/19 at 23:30 Glucagon (Glucagen) 1 mg Q15M PRN IM DECREASED GLUCOSE; Start 01/18/19 at 23:30 Glucose (Glutose) 15 gm Q15M PRN BUCCAL DECREASED GLUCOSE; Start 01/18/19 at 23:30 Miscellaneous Information (Pending Santyl Order For Wound Care) This patient berg... PRN PRN XX WOUND CARE; Start 01/19/19 at 02:00 Acetaminophen (Tylenol Supp) 650 mg Q6H PRN [place] temp > 100.4F Last administered on 01/25/19 12:35; Admin Dose 650 MG; Start 01/19/19 at 09:00 Sodium Hypochlorite (Dakins Diluted ()) 1 applic BID TP Last administered on 01/29/19 09:29; Admin Dose 1 APPLIC; Start 01/19/19 at 21:00 Morphine Sulfate (morphine) 2 mg Q4H PRN IV SEVERE PAIN LEVEL 7-10 Last administered on 01/26/19 21:17; Admin Dose 2 MG; Start 01/21/19 at 08:30 Ascorbic Acid (Vitamin C) 500 mg BID GTB Last administered on 01/29/19 09:28; Admin Dose 500 MG; Start 01/23/19 at 21:00 Lansoprazole (Prevacid) 30 mg BID@0600,1800 GTB Last administered on 01/29/19 05:18; Admin Dose 30 MG; Start 01/24/19 at 06:00 Zinc Sulfate (Zinc Sulfate) 220 mg DAILY PEG Last administered on 01/29/19 09:28; Admin Dose 220 MG; Start 01/24/19 at 09:00 Vancomycin HCl 250 ml @ 125 mls/hr Q48H IVPB Last administered on 01/28/19 08:21; Admin Dose 125 MLS/HR; Start 01/28/19 at 09:00 Albuterol/ Ipratropium (Duoneb) 3 ml Q6H RESP THERAPY HHN Last administered on 01/29/19 14:28; Admin Dose 3 ML; Start 01/28/19 at 20:00 Acetylcysteine (Mucomyst) 2 ml Q6H RESP THERAPY NEB Last administered on 01/29/19 14:28; Admin Dose 2 ML; Start 01/28/19 at 20:00 Norepinephrine 250 ml @ 1.875 mls/ hr PER PROTOCOL IV Last administered on 01/28/19at 21:39; Admin Dose 1.875 MLS/HR; Start 01/28/19 at 17:30 Vasopressin 60 unit/Dextrose 60 ml @ 1.2 mls/hr Q12H IV ; Start 01/28/19 at 18:00 Quetiapine Fumarate (Seroquel) 100 mg DAILY GTB Last administered on 01/29/19at 14:42; Admin Dose 100 MG; Start 01/29/19 at 11:30 Dextrose 1,000 ml @ 80 mls/hr [id number] IV Last administered on 01/29/19at 13:02; Admin Dose 80 MLS/HR; Start 01/29/19 at 13:00 Randy Leone DO Jan 29, 2019 18:10
[2019-01-30] VITALS (97 sets, daily range): BP systolic 81–135; BP diastolic 44–72; PULSE 77–123; RESP 16–34
[2019-01-30] MEDS: VASOPRESSIN 60 UNIT in DEXTROSE 5% 60 ML IV SCH ×2 (01:10→20:58)
[2019-01-30] MEDS: INSULIN ASPART [NOVOLOG] 3 ML PEN SC SCH ×6 (01:20→21:08)
[2019-01-30] MEDS: DEXTROSE 5% 1,000 ML IV SCH ×2 (01:33→13:47)
[2019-01-30] MEDS: ACETYLCYSTEINE 20% 4 ML VIAL NEB SCH ×4 (01:52→20:30)
[2019-01-30] MEDS: ALBUTEROL/IPRATROPIUM (NEB) 3 ML AMP HHN SCH ×2 (01:52→08:23)
[2019-01-30] MEDS: LANSOPRAZOLE 30 MG CAP GTB SCH (06:12)
[2019-01-30] MEDS: PIPER-TAZO 2.25 GM (PMX) 50 ML IVPB SCH ×3 (06:12→22:05)
--- NOTE | 2019-01-30 08:28 | PN ---
Date/Time of Note Date/Time of Note DATE: 01/30/19 TIME: 08:27 Assessment/Plan Lines/Catheters IV Catheter Type (from Nrs): Central Line Garcia in Place (from Nrs): Yes Assessment/Plan Problems: (1) Onychomycosis Comment: Aseptic mechanical debridement of toenails done at bedside. (2) Decubitus ulcer of right heel, stage 1 (3) Decubitus ulcer, heel, left, unstageable (4) Healthcare-associated pneumonia Status: Acute (5) Acute kidney injury Status: Acute (6) Acute respiratory failure Status: Acute Qualifiers: Respiratory failure complication: hypoxia and hypercapnia Qualified Codes: J96.01 - Acute respiratory failure with hypoxia; J96.02 - Acute respiratory failure with hypercapnia (7) Acute dehydration Status: Acute Exam/Review of Systems Vital Signs Vitals Vital Signs Date Temp Pulse Resp B/P (MAP) Pulse Ox O2 O2 Flow FiO2 Time Delivery Rate 01/30/19 99.0 07:20 01/30/19 100 25 101/61 97 05:30 (74) 01/30/19 40 05:26 01/30/19 Mechanical 05:00 Ventilator 01/28/19 4.0 08:30 Intake and Output 01/29/19 01/29/19 01/30/19 1515:00 23:00 07:00 IntakeIntake Total 348.120 ml 1201.25 ml 1221.150 ml OutputOutput Total 770 ml 970 ml 530 ml BalanceBalance -421.880 ml 231.25 ml 691.150 ml Results Result Diagram: 01/30/19 0428 01/30/19 0428 CHAPO DENTON DPM Jan 30, 2019 08:28
[2019-01-30] MEDS: ASCORBIC ACID 500 MG TAB GTB SCH ×2 (09:12→20:59)
[2019-01-30] MEDS: ZINC SULFATE 220 MG CAP PEG SCH (09:12)
[2019-01-30] MEDS: QUETIAPINE 100 MG TAB GTB SCH (09:13)
[2019-01-30] MEDS: VANCOMYCIN 1 GM 250 ML IVPB SCH (09:14)
[2019-01-30] MEDS: DAKINS 0.0125%(1/40) 473 ML SOLUTION TP SCH ×2 (09:14→20:59)
--- NOTE | 2019-01-30 09:59 | CONS ---
Assessment/Plan Assessment/Plan Assessment/Plan (Daily) Ventilator setting; assist control of 16, tidal volume 500, PEEP of 5, 40% FiO2. Patient is currently on Levophed 2 mics per minute, vasopressin 0.03 units/min. Assessment and recommendations; 1. Patient with history of chronic encephalopathy admitted after sustaining respiratory failure due to left mainstem mucous plugging likely due to poor mentation and poor cough reflex. Chest x-ray showing complete left lung reexpansion after intubation. 2. Possibly some element of pneumonia involving left lung. Patient currently on appropriate empiric antimicrobial regimen. Leukocytosis has improved. 3. Anemia. 4. Chronic renal insufficiency. 5. Prior CABG. 6. History of depression. 7. Mild hypotension. Perform CPAP trial as tolerated. Continue other supportive measures. Wean down pressor support as tolerated. Monitor renal function. Obtain follow-up chest x-ray. I did have a detailed discussion with patient's son at bedside and answered all his questions. Also discussed case with patient's primary care physician as well. 35 minutes of critical care time was spent evaluating patient. Consultation Date/Type/Reason Admit Date/Time Jan 18, 2019 at 04:19 Initial Consult Date 01/21/19 Type of Consult Pulmonary/critical care Patient developed respiratory failure last evening requiring intubation and then transferred to ICU. No CPR was done. Positive time I saw the patient, patient is orally intubated and despite being awake but is noncommunicative which apparently is his baseline mental status. Patient did not appear to be in any distress. General exam; elderly male, orally intubated. Awake. Currently in no distress. Noncommunicative. Requesting Provider: FELICITAS LAZARO MD Date/Time of Note DATE: 01/30/19 TIME: 09:55 24 HR Interval Summary Free Text/Dictation Patient's condition remains critical. Patient however has remained mildly hypotensive requiring Levophed as well as vasopressin at low doses. General exam; elderly male, awake, does not follow any commands. Currently no distress. Orally intubated. Exam/Review of Systems Exam Vitals Vital Signs Date Temp Pulse Resp B/P (MAP) Pulse Ox O2 O2 Flow FiO2 Time Delivery Rate 01/30/19 99.0 07:20 01/30/19 100 25 101/61 97 05:30 (74) 01/30/19 40 05:26 01/30/19 Mechanical 05:00 Ventilator 01/28/19 4.0 08:30 Intake and Output 01/29/19 01/29/19 01/30/19 1515:00 23:00 07:00 IntakeIntake Total 348.120 ml 1201.25 ml 1471.150 ml OutputOutput Total 770 ml 970 ml 530 ml BalanceBalance -421.880 ml 231.25 ml 941.150 ml Exam HE ENT exam; supple neck, no JVD. No lymphadenopathy. Midline trachea. No thyromegaly. Orally intubated. No neck masses. Pupils are small bilaterally. Chest exam; clear to auscultation bilaterally. S1-S2 audible, no murmurs. Regular rhythm. Abdomen exam; soft, nondistended. No organomegaly. G-tube in place. Bowel sounds are audible. Extremity exam; no peripheral edema clubbing. [employer]FF [employer] exam; patient awake but does not follow any commands. Results Result Diagram: 01/30/19 0428 01/30/19 0428 Results 24hrs Laboratory Tests Test 01/29/19 13:28 01/29/19 17:57 01/29/19 21:07 01/30/19 01:16 Bedside Glucose 133 166 158 207 Test 01/30/19 04:28 01/30/19 04:30 01/30/19 09:19 White Blood Count 11.6 #H Red Blood Count 2.74 L Hemoglobin 8.0 L Hematocrit 26.6 L Mean Corpuscular 97.1 Volume Mean Corpuscular 29.2 Hemoglobin Mean Corpuscular 30.1 L Hemoglobin Concent Red Cell 16.7 H Distribution Width Platelet Count 129 #L Mean Platelet Volume 11.7 H Immature 0.400 Granulocytes % Neutrophils % 70.8 Lymphocytes % 23.8 Monocytes % 3.3 Eosinophils % 1.5 Basophils % 0.2 Nucleated Red Blood 0.0 Cells % Immature 0.050 H Granulocytes # Neutrophils # 8.2 H Lymphocytes # 2.8 Monocytes # 0.4 Eosinophils # 0.2 Basophils # 0.0 Nucleated Red Blood 0.0 Cells # Sodium Level 146 H Potassium Level 3.4 L Chloride Level 112 H Carbon Dioxide Level 31 Anion Gap 3 L Blood Urea Nitrogen 33 H Creatinine 1.92 H Est Glomerular 36 L Filtrat Rate mL/min Glucose Level 163 Calcium Level 8.3 L Phosphorus Level 3.7 Magnesium Level 1.9 Bedside Glucose 163 189 Medications Medication Current Medications Vancomycin HCl (Vanco Iv Per Pharmacy) VANCOMYCIN PER PHARMACY PER PROTOCOL XX ; Start 01/18/19 at 09:30 Piperacillin Sod/ Tazobactam Sod 50 ml @ 100 mls/hr Q8 IVPB Last administered on 01/30/19at 06:12; Admin Dose 100 MLS/HR; Start 01/18/19 at 09:30 Insulin Aspart (Novolog Insulin Pen) NOVOLOG *MODERATE* ALGORI... Q4H SC Last administered on 01/30/19at 09:23; Admin Dose 4 UNIT; Start 01/19/19 at 01:00 Miscellaneous Information 1 ea NOTE XX ; Start 01/18/19 at 23:30 Glucose (Glutose) 15 gm Q15M PRN PO DECREASED GLUCOSE; Start 01/18/19 at 23:30 Glucose (Glutose) 22.5 gm Q15M PRN PO DECREASED GLUCOSE; Start 01/18/19 at 23:30 Dextrose (D50w Syringe) 25 ml Q15M PRN IV DECREASED GLUCOSE; Start 01/18/19 at 23:30 Dextrose (D50w Syringe) 50 ml Q15M PRN IV DECREASED GLUCOSE; Start 01/18/19 at 23:30 Glucagon (Glucagen) 1 mg Q15M PRN IM DECREASED GLUCOSE; Start 01/18/19 at 23:30 Glucose (Glutose) 15 gm Q15M PRN BUCCAL DECREASED GLUCOSE; Start 01/18/19 at 23:30 Miscellaneous Information (Pending [facility] Order For Wound Care) This patient berg... PRN PRN XX WOUND CARE; Start 01/19/19 at 02:00 Acetaminophen (Tylenol Supp) 650 mg Q6H PRN [place] temp > 100.4F Last administered on 01/25/19at 12:35; Admin Dose 650 MG; Start 01/19/19 at 09:00 Sodium Hypochlorite (Dakins Diluted ()) 1 applic BID TP Last administered on 01/30/19at 09:14; Admin Dose 1 APPLIC; Start 01/19/19 at 21:00 Morphine Sulfate (morphine) 2 mg Q4H PRN IV SEVERE PAIN LEVEL 7-10 Last administered on 01/26/19at 21:17; Admin Dose 2 MG; Start 01/21/19 at 08:30 Ascorbic Acid (Vitamin C) 500 mg BID GTB Last administered on 01/30/19 09:12; Admin Dose 500 MG; Start 01/23/19 at 21:00 Lansoprazole (Prevacid) 30 mg BID@0600,1800 GTB Last administered on 01/30/19 06:12; Admin Dose 30 MG; Start 01/24/19 at 06:00 Zinc Sulfate (Zinc Sulfate) 220 mg DAILY PEG Last administered on 01/30/19 09:12; Admin Dose 220 MG; Start 01/24/19 at 09:00 Vancomycin HCl 250 ml @ 125 mls/hr Q48H IVPB Last administered on 01/30/19 09:14; Admin Dose 125 MLS/HR; Start 01/28/19 at 09:00 Acetylcysteine (Mucomyst) 2 ml Q6H RESP THERAPY NEB Last administered on 01/30/19 08:23; Admin Dose 2 ML; Start 01/28/19 at 20:00 Norepinephrine 250 ml @ 1.875 mls/ hr PER PROTOCOL IV Last administered on 01/28/19 21:39; Admin Dose 1.875 MLS/HR; Start 01/28/19 at 17:30 Vasopressin 60 unit/Dextrose 60 ml @ 1.2 mls/hr Q12H IV Last administered on 01/30/19 01:10; Admin Dose 1.2 MLS/HR; Start 01/28/19 at 18:00 Quetiapine Fumarate (Seroquel) 100 mg DAILY GTB Last administered on 01/30/19 09:13; Admin Dose 100 MG; Start 01/29/19 at 11:30 Dextrose 1,000 ml @ 80 mls/hr [id number] IV Last administered on 01/30/19 01:33; Admin Dose 80 MLS/HR; Start 01/29/19 at 13:00 Albuterol (Ventolin Hfa) 4 puff Q6H RESP THERAPY INH ; Start 01/30/19 at 14:00 Ipratropium [place] (Atrovent Hfa) 4 puff Q6H RESP THERAPY INH ; Start 01/30/19 at 14:00 BOOGIE SAPP Jan 30, 2019 09:59
--- NOTE | 2019-01-30 10:37 | PN ---
Date/Time of Note Date/Time of Note DATE: 01/30/19 TIME: 10:35 Subjective Patient remains intubated. His eyes are open but he is completely unresponsive Objective Vitals Vital Signs Date Temp Pulse Resp B/P (MAP) Pulse Ox O2 O2 Flow FiO2 Time Delivery Rate 01/30/19 99.0 07:20 01/30/19 100 25 101/61 97 05:30 (74) 01/30/19 40 05:26 01/30/19 Mechanical 05:00 Ventilator 01/28/19 4.0 08:30 Intake and Output 01/29/19 01/29/19 01/30/19 1515:00 23:00 07:00 IntakeIntake Total 348.120 ml 1201.25 ml 1471.150 ml OutputOutput Total 770 ml 970 ml 530 ml BalanceBalance -421.880 ml 231.25 ml 941.150 ml Bilateral rhonchi Regular rate and rhythm Soft normoactive bowel sounds Diffuse edema Results Result Diagram: 01/30/19 0428 01/30/198 Medications Medications Current Medications Vancomycin HCl (Vanco Iv Per Pharmacy) VANCOMYCIN PER PHARMACY PER PROTOCOL XX ; Start 01/18/19 at 09:30 Piperacillin Sod/ Tazobactam Sod 50 ml @ 100 mls/hr Q8 IVPB Last administered on 01/30/19at 06:12; Admin Dose 100 MLS/HR; Start 01/18/19 at 09:30 Insulin Aspart (Novolog Insulin Pen) NOVOLOG *MODERATE* ALGORI... Q4H SC Last administered on 01/30/19at 09:23; Admin Dose 4 UNIT; Start 01/19/19 at 01:00 Miscellaneous Information 1 ea NOTE XX ; Start 01/18/19 at 23:30 Glucose (Glutose) 15 gm Q15M PRN PO DECREASED GLUCOSE; Start 01/18/19 at 23:30 Glucose (Glutose) 22.5 gm Q15M PRN PO DECREASED GLUCOSE; Start 01/18/19 at 23:30 Dextrose (D50w Syringe) 25 ml Q15M PRN IV DECREASED GLUCOSE; Start 01/18/19 at 23:30 Dextrose (D50w Syringe) 50 ml Q15M PRN IV DECREASED GLUCOSE; Start 01/18/19 at 23:30 Glucagon (Glucagen) 1 mg Q15M PRN IM DECREASED GLUCOSE; Start 01/18/19 at 23:30 Glucose (Glutose) 15 gm Q15M PRN BUCCAL DECREASED GLUCOSE; Start 01/18/19 at 23:30 Miscellaneous Information (Pending [facility] Order For Wound Care) This patient berg... PRN PRN XX WOUND CARE; Start 01/19/19 at 02:00 Acetaminophen (Tylenol Supp) 650 mg Q6H PRN [place] temp > 100.4F Last administered on 01/25/19 12:35; Admin Dose 650 MG; Start 01/19/19 at 09:00 Sodium Hypochlorite (Dakins Diluted ()) 1 applic BID TP Last administered on 01/30/19 09:14; Admin Dose 1 APPLIC; Start 01/19/19 at 21:00 Morphine Sulfate (morphine) 2 mg Q4H PRN IV SEVERE PAIN LEVEL 7-10 Last administered on 01/26/19 21:17; Admin Dose 2 MG; Start 01/21/19 at 08:30 Ascorbic Acid (Vitamin C) 500 mg BID GTB Last administered on 01/30/19 09:12; Admin Dose 500 MG; Start 01/23/19 at 21:00 Lansoprazole (Prevacid) 30 mg BID@0600,1800 GTB Last administered on 01/30/19 06:12; Admin Dose 30 MG; Start 01/24/19 at 06:00 Zinc Sulfate (Zinc Sulfate) 220 mg DAILY PEG Last administered on 01/30/19 09:12; Admin Dose 220 MG; Start 01/24/19 at 09:00 Vancomycin HCl 250 ml @ 125 mls/hr Q48H IVPB Last administered on 01/30/19 09:14; Admin Dose 125 MLS/HR; Start 01/28/19 at 09:00 Acetylcysteine (Mucomyst) 2 ml Q6H RESP THERAPY NEB Last administered on 01/30/19 08:23; Admin Dose 2 ML; Start 01/28/19 at 20:00 Norepinephrine 250 ml @ 1.875 mls/ hr PER PROTOCOL IV Last administered on 01/28/19 21:39; Admin Dose 1.875 MLS/HR; Start 01/28/19 at 17:30 Vasopressin 60 unit/Dextrose 60 ml @ 1.2 mls/hr Q12H IV Last administered on 01/30/19at 01:10; Admin Dose 1.2 MLS/HR; Start 01/28/19 at 18:00 Quetiapine Fumarate (Seroquel) 100 mg DAILY GTB Last administered on 01/30/19at 09:13; Admin Dose 100 MG; Start 01/29/19 at 11:30 Dextrose 1,000 ml @ 80 mls/hr [id number] IV Last administered on 01/30/19at 01:33; Admin Dose 80 MLS/HR; Start 01/29/19 at 13:00 Albuterol (Ventolin Hfa) 4 puff Q6H RESP THERAPY INH ; Start 01/30/19 at 14:00 Ipratropium [place] (Atrovent Hfa) 4 puff Q6H RESP THERAPY INH ; Start 01/30/19 at 14:00 VTE Prophylaxis Risk score (from Ns)>0 risk: 10 SCD applied (from [facility]): Yes Lines/Catheters IV Catheter Type: Saline Lock Jenkins in Place: Yes Cont'd jenkins catheter reason: pres ulcer contaminated by urine Assessment/Plan Assessment/Plan 63-year-old male with recurrent respiratory failure, requiring reintubation Mucous plug, resolved Recurrent aspiration pneumonia Dysphagia, status post G-tube placement 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 I left a voicemail for Yoana Case was discussed with group contract analyst and his son at the bedside Discharge planning back to SNF once patient is extubated. FELICITAS LAZARO MD Jan 30, 2019 10:37
--- NOTE | 2019-01-30 11:54 | CONS ---
Assessment/Plan Assessment/Plan Assessment/Plan (Daily) 1. acute hyperkalemia- now resolved - pt is now hypokalemia 2. acute On chronic renal failure due to ATN from septic shock- Improving 3. acute hypoxemic respiratory failure intubated on ventilator 2/2 Health care associated PNA - s/p extubation on 01/24/19 - then pt again intubated for respiratory failure 4. Septic shock on pressors 5. acute hypernatremia- Improving 6. H/O quadriplegia 7. H/o CAD s/p CABG 8. H/O HTN 9. H/o sacral decubitus s/p debridement before 10. [employer] Plan: BUN/cr 33/1.92, Na improved to 146, K 3.4, - changed IVF to D5W at 80 cc/hr , Monitor K and replace as needed IV abx zosyn for PNA coverage, Renally dose all abx and monitor electorlytes ,vancomycin stopped today, pt is on two pressors, levophed and Vasopressin will follow up Consultation Date/Type/Reason Admit Date/Time Jan 18, 2019 at 04:19 Initial Consult Date Type of Consult NEPHROLOGY Requesting Provider: FELICITAS LAZARO MD Date/Time of Note DATE: 01/30/19 TIME: 11:53 24 HR Interval Summary Free Text/Dictation Pt remained intubated on ventilator, Bp stable, Na improving Exam/Review of Systems Exam Vitals Vital Signs Date Temp Pulse Resp B/P (MAP) Pulse Ox O2 O2 Flow FiO2 Time Delivery Rate 01/30/19 92 08:00 01/30/19 99.0 07:20 01/30/19 25 101/61 97 05:30 (74) 01/30/19 40 05:26 01/30/19 Mechanical 05:00 Ventilator 01/28/19 4.0 08:30 Intake and Output 01/29/19 01/29/19 01/30/19 1414:59 22:59 06:59 IntakeIntake Total 333.745 ml 1100.0 ml 1342.400 ml OutputOutput Total 770 ml 920 ml 580 ml BalanceBalance -436.255 ml 180.0 ml 762.400 ml Exam GENERAL: intubated on ventilator , + ET tube NECK: Supple. No JVD or lymphadenopathy. CARDIAC: S1, S2, RRR, no murmur CHEST: Bilateral crackles +, no wheezing ABDOMEN: Soft, nontender. No guarding or rebound. EXTREMITIES: No cyanosis, clubbing of bleeding. + jenkins catheter NEUROLOGIC: sedated on ventilator, uncooperative for neuro exam . Results Result Diagram: 01/30/19 0428 01/30/19 0428 Results 24hrs Laboratory Tests Test 01/29/19 13:28 01/29/19 17:57 01/29/19 21:07 01/30/19 01:16 Bedside Glucose 133 166 158 207 Test 01/30/19 04:28 01/30/19 04:30 01/30/19 09:19 White Blood Count 11.6 #H Red Blood Count 2.74 L Hemoglobin 8.0 L Hematocrit 26.6 L Mean Corpuscular 97.1 Volume Mean Corpuscular 29.2 Hemoglobin Mean Corpuscular 30.1 L Hemoglobin Concent Red Cell 16.7 H Distribution Width Platelet Count 129 #L Mean Platelet Volume 11.7 H Immature 0.400 Granulocytes % Neutrophils % 70.8 Lymphocytes % 23.8 Monocytes % 3.3 Eosinophils % 1.5 Basophils % 0.2 Nucleated Red Blood 0.0 Cells % Immature 0.050 H Granulocytes # Neutrophils # 8.2 H Lymphocytes # 2.8 Monocytes # 0.4 Eosinophils # 0.2 Basophils # 0.0 Nucleated Red Blood 0.0 Cells # Sodium Level 146 H Potassium Level 3.4 L Chloride Level 112 H Carbon Dioxide Level 31 Anion Gap 3 L Blood Urea Nitrogen 33 H Creatinine 1.92 H Est Glomerular 36 L Filtrat Rate mL/min Glucose Level 163 Calcium Level 8.3 L Phosphorus Level 3.7 Magnesium Level 1.9 Bedside Glucose 163 189 Medications Medication Current Medications Vancomycin HCl (Vanco Iv Per Pharmacy) VANCOMYCIN PER PHARMACY PER PROTOCOL XX ; Start 01/18/19 at 09:30 Piperacillin Sod/ Tazobactam Sod 50 ml @ 100 mls/hr Q8 IVPB Last administered on 01/30/19at 06:12; Admin Dose 100 MLS/HR; Start 01/18/19 at 09:30 Insulin Aspart (Novolog Insulin Pen) NOVOLOG *MODERATE* ALGORI... Q4H SC Last administered on 01/30/19at 09:23; Admin Dose 4 UNIT; Start 01/19/19 at 01:00 Miscellaneous Information 1 ea NOTE XX ; Start 01/18/19 at 23:30 Glucose (Glutose) 15 gm Q15M PRN PO DECREASED GLUCOSE; Start 01/18/19 at 23:30 Glucose (Glutose) 22.5 gm Q15M PRN PO DECREASED GLUCOSE; Start 01/18/19 at 23:30 Dextrose (D50w Syringe) 25 ml Q15M PRN IV DECREASED GLUCOSE; Start 01/18/19 at 23:30 Dextrose (D50w Syringe) 50 ml Q15M PRN IV DECREASED GLUCOSE; Start 01/18/19 at 23:30 Glucagon (Glucagen) 1 mg Q15M PRN IM DECREASED GLUCOSE; Start 01/18/19 at 23:30 Glucose (Glutose) 15 gm Q15M PRN BUCCAL DECREASED GLUCOSE; Start 01/18/19 at 23:30 Miscellaneous Information (Pending [facility] Order For Wound Care) This patient berg... PRN PRN XX WOUND CARE; Start 01/19/19 at 02:00 Acetaminophen (Tylenol Supp) 650 mg Q6H PRN [place] temp > 100.4F Last administered on 01/25/19 12:35; Admin Dose 650 MG; Start 01/19/19 at 09:00 Sodium Hypochlorite (Dakins Diluted ()) 1 applic BID TP Last administered on 01/30/19 09:14; Admin Dose 1 APPLIC; Start 01/19/19 at 21:00 Morphine Sulfate (morphine) 2 mg Q4H PRN IV SEVERE PAIN LEVEL 7-10 Last administered on 01/26/19 21:17; Admin Dose 2 MG; Start 01/21/19 at 08:30 Ascorbic Acid (Vitamin C) 500 mg BID GTB Last administered on 01/30/19 09:12; Admin Dose 500 MG; Start 01/23/19 at 21:00 Lansoprazole (Prevacid) 30 mg BID@0600,1800 GTB Last administered on 01/30/19 06:12; Admin Dose 30 MG; Start 01/24/19 at 06:00 Zinc Sulfate (Zinc Sulfate) 220 mg DAILY PEG Last administered on 01/30/19 09:12; Admin Dose 220 MG; Start 01/24/19 at 09:00 Vancomycin HCl 250 ml @ 125 mls/hr Q48H IVPB Last administered on 01/30/19 09:14; Admin Dose 125 MLS/HR; Start 01/28/19 at 09:00 Acetylcysteine (Mucomyst) 2 ml Q6H RESP THERAPY NEB Last administered on 01/30/19 08:23; Admin Dose 2 ML; Start 01/28/19 at 20:00 Norepinephrine 250 ml @ 1.875 mls/ hr PER PROTOCOL IV Last administered on 01/28/19 21:39; Admin Dose 1.875 MLS/HR; Start 01/28/19 at 17:30 Vasopressin 60 unit/Dextrose 60 ml @ 1.2 mls/hr Q12H IV Last administered on 01/30/19 01:10; Admin Dose 1.2 MLS/HR; Start 01/28/19 at 18:00 Quetiapine Fumarate (Seroquel) 100 mg DAILY GTB Last administered on 01/30/19 09:13; Admin Dose 100 MG; Start 01/29/19 at 11:30 Dextrose 1,000 ml @ 80 mls/hr [id number] IV Last administered on 01/30/19 01:33; Admin Dose 80 MLS/HR; Start 01/29/19 at 13:00 Albuterol (Ventolin Hfa) 4 puff Q6H RESP THERAPY INH ; Start 01/30/19 at 14:00 Ipratropium [place] (Atrovent Hfa) 4 puff Q6H RESP THERAPY INH ; Start 01/30/19 at 14:00 TONIO SOOD MD Jan 30, 2019 11:53
--- NOTE | 2019-01-30 14:35 | CONS ---
Assessment/Plan Assessment/Plan Hospital Course (Demo Recall) Hypoxic respiratory failure Left lung collapse Hypotension, on IV pressor Sepsis Acute kidney injury Hypernatremia-improved CAD with history of CABG Preserved left ventricular ejection fraction Titrate IV pressor to maintain SBP greater than 90 and/or map above 60 Vent management as per pulmonary Fluid management and diuretics as per nephrology No antihypertensives or AV rizwan blocking agents at the current time given sinus tachycardia Discussed with primary physician Dr Daily, possible psychiatry involvement given catatonic state and possible medication adjustment Greater than 33 minutes of critical care time taken in the care of this patient Consultation Date/Type/Reason Admit Date/Time Jan 18, 2019 at 04:19 Initial Consult Date 01/21/19 Type of Consult Cardiology Requesting Provider: FELICITAS DAILY MD Date/Time of Note DATE: 01/30/19 TIME: 14:29 24 HR Interval Summary Free Text/Dictation Patient remains on IV pressor. Appears more awake today. Exam/Review of Systems Vital Signs Vitals Vital Signs Date Temp Pulse Resp B/P (MAP) Pulse Ox O2 O2 Flow FiO2 Time Delivery Rate 01/30/19 90 24 106/64 100 12:30 (78) 01/30/19 99.8 12:15 01/30/19 Mechanical 12:00 Ventilator 01/30/19 40 11:10 01/28/19 4.0 08:30 Intake and Output 01/29/19 01/29/19 01/30/19 1515:00 23:00 07:00 IntakeIntake Total 348.120 ml 1201.25 ml 1471.150 ml OutputOutput Total 770 ml 970 ml 530 ml BalanceBalance -421.880 ml 231.25 ml 941.150 ml Exam Exam Opens his eyes to his name, no apparent distress, intubated Head: normocephalic ENMT: intubated Respiratory: other (Coarse breath sounds bilaterally, no wheezing) Cardiovascular: regular rate and rhythm (S1-S2 heard) Gastrointestinal: soft, non-tender, bowel sounds Extremities: edema Neurological: other (Opens his eyes to his name) Labs Result Diagram: 01/30/19 0428 01/30/19 0428 Results 24hrs Laboratory Tests Test 01/29/19 17:57 01/29/19 21:07 01/30/19 01:16 01/30/19 04:28 Bedside Glucose 166 158 207 White Blood Count 11.6 #H Red Blood Count 2.74 L Hemoglobin 8.0 L Hematocrit 26.6 L Mean Corpuscular 97.1 Volume Mean Corpuscular 29.2 Hemoglobin Mean Corpuscular 30.1 L Hemoglobin Concent Red Cell 16.7 H Distribution Width Platelet Count 129 #L Mean Platelet Volume 11.7 H Immature 0.400 Granulocytes % Neutrophils % 70.8 Lymphocytes % 23.8 Monocytes % 3.3 Eosinophils % 1.5 Basophils % 0.2 Nucleated Red Blood 0.0 Cells % Immature 0.050 H Granulocytes # Neutrophils # 8.2 H Lymphocytes # 2.8 Monocytes # 0.4 Eosinophils # 0.2 Basophils # 0.0 Nucleated Red Blood 0.0 Cells # Sodium Level 146 H Potassium Level 3.4 L Chloride Level 112 H Carbon Dioxide Level 31 Anion Gap 3 L Blood Urea Nitrogen 33 H Creatinine 1.92 H Est Glomerular 36 L Filtrat Rate mL/min Glucose Level 163 Calcium Level 8.3 L Phosphorus Level 3.7 Magnesium Level 1.9 Test 01/30/19 04:30 01/30/19 09:19 01/30/19 13:16 Bedside Glucose 163 189 153 Medications Medications Current Medications Vancomycin HCl (Vanco Iv Per Pharmacy) VANCOMYCIN PER PHARMACY PER PROTOCOL XX ; Start 01/18/19 at 09:30 Piperacillin Sod/ Tazobactam Sod 50 ml @ 100 mls/hr Q8 IVPB Last administered on 01/30/19at 13:47; Admin Dose 100 MLS/HR; Start 01/18/19 at 09:30 Insulin Aspart (Novolog Insulin Pen) NOVOLOG *MODERATE* ALGORI... Q4H SC Last administered on 01/30/19at 13:19; Admin Dose 2 UNIT; Start 01/19/19 at 01:00 Miscellaneous Information 1 ea NOTE XX ; Start 01/18/19 at 23:30 Glucose (Glutose) 15 gm Q15M PRN PO DECREASED GLUCOSE; Start 01/18/19 at 23:30 Glucose (Glutose) 22.5 gm Q15M PRN PO DECREASED GLUCOSE; Start 01/18/19 at 23:30 Dextrose (D50w Syringe) 25 ml Q15M PRN IV DECREASED GLUCOSE; Start 01/18/19 at 23:30 Dextrose (D50w Syringe) 50 ml Q15M PRN IV DECREASED GLUCOSE; Start 01/18/19 at 23:30 Glucagon (Glucagen) 1 mg Q15M PRN IM DECREASED GLUCOSE; Start 01/18/19 at 23:30 Glucose (Glutose) 15 gm Q15M PRN BUCCAL DECREASED GLUCOSE; Start 01/18/19 at 23:30 Miscellaneous Information [facility] This patient berg... PRN PRN XX WOUND CARE; Start 01/19/19 at 02:00 Acetaminophen (Tylenol Supp) 650 mg Q6H PRN [place] temp > 100.4F Last administered on 01/25/19 12:35; Admin Dose 650 MG; Start 01/19/19 at 09:00 Sodium Hypochlorite (Dakins Diluted ()) 1 applic BID TP Last administered on 01/30/19 09:14; Admin Dose 1 APPLIC; Start 01/19/19 at 21:00 Morphine Sulfate (morphine) 2 mg Q4H PRN IV SEVERE PAIN LEVEL 7-10 Last administered on 01/26/19 21:17; Admin Dose 2 MG; Start 01/21/19 at 08:30 Ascorbic Acid (Vitamin C) 500 mg BID GTB Last administered on 01/30/19 09:12; Admin Dose 500 MG; Start 01/23/19 at 21:00 Zinc Sulfate (Zinc Sulfate) 220 mg DAILY PEG Last administered on 01/30/19 09:12; Admin Dose 220 MG; Start 01/24/19 at 09:00 Vancomycin HCl 250 ml @ 125 mls/hr Q48H IVPB Last administered on 01/30/19 09:14; Admin Dose 125 MLS/HR; Start 01/28/19 at 09:00 Acetylcysteine (Mucomyst) 2 ml Q6H RESP THERAPY NEB Last administered on 01/30/19 08:23; Admin Dose 2 ML; Start 01/28/19 at 20:00 Norepinephrine 250 ml @ 1.875 mls/ hr PER PROTOCOL IV Last administered on 01/28/19 21:39; Admin Dose 1.875 MLS/HR; Start 01/28/19 at 17:30 Vasopressin 60 unit/Dextrose 60 ml @ 1.2 mls/hr Q12H IV Last administered on 01/30/19 01:10; Admin Dose 1.2 MLS/HR; Start 01/28/19 at 18:00 Quetiapine Fumarate (Seroquel) 100 mg DAILY GTB Last administered on 01/30/19at 09:13; Admin Dose 100 MG; Start 01/29/19 at 11:30 Dextrose 1,000 ml @ 80 mls/hr [id number] IV Last administered on 01/30/19at 13:47; Admin Dose 80 MLS/HR; Start 01/29/19 at 13:00 Albuterol (Ventolin Hfa) 4 puff Q6H RESP THERAPY INH ; Start 01/30/19 at 14:00 Ipratropium [place] (Atrovent Hfa) 4 puff Q6H RESP THERAPY INH ; Start 01/30/19 at 14:00 Lansoprazole (Lansoprazole Oral Susp) 30 mg BID@0600,1800 GTB ; Start 01/30/19 at 18:00 Randy Leone DO Jan 30, 2019 14:35
[2019-01-30] MEDS: ALBUTEROL HFA 8 GM INHALER INH SCH ×2 (14:58→20:30)
[2019-01-30] MEDS: IPRATROPIUM (HFA) 12.9 GM INHALER INH SCH ×2 (14:58→20:30)
[2019-01-30] MEDS ORDERED: MAGNESIUM SULFATE 1 GM/D5W 100 ML IVPB ONE (15:00)
[2019-01-30] MEDS ORDERED: POTASSIUM CHLORIDE 20 MEQ POWDER FOR ORAL SOLN JT ONE (15:00)
[2019-01-30] MEDS ORDERED: LANSOPRAZOLE ORAL SUSP 3 MG/ML (POSYG) GTB SCH (18:00)
--- NOTE | 2019-01-30 22:39 | CONS ---
DATE OF ADMISSION: 01/18/2019 DATE OF CONSULTATION: REASON FOR CONSULTATION: Evaluation for tracheostomy. Thank you, Dr. Velazquez, for asking me to see this patient. HISTORY OF PRESENT ILLNESS: This is a 63-year-old male admitted because of quadriplegia by extended day teacher s, was found to be hypoxic, had to be intubated, currently unable to come off the ventilator secondar y to multiple medical problems including pneumonia, quadriplegia and other comorbidities. PAST SURGICAL HISTORY: CABG. PAST MEDICAL HISTORY: 1. Hypertension. 2. Hyperlipidemia. 3. Hyperkalemia. 4. Renal failure. ALLERGIES: NONE. SOCIAL HISTORY: No smoking, drinking or drug use. MEDICATIONS: List reviewed. PHYSICAL EXAMINATION: VITAL SIGNS: Blood pressure is 99/63, pulse is 103, respirations 27, saturation 98%, on FIO2 O2 is 3 0%. CARDIOVASCULAR: Normal S1, S2. No murmurs, gallops or rubs. LUNGS: Clear. ABDOMEN: Soft. EXTREMITIES: Warm. LABORATORY VALUES: Hemoglobin 8, white count 11.6, platelet count 129. INR 1.27. IMPRESSION: Respiratory failure. RECOMMENDATIONS: We will proceed with a tracheostomy. Will discuss with the family as indicated. D iscussed with the referring physicians. Dictated By: ELAH GALE MD FM/NTS Conf#: [id number] DID#: [id number] CC: FELICITAS LAZARO MD;*EndCC*
[2019-01-31] VITALS (91 sets, daily range): BP systolic 88–120; BP diastolic 46–69; PULSE 80–106; RESP 16–32
[2019-01-31] MEDS: INSULIN ASPART [NOVOLOG] 3 ML PEN SC SCH ×6 (00:21→20:44)
[2019-01-31] MEDS: ACETYLCYSTEINE 20% 4 ML VIAL NEB SCH ×4 (01:27→20:07)
[2019-01-31] MEDS: IPRATROPIUM (HFA) 12.9 GM INHALER INH SCH ×4 (01:27→20:07)
[2019-01-31] MEDS: ALBUTEROL HFA 8 GM INHALER INH SCH ×4 (01:27→20:07)
[2019-01-31] MEDS: DEXTROSE 5% 1,000 ML IV SCH ×2 (04:05→15:46)
[2019-01-31] MEDS: LANSOPRAZOLE ORAL SUSP 3 MG/ML (POSYG) GTB SCH ×2 (05:45→17:49)
[2019-01-31] MEDS: PIPER-TAZO 2.25 GM (PMX) 50 ML IVPB SCH ×3 (05:45→21:21)
[2019-01-31] MEDS: VASOPRESSIN 60 UNIT in DEXTROSE 5% 60 ML IV SCH ×2 (07:00→18:00)
[2019-01-31] MEDS: ZINC SULFATE 220 MG CAP PEG SCH (09:01)
[2019-01-31] MEDS: QUETIAPINE 100 MG TAB GTB SCH (09:02)
[2019-01-31] MEDS: ASCORBIC ACID 500 MG TAB GTB SCH ×2 (09:02→20:45)
[2019-01-31] MEDS ORDERED: POTASSIUM CHLORIDE 100 ML IVPB ONE (11:00)
--- NOTE | 2019-01-31 11:03 | CONS ---
Assessment/Plan Assessment/Plan Assessment/Plan (Daily) Hypernatremia- resolved 1.Hypokalemia - replace K, am BMP 2. acute On chronic renal failure due to ATN from septic shock- Improving 3. acute hypoxemic respiratory failure intubated on ventilator 2/2 Health care associated PNA - s/p extubation on 01/24/19 - then pt again intubated for respiratory failure 4. Septic shock on pressors 5. acute hypernatremia- Improving 6. H/O quadriplegia 7. H/o CAD s/p CABG 8. H/O HTN 9. 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 Plan: BUN/cr- Na improved to 146, K 3.2 - cont IVF to D5W at 80 cc/hr , Monitor K and replace as needed Cr trended down to 1.73 UO - 1.9 L/24 hrs IV abx zosyn for PNA coverage, Renally dose all abx and monitor electorlytes ,vancomycin stopped today, pt is on two pressors, levophed and Vasopressin will follow up Patient seen in collaboration with Dr Cornell Mccoy Consultation Date/Type/Reason Admit Date/Time Jan 18, 2019 at 04:19 Initial Consult Date 01/21/19 Type of Consult NEPHROLOGY Reason for Consultation ACUTE ON CHRONIC RENAL FAILURE Requesting Provider: FELICITAS LAZARO MD Date/Time of Note DATE: 01/31/19 TIME: 10:57 24 HR Interval Summary Free Text/Dictation NAD AFEBRILE Remans intubated; Seems comfortable Cr trended down to 1.73 UO - 1.9 L/24 hrs dw satff Subjective hx not possible: pt non-verbal, pt critical status Constitutional: requiring IVF, requiring O2 Exam/Review of Systems Exam Vitals Vital Signs Date Temp Pulse Resp B/P (MAP) Pulse Ox O2 O2 Flow FiO2 Time Delivery Rate 01/31/19 100 25 99/54 (69) 98 Mechanical 10:15 Ventilator 01/31/19 30 08:00 01/31/19 98.2 08:00 01/28/19 4.0 08:30 Intake and Output 01/30/19 01/30/19 01/31/19 1515:00 23:00 07:00 IntakeIntake Total 1267.75 ml 1380.8 ml 1152.4 ml OutputOutput Total 395 ml 760 ml 900 ml BalanceBalance 872.75 ml 620.8 ml 252.4 ml Constitutional: non-verbal, frail Psych: nl mood/affect Eyes: nl lids, nl sclera ENMT: nl external ears & nose Neck: other (ET intact) Respiratory: diminished breath sounds Cardiovascular: nl pulses, other (s1s2) Gastrointestinal: soft, non-tender Musculoskeletal: muscle weakness Extremities: edema Neurological: lethargic Results Result Diagram: 01/31/19 0357 01/31/197 Results 24hrs Laboratory Tests Test 01/30/19 13:16 01/30/19 21:03 01/31/19 00:12 01/31/19 03:57 Bedside Glucose 153 193 211 White Blood Count 10.5 Red Blood Count 2.52 L Hemoglobin 7.4 L Hematocrit 24.3 L Mean Corpuscular 96.4 Volume Mean Corpuscular 29.4 Hemoglobin Mean Corpuscular 30.5 L Hemoglobin Concent Red Cell 15.9 H Distribution Width Platelet Count 111 L Mean Platelet Volume 12.8 H Immature 0.300 Granulocytes % Neutrophils % 72.4 Segmented 67 Neutrophils % (Manual) Lymphocytes % 23.0 Lymphocytes % 29 (Manual) Monocytes % 3.4 Monocytes % (Manual) 2 Eosinophils % 0.6 Eosinophils % 2 (Manual) Basophils % 0.3 Nucleated Red Blood 0.0 Cells % Immature 0.030 Granulocytes # Neutrophils # 7.6 H Lymphocytes (Manual) 3.0 H Lymphocytes # 2.4 Monocytes # 0.4 Monocytes # (Manual) 0.2 L Eosinophils # 0.1 Basophils # 0.0 Nucleated Red Blood 0.0 Cells # Platelet Estimate DECREASED Giant Platelets 1 H Hypochromasia 2+ Spherocytes 1+ Sodium Level 139 Potassium Level 3.2 L Chloride Level 107 Carbon Dioxide Level 28 Anion Gap 4 L Blood Urea Nitrogen 31 H Creatinine 1.73 H Est Glomerular 40 L Filtrat Rate mL/min Glucose Level 163 Calcium Level 8.1 L Magnesium Level 2.1 Test 01/31/19 04:02 01/31/19 09:12 Bedside Glucose 179 200 Medications Medication Current Medications Piperacillin Sod/ Tazobactam Sod 50 ml @ 100 mls/hr Q8 IVPB Last administered on 01/31/19at 05:45; Admin Dose 100 MLS/HR; Start 01/18/19 at 09:30; Stop 02/02/19 at 09:00 Insulin Aspart (Novolog Insulin Pen) NOVOLOG *MODERATE* ALGORI... Q4H SC Last administered on 01/31/19 09:17; Admin Dose 4 UNIT; Start 01/19/19 at 01:00 Miscellaneous Information 1 ea NOTE XX ; Start 01/18/19 at 23:30 Glucose (Glutose) 15 gm Q15M PRN PO DECREASED GLUCOSE; Start 01/18/19 at 23:30 Glucose (Glutose) 22.5 gm Q15M PRN PO DECREASED GLUCOSE; Start 01/18/19 at 23:30 Dextrose (D50w Syringe) 25 ml Q15M PRN IV DECREASED GLUCOSE; Start 01/18/19 at 23:30 Dextrose (D50w Syringe) 50 ml Q15M PRN IV DECREASED GLUCOSE; Start 01/18/19 at 23:30 Glucagon (Glucagen) 1 mg Q15M PRN IM DECREASED GLUCOSE; Start 01/18/19 at 23:30 Glucose (Glutose) 15 gm Q15M PRN BUCCAL DECREASED GLUCOSE; Start 01/18/19 at 23:30 Miscellaneous Information (Pending [facility] Order For Wound Care) This patient berg... PRN PRN XX WOUND CARE; Start 01/19/19 at 02:00 Acetaminophen (Tylenol Supp) 650 mg Q6H PRN [place] temp > 100.4F Last administered on 01/25/19at 12:35; Admin Dose 650 MG; Start 01/19/19 at 09:00 Sodium Hypochlorite (Dakins Diluted ()) 1 applic BID TP Last administered on 01/30/19at 20:59; Admin Dose 1 APPLIC; Start 01/19/19 at 21:00 Morphine Sulfate (morphine) 2 mg Q4H PRN IV SEVERE PAIN LEVEL 7-10 Last administered on 01/26/19 21:17; Admin Dose 2 MG; Start 01/21/19 at 08:30 Ascorbic Acid (Vitamin C) 500 mg BID GTB Last administered on 01/31/19at 09:02; Admin Dose 500 MG; Start 01/23/19 at 21:00 Zinc Sulfate (Zinc Sulfate) 220 mg DAILY PEG Last administered on 01/31/19at 09:01; Admin Dose 220 MG; Start 01/24/19 at 09:00 Acetylcysteine (Mucomyst) 2 ml Q6H RESP THERAPY NEB Last administered on 01/31/19 08:53; Admin Dose 2 ML; Start 01/28/19 at 20:00 Norepinephrine 250 ml @ 1.875 mls/ hr PER PROTOCOL IV Last administered on 01/28/19 21:39; Admin Dose 1.875 MLS/HR; Start 01/28/19 at 17:30 Vasopressin 60 unit/Dextrose 60 ml @ 1.2 mls/hr Q12H IV Last administered on 01/30/19 20:58; Admin Dose 1.2 MLS/HR; Start 01/28/19 at 18:00 Quetiapine Fumarate (Seroquel) 100 mg DAILY GTB Last administered on 01/31/19 09:02; Admin Dose 100 MG; Start 01/29/19 at 11:30 Dextrose 1,000 ml @ 80 mls/hr [id number] IV Last administered on 01/31/19 04:05; Admin Dose 80 MLS/HR; Start 01/29/19 at 13:00 Albuterol (Ventolin Hfa) 4 puff Q6H RESP THERAPY INH Last administered on 01/31/19 08:53; Admin Dose 4 PUFF; Start 01/30/19 at 14:00 Ipratropium [place] (Atrovent Hfa) 4 puff Q6H RESP THERAPY INH Last administered on 01/31/19 08:53; Admin Dose 4 PUFF; Start 01/30/19 at 14:00 Lansoprazole (Lansoprazole Oral Susp) 30 mg BID@0600,1800 GTB Last administered on 01/31/19 05:45; Admin Dose 30 MG; Start 01/31/19 at 06:00 GREG GALAN Jan 31, 2019 11:03
--- NOTE | 2019-01-31 12:06 | CONS ---
Assessment/Plan Assessment/Plan Assessment/Plan (Daily) Assessment Hypoxic respiratory failure Left lung collapse Hypotension, on IV pressor Sepsis Acute kidney injury Hypernatremia-improved CAD with history of CABG Preserved left ventricular ejection fraction Plan: no change in cardiac meds Consultation Date/Type/Reason Admit Date/Time Jan 18, 2019 at 04:19 Initial Consult Date 01/21/19 Type of Consult Cardiology Requesting Provider: FELICITAS LAZARO MD Date/Time of Note DATE: 01/31/19 TIME: 12:05 24 HR Interval Summary Free Text/Dictation no distress, on pressors in ICU Subjective hx not possible: pt non-verbal Exam/Review of Systems Vital Signs Vitals Vital Signs Date Temp Pulse Resp B/P (MAP) Pulse Ox O2 O2 Flow FiO2 Time Delivery Rate 01/31/19 100 25 99/54 (69) 98 Mechanical 10:15 Ventilator 01/31/19 30 08:00 01/31/19 98.2 08:00 01/28/19 4.0 08:30 Intake and Output 01/30/19 01/30/19 01/31/19 1515:00 23:00 07:00 IntakeIntake Total 1267.75 ml 1380.8 ml 1152.4 ml OutputOutput Total 395 ml 760 ml 900 ml BalanceBalance 872.75 ml 620.8 ml 252.4 ml Exam Constitutional: non-verbal, frail Head: normocephalic, atraumatic Neck: supple Respiratory: diminished breath sounds Cardiovascular: regular rate and rhythm Gastrointestinal: soft Musculoskeletal: nl extremities to inspection Extremities: normal pulses Labs Result Diagram: 01/31/19 0357 01/31/19 0357 Results 24hrs Laboratory Tests Test 01/30/19 13:16 01/30/19 21:03 01/31/19 00:12 01/31/19 03:57 Bedside Glucose 153 193 211 White Blood Count 10.5 Red Blood Count 2.52 L Hemoglobin 7.4 L Hematocrit 24.3 L Mean Corpuscular 96.4 Volume Mean Corpuscular 29.4 Hemoglobin Mean Corpuscular 30.5 L Hemoglobin Concent Red Cell 15.9 H Distribution Width Platelet Count 111 L Mean Platelet Volume 12.8 H Immature 0.300 Granulocytes % Neutrophils % 72.4 Segmented 67 Neutrophils % (Manual) Lymphocytes % 23.0 Lymphocytes % 29 (Manual) Monocytes % 3.4 Monocytes % (Manual) 2 Eosinophils % 0.6 Eosinophils % 2 (Manual) Basophils % 0.3 Nucleated Red Blood 0.0 Cells % Immature 0.030 Granulocytes # Neutrophils # 7.6 H Lymphocytes (Manual) 3.0 H Lymphocytes # 2.4 Monocytes # 0.4 Monocytes # (Manual) 0.2 L Eosinophils # 0.1 Basophils # 0.0 Nucleated Red Blood 0.0 Cells # Platelet Estimate DECREASED Giant Platelets 1 H Hypochromasia 2+ Spherocytes 1+ Sodium Level 139 Potassium Level 3.2 L Chloride Level 107 Carbon Dioxide Level 28 Anion Gap 4 L Blood Urea Nitrogen 31 H Creatinine 1.73 H Est Glomerular 40 L Filtrat Rate mL/min Glucose Level 163 Calcium Level 8.1 L Magnesium Level 2.1 Test 01/31/19 04:02 01/31/19 09:12 Bedside Glucose 179 200 Medications Medications Current Medications Piperacillin Sod/ Tazobactam Sod 50 ml @ 100 mls/hr Q8 IVPB Last administered on 01/31/19at 05:45; Admin Dose 100 MLS/HR; Start 01/18/19 at 09:30; Stop 02/02/19 at 09:00 Insulin Aspart (Novolog Insulin Pen) NOVOLOG *MODERATE* ALGORI... Q4H SC Last administered on 01/31/19at 09:17; Admin Dose 4 UNIT; Start 01/19/19 at 01:00 Miscellaneous Information 1 ea NOTE XX ; Start 01/18/19 at 23:30 Glucose (Glutose) 15 gm Q15M PRN PO DECREASED GLUCOSE; Start 01/18/19 at 23:30 Glucose (Glutose) 22.5 gm Q15M PRN PO DECREASED GLUCOSE; Start 01/18/19 at 23:30 Dextrose (D50w Syringe) 25 ml Q15M PRN IV DECREASED GLUCOSE; Start 01/18/19 at 23:30 Dextrose (D50w Syringe) 50 ml Q15M PRN IV DECREASED GLUCOSE; Start 01/18/19 at 23:30 Glucagon (Glucagen) 1 mg Q15M PRN IM DECREASED GLUCOSE; Start 01/18/19 at 23:30 Glucose (Glutose) 15 gm Q15M PRN BUCCAL DECREASED GLUCOSE; Start 01/18/19 at 23:30 Miscellaneous Information (Pending [facility] Order For Wound Care) This patient berg... PRN PRN XX WOUND CARE; Start 01/19/19 at 02:00 Acetaminophen (Tylenol Supp) [address] temp > 100.4F Last administered on 01/25/19 12:35; Admin Dose 650 MG; Start 01/19/19 at 09:00 Sodium Hypochlorite (Dakins Diluted ()) 1 applic BID TP Last administered on 01/30/19 20:59; Admin Dose 1 APPLIC; Start 01/19/19 at 21:00 Morphine Sulfate (morphine) 2 mg Q4H PRN IV SEVERE PAIN LEVEL 7-10 Last admin istered on 01/26/19 21:17; Admin Dose 2 MG; Start 01/21/19 at 08:30 Ascorbic Acid (Vitamin C) 500 mg BID GTB Last administered on 01/31/19 09:02; Admin Dose 500 MG; Start 01/23/19 at 21:00 Zinc Sulfate (Zinc Sulfate) 220 mg DAILY PEG Last administered on 01/31/19 09:01; Admin Dose 220 MG; Start 01/24/19 at 09:00 Acetylcysteine (Mucomyst) 2 ml Q6H RESP THERAPY NEB Last administered on 01/31/19 08:53; Admin Dose 2 ML; Start 01/28/19 at 20:00 Norepinephrine 250 ml @ 1.875 mls/ hr PER PROTOCOL IV Last administered on 01/28/19 21:39; Admin Dose 1.875 MLS/HR; Start 01/28/19 at 17:30 Vasopressin 60 unit/Dextrose 60 ml @ 1.2 mls/hr Q12H IV Last administered on 01/30/19 20:58; Admin Dose 1.2 MLS/HR; Start 01/28/19 at 18:00 Quetiapine Fumarate (Seroquel) 100 mg DAILY GTB Last administered on 01/31/19 09:02; Admin Dose 100 MG; Start 01/29/19 at 11:30 Dextrose 1,000 ml @ 80 mls/hr [id number] IV Last administered on 01/31/19 04:05; Admin Dose 80 MLS/HR; Start 01/29/19 at 13:00 Albuterol (Ventolin Hfa) 4 puff Q6H RESP THERAPY INH Last administered on 01/31/19 08:53; Admin Dose 4 PUFF; Start 01/30/19 at 14:00 Ipratropium [place] (Atrovent Hfa) 4 puff Q6H RESP THERAPY INH Last adm inistered on 01/31/19at 08:53; Admin Dose 4 PUFF; Start 01/30/19 at 14:00 Lansoprazole (Lansoprazole Oral Susp) 30 mg BID@0600,1800 GTB Last administered on 01/31/19 05:45; Admin Dose 30 MG; Start 01/31/19 at 06:00 Potassium Chloride 100 ml @ 50 mls/hr ONCE ONCE IVPB ; Start 01/31/19 at 11:00; Stop 01/31/19 at 12:59 AGUSTÍN ACE MD Jan 31, 2019 12:06
--- NOTE | 2019-01-31 12:45 | PN ---
Date/Time of Note Date/Time of Note DATE: 01/31/19 TIME: 12:41 Assessment/Plan VTE Prophylaxis Risk score (from Ns)>0 risk: 10 SCD applied (from [facility]): Yes SCD contraindicated: other Pharmacological prophylaxis: LMWH Lines/Catheters IV Catheter Type (from [facility]): Central Line Central line still needed: Yes Urinary Cath still in place: No Reason Cath still needed: pres ulcer contaminated by urine Assessment/Plan Assessment/Plan 1. neuro: chronic encephalopathy, 2. pulm: vent dependent resp failure, plan for trach per dr fernandez (b) aspiration pna, cont zosyn 3. sacral decubitus with wound vac,m cont jenkins and rectal tube 4. dm, add lantus change accucheck q6h 5. heme: monitor hgb and platelet, (b) thrombocytopenia, but no heparin, ?rleated to pna, monitor Result Diagram: 01/31/19 0357 01/31/19 0357 Results 24hrs Laboratory Tests Test 01/30/19 13:16 01/30/19 21:03 01/31/19 00:12 01/31/19 03:57 Bedside Glucose 153 193 211 White Blood Count 10.5 Red Blood Count 2.52 L Hemoglobin 7.4 L Hematocrit 24.3 L Mean Corpuscular 96.4 Volume Mean Corpuscular 29.4 Hemoglobin Mean Corpuscular 30.5 L Hemoglobin Concent Red Cell 15.9 H Distribution Width Platelet Count 111 L Mean Platelet Volume 12.8 H Immature 0.300 Granulocytes % Neutrophils % 72.4 Segmented 67 Neutrophils % (Manual) Lymphocytes % 23.0 Lymphocytes % 29 (Manual) Monocytes % 3.4 Monocytes % (Manual) 2 Eosinophils % 0.6 Eosinophils % 2 (Manual) Basophils % 0.3 Nucleated Red Blood 0.0 Cells % Immature 0.030 Granulocytes # Neutrophils # 7.6 H Lymphocytes (Manual) 3.0 H Lymphocytes # 2.4 Monocytes # 0.4 Monocytes # (Manual) 0.2 L Eosinophils # 0.1 Basophils # 0.0 Nucleated Red Blood 0.0 Cells # Platelet Estimate DECREASED Giant Platelets 1 H Hypochromasia 2+ Spherocytes 1+ Sodium Level 139 Potassium Level 3.2 L Chloride Level 107 Carbon Dioxide Level 28 Anion Gap 4 L Blood Urea Nitrogen 31 H Creatinine 1.73 H Est Glomerular 40 L Filtrat Rate mL/min Glucose Level 163 Calcium Level 8.1 L Magnesium Level 2.1 Test 01/31/19 04:02 01/31/19 09:12 Bedside Glucose 179 200 Subjective 24 Hr Interval Summary Free Text/Dictation NO response to voice or exam Exam/Review of Systems Exam Vitals Vital Signs Date Temp Pulse Resp B/P (MAP) Pulse Ox O2 O2 Flow FiO2 Time Delivery Rate 01/31/19 94 25 100 30 11:40 01/31/19 99/54 (69) Mechanical 10:15 Ventilator 01/31/19 98.2 08:00 01/28/19 4.0 08:30 Intake and Output 01/30/19 01/30/19 01/31/19 1515:00 23:00 07:00 IntakeIntake Total 1267.75 ml 1380.8 ml 1152.4 ml OutputOutput Total 395 ml 760 ml 900 ml BalanceBalance 872.75 ml 620.8 ml 252.4 ml Exam nad, eyes open,m not tracking, R subclavian, R midline, rectal tube, jenkins, sacr al wound vac Results Results 24hrs Laboratory Tests Test 01/30/19 13:16 01/30/19 21:03 01/31/19 00:12 01/31/19 03:57 Bedside Glucose 153 193 211 White Blood Count 10.5 Red Blood Count 2.52 L Hemoglobin 7.4 L Hematocrit 24.3 L Mean Corpuscular 96.4 Volume Mean Corpuscular 29.4 Hemoglobin Mean Corpuscular 30.5 L Hemoglobin Concent Red Cell 15.9 H Distribution Width Platelet Count 111 L Mean Platelet Volume 12.8 H Immature 0.300 Granulocytes % Neutrophils % 72.4 Segmented 67 Neutrophils % (Manual) Lymphocytes % 23.0 Lymphocytes % 29 (Manual) Monocytes % 3.4 Monocytes % (Manual) 2 Eosinophils % 0.6 Eosinophils % 2 (Manual) Basophils % 0.3 Nucleated Red Blood 0.0 Cells % Immature 0.030 Granulocytes # Neutrophils # 7.6 H Lymphocytes (Manual) 3.0 H Lymphocytes # 2.4 Monocytes # 0.4 Monocytes # (Manual) 0.2 L Eosinophils # 0.1 Basophils # 0.0 Nucleated Red Blood 0.0 Cells # Platelet Estimate DECREASED Giant Platelets 1 H Hypochromasia 2+ Spherocytes 1+ Sodium Level 139 Potassium Level 3.2 L Chloride Level 107 Carbon Dioxide Level 28 Anion Gap 4 L Blood Urea Nitrogen 31 H Creatinine 1.73 H Est Glomerular 40 L Filtrat Rate mL/min Glucose Level 163 Calcium Level 8.1 L Magnesium Level 2.1 Test 01/31/19 04:02 01/31/19 09:12 Bedside Glucose 179 200 Medications Medication Current Medications Piperacillin Sod/ Tazobactam Sod 50 ml @ 100 mls/hr Q8 IVPB Last administered on 01/31/19at 05:45; Admin Dose 100 MLS/HR; Start 01/18/19 at 09:30; Stop at 09:00 Insulin Aspart (Novolog Insulin Pen) NOVOLOG *MODERATE* ALGORI... Q4H SC Last administered on 01/31/19at 09:17; Admin Dose 4 UNIT; Start 01/19/19 at 01:00 Miscellaneous Information 1 ea NOTE XX ; Start 01/18/19 at 23:30 Glucose (Glutose) 15 gm Q15M PRN PO DECREASED GLUCOSE; Start 01/18/19 at 23:30 Glucose (Glutose) 22.5 gm Q15M PRN PO DECREASED GLUCOSE; Start 01/18/19 at 23:30 Dextrose (D50w Syringe) 25 ml Q15M PRN IV DECREASED GLUCOSE; Start 01/18/19 at 23:30 Dextrose (D50w Syringe) 50 ml Q15M PRN IV DECREASED GLUCOSE; Start 01/18/19 at 23:30 Glucagon (Glucagen) 1 mg Q15M PRN IM DECREASED GLUCOSE; Start 01/18/19 at 23:30 Glucose (Glutose) 15 gm Q15M PRN BUCCAL DECREASED GLUCOSE; Start 01/18/19 at 23:30 Miscellaneous Information ([facility]) This patient berg... PRN PRN XX WOUND CARE; Start 01/19/19 at 02:00 Acetaminophen (Tylenol Supp) 650 mg Q6H PRN [place] temp > 100.4F Last administered on 01/25/19at 12:35; Admin Dose 650 MG; Start 01/19/19 at 09:00 Sodium Hypochlorite (Dakins Diluted ()) 1 applic BID TP Last administered on 01/30/19at 20:59; Admin Dose 1 APPLIC; Start 01/19/19 at 21:00 Morphine Sulfate (morphine) 2 mg Q4H PRN IV SEVERE PAIN LEVEL 7-10 Last administered on 01/26/19 21:17; Admin Dose 2 MG; Start 01/21/19 at 08:30 Ascorbic Acid (Vitamin C) 500 mg BID GTB Last administered on 01/31/19 09:02; Admin Dose 500 MG; Start 01/23/19 at 21:00 Zinc Sulfate (Zinc Sulfate) 220 mg DAILY PEG Last administered on 01/31/19 09:01; Admin Dose 220 MG; Start 01/24/19 at 09:00 Acetylcysteine (Mucomyst) 2 ml Q6H RESP THERAPY NEB Last administered on 01/31/19 08:53; Admin Dose 2 ML; Start 01/28/19 at 20:00 Norepinephrine 250 ml @ 1.875 mls/ hr PER PROTOCOL IV Last administered on 01/28/19 21:39; Admin Dose 1.875 MLS/HR; Start 01/28/19 at 17:30 Vasopressin 60 unit/Dextrose 60 ml @ 1.2 mls/hr Q12H IV Last administered on 01/30/19 20:58; Admin Dose 1.2 MLS/HR; Start 01/28/19 at 18:00 Quetiapine Fumarate (Seroquel) 100 mg DAILY GTB Last administered on 01/31/19 09:02; Admin Dose 100 MG; Start 01/29/19 at 11:30 Dextrose 1,000 ml @ 80 mls/hr [id number] IV Last administered on 01/31/19 04:05; Admin Dose 80 MLS/HR; Start 01/29/19 at 13:00 Albuterol (Ventolin Hfa) 4 puff Q6H RESP THERAPY INH Last administered on 01/31/19 08:53; Admin Dose 4 PUFF; Start 01/30/19 at 14:00 Ipratropium [place] (Atrovent Hfa) 4 puff Q6H RESP THERAPY INH Last administered on 01/31/19 08:53; Admin Dose 4 PUFF; Start 01/30/19 at 14:00 Lansoprazole (Lansoprazole Oral Susp) 30 mg BID@0600,1800 GTB Last administered on 01/31/19 05:45; Admin Dose 30 MG; Start 7/13/19 at 06:00 Potassium Chloride 100 ml @ 50 mls/hr ONCE ONCE IVPB ; Start 01/31/19 at 11:00; Stop 01/31/19 at 12:59 TJ HUA MD Jan 31, 2019 12:45
--- NOTE | 2019-01-31 13:02 | PN ---
DATE: 01/31/2019 PULMONARY FOLLOWUP SUBJECTIVE: Chart reviewed. Events noted. Patient currently orally intubated on 40% FIO2, saturati ng 99%. The patient is still on pressors for blood pressure control. PHYSICAL EXAMINATION: VITAL SIGNS: Blood pressure 99/54, pulse 100, respirations 25, temperature afebrile. HEENT: Pupils are equal and react to light, orally intubated. NECK: Supple, no JVD noted, no cervical adenopathy noted. LUNGS: Decreased breath sounds at the bases, few scattered rhonchi. CARDIOVASCULAR: S1, S2 normal. ABDOMEN: Soft, nontender, no organomegaly or masses noted. EXTREMITIES: No clubbing or cyanosis noted. Pedal edema present. NEUROLOGIC: Sedated on the vent. LABORATORY DATA: WBC 10.5, hemoglobin 7.4, hematocrit 24.3, platelets 111. Sodium 139, potassium 3. 2, chloride 107, CO2 28, BUN 31, creatinine 1.73, glucose 163. IMPRESSION: 1. Acute respiratory failure. 2. Septic shock. 3. Pneumonia. 4. Status post atelectasis of left lung due to left main stem mucus plugging, now expanded. 5. Anemia. 6. Chronic kidney disease. 7. History of coronary artery disease, status post coronary artery bypass graft. 8. History of depression. 9. Anemia. RECOMMENDATIONS 1. Continue ventilator support. 2. Continue antibiotics. 3. Pulmonary toilet. 4. Followup labs. 5. Will assess for weaning in the next couple of days. 6. Discussed with the staff in detail. Dictated By: GRIS MORGAN MD, MA/HEMAL Conf#: [id number] DID#: [id number] CC: FELICITAS LAZARO MD; BHAVIN BARROW MD;*EndCC*
[2019-01-31] MEDS: DAKINS 0.0125%(1/40) 473 ML SOLUTION TP SCH ×2 (15:47→20:45)
[2019-01-31] MEDS: INSULIN GLARGINE [LANTus] (100 UNITS/ML) SYG SC SCH (20:45)
[2019-02-01] VITALS (39 sets, daily range): BP systolic 83–126; BP diastolic 52–83; PULSE 88–180; RESP 16–40
[2019-02-01] MEDS: ALBUTEROL HFA 8 GM INHALER INH SCH ×4 (02:09→19:23)
[2019-02-01] MEDS: ACETYLCYSTEINE 20% 4 ML VIAL NEB SCH ×4 (02:09→19:23)
[2019-02-01] MEDS: IPRATROPIUM (HFA) 12.9 GM INHALER INH SCH ×4 (02:09→19:23)
[2019-02-01] MEDS: DEXTROSE 5% 1,000 ML IV SCH (03:21)
[2019-02-01] MEDS: LANSOPRAZOLE ORAL SUSP 3 MG/ML (POSYG) GTB SCH ×2 (05:09→18:30)
[2019-02-01] MEDS: PIPER-TAZO 2.25 GM (PMX) 50 ML IVPB SCH ×3 (05:09→21:18)
[2019-02-01] MEDS: INSULIN ASPART [NOVOLOG] 3 ML PEN SC SCH ×3 (05:17→18:00)
[2019-02-01] MEDS: VASOPRESSIN 60 UNIT in DEXTROSE 5% 60 ML IV SCH ×2 (06:00→17:42)
--- NOTE | 2019-02-01 06:55 | CONS ---
Assessment/Plan Assessment/Plan Assessment/Plan (Daily) 1.Hypokalemia - resolved 2. acute On chronic renal failure due to ATN from septic shock- Improving 3. acute hypoxemic respiratory failure intubated on ventilator 2/2 Health care associated PNA - s/p extubation on 01/24/19 - then pt again intubated for respiratory failure 4. Septic shock on pressors 5. acute hypernatremia- Improving 6. H/O quadriplegia 7. H/o CAD s/p CABG 8. H/O HTN 9. H/o sacral decubitus s/p debridement before 10. Nursing Homepresidential support specialist Plan: Na improved to 144, K 3.5 - cont IVF to D5W at 80 cc/hr , Monitor K and replace as needed Cr trended down to 1.52 UO - 4 L/24 hrs IV abx zosyn for PNA coverage, Renally dose all abx and monitor electorlytes ,vancomycin stopped today, pt is on two pressors, levophed and Vasopressin will follow up Patient seen in collaboration with Dr Cornell Mccoy Consultation Date/Type/Reason Admit Date/Time Jan 18, 2019 at 04:19 Initial Consult Date 01/21/19 Type of Consult Nephrology Reason for Consultation ALISSA ON CKD Requesting Provider: FELICITAS LAZARO MD Date/Time of Note DATE: 02/01/19 TIME: 06:54 24 HR Interval Summary Free Text/Dictation NAD AFEBRILE Remans intubated; Seems comfortable Cr trended down to 1.5 UO - 4.0 L/24 hrs dw staff Constitutional: requiring IVF, requiring O2 Exam/Review of Systems Exam Vitals Vital Signs Date Temp Pulse Resp B/P (MAP) Pulse Ox O2 O2 Flow FiO2 Time Delivery Rate 02/01/19 170 06:29 02/01/19 28 103/53 96 Mechanical 06:00 (70) Ventilator 02/01/19 30 05:41 02/01/19 98.7 04:00 01/28/19 4.0 08:30 Intake and Output 01/31/19 01/31/19 02/01/19 1515:00 23:00 07:00 IntakeIntake Total 1270 ml 1290 ml 1230 ml OutputOutput Total 1025 ml 1710 ml 1350 ml BalanceBalance 245 ml -420 ml -120 ml Constitutional: alert, non-verbal, frail Psych: nl mood/affect Eyes: nl lids ENMT: nl external ears & nose Neck: non-tender, other (ET intact) Respiratory: clear to auscultation Cardiovascular: nl pulses, other (s1s2) Gastrointestinal: soft Musculoskeletal: muscle weakness Extremities: edema Neurological: other (opens eyes when called by name) Results Result Diagram: 02/01/19 0407 02/01/19 0402 Results 24hrs Laboratory Tests Test 01/31/19 09:12 01/31/19 13:36 01/31/19 18:19 01/31/19 20:42 Bedside Glucose 200 157 165 174 Test 02/01/19 04:02 02/01/19 04:07 02/01/19 05:08 Sodium Level 144 Potassium Level 3.5 Chloride Level 111 H Carbon Dioxide Level 29 Anion Gap 4 L Blood Urea Nitrogen 29 H Creatinine 1.52 H Est Glomerular 47 L Filtrat Rate mL/min Glucose Level 149 Calcium Level 8.3 L Magnesium Level 2.2 White Blood Count 7.4 # Red Blood Count 2.57 L Hemoglobin 7.5 L Hematocrit 24.8 L Mean Corpuscular 96.5 Volume Mean Corpuscular 29.2 Hemoglobin Mean Corpuscular 30.2 L Hemoglobin Concent Red Cell 15.4 H Distribution Width Platelet Count 108 L Mean Platelet Volume 12.6 H Immature 0.700 H Granulocytes % Neutrophils % 72.6 Lymphocytes % 21.2 Monocytes % 4.2 Eosinophils % 1.2 Basophils % 0.1 Nucleated Red Blood 0.0 Cells % Immature 0.050 H Granulocytes # Neutrophils # 5.4 Lymphocytes # 1.6 Monocytes # 0.3 Eosinophils # 0.1 Basophils # 0.0 Nucleated Red Blood 0.0 Cells # Bedside Glucose 178 Medications Medication Current Medications Piperacillin Sod/ Tazobactam Sod 50 ml @ 100 mls/hr Q8 IVPB Last administered on 02/01/19at 05:09; Admin Dose 100 MLS/HR; Start 01/18/19 at 09:30; Stop 02/02/19 at 09:00 Miscellaneous Information 1 ea NOTE XX ; Start 01/18/19 at 23:30 Glucose (Glutose) 15 gm Q15M PRN PO DECREASED GLUCOSE; Start 01/18/19 at 23:30 Glucose (Glutose) 22.5 gm Q15M PRN PO DECREASED GLUCOSE; Start 01/18/19 at 23:30 Dextrose (D50w Syringe) 25 ml Q15M PRN IV DECREASED GLUCOSE; Start 01/18/19 at 23:30 Dextrose (D50w Syringe) 50 ml Q15M PRN IV DECREASED GLUCOSE; Start 01/18/19 at 23:30 Glucagon (Glucagen) 1 mg Q15M PRN IM DECREASED GLUCOSE; Start 01/18/19 at 23:30 Glucose (Glutose) 15 gm Q15M PRN BUCCAL DECREASED GLUCOSE; Start 01/18/19 at 23:30 Miscellaneous Information (Pending [facility] Order For Wound Care) This patient berg... PRN PRN XX WOUND CARE; Start 01/19/19 at 02:00 Acetaminophen (Tylenol Supp) 650 mg Q6H PRN [place] temp > 100.4F Last administered on 01/25/19 12:35; Admin Dose 650 MG; Start 01/19/19 at 09:00 Sodium Hypochlorite (Dakins Diluted ()) 1 applic BID TP Last administered on 01/31/19 20:45; Admin Dose 1 APPLIC; Start 01/19/19 at 21:00 Morphine Sulfate (morphine) 2 mg Q4H PRN IV SEVERE PAIN LEVEL 7-10 Last administered on 01/26/19 21:17; Admin Dose 2 MG; Start 01/21/19 at 08:30 Ascorbic Acid (Vitamin C) 500 mg BID GTB Last administered on 01/31/19 20:45; Admin Dose 500 MG; Start 01/23/19 at 21:00 Zinc Sulfate (Zinc Sulfate) 220 mg DAILY PEG Last administered on 01/31/19 09:01; Admin Dose 220 MG; Start 01/24/19 at 09:00 Acetylcysteine (Mucomyst) 2 ml Q6H RESP THERAPY NEB Last administered on 02/01/19 02:09; Admin Dose 2 ML; Start 01/28/19 at 20:00 Norepinephrine 250 ml @ 1.875 mls/ hr PER PROTOCOL IV Last administered on 01/28/19 21:39; Admin Dose 1.875 MLS/HR; Start 01/28/19 at 17:30 Vasopressin 60 unit/Dextrose 60 ml @ 1.2 mls/hr Q12H IV Last administered on 01/30/19 20:58; Admin Dose 1.2 MLS/HR; Start 01/28/19 at 18:00 Dextrose 1,000 ml @ 80 mls/hr [id number] IV Last administered on 02/01/19 03:21; Admin Dose 80 MLS/HR; Start 01/29/19 at 13:00 Albuterol (Ventolin Hfa) 4 puff Q6H RESP THERAPY INH Last administered on 02/01/19 02:09; Admin Dose 4 PUFF; Start 01/30/19 at 14:00 Ipratropium [place] (Atrovent Hfa) 4 puff Q6H RESP THERAPY INH Last admin istered on 02/01/19 02:09; Admin Dose 4 PUFF; Start 01/30/19 at 14:00 Lansoprazole (Lansoprazole Oral Susp) 30 mg BID@0600,1800 GTB Last administered on 02/01/19 05:09; Admin Dose 30 MG; Start 01/31/19 at 06:00 Insulin Aspart (Novolog Insulin Pen) NOVOLOG *MODERATE* ALGORI... Q6 SC Last administered on 02/01/19 05:17; Admin Dose 2 UNIT; Start 01/31/19 at 13:00 Insulin Glargine (Lantus) 13 units DAILY@2000 SC Last administered on 01/31/19 20:45; Admin Dose 13 UNITS; Start 01/31/19 at 20:00 Quetiapine Fumarate (Seroquel) 100 mg HS GTB ; Start 02/01/19 at 21:00 GREG GALAN Feb 01, 2019 06:55
[2019-02-01] MEDS: ZINC SULFATE 220 MG CAP PEG SCH (09:13)
[2019-02-01] MEDS: ASCORBIC ACID 500 MG TAB GTB SCH ×2 (09:13→20:51)
--- NOTE | 2019-02-01 12:51 | PN ---
Date/Time of Note Date/Time of Note DATE: 02/01/19 TIME: 12:49 Assessment/Plan VTE Prophylaxis Risk score (from Ns)>0 risk: 11 SCD applied (from Ns): Yes Pharmacological prophylaxis: NA/contraindicated Pharm contraindication: bleeding Lines/Catheters IV Catheter Type (from Nrs): Central Line Central line still needed: Yes Urinary Cath still in place: No Assessment/Plan Assessment/Plan a/p 1. pulm: vent dependent resp failure, cont current, anticipate trach (b0 cont abx for trach 2. chronic encephalopathy 3. heme: anemai, stable, (b0 thrombocytopenia, todays value less but essentially unchanged cont to monitor 4. sacraldecub wth jenkins and rectal tube Result Diagram: 02/01/19 0407 02/01/19 0402 Results 24hrs Laboratory Tests Test 01/31/19 13:36 01/31/19 18:19 01/31/19 20:42 02/01/19 04:02 Bedside Glucose 157 165 174 Sodium Level 144 Potassium Level 3.5 Chloride Level 111 H Carbon Dioxide Level 29 Anion Gap 4 L Blood Urea Nitrogen 29 H Creatinine 1.52 H Est Glomerular 47 L Filtrat Rate mL/min Glucose Level 149 Calcium Level 8.3 L Magnesium Level 2.2 Test 02/01/19 04:07 02/01/19 05:08 02/01/19 12:06 White Blood Count 7.4 # Red Blood Count 2.57 L Hemoglobin 7.5 L Hematocrit 24.8 L Mean Corpuscular 96.5 Volume Mean Corpuscular 29.2 Hemoglobin Mean Corpuscular 30.2 L Hemoglobin Concent Red Cell 15.4 H Distribution Width Platelet Count 108 L Mean Platelet Volume 12.6 H Immature 0.700 H Granulocytes % Neutrophils % 72.6 Lymphocytes % 21.2 Monocytes % 4.2 Eosinophils % 1.2 Basophils % 0.1 Nucleated Red Blood 0.0 Cells % Immature 0.050 H Granulocytes # Neutrophils # 5.4 Lymphocytes # 1.6 Monocytes # 0.3 Eosinophils # 0.1 Basophils # 0.0 Nucleated Red Blood 0.0 Cells # Bedside Glucose 178 159 Subjective 24 Hr Interval Summary Free Text/Dictation intubated sedated Exam/Review of Systems Exam Vitals Vital Signs Date Temp Pulse Resp B/P (MAP) Pulse Ox O2 O2 Flow FiO2 Time Delivery Rate 02/01/19 97 12:00 02/01/19 27 93 30 11:40 02/01/19 111/70 Mechanical 10:00 (84) Ventilator 02/01/19 97.7 08:00 01/28/19 4.0 08:30 Intake and Output 01/31/19 01/31/19 02/01/19 1515:00 23:00 07:00 IntakeIntake Total 1270 ml 1290 ml 1370 ml OutputOutput Total 1025 ml 1710 ml 1525 ml BalanceBalance 245 ml -420 ml -155 ml Exam nad, ctab, rrr, soft nt Results Results 24hrs Laboratory Tests Test 01/31/19 13:36 01/31/19 18:19 01/31/19 20:42 02/01/19 04:02 Bedside Glucose 157 165 174 Sodium Level 144 Potassium Level 3.5 Chloride Level 111 H Carbon Dioxide Level 29 Anion Gap 4 L Blood Urea Nitrogen 29 H Creatinine 1.52 H Est Glomerular 47 L Filtrat Rate mL/min Glucose Level 149 Calcium Level 8.3 L Magnesium Level 2.2 Test 02/01/19 04:07 02/01/19 05:08 02/01/19 12:06 White Blood Count 7.4 # Red Blood Count 2.57 L Hemoglobin 7.5 L Hematocrit 24.8 L Mean Corpuscular 96.5 Volume Mean Corpuscular 29.2 Hemoglobin Mean Corpuscular 30.2 L Hemoglobin Concent Red Cell 15.4 H Distribution Width Platelet Count 108 L Mean Platelet Volume 12.6 H Immature 0.700 H Granulocytes % Neutrophils % 72.6 Lymphocytes % 21.2 Monocytes % 4.2 Eosinophils % 1.2 Basophils % 0.1 Nucleated Red Blood 0.0 Cells % Immature 0.050 H Granulocytes # Neutrophils # 5.4 Lymphocytes # 1.6 Monocytes # 0.3 Eosinophils # 0.1 Basophils # 0.0 Nucleated Red Blood 0.0 Cells # Bedside Glucose 178 159 Medications Medication Current Medications Piperacillin Sod/ Tazobactam Sod 50 ml @ 100 mls/hr Q8 IVPB Last administered on 02/01/19at 05:09; Admin Dose 100 MLS/HR; Start 01/18/19 at 09:30; Stop 02/02/19 at 09:00 Miscellaneous Information 1 ea NOTE XX ; Start 01/18/19 at 23:30 Glucose (Glutose) 15 gm Q15M PRN PO DECREASED GLUCOSE; Start 01/18/19 at 23:30 Glucose (Glutose) 22.5 gm Q15M PRN PO DECREASED GLUCOSE; Start 01/18/19 at 23:30 Dextrose (D50w Syringe) 25 ml Q15M PRN IV DECREASED GLUCOSE; Start 01/18/19 at 23:30 Dextrose (D50w Syringe) 50 ml Q15M PRN IV DECREASED GLUCOSE; Start 01/18/19 at 23:30 Glucagon (Glucagen) 1 mg Q15M PRN IM DECREASED GLUCOSE; Start 01/18/19 at 23:30 Glucose (Glutose) 15 gm Q15M PRN BUCCAL DECREASED GLUCOSE; Start 01/18/19 at 23:30 [facility] This patient berg... PRN PRN XX WOUND CARE; Start 01/19/19 at 02:00 Acetaminophen (Tylenol Supp) 650 mg Q6H PRN [place] temp > 100.4F Last administered on 01/25/19at 12:35; Admin Dose 650 MG; Start 01/19/19 at 09:00 Sodium Hypochlorite (Dakins Diluted (/40)) 1 applic BID TP Last administered on 01/31/19 20:45; Admin Dose 1 APPLIC; Start 01/19/19 at 21:00 Morphine Sulfate (morphine) 2 mg Q4H PRN IV SEVERE PAIN LEVEL 7-10 Last administered on 01/26/19 21:17; Admin Dose 2 MG; Start 01/21/19 at 08:30 Ascorbic Acid (Vitamin C) 500 mg BID GTB Last administered on 02/01/19 09:13; Admin Dose 500 MG; Start 01/23/19 at 21:00 Zinc Sulfate (Zinc Sulfate) 220 mg DAILY PEG Last administered on 02/01/19 09:13; Admin Dose 220 MG; Start 01/24/19 at 09:00 Acetylcysteine (Mucomyst) 2 ml Q6H RESP THERAPY NEB Last administered on 02/01/19 09:19; Admin Dose 2 ML; Start 01/28/19 at 20:00 Norepinephrine 250 ml @ 1.875 mls/ hr PER PROTOCOL IV Last administered on 05/09at 21:39; Admin Dose 1.875 MLS/HR; Start 01/28/19 at 17:30 Vasopressin 60 unit/Dextrose 60 ml @ 1.2 mls/hr Q12H IV Last administered on 01/30/19at 20:58; Admin Dose 1.2 MLS/HR; Start 01/28/19 at 18:00 Dextrose 1,000 ml @ 80 mls/hr [id number] IV Last administered on 02/01/19 03:21; Admin Dose 80 MLS/HR; Start 01/29/19 at 13:00 Albuterol (Ventolin Hfa) 4 puff Q6H RESP THERAPY INH Last administered on 02/01/19 09:18; Admin Dose 4 PUFF; Start 01/30/19 at 14:00 Ipratropium [place] (Atrovent Hfa) 4 puff Q6H RESP THERAPY INH Last administered on 02/01/19 09:19; Admin Dose 4 PUFF; Start 01/30/19 at 14:00 Lansoprazole (Lansoprazole Oral Susp) 30 mg BID@0600,1800 GTB Last administered on 02/01/19 05:09; Admin Dose 30 MG; Start 01/31/19 at 06:00 Insulin Aspart (Novolog Insulin Pen) NOVOLOG *MODERATE* ALGORI... Q6 SC Last administered on 02/01/19 12:20; Admin Dose 2 UNIT; Start 01/31/19 at 13:00 Insulin Glargine (Lantus) 13 units DAILY@2000 SC Last administered on 01/31/19at 20:45; Admin Dose 13 UNITS; Start 01/31/19 at 20:00 Quetiapine Fumarate (Seroquel) 100 mg HS GTB ; Start 02/01/19 at 21:00 TJ HUA MD Feb 01, 2019 12:51
--- NOTE | 2019-02-01 15:12 | PN ---
Date/Time of Note Date/Time of Note DATE: 02/01/19 TIME: 15:12 Assessment/Plan Lines/Catheters IV Catheter Type (from Nrsg): Central Line Garcia in Place (from Nrsg): No Assessment/Plan Assessment/Plan IMPRESSION: Respiratory failure. RECOMMENDATIONS: We will proceed with a tracheostomy. Will discuss with the family as indicated. Discussed with the referring physicians. Subjective 24 Hr Interval Summary Constitutional: improved Pain Control: mild Exam/Review of Systems Vital Signs Vitals Vital Signs Date Temp Pulse Resp B/P (MAP) Pulse Ox O2 O2 Flow FiO2 Time Delivery Rate 02/01/19 102 23 98 14:15 02/01/19 108/56 Mechanical 14:00 (73) Ventilator 02/01/19 98.6 12:00 02/01/19 30 11:40 01/28/19 4.0 08:30 Intake and Output 01/31/19 01/31/19 02/01/19 1515:00 23:00 07:00 IntakeIntake Total 1270 ml 1290 ml 1370 ml OutputOutput Total 1025 ml 1710 ml 1525 ml BalanceBalance 245 ml -420 ml -155 ml Exam ENMT: nl external ears & nose, nl lips & teeth, nl nasal mucosa & septum, mucosa pink and moist Neck: supple, non-tender Respiratory: clear to auscultation, normal air movement Cardiovascular: regular rate and rhythm, nl pulses Gastrointestinal: soft, nl liver, spleen, non-tender Results Result Diagram: 02/01/19 0407 02/01/19 0402 LEAH GALE MD Feb 01, 2019 15:12
--- NOTE | 2019-02-01 15:14 | PN ---
Date/Time of Note Date/Time of Note DATE: 01/31/19 TIME: 15:13 Assessment/Plan Lines/Catheters IV Catheter Type (from Nrsg): Central Line Garcia in Place (from Nrsg): No Assessment/Plan Assessment/Plan Resp Failure Plan for tracheostomy tomorrow Subjective 24 Hr Interval Summary Constitutional: no complaints Pain Control: well controlled Exam/Review of Systems Vital Signs Vitals Vital Signs Date Temp Pulse Resp B/P (MAP) Pulse Ox O2 O2 Flow FiO2 Time Delivery Rate 02/01/19 102 23 98 14:15 02/01/19 108/56 Mechanical 14:00 (73) Ventilator 02/01/19 98.6 12:00 02/01/19 30 11:40 01/28/19 4.0 08:30 Intake and Output 01/31/19 01/31/19 02/01/19 1515:00 23:00 07:00 IntakeIntake Total 1270 ml 1290 ml 1370 ml OutputOutput Total 1025 ml 1710 ml 1525 ml BalanceBalance 245 ml -420 ml -155 ml Exam ENMT: nl external ears & nose, nl lips & teeth, nl nasal mucosa & septum, mucosa pink and moist Neck: supple, non-tender Respiratory: clear to auscultation, normal air movement Cardiovascular: regular rate and rhythm, nl pulses Gastrointestinal: soft, nl liver, spleen, non-tender Results Result Diagram: 02/01/19 0407 02/01/19 0402 LEAH GALE MD Feb 01, 2019 15:14
--- NOTE | 2019-02-01 15:28 | CONS ---
Assessment/Plan Assessment/Plan Hospital Course (Demo Recall) Hypoxic respiratory failure Left lung collapse Hypotension, off IV pressor Sepsis Acute kidney injury Hypernatremia-improved CAD with history of CABG Preserved left ventricular ejection fraction Patient has been titrated off IV pressor, blood pressure currently stable Vent management as per pulmonary Fluid management and diuretics as per nephrology No antihypertensives or AV rizwan blocking agents at the current time given sinus tachycardia Potassium supplementation ordered Consultation Date/Type/Reason Admit Date/Time Jan 18, 2019 at 04:19 Initial Consult Date 01/21/19 Type of Consult Cardiology Requesting Provider: FELICITAS LAZARO MD Date/Time of Note DATE: 02/01/19 TIME: 15:27 24 HR Interval Summary Free Text/Dictation More awake today, responding to commands Exam/Review of Systems Vital Signs Vitals Vital Signs Date Temp Pulse Resp B/P (MAP) Pulse Ox O2 O2 Flow FiO2 Time Delivery Rate 02/01/19 102 23 98 14:15 02/01/19 108/56 Mechanical 14:00 (73) Ventilator 02/01/19 98.6 12:00 02/01/19 30 11:40 01/28/19 4.0 08:30 Intake and Output 01/31/19 01/31/19 02/01/19 1515:00 23:00 07:00 IntakeIntake Total 1270 ml 1290 ml 1370 ml OutputOutput Total 1025 ml 1710 ml 1525 ml BalanceBalance 245 ml -420 ml -155 ml Exam Constitutional: alert (Following some commands, no apparent distress, family bedside) Head: normocephalic ENMT: intubated Respiratory: other (Coarse breath sounds bilaterally, no wheezing) Cardiovascular: regular rate and rhythm (S1-S2 heard) Gastrointestinal: soft, non-tender, bowel sounds Extremities: edema Labs Result Diagram: 02/01/19 0407 02/01/19 0402 Results 24hrs Laboratory Tests Test 01/31/19 18:19 01/31/19 20:42 02/01/19 04:02 02/01/19 04:07 Bedside Glucose 165 174 Sodium Level 144 Potassium Level 3.5 Chloride Level 111 H Carbon Dioxide Level 29 Anion Gap 4 L Blood Urea Nitrogen 29 H Creatinine 1.52 H Est Glomerular 47 L Filtrat Rate mL/min Glucose Level 149 Calcium Level 8.3 L Magnesium Level 2.2 White Blood Count 7.4 # Red Blood Count 2.57 L Hemoglobin 7.5 L Hematocrit 24.8 L Mean Corpuscular 96.5 Volume Mean Corpuscular 29.2 Hemoglobin Mean Corpuscular 30.2 L Hemoglobin Concent Red Cell 15.4 H Distribution Width Platelet Count 108 L Mean Platelet Volume 12.6 H Immature 0.700 H Granulocytes % Neutrophils % 72.6 Lymphocytes % 21.2 Monocytes % 4.2 Eosinophils % 1.2 Basophils % 0.1 Nucleated Red Blood 0.0 Cells % Immature 0.050 H Granulocytes # Neutrophils # 5.4 Lymphocytes # 1.6 Monocytes # 0.3 Eosinophils # 0.1 Basophils # 0.0 Nucleated Red Blood 0.0 Cells # Test 02/01/19 05:08 02/01/19 12:06 Bedside Glucose 178 159 Medications Medications Current Medications Piperacillin Sod/ Tazobactam Sod 50 ml @ 100 mls/hr Q8 IVPB Last administered on 02/01/19at 05:09; Admin Dose 100 MLS/HR; Start 01/18/19 at 09:30; Stop at 09:00 Miscellaneous Information 1 ea NOTE XX ; Start 01/18/19 at 23:30 Glucose (Glutose) 15 gm Q15M PRN PO DECREASED GLUCOSE; Start 01/18/19 at 23:30 Glucose (Glutose) 22.5 gm Q15M PRN PO DECREASED GLUCOSE; Start 01/18/19 at 23:30 Dextrose (D50w Syringe) 25 ml Q15M PRN IV DECREASED GLUCOSE; Start 01/18/19 at 23:30 Dextrose (D50w Syringe) 50 ml Q15M PRN IV DECREASED GLUCOSE; Start 01/18/19 at 23:30 Glucagon (Glucagen) 1 mg Q15M PRN IM DECREASED GLUCOSE; Start 01/18/19 at 23:30 Glucose (Glutose) 15 gm Q15M PRN BUCCAL DECREASED GLUCOSE; Start 01/18/19 at 23:30 Miscellaneous Information (Pending [facility] Order For Wound Care) This patient berg... PRN PRN XX WOUND CARE; Start 01/19/19 at 02:00 Acetaminophen (Tylenol Supp) 650 mg Q6H PRN [place] temp > 100.4F Last administered on 01/25/19at 12:35; Admin Dose 650 MG; Start 01/19/19 at 09:00 Sodium Hypochlorite (Dakins Diluted (40)) 1 applic BID TP Last administered on 01/31/19 20:45; Admin Dose 1 APPLIC; Start 01/19/19 at 21:00 Morphine Sulfate (morphine) 2 mg Q4H PRN IV SEVERE PAIN LEVEL 7-10 Last administered on 01/26/19 21:17; Admin Dose 2 MG; Start 01/21/19 at 08:30 Ascorbic Acid (Vitamin C) 500 mg BID GTB Last administered on 02/01/19 09:13; Admin Dose 500 MG; Start 01/23/19 at 21:00 Zinc Sulfate (Zinc Sulfate) 220 mg DAILY PEG Last administered on 02/01/19 09:13; Admin Dose 220 MG; Start 01/24/19 at 09:00 Acetylcysteine (Mucomyst) 2 ml Q6H RESP THERAPY NEB Last administered on 02/01/19 14:07; Admin Dose 2 ML; Start 01/28/19 at 20:00 Norepinephrine 250 ml @ 1.875 mls/ hr PER PROTOCOL IV Last administered on 01/19 21:39; Admin Dose 1.875 MLS/HR; Start 01/28/19 at 17:30 Vasopressin 60 unit/Dextrose 60 ml @ 1.2 mls/hr Q12H IV Last administered on 01/30/19 20:58; Admin Dose 1.2 MLS/HR; Start 01/28/19 at 18:00 Albuterol (Ventolin Hfa) 4 puff Q6H RESP THERAPY INH Last administered on 02/01/19 14:07; Admin Dose 4 PUFF; Start 01/30/19 at 14:00 Ipratropium [place] (Atrovent Hfa) 4 puff Q6H RESP THERAPY INH Last administered on 02/01/19 14:07; Admin Dose 4 PUFF; Start 01/30/19 at 14:00 Lansoprazole (Lansoprazole Oral Susp) 30 mg BID@0600,1800 GTB Last administered on 02/01/19 05:09; Admin Dose 30 MG; Start 01/31/19 at 06:00 Insulin Aspart (Novolog Insulin Pen) NOVOLOG *MODERATE* ALGORI... Q6 SC Last administered on 02/01/19 12:20; Admin Dose 2 UNIT; Start 01/31/19 at 13:00 Insulin Glargine (Lantus) 13 units DAILY@2000 SC Last administered on 01/31/19at 20:45; Admin Dose 13 UNITS; Start 01/31/19 at 20:00 Quetiapine Fumarate (Seroquel) 100 mg HS GTB ; Start 02/01/19 at 21:00 Randy Leone DO Feb 01, 2019 15:28
[2019-02-01] MEDS: DAKINS 0.0125%(1/40) 473 ML SOLUTION TP SCH ×2 (15:29→20:52)
[2019-02-01] MEDS ORDERED: POTASSIUM CHLORIDE 20 MEQ POWDER FOR ORAL SOLN JT ONE (15:30)
--- NOTE | 2019-02-01 16:10 | PN ---
DATE: 02/01/2019 SUBJECTIVE: Chart reviewed. Events noted. The patient remains on ventilator on 30% FIO2, saturatin g 96%. PHYSICAL EXAMINATION: VITAL SIGNS: Blood pressure 111/70, pulse 93, respirations 17, temperature 97.7. HEENT: Pupils equal and react to light. Orally intubated. NECK: Supple, no JVD noted, no cervical adenopathy noted. LUNGS: Few scattered rhonchi bilaterally. CARDIOVASCULAR: S1, S2 normal. ABDOMEN: Soft, nontender, no megaly or masses noted. EXTREMITIES: No clubbing or cyanosis noted. Pedal edema present. NEUROLOGIC: Sedated on the vent. LABORATORY DATA: WBC 7.4, hemoglobin 7.5, hematocrit 24.8, platelets 108. Sodium 144, potassium 3.5 , chloride 111, CO2 29, BUN 29, creatinine 1.52, glucose 149. IMPRESSION: 1. Acute respiratory failure. 2. Septic shock. 3. Pneumonia. 4. Status post atelectasis of left lung due to left main bronchus mucus plugging, now expanded. 5. Anemia. 6. Chronic kidney disease. 7. History of coronary artery disease, status post coronary artery bypass graft. 8. History of depression. 9. Anemia. RECOMMENDATIONS: 1. Continue vent support. 2. Antibiotics. 3. Aggressive pulmonary toilet. 4. Followup labs and chest x-ray and ABG in the a.m. 5. Will assess for weaning tomorrow morning. 6. Discussed with staff. Dictated By: GRIS MORGAN MD, MA/HEMAL Conf#: [id number] DID#: [id number] CC: FELICITAS LAZARO MD;*EndCC*
[2019-02-01] MEDS: morphine 2 MG INJ IV PRN ×2 (16:19→21:18)
[2019-02-01] MEDS: QUETIAPINE 100 MG TAB GTB SCH (20:51)
[2019-02-01] MEDS: INSULIN GLARGINE [LANTus] (100 UNITS/ML) SYG SC SCH (20:53)
[2019-02-02] VITALS (45 sets, daily range): BP systolic 87–123; BP diastolic 54–72; PULSE 85–110; RESP 13–41
[2019-02-02] MEDS: INSULIN ASPART [NOVOLOG] 3 ML PEN SC SCH ×4 (00:18→17:55)
[2019-02-02] MEDS: ALBUTEROL HFA 8 GM INHALER INH SCH ×4 (01:00→19:51)
[2019-02-02] MEDS: ACETYLCYSTEINE 20% 4 ML VIAL NEB SCH ×4 (01:00→19:51)
[2019-02-02] MEDS: IPRATROPIUM (HFA) 12.9 GM INHALER INH SCH ×4 (01:00→19:51)
[2019-02-02] MEDS: VASOPRESSIN 60 UNIT in DEXTROSE 5% 60 ML IV SCH ×2 (05:13→08:33)
[2019-02-02] MEDS: PIPER-TAZO 2.25 GM (PMX) 50 ML IVPB SCH (05:53)
[2019-02-02] MEDS: LANSOPRAZOLE ORAL SUSP 3 MG/ML (POSYG) GTB SCH ×2 (05:53→17:55)
[2019-02-02] MEDS: ASCORBIC ACID 500 MG TAB GTB SCH ×3 (09:00→21:33)
[2019-02-02] MEDS: ZINC SULFATE 220 MG CAP PEG SCH (09:00)
[2019-02-02] MEDS: DAKINS 0.0125%(1/40) 473 ML SOLUTION TP SCH (09:00)
--- NOTE | 2019-02-02 09:47 | CONS ---
Assessment/Plan Assessment/Plan Assessment/Plan (Daily) Ventilator setting; assist control of 16, tidal volume 500, PEEP of 5, 30% FiO2. Assessment and recommendations; 1. Patient with history of quadriplegia admitted for respiratory failure due to complete left lung atelectasis with marked overall radiological improvement after intubation. Likely from poor cough reflex causing buildup of mucus plugging left mainstem bronchus. 2. Possibly some element of pneumonia, patient off antibiotics now. 3. Encephalopathy. With interval improvement. 4. Anemia. 5. Thrombocytopenia. 6. Chronic renal insufficiency. 7. History of depression. 8. Prior CABG. Continue current supportive care. Patient scheduled for tracheostomy today. Consultation Date/Type/Reason Admit Date/Time Jan 18, 2019 at 04:19 Initial Consult Date 01/21/19 Type of Consult Pulmonary/critical care Patient developed respiratory failure last evening requiring intubation and then transferred to ICU. No CPR was done. Positive time I saw the patient, patient is orally intubated and despite being awake but is noncommunicative which apparently is his baseline mental status. Patient did not appear to be in any distress. General exam; elderly male, orally intubated. Awake. Currently in no distress. Noncommunicative. Requesting Provider: FELICITAS LAZARO MD Date/Time of Note DATE: 02/02/19 TIME: 09:45 24 HR Interval Summary Free Text/Dictation Patient's condition remains critical. Has failed multiple weaning trials from ventilator. Patient scheduled for tracheostomy today. General exam; elderly male, much more awake and responsive today. Currently in no distress. Orally intubated. Exam/Review of Systems Exam Vitals Vital Signs Date Temp Pulse Resp B/P (MAP) Pulse Ox O2 O2 Flow FiO2 Time Delivery Rate 02/02/19 98.6 09:05 02/02/19 104 23 98/62 (74) 97 Mechanical 09:00 Ventilator 02/02/19 30 05:32 Intake and Output 02/01/19 02/01/19 02/02/19 1515:00 23:00 07:00 IntakeIntake Total 1100 ml 780 ml 50 ml OutputOutput Total 1200 ml 1250 ml 700 ml BalanceBalance -100 ml -470 ml -650 ml Exam H EENT exam; supple neck, no JVD. No lymphadenopathy. Midline trachea. No thyromegaly. Patient is edentulous. Orally intubated. No neck masses. Pupils are small bilaterally. Chest exam; diminished but clear breath sounds. S1-S2 audible, no murmurs. Regularly. There is a well-healed sternal scar. Abdomen exam; soft, no organomegaly. G-tube in place. Bowel sounds audible. Abdomen is nondistended. Nontender. Extremity exam; no peripheral edema clubbing. [employer] exam; patient awake and follows simple commands like head-nodding and mouth opening. Able to move hands to very minimal extent. Results Result Diagram: 02/02/19 0430 02/02/19 0430 Results 24hrs Laboratory Tests Test 02/01/19 12:06 02/01/19 18:28 02/01/19 20:50 02/02/19 00:17 Bedside Glucose 159 129 207 143 Test 02/02/19 04:30 02/02/19 05:12 White Blood Count 8.1 Red Blood Count 2.60 L Hemoglobin 7.7 L Hematocrit 25.1 L Mean Corpuscular 96.5 Volume Mean Corpuscular 29.6 Hemoglobin Mean Corpuscular 30.7 L Hemoglobin Concent Red Cell 15.8 H Distribution Width Platelet Count 120 L Mean Platelet Volume 12.4 H Immature 0.400 Granulocytes % Neutrophils % 68.1 Segmented 57 Neutrophils % (Manual) Band Neutrophils % 7 H (Manual) Lymphocytes % 26.0 Lymphocytes % 30 (Manual) Reactive Lymphocytes 1 H % (Manual) Monocytes % 4.6 Monocytes % (Manual) 2 Eosinophils % 0.7 Eosinophils % 3 (Manual) Basophils % 0.2 Nucleated Red Blood 0.0 Cells % Immature 0.030 Granulocytes # Neutrophils # 5.5 Neutrophils # 4.7 (Manual) Band Neutrophils # 0.5 Lymphocytes (Manual) 2.4 Lymphocytes # 2.1 Reactive Lymphocytes 0.0 # Monocytes # 0.4 Monocytes # (Manual) 0.1 L Eosinophils # 0.1 Basophils # 0.0 Nucleated Red Blood 0.0 Cells # Platelet Estimate DECREASED Polychromasia 1+ Sodium Level 149 H Potassium Level 3.9 Chloride Level 115 H Carbon Dioxide Level 31 Anion Gap 3 L Blood Urea Nitrogen 27 H Creatinine 1.53 H Est Glomerular 46 L Filtrat Rate mL/min Glucose Level 108 # Calcium Level 8.7 Magnesium Level 2.2 Bedside Glucose 118 Medications Medication Current Medications Miscellaneous Information 1 ea NOTE XX ; Start 01/18/19 at 23:30 Glucose (Glutose) 15 gm Q15M PRN PO DECREASED GLUCOSE; Start 01/18/19 at 23:30 Glucose (Glutose) 22.5 gm Q15M PRN PO DECREASED GLUCOSE; Start 01/18/19 at 23:30 Dextrose (D50w Syringe) 25 ml Q15M PRN IV DECREASED GLUCOSE; Start 01/18/19 at 23:30 Dextrose (D50w Syringe) 50 ml Q15M PRN IV DECREASED GLUCOSE; Start 01/18/19 at 23:30 Glucagon (Glucagen) 1 mg Q15M PRN IM DECREASED GLUCOSE; Start 01/18/19 at 23:30 Glucose (Glutose) 15 gm Q15M PRN BUCCAL DECREASED GLUCOSE; Start 01/18/19 at 23:30 Miscellaneous Information (Pending [facility] Order For Wound Care) This patient berg... PRN PRN XX WOUND CARE; Start 01/19/19 at 02:00 Acetaminophen (Tylenol Supp) 650 mg Q6H PRN [place] temp > 100.4F Last administered on 01/25/19 12:35; Admin Dose 650 MG; Start 01/19/19 at 09:00 Sodium Hypochlorite (Dakins Diluted (/40)) 1 applic BID TP Last administered on 02/01/19 20:52; Admin Dose 1 APPLIC; Start 01/19/19 at 21:00 Morphine Sulfate (morphine) 2 mg Q4H PRN IV SEVERE PAIN LEVEL 7-10 Last administered on 02/01/19 21:18; Admin Dose 2 MG; Start 01/21/19 at 08:30 Ascorbic Acid (Vitamin C) 500 mg BID GTB Last administered on 02/01/19 20:51; Admin Dose 500 MG; Start 01/23/19 at 21:00 Zinc Sulfate (Zinc Sulfate) 220 mg DAILY PEG Last administered on 02/01/19 09:13; Admin Dose 220 MG; Start 01/24/19 at 09:00 Acetylcysteine (Mucomyst) 2 ml Q6H RESP THERAPY NEB Last administered on 02/02/19 07:34; Admin Dose 2 ML; Start 01/28/19 at 20:00 Norepinephrine 250 ml @ 1.875 mls/ hr PER PROTOCOL IV Last administered on 01/28/19 21:39; Admin Dose 1.875 MLS/HR; Start 01/28/19 at 17:30 Vasopressin 60 unit/Dextrose 60 ml @ 1.2 mls/hr Q12H IV Last administered on 01/30/19 20:58; Admin Dose 1.2 MLS/HR; Start 01/28/19 at 18:00 Albuterol (Ventolin Hfa) 4 puff Q6H RESP THERAPY INH Last administered on 02/02/19 07:33; Admin Dose 4 PUFF; Start 01/30/19 at 14:00 Ipratropium [place] (Atrovent Hfa) 4 puff Q6H RESP THERAPY INH Last administered on 02/02/19 07:33; Admin Dose 4 PUFF; Start 01/30/19 at 14:00 Lansoprazole (Lansoprazole Oral Susp) 30 mg BID@0600,1800 GTB Last administered on 02/02/19 05:53; Admin Dose 30 MG; Start 01/31/19 at 06:00 Insulin Aspart (Novolog Insulin Pen) NOVOLOG *MODERATE* ALGORI... Q6 SC Last administered on 02/02/19 00:18; Admin Dose 2 UNIT; Start 01/31/19 at 13:00 Insulin Glargine (Lantus) 13 units DAILY@2000 SC Last administered on 02/01/19 20:53; Admin Dose 13 UNITS; Start 01/31/19 at 20:00 Quetiapine Fumarate (Seroquel) 100 mg HS GTB Last administered on 02/01/19 20:51; Admin Dose 100 MG; Start 02/01/19 at 21:00 BOOGIE SAPP Feb 02, 2019 09:47
--- NOTE | 2019-02-02 10:35 | PN ---
Date/Time of Note Date/Time of Note DATE: 02/02/19 TIME: 10:33 Subjective Remains intubated. Eyes are open. Does not follow any commands Objective Vitals Vital Signs Date Temp Pulse Resp B/P (MAP) Pulse Ox O2 O2 Flow FiO2 Time Delivery Rate 02/02/19 98.6 09:05 02/02/19 104 23 98/62 (74) 97 Mechanical 09:00 Ventilator 02/02/19 30 05:32 Intake and Output 02/01/19 02/01/19 02/02/19 1515:00 23:00 07:00 IntakeIntake Total 1100 ml 780 ml 50 ml OutputOutput Total 1200 ml 1250 ml 700 ml BalanceBalance -100 ml -470 ml -650 ml Bilateral rhonchi Regular rate and rhythm Soft normoactive bowel sounds Mild edema Results Result Diagram: 02/02/19 0430 02/02/19 0430 Medications Medications Current Medications Miscellaneous Information 1 ea NOTE XX ; Start 01/18/19 at 23:30 Glucose (Glutose) 15 gm Q15M PRN PO DECREASED GLUCOSE; Start 01/18/19 at 23:30 Glucose (Glutose) 22.5 gm Q15M PRN PO DECREASED GLUCOSE; Start 01/18/19 at 23:30 Dextrose (D50w Syringe) 25 ml Q15M PRN IV DECREASED GLUCOSE; Start 01/18/19 at 23:30 Dextrose (D50w Syringe) 50 ml Q15M PRN IV DECREASED GLUCOSE; Start 01/18/19 at 23:30 Glucagon (Glucagen) 1 mg Q15M PRN IM DECREASED GLUCOSE; Start 01/18/19 at 23:30 Glucose (Glutose) 15 gm Q15M PRN BUCCAL DECREASED GLUCOSE; Start 01/18/19 at 23:30 [facility] This patient berg... PRN PRN XX WOUND CARE; Start 01/19/19 at 02:00 Acetaminophen (Tylenol Supp) 650 mg Q6H PRN [place] temp > 100.4F Last administered on 01/25/19at 12:35; Admin Dose 650 MG; Start 01/19/19 at 09:00 Sodium Hypochlorite (Dakins Diluted (40)) 1 applic BID TP Last administered on 02/01/19at 20:52; Admin Dose 1 APPLIC; Start 01/19/19 at 21:00 Morphine Sulfate (morphine) 2 mg Q4H PRN IV SEVERE PAIN LEVEL 7-10 Last administered on 02/01/19 21:18; Admin Dose 2 MG; Start 01/21/19 at 08:30 Ascorbic Acid (Vitamin C) 500 mg BID GTB Last administered on 02/01/19 20:51; Admin Dose 500 MG; Start 01/23/19 at 21:00 Zinc Sulfate (Zinc Sulfate) 220 mg DAILY PEG Last administered on 02/01/19 09:13; Admin Dose 220 MG; Start 01/24/19 at 09:00 Acetylcysteine (Mucomyst) 2 ml Q6H RESP THERAPY NEB Last administered on 02/02/19 07:34; Admin Dose 2 ML; Start 01/28/19 at 20:00 Norepinephrine 250 ml @ 1.875 mls/ hr PER PROTOCOL IV Last administered on 01/28/19 21:39; Admin Dose 1.875 MLS/HR; Start 01/28/19 at 17:30 Vasopressin 60 unit/Dextrose 60 ml @ 1.2 mls/hr Q12H IV Last administered on 01/30/19 20:58; Admin Dose 1.2 MLS/HR; Start 01/28/19 at 18:00 Albuterol (Ventolin Hfa) 4 puff Q6H RESP THERAPY INH Last administered on 02/02/19 07:33; Admin Dose 4 PUFF; Start 01/30/19 at 14:00 Ipratropium [place] (Atrovent Hfa) 4 puff Q6H RESP THERAPY INH Last administered on 02/02/19 07:33; Admin Dose 4 PUFF; Start 01/30/19 at 14:00 Lansoprazole (Lansoprazole Oral Susp) 30 mg BID@0600,1800 GTB Last administered on 02/02/19 05:53; Admin Dose 30 MG; Start 01/31/19 at 06:00 Insulin Aspart (Novolog Insulin Pen) NOVOLOG *MODERATE* ALGORI... Q6 SC Last administered on 02/02/19 00:18; Admin Dose 2 UNIT; Start 01/31/19 at 13:00 Insulin Glargine (Lantus) 13 units DAILY@2000 SC Last administered on 7/14/19at 20:53; Admin Dose 13 UNITS; Start 01/31/19 at 20:00 Quetiapine Fumarate (Seroquel) 100 mg HS GTB Last administered on 02/01/19at 20:51; Admin Dose 100 MG; Start 02/01/19 at 21:00 VTE Prophylaxis Risk score (from Ns)>0 risk: 12 SCD applied (from [facility]): Yes Lines/Catheters IV Catheter Type: Saline Lock Jenkins in Place: Yes Cont'd jenkins catheter reason: pres ulcer contaminated by urine Assessment/Plan Assessment/Plan 63-year-old male with recurrent respiratory failure Aspiration pneumonia Mucous plug, resolved 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
--- NOTE | 2019-02-02 11:44 | CONS ---
Assessment/Plan Assessment/Plan Assessment/Plan (Daily) 1. acute hyperkalemia- now resolved - pt is now hypokalemia 2. acute On chronic renal failure due to ATN from septic shock- Improving 3. acute hypoxemic respiratory failure intubated on ventilator 2/2 Health care associated PNA - s/p extubation on 01/24/19 - then pt again intubated for respiratory failure 4. Septic shock on pressors 5. acute hypernatremia- Improving 6. H/O quadriplegia 7. H/o CAD s/p CABG 8. H/O HTN 9. H/o sacral decubitus s/p debridement before 10. Longtermnursing resident Plan: BUN/cr 27/1.53, Na 149, K 3.9, - changed IVF to D5W at 80 cc/hr , Monitor K and replace as needed IV abx zosyn for PNA coverage, Renally dose all abx and monitor electorlytes ,vancomycin stopped today, pt is on two pressors, levophed and Vasopressin Full code as for now, palliative care has been consulted on the case will follow up Consultation Date/Type/Reason Admit Date/Time Jan 18, 2019 at 04:19 Initial Consult Date Type of Consult NEPHROLOGY Requesting Provider: FELICITAS LAZARO MD Date/Time of Note DATE: 02/02/19 TIME: 11:44 Exam/Review of Systems Exam Vitals Vital Signs Date Temp Pulse Resp B/P (MAP) Pulse Ox O2 O2 Flow FiO2 Time Delivery Rate 02/02/19 98.6 09:05 02/02/19 104 23 98/62 (74) 97 Mechanical 09:00 Ventilator 02/02/19 30 05:32 Intake and Output 02/01/19 02/01/19 02/02/19 1515:00 23:00 07:00 IntakeIntake Total 1100 ml 780 ml 50 ml OutputOutput Total 1200 ml 1250 ml 700 ml BalanceBalance -100 ml -470 ml -650 ml Results Result Diagram: 02/02/19 04302/02/19 0430 Results 24hrs Laboratory Tests Test 02/01/19 12:06 02/01/19 18:28 02/01/19 20:50 02/02/19 00:17 Bedside Glucose 159 129 207 143 Test 02/02/19 04:30 02/02/19 05:12 White Blood Count 8.1 Red Blood Count 2.60 L Hemoglobin 7.7 L Hematocrit 25.1 L Mean Corpuscular 96.5 Volume Mean Corpuscular 29.6 Hemoglobin Mean Corpuscular 30.7 L Hemoglobin Concent Red Cell 15.8 H Distribution Width Platelet Count 120 L Mean Platelet Volume 12.4 H Immature 0.400 Granulocytes % Neutrophils % 68.1 Segmented 57 Neutrophils % (Manual) Band Neutrophils % 7 H (Manual) Lymphocytes % 26.0 Lymphocytes % 30 (Manual) Reactive Lymphocytes 1 H % (Manual) Monocytes % 4.6 Monocytes % (Manual) 2 Eosinophils % 0.7 Eosinophils % 3 (Manual) Basophils % 0.2 Nucleated Red Blood 0.0 Cells % Immature 0.030 Granulocytes # Neutrophils # 5.5 Neutrophils # 4.7 (Manual) Band Neutrophils # 0.5 Lymphocytes (Manual) 2.4 Lymphocytes # 2.1 Reactive Lymphocytes 0.0 # Monocytes # 0.4 Monocytes # (Manual) 0.1 L Eosinophils # 0.1 Basophils # 0.0 Nucleated Red Blood 0.0 Cells # Platelet Estimate DECREASED Polychromasia 1+ Sodium Level 149 H Potassium Level 3.9 Chloride Level 115 H Carbon Dioxide Level 31 Anion Gap 3 L Blood Urea Nitrogen 27 H Creatinine 1.53 H Est Glomerular 46 L Filtrat Rate mL/min Glucose Level 108 # Calcium Level 8.7 Magnesium Level 2.2 Bedside Glucose 118 Medications Medication Current Medications Miscellaneous Information 1 ea NOTE XX ; Start 01/18/19 at 23:30 Glucose (Glutose) 15 gm Q15M PRN PO DECREASED GLUCOSE; Start 01/18/19 at 23:30 Glucose (Glutose) 22.5 gm Q15M PRN PO DECREASED GLUCOSE; Start 01/18/19 at 23:30 Dextrose (D50w Syringe) 25 ml Q15M PRN IV DECREASED GLUCOSE; Start 01/18/19 at 23:30 Dextrose (D50w Syringe) 50 ml Q15M PRN IV DECREASED GLUCOSE; Start 01/18/19 at 23:30 Glucagon (Glucagen) 1 mg Q15M PRN IM DECREASED GLUCOSE; Start 01/18/19 at 23:30 Glucose (Glutose) 15 gm Q15M PRN BUCCAL DECREASED GLUCOSE; Start 01/18/19 at 23:30 Miscellaneous Information (Pending [facility] Order For Wound Care) This patient berg... PRN PRN XX WOUND CARE; Start 7/1/19 at 02:00 Acetaminophen (Tylenol Supp) [address] temp > 100.4F Last administered on 01/25/19 12:35; Admin Dose 650 MG; Start 01/19/19 at 09:00 Sodium Hypochlorite (Dakins Diluted ()) 1 applic BID TP Last administered on 02/01/19 20:52; Admin Dose 1 APPLIC; Start 01/19/19 at 21:00 Morphine Sulfate (morphine) 2 mg Q4H PRN IV SEVERE PAIN LEVEL 7-10 Last administered on 02/01/19 21:18; Admin Dose 2 MG; Start 01/21/19 at 08:30 Ascorbic Acid (Vitamin C) 500 mg BID GTB Last administered on 02/01/19 20:51; Admin Dose 500 MG; Start 01/23/19 at 21:00 Zinc Sulfate (Zinc Sulfate) 220 mg DAILY PEG Last administered on 02/01/19 09:13; Admin Dose 220 MG; Start 01/24/19 at 09:00 Acetylcysteine (Mucomyst) 2 ml Q6H RESP THERAPY NEB Last administered on 02/02/19 07:34; Admin Dose 2 ML; Start 01/28/19 at 20:00 Norepinephrine 250 ml @ 1.875 mls/ hr PER PROTOCOL IV Last administered on 21:39; Admin Dose 1.875 MLS/HR; Start 01/28/19 at 17:30 Vasopressin 60 unit/Dextrose 60 ml @ 1.2 mls/hr Q12H IV Last administered on 01/30/19 20:58; Admin Dose 1.2 MLS/HR; Start 01/28/19 at 18:00 Albuterol (Ventolin Hfa) 4 puff Q6H RESP THERAPY INH Last administered on 02/02/19 07:33; Admin Dose 4 PUFF; Start 01/30/19 at 14:00 Ipratropium [place] (Atrovent Hfa) 4 puff Q6H RESP THERAPY INH Last administered on 02/02/19 07:33; Admin Dose 4 PUFF; Start 01/30/19 at 14:00 Lansoprazole (Lansoprazole Oral Susp) 30 mg BID@0600,1800 GTB Last administered on 02/02/19 05:53; Admin Dose 30 MG; Start 01/31/19 at 06:00 Insulin Aspart (Novolog Insulin Pen) NOVOLOG *MODERATE* ALGORI... Q6 SC Last administered on 02/02/19 00:18; Admin Dose 2 UNIT; Start 01/31/19 at 13:00 Insulin Glargine (Lantus) 13 units DAILY@2000 SC Last administered on 02/01/19 20:53; Admin Dose 13 UNITS; Start 01/31/19 at 20:00 Quetiapine Fumarate (Seroquel) 100 mg HS GTB Last administered on 02/01/19at 20: 51; Admin Dose 100 MG; Start 02/01/19 at 21:00 TONIO SOOD MD Feb 02, 2019 11:44
--- NOTE | 2019-02-02 18:29 | PN ---
Date/Time of Note Date/Time of Note DATE: 02/02/19 TIME: 18:28 Assessment/Plan Lines/Catheters IV Catheter Type (from Nrsg): Saline Lock Garcia in Place (from Nrsg): Yes Assessment/Plan Assessment/Plan Resp Failure Plan for tracheostomy tomorrow Subjective 24 Hr Interval Summary Constitutional: improved Pain Control: mild Exam/Review of Systems Vital Signs Vitals Vital Signs Date Temp Pulse Resp B/P (MAP) Pulse Ox O2 O2 Flow FiO2 Time Delivery Rate 02/02/19 98 22 98 30 17:01 02/02/19 108/70 Mechanical 17:00 (83) Ventilator 02/02/19 99.3 16:00 Intake and Output 02/01/19 02/01/19 02/02/19 1515:00 23:00 07:00 IntakeIntake Total 1100 ml 780 ml 50 ml OutputOutput Total 1200 ml 1250 ml 700 ml BalanceBalance -100 ml -470 ml -650 ml Exam ENMT: nl external ears & nose, nl lips & teeth, nl nasal mucosa & septum, mucosa pink and moist Neck: supple, non-tender Respiratory: clear to auscultation, normal air movement Cardiovascular: regular rate and rhythm, nl pulses Gastrointestinal: soft, nl liver, spleen, non-tender Musculoskeletal: nl extremities to inspection, nl gait and stance Results Result Diagram: 02/02/1942902/02/19429 LEAH GALE MD Feb 02, 2019 18:29
--- NOTE | 2019-02-02 19:35 | CONS ---
Assessment/Plan Assessment/Plan Hospital Course (Demo Recall) Hypoxic respiratory failure Left lung collapse Hypotension, off IV pressor Sepsis Acute kidney injury Hypernatremia-improved CAD with history of CABG Preserved left ventricular ejection fraction Remains off IV pressors Vent management as per pulmonary Fluid management and diuretics as per nephrology Consultation Date/Type/Reason Admit Date/Time Jan 18, 2019 at 04:19 Initial Consult Date 01/21/19 Type of Consult Cardiology Requesting Provider: FELICITAS LAZARO MD Date/Time of Note DATE: 02/02/19 TIME: 19:34 24 HR Interval Summary Free Text/Dictation no new cv issues at current time Exam/Review of Systems Vital Signs Vitals Vital Signs Date Temp Pulse Resp B/P (MAP) Pulse Ox O2 O2 Flow FiO2 Time Delivery Rate 02/02/19 98 22 98 30 17:01 02/02/19 108/70 Mechanical 17:00 (83) Ventilator 02/02/19 99.3 16:00 Intake and Output 02/01/19 02/01/19 02/02/19 1515:00 23:00 07:00 IntakeIntake Total 1100 ml 780 ml 50 ml OutputOutput Total 1200 ml 1250 ml 700 ml BalanceBalance -100 ml -470 ml -650 ml Exam Exam nad, looks at me when name called ENMT: intubated Respiratory: other Cardiovascular: regular rate and rhythm Gastrointestinal: soft, non-tender, bowel sounds Extremities: edema Labs Result Diagram: 02/02/19 0430 02/02/19 0430 Results 24hrs Laboratory Tests Test 02/01/19 20:50 02/02/19 00:17 02/02/19 04:30 02/02/19 05:12 Bedside Glucose 207 143 118 White Blood Count 8.1 Red Blood Count 2.60 L Hemoglobin 7.7 L Hematocrit 25.1 L Mean Corpuscular 96.5 Volume Mean Corpuscular 29.6 Hemoglobin Mean Corpuscular 30.7 L Hemoglobin Concent Red Cell 15.8 H Distribution Width Platelet Count 120 L Mean Platelet Volume 12.4 H Immature 0.400 Granulocytes % Neutrophils % 68.1 Segmented 57 Neutrophils % (Manual) Band Neutrophils % 7 H (Manual) Lymphocytes % 26.0 Lymphocytes % 30 (Manual) Reactive Lymphocytes 1 H % (Manual) Monocytes % 4.6 Monocytes % (Manual) 2 Eosinophils % 0.7 Eosinophils % 3 (Manual) Basophils % 0.2 Nucleated Red Blood 0.0 Cells % Immature 0.030 Granulocytes # Neutrophils # 5.5 Neutrophils # 4.7 (Manual) Band Neutrophils # 0.5 Lymphocytes (Manual) 2.4 Lymphocytes # 2.1 Reactive Lymphocytes 0.0 # Monocytes # 0.4 Monocytes # (Manual) 0.1 L Eosinophils # 0.1 Basophils # 0.0 Nucleated Red Blood 0.0 Cells # Platelet Estimate DECREASED Polychromasia 1+ Sodium Level 149 H Potassium Level 3.9 Chloride Level 115 H Carbon Dioxide Level 31 Anion Gap 3 L Blood Urea Nitrogen 27 H Creatinine 1.53 H Est Glomerular 46 L Filtrat Rate mL/min Glucose Level 108 # Calcium Level 8.7 Magnesium Level 2.2 Test 02/02/19 14:17 02/02/19 17:54 Bedside Glucose 105 103 Medications Medications Current Medications Miscellaneous Information 1 ea NOTE XX ; Start 01/18/19 at 23:30 Glucose (Glutose) 15 gm Q15M PRN PO DECREASED GLUCOSE; Start 01/18/19 at 23:30 Glucose (Glutose) 22.5 gm Q15M PRN PO DECREASED GLUCOSE; Start 01/18/19 at 23:30 Dextrose (D50w Syringe) 25 ml Q15M PRN IV DECREASED GLUCOSE; Start 01/18/19 at 23:30 Dextrose (D50w Syringe) 50 ml Q15M PRN IV DECREASED GLUCOSE; Start 01/18/19 at 23:30 Glucagon (Glucagen) 1 mg Q15M PRN IM DECREASED GLUCOSE; Start 01/18/19 at 23:30 Glucose (Glutose) 15 gm Q15M PRN BUCCAL DECREASED GLUCOSE; Start 01/18/19 at 23:30 Miscellaneous Information [facility] This patient berg... PRN PRN XX WOUND CARE; Start 01/19/19 at 02:00 Acetaminophen (Tylenol Supp) 650 mg Q6H PRN [place] temp > 100.4F Last administered on 01/25/19at 12:35; Admin Dose 650 MG; Start 01/19/19 at 09:00 Sodium Hypochlorite (Dakins Diluted ()) 1 applic BID TP Last administered on 02/01/19at 20:52; Admin Dose 1 APPLIC; Start 01/19/19 at 21:00 Morphine Sulfate (morphine) 2 mg Q4H PRN IV SEVERE PAIN LEVEL 7-10 Last administered on 02/01/19 21:18; Admin Dose 2 MG; Start 01/21/19 at 08:30 Ascorbic Acid (Vitamin C) 500 mg BID GTB Last administered on 02/01/19 20:51; Admin Dose 500 MG; Start 01/23/19 at 21:00 Zinc Sulfate (Zinc Sulfate) 220 mg DAILY PEG Last administered on 02/01/19 09:13; Admin Dose 220 MG; Start 01/24/19 at 09:00 Acetylcysteine (Mucomyst) 2 ml Q6H RESP THERAPY NEB Last administered on 02/02/19 12:46; Admin Dose 2 ML; Start 01/28/19 at 20:00 Norepinephrine 250 ml @ 1.875 mls/ hr PER PROTOCOL IV Last administered on 01/28/19 21:39; Admin Dose 1.875 MLS/HR; Start 01/28/19 at 17:30 Vasopressin 60 unit/Dextrose 60 ml @ 1.2 mls/hr Q12H IV Last administered on 01/30/19 20:58; Admin Dose 1.2 MLS/HR; Start 01/28/19 at 18:00 Albuterol (Ventolin Hfa) 4 puff Q6H RESP THERAPY INH Last administered on 02/02/19 12:46; Admin Dose 4 PUFF; Start 01/30/19 at 14:00 Ipratropium [place] (Atrovent Hfa) 4 puff Q6H RESP THERAPY INH Last administered on 02/02/19 12:46; Admin Dose 4 PUFF; Start 01/30/19 at 14:00 Lansoprazole (Lansoprazole Oral Susp) 30 mg BID@0600,1800 GTB Last administered on 02/02/19 05:53; Admin Dose 30 MG; Start 01/31/19 at 06:00 Insulin Aspart (Novolog Insulin Pen) NOVOLOG *MODERATE* ALGORI... Q6 SC Last administered on 02/02/19 00:18; Admin Dose 2 UNIT; Start 01/31/19 at 13:00 Insulin Glargine (Lantus) 13 units DAILY@2000 SC Last administered on 02/01/19 20:53; Admin Dose 13 UNITS; Start 01/31/19 at 20:00 Quetiapine Fumarate (Seroquel) 100 mg HS GTB Last administered on 02/01/19at 20:51; Admin Dose 100 MG; Start 02/01/19 at 21:00 Randy Leone DO Feb 02, 2019 19:35
[2019-02-02] MEDS: INSULIN GLARGINE [LANTus] (100 UNITS/ML) SYG SC SCH (21:32)
[2019-02-02] MEDS: QUETIAPINE 100 MG TAB GTB SCH (21:33)
[2019-02-03] VITALS (36 sets, daily range): BP systolic 93–122; BP diastolic 54–76; PULSE 96–112; RESP 16–29
[2019-02-03] MEDS: IPRATROPIUM (HFA) 12.9 GM INHALER INH SCH ×4 (01:11→19:48)
[2019-02-03] MEDS: ALBUTEROL HFA 8 GM INHALER INH SCH ×4 (01:11→19:48)
[2019-02-03] MEDS: ACETYLCYSTEINE 20% 4 ML VIAL NEB SCH ×4 (01:11→19:48)
[2019-02-03] MEDS: INSULIN ASPART [NOVOLOG] 3 ML PEN SC SCH ×4 (06:00→18:26)
[2019-02-03] MEDS: LANSOPRAZOLE ORAL SUSP 3 MG/ML (POSYG) GTB SCH ×2 (06:10→18:50)
[2019-02-03] MEDS: DEXTROSE 5% 1,000 ML IV SCH ×2 (08:28→23:53)
[2019-02-03] MEDS: ASCORBIC ACID 500 MG TAB GTB SCH ×2 (08:39→20:52)
[2019-02-03] MEDS: ZINC SULFATE 220 MG CAP PEG SCH (08:40)
[2019-02-03] MEDS: DAKINS 0.0125%(1/40) 473 ML SOLUTION TP SCH ×2 (09:00→21:00)
[2019-02-03] MEDS: VASOPRESSIN 60 UNIT in DEXTROSE 5% 60 ML IV SCH ×2 (09:00→17:43)
--- NOTE | 2019-02-03 09:51 | CONS ---
Assessment/Plan Assessment/Plan Assessment/Plan (Daily) Ventilator setting; noted. Assessment and recommendations; 1. Patient with history of quadriplegia admitted for respiratory failure due to complete left lung atelectasis from left mainstem mucous plugging with complete interval resolution after intubation. 2. Some element of pneumonia involving left lung, patient off antibiotics now. 3. Mild chronic renal insufficiency. 4. Anemia and thrombocytopenia. 5. Diabetes. 6. Encephalopathy with interval improvement. 7. Patient has failed multiple weaning attempts from ventilator. 8. Chronic dysphagia, status post G-tube placement in the past. Continue current supportive care. Patient scheduled for tracheostomy today. Consultation Date/Type/Reason Admit Date/Time Jan 18, 2019 at 04:19 Initial Consult Date 01/21/19 Type of Consult Pulmonary/critical care Patient developed respiratory failure last evening requiring intubation and then transferred to ICU. No CPR was done. Positive time I saw the patient, patient is orally intubated and despite being awake but is noncommunicative which apparently is his baseline mental status. Patient did not appear to be in any distress. General exam; elderly male, orally intubated. Awake. Currently in no distress. Noncommunicative. Requesting Provider: FELICITAS LAZARO MD Date/Time of Note DATE: 02/03/19 TIME: 09:45 24 HR Interval Summary Free Text/Dictation Patient's condition is critical but stable. Has remained hemodynamically stable. General exam; elderly male, orally intubated, awake and appropriately responsive. Currently in no distress. Exam/Review of Systems Exam Vitals Vital Signs Date Temp Pulse Resp B/P (MAP) Pulse Ox O2 O2 Flow FiO2 Time Delivery Rate 02/03/19 107 08:00 02/03/19 27 112/71 92 06:00 (85) 02/03/19 30 05:40 02/03/19 99.0 04:00 02/03/19 Mechanical 03:00 Ventilator Intake and Output 02/02/19 02/02/19 02/03/19 1515:00 23:00 07:00 IntakeIntake Total 0 ml 180 ml 60 ml OutputOutput Total 610 ml 725 ml 340 ml BalanceBalance -610 ml -545 ml -280 ml Exam H EENT exam; supple neck, no JVD. No lymphadenopathy. Midline trachea. No thyromegaly. Orally intubated. No neck masses. Chest exam; clear to auscultation. S1-S2 audible, no murmurs. Regular rhythm. Abdomen exam; soft, no organomegaly. G-tube in place. Bowel sounds are audible. Extremity exam; no peripheral edema. F[employer] exam; patient is awake responsive appropriately and exhibiting minimal bilateral hand movements. Results Result Diagram: 02/03/19 0430 02/03/19 0430 Results 24hrs Laboratory Tests Test 02/02/19 14:17 02/02/19 17:54 02/02/19 21:21 02/02/19 23:39 Bedside Glucose 105 103 147 137 Test 02/03/19 04:30 02/03/19 06:01 White Blood Count 8.9 Red Blood Count 2.58 L Hemoglobin 7.7 L Hematocrit 25.1 L Mean Corpuscular 97.3 Volume Mean Corpuscular 29.8 Hemoglobin Mean Corpuscular 30.7 L Hemoglobin Concent Red Cell 16.0 H Distribution Width Platelet Count 163 # Mean Platelet Volume 12.3 H Immature 0.500 H Granulocytes % Neutrophils % 66.3 Lymphocytes % 27.0 Monocytes % 4.9 Eosinophils % 1.1 Basophils % 0.2 Nucleated Red Blood 0.0 Cells % Immature 0.040 H Granulocytes # Neutrophils # 5.9 Lymphocytes # 2.4 Monocytes # 0.4 Eosinophils # 0.1 Basophils # 0.0 Nucleated Red Blood 0.0 Cells # Sodium Level 154 H Potassium Level 4.0 Chloride Level 118 H Carbon Dioxide Level 31 Anion Gap 5 Blood Urea Nitrogen 29 H Creatinine 1.41 H Est Glomerular 51 L Filtrat Rate mL/min Glucose Level 96 Calcium Level 9.0 Magnesium Level 2.2 Bedside Glucose 90 Medications Medication Current Medications Miscellaneous Information 1 ea NOTE XX ; Start 01/18/19 at 23:30 Glucose (Glutose) 15 gm Q15M PRN PO DECREASED GLUCOSE; Start 01/18/19 at 23:30 Glucose (Glutose) 22.5 gm Q15M PRN PO DECREASED GLUCOSE; Start 01/18/19 at 23:30 Dextrose (D50w Syringe) 25 ml Q15M PRN IV DECREASED GLUCOSE; Start 01/18/19 at 23:30 Dextrose (D50w Syringe) 50 ml Q15M PRN IV DECREASED GLUCOSE; Start 01/18/19 at 23:30 Glucagon (Glucagen) 1 mg Q15M PRN IM DECREASED GLUCOSE; Start 01/18/19 at 23:30 Glucose (Glutose) 15 gm Q15M PRN BUCCAL DECREASED GLUCOSE; Start 01/18/19 at 23:30 Miscellaneous Information (Pending [facility] Order For Wound Care) This patient berg... PRN PRN XX WOUND CARE; Start 01/19/19 at 02:00 Acetaminophen (Tylenol Supp) 650 mg Q6H PRN [place] temp > 100.4F Last administered on 01/25/19 12:35; Admin Dose 650 MG; Start 01/19/19 at 09:00 Sodium Hypochlorite (Dakins Diluted ()) 1 applic BID TP Last administered on 02/01/19 20:52; Admin Dose 1 APPLIC; Start 01/19/19 at 21:00 Morphine Sulfate (morphine) 2 mg Q4H PRN IV SEVERE PAIN LEVEL 7-10 Last administered on 02/01/19 21:18; Admin Dose 2 MG; Start 01/21/19 at 08:30 Ascorbic Acid (Vitamin C) 500 mg BID GTB Last administered on 02/02/19 21:33; Admin Dose 500 MG; Start 01/23/19 at 21:00 Zinc Sulfate (Zinc Sulfate) 220 mg DAILY PEG Last administered on 02/01/19 09:13; Admin Dose 220 MG; Start 01/24/19 at 09:00 Acetylcysteine (Mucomyst) 2 ml Q6H RESP THERAPY NEB Last administered on 02/03/19 08:48; Admin Dose 2 ML; Start 01/28/19 at 20:00 Norepinephrine 250 ml @ 1.875 mls/ hr PER PROTOCOL IV Last administered on 01/28/19 21:39; Admin Dose 1.875 MLS/HR; Start 01/28/19 at 17:30 Vasopressin 60 unit/Dextrose 60 ml @ 1.2 mls/hr Q12H IV Last administered on 01/30/19 20:58; Admin Dose 1.2 MLS/HR; Start 01/28/19 at 18:00 Albuterol (Ventolin Hfa) 4 puff Q6H RESP THERAPY INH Last administered on 02/03/19 08:32; Admin Dose 4 PUFF; Start 01/30/19 at 14:00 Ipratropium [place] (Atrovent Hfa) 4 puff Q6H RESP THERAPY INH Last administered on 02/03/19 08:32; Admin Dose 4 PUFF; Start 01/30/19 at 14:00 Lansoprazole (Lansoprazole Oral Susp) 30 mg BID@0600,1800 GTB Last administered on 02/03/19 06:10; Admin Dose 30 MG; Start 01/31/19 at 06:00 Insulin Aspart (Novolog Insulin Pen) NOVOLOG *MODERATE* ALGORI... Q6 SC Last administered on 02/02/19 00:18; Admin Dose 2 UNIT; Start 01/31/19 at 13:00 Insulin Glargine (Lantus) 13 units DAILY@2000 SC Last administered on 02/02/19 21:32; Admin Dose 13 UNITS; Start 01/31/19 at 20:00 Quetiapine Fumarate (Seroquel) 100 mg HS GTB Last administered on 02/02/19 21:33; Admin Dose 100 MG; Start 02/01/19 at 21:00 Dextrose 1,000 ml @ 75 mls/hr [id number] IV Last administered on 02/03/19 08:28; Admin Dose 75 MLS/HR; Start 02/03/19 at 06:30 BOOGIE SAPP Feb 03, 2019 09:51
--- NOTE | 2019-02-03 10:55 | PREAC ---
Date/Time of Note Date/Time of Note DATE: 02/03/19 TIME: 10:48 Anesthesia Eval and Record Evaluation Time Pre-Procedure Interview DATE: 02/03/19 TIME: 10:48 Age 63 Sex male NPO: 8 hrs Preoperative diagnosis Respiratory Failure Planned procedure Tracheostomy Past Medical History Past Medical History: Includes Cardio: HTN, Dyslipidemia, CABG Endo: Diabetes Pulm: Other (Intubated, Rsspiratory Failure) Neuro: Other (Enchephalopathy) Renal: CKD Heme: Anemia Psych: Depression, Other (D) Surgery & Anesthesia Issues No known issue Meds Anticoagulation: No Beta Yanna within 24 hr: No Reason Beta Yanna not given: Pt. not on B-Yanna Active Scripts Quetiapine Fumarate* (Seroquel*) 100 Mg Tablet, 100 MG PO HS, #30 TAB Prov:FELICITAS LAZARO MD 01/27/19 Reported Medications Ccsmfauhkmzs-Wylo-Qrevhjrf,Iso (ZOSYN 3.375 GM GALAXY BAG) 3.375 Gm/50 Ml Froz.piggy, 3.375 GM IVPB Q6, EA 01/18/19 Saccharomyces Boulardii* (Florastor*) 250 Mg Cap, 250 MG PO BID, CAP 01/18/19 Insulin Glargine* (Lantus*) 100 Unit/Ml Soln, 6 UNIT SC QHS, #1 VIAL 01/18/19 Ipratropium-Albuterol (Ipratropium-Albuterol) 0.5-3 Mg/3 Ml Ampul.neb, 3 ML INHALATION Q6 PRN for WHEEZING AND SOB, #30 VIAL 01/18/19 Lactulose* (Lactulose*) 20 Gm/30 Ml Solution, 20 GM PO BID, ML 01/18/19 Lamotrigine* (Lamotrigine*) 25 Mg Tablet, 25 MG PO BID, TAB 01/18/19 Escitalopram Oxalate* (Lexapro*) 10 Mg Tablet, 10 MG PO DAILY, #30 TAB 01/18/19 Magnesium Oxide* (Mag-Oxide*) 400 Mg Tablet, 400 MG PO TID, TAB 01/18/19 Multivitamin with Minerals (Daily Vitamin Formula-Minerals) 1 Each Tablet, 1 EACH PO DAILY, TAB 01/18/19 Tamsulosin Hcl* (Flomax*) 0.4 Mg Cap.er.24h, 0.4 MG PO HS, CAP 01/18/19 Vancomycin HCl (Vancomycin HCl) 1 Gm Vial, 1 GM IV DAILY PRN for FEVER, VIAL 01/18/19 Ascorbic Acid* (Vitamin C*) 500 Mg Capsule.sa, 500 MG PO DAILY, CAP 01/18/19 Levalbuterol Hcl* (Levalbuterol Hcl*) 0.63 Mg/3 Ml Vial.neb, 0.63 MG INHALATION Q6H PRN for WHEEZING AND SOB, VIAL 01/18/19 Sodium Phosphate,[place]field-Dibasic (Enema Ready To Use) 133 Ml Enema, 133 ML RC EVERY 3 DAYS PRN for CONSTIPATION, ENEMA 01/18/19 Calcium Carbonate* (Calcium Carbonate*) 600 MG Ca Tab, 600 MG PO BID, TAB 01/18/19 Ceftriaxone Sod* (Rocephin* 1GM/50ML (PMX)) 1 Gm/50 Ml Iv.soln., 1 GM IVPB QHS, EA 01/18/19 Divalproex Sodium* (Divalproex Sodium*) 250 Mg Tablet.dr, 750 MG PO BID, #90 TAB 01/18/19 Ferrous Sulfate* (Ferrous Sulfate*) 325 Mg Tabec, 325 MG PO DAILY, TAB 01/18/19 Magnesium Hydroxide* (Milk Of Magnesia*) 400 Mg/5 Ml Oral.susp, 30 ML PO DAILY PRN for CONSTIPATION, ML 01/18/19 Atorvastatin* (Atorvastatin*) 40 Mg Tablet, 40 MG PO QHS, #30 TAB 01/18/19 Aspirin (Low Dose Aspirin) 81 Mg Tablet.dr, 81 MG PO DAILY, #30 TAB 01/18/19 Acetaminophen* (Acetaminophen*) 650 Mg Tablet, 650 MG PO Q6H PRN for ELEVATED TEMPERATURE, #30 TAB OVER 101 01/18/19 Discontinued Reported Medications Hydrocodone/Acetaminophen (Mobile 5-325 Tablet) 1 Each Tablet, 1 EACH PO Q4 PRN for PAIN 4-7, TAB 01/18/19 Hydrocodone/Acetaminophen (Mobile 5-325 Tablet) 1 Each Tablet, 1 EACH PO 30 MIN PRIOR TO W/C PRN for PAIN, TAB 01/18/19 Hydrocodone/Acetaminophen (Mobile 5-325 Tablet) 1 Each Tablet, 2 EACH PO Q4 PRN for PAIN 8-10, TAB 01/18/19 Amino Acids/Protein Hydrolys (Pro-Stat Awc Liquid) 30 Ml Liquid, 30 ML PO TID DILUTE WITH 30ML WATER 01/18/19 Bisacodyl (Dulcolax) 10 Mg Supp.rect, 10 MG RC PRN PRN for CONSTIPATION, SUPP.RECT 01/18/19 Arginine/Ascorbate Sod/Eric AC (Arginaid Powder) 1 Each Powd.pack, 1 EACH PO BID DISOLVE IN 120MLS WATER 01/18/19 Acetylcysteine* (Mucomyst*) 4 Ml Soln, 3 ML NEB TID, EA 01/18/19 Current Medications Miscellaneous Information 1 ea NOTE XX ; Start 01/18/19 at 23:30 Glucose (Glutose) 15 gm Q15M PRN PO DECREASED GLUCOSE; Start 01/18/19 at 23:30 Glucose (Glutose) 22.5 gm Q15M PRN PO DECREASED GLUCOSE; Start 01/18/19 at 23:30 Dextrose (D50w Syringe) 25 ml Q15M PRN IV DECREASED GLUCOSE; Start 01/18/19 at 23:30 Dextrose (D50w Syringe) 50 ml Q15M PRN IV DECREASED GLUCOSE; Start 01/18/19 at 23:30 Glucagon (Glucagen) 1 mg Q15M PRN IM DECREASED GLUCOSE; Start 01/18/19 at 23:30 Glucose (Glutose) 15 gm Q15M PRN BUCCAL DECREASED GLUCOSE; Start 01/18/19 at 23:30 Miscellaneous Information ([facility]) This patient berg... PRN PRN XX WOUND CARE; Start 01/19/19 at 02:00 Acetaminophen (Tylenol Supp) 650 mg Q6H PRN [place] temp > 100.4F Last administered on 01/25/19at 12:35; Admin Dose 650 MG; Start 01/19/19 at 09:00 Sodium Hypochlorite (Dakins Diluted (40)) 1 applic BID TP Last administered on 02/03/19at 09:00; Admin Dose 1 APPLIC; Start 01/19/19 at 21:00 Morphine Sulfate (morphine) 2 mg Q4H PRN IV SEVERE PAIN LEVEL 7-10 Last administered on 02/01/19at 21:18; Admin Dose 2 MG; Start 01/21/19 at 08:30 Ascorbic Acid (Vitamin C) 500 mg BID GTB Last administered on 02/02/19 21:33; Admin Dose 500 MG; Start 01/23/19 at 21:00 Zinc Sulfate (Zinc Sulfate) 220 mg DAILY PEG Last administered on 02/01/19 09:13; Admin Dose 220 MG; Start 01/24/19 at 09:00 Acetylcysteine (Mucomyst) 2 ml Q6H RESP THERAPY NEB Last administered on 02/03/19 08:48; Admin Dose 2 ML; Start 01/28/19 at 20:00 Norepinephrine 250 ml @ 1.875 mls/ hr PER PROTOCOL IV Last administered on 01/28/19 21:39; Admin Dose 1.875 MLS/HR; Start 01/28/19 at 17:30 Vasopressin 60 unit/Dextrose 60 ml @ 1.2 mls/hr Q12H IV Last administered on 01/30/19 20:58; Admin Dose 1.2 MLS/HR; Start 01/28/19 at 18:00 Albuterol (Ventolin Hfa) 4 puff Q6H RESP THERAPY INH Last administered on 02/03/19 08:32; Admin Dose 4 PUFF; Start 01/30/19 at 14:00 Ipratropium [place] (Atrovent Hfa) 4 puff Q6H RESP THERAPY INH Last administered on 02/03/19 08:32; Admin Dose 4 PUFF; Start 01/30/19 at 14:00 Lansoprazole (Lansoprazole Oral Susp) 30 mg BID@0600,1800 GTB Last administered on 02/03/19 06:10; Admin Dose 30 MG; Start 01/31/19 at 06:00 Insulin Aspart (Novolog Insulin Pen) NOVOLOG *MODERATE* ALGORI... Q6 SC Last administered on 02/02/19 00:18; Admin Dose 2 UNIT; Start 01/31/19 at 13:00 Insulin Glargine (Lantus) 13 units DAILY@2000 SC Last administered on 02/02/19 21:32; Admin Dose 13 UNITS; Start 01/31/19 at 20:00 Quetiapine Fumarate (Seroquel) 100 mg HS GTB Last administered on 02/02/19 21:33; Admin Dose 100 MG; Start 02/01/19 at 21:00 Dextrose 1,000 ml @ 75 mls/hr [id number] IV Last administered on 02/03/19at 08:28; Admin Dose 75 MLS/HR; Start 02/03/19 at 06:30 Meds reviewed: Yes Allergies Coded Allergies: Sulfa (Sulfonamide Antibiotics) (Verified Allergy, Unknown, 01/18/19) Allergies Reviewed: Yes Labs/Studies Labs Reviewed: Reviewed by anesthesiologist Result Diagram: 02/03/19 0430 02/03/19 0430 Laboratory Tests 02/03/19 04:30 test: N/A Studies: ECG (RBBB, Hx of A-Flutter), CXR (ncreased perihilar bronchovascular markings. Question pulmonary vascular congestion. Left basilar atelectasis.), 2D Echo (Overall, normal left ventricular systolic function. Not all segments ) Pre-procedure Exam Last vitals Vital Signs Date Temp Pulse Resp B/P (MAP) Pulse Ox O2 O2 Flow FiO2 Time Delivery Rate 02/03/19 107 08:00 02/03/19 27 112/71 92 06:00 (85) 02/03/19 30 05:40 02/03/19 99.0 04:00 02/03/19 Mechanical 03:00 Ventilator Airway: Adequate mouth opening, Adequate thyromental dist Mallampati: Mallampati II Teeth: Normal Lung: Normal Heart: Normal ASA Physical Status ASA physical status: 4 Emergency: None Planned Anesthetic General/MAC: MAC Planned Pain Management Parenteral pain med Pre-operative Attestations Prior to commencing anesthesia and surgery, the patient was re-evaluated, there was verification of: *The patient's identity *The results of appropriate recent lab work and preoperative vital signs *The above evaluation not changing prior to induction *Anesthetic plan, risk benefits, alternative and complications discussed with patient/family; questions answered; patient/family understands, accepts and wishes to proceed. SHERRI VALENZUELA MD Feb 03, 2019 10:55
--- NOTE | 2019-02-03 11:15 | PN ---
Date/Time of Note Date/Time of Note DATE: 02/03/19 TIME: 11:13 Subjective Remains intubated and unresponsive Objective Vitals Vital Signs Date Temp Pulse Resp B/P (MAP) Pulse Ox O2 O2 Flow FiO2 Time Delivery Rate 02/03/19 107 08:00 02/03/19 27 112/71 92 06:00 (85) 02/03/19 30 05:40 02/03/19 99.0 04:00 02/03/19 Mechanical 03:00 Ventilator Intake and Output 02/02/19 02/02/19 02/03/19 1515:00 23:00 07:00 IntakeIntake Total 0 ml 180 ml 60 ml OutputOutput Total 610 ml 725 ml 340 ml BalanceBalance -610 ml -545 ml -280 ml Bilateral rhonchi Regular rate and rhythm Soft normoactive bowel sounds Mild edema Results Result Diagram: 02/03/19 0430 02/03/19 0430 Medications Medications Current Medications Miscellaneous Information 1 ea NOTE XX ; Start 01/18/19 at 23:30 Glucose (Glutose) 15 gm Q15M PRN PO DECREASED GLUCOSE; Start 01/18/19 at 23:30 Glucose (Glutose) 22.5 gm Q15M PRN PO DECREASED GLUCOSE; Start 01/18/19 at 23:30 Dextrose (D50w Syringe) 25 ml Q15M PRN IV DECREASED GLUCOSE; Start 01/18/19 at 23:30 Dextrose (D50w Syringe) 50 ml Q15M PRN IV DECREASED GLUCOSE; Start 01/18/19 at 23:30 Glucagon (Glucagen) 1 mg Q15M PRN IM DECREASED GLUCOSE; Start 01/18/19 at 23:30 Glucose (Glutose) 15 gm Q15M PRN BUCCAL DECREASED GLUCOSE; Start 01/18/19 at 23:30 Miscellaneous Information (Pending [facility] Order For Wound Care) This patient berg... PRN PRN XX WOUND CARE; Start 01/19/19 at 02:00 Acetaminophen (Tylenol Supp) 650 mg Q6H PRN [place] temp > 100.4F Last administered on 01/25/19at 12:35; Admin Dose 650 MG; Start 01/19/19 at 09:00 Sodium Hypochlorite (Dakins Diluted ()) 1 applic BID TP Last administered on 02/03/19at 09:00; Admin Dose 1 APPLIC; Start 01/19/19 at 21:00 Morphine Sulfate (morphine) 2 mg Q4H PRN IV SEVERE PAIN LEVEL 7-10 Last a dministered on 02/01/19 21:18; Admin Dose 2 MG; Start 01/21/19 at 08:30 Ascorbic Acid (Vitamin C) 500 mg BID GTB Last administered on 02/02/19 21:33; Admin Dose 500 MG; Start 01/23/19 at 21:00 Zinc Sulfate (Zinc Sulfate) 220 mg DAILY PEG Last administered on 02/01/19 09:13; Admin Dose 220 MG; Start 01/24/19 at 09:00 Acetylcysteine (Mucomyst) 2 ml Q6H RESP THERAPY NEB Last administered on 08:48; Admin Dose 2 ML; Start 01/28/19 at 20:00 Norepinephrine 250 ml @ 1.875 mls/ hr PER PROTOCOL IV Last administered on 01/28/19 21:39; Admin Dose 1.875 MLS/HR; Start 01/28/19 at 17:30 Vasopressin 60 unit/Dextrose 60 ml @ 1.2 mls/hr Q12H IV Last administered on 01/30/19 20:58; Admin Dose 1.2 MLS/HR; Start 01/28/19 at 18:00 Albuterol (Ventolin Hfa) 4 puff Q6H RESP THERAPY INH Last administered on 02/03/19 08:32; Admin Dose 4 PUFF; Start 01/30/19 at 14:00 Ipratropium [place] (Atrovent Hfa) 4 puff Q6H RESP THERAPY INH Last administered on 02/03/19 08:32; Admin Dose 4 PUFF; Start 01/30/19 at 14:00 Lansoprazole (Lansoprazole Oral Susp) 30 mg BID@0600,1800 GTB Last administered on 02/03/19 06:10; Admin Dose 30 MG; Start 01/31/19 at 06:00 Insulin Aspart (Novolog Insulin Pen) NOVOLOG *MODERATE* ALGORI... Q6 SC Last administered on 02/02/19 00:18; Admin Dose 2 UNIT; Start 01/31/19 at 13:00 Insulin Glargine (Lantus) 13 units DAILY@2000 SC Last administered on 02/02/19at 21:32; Admin Dose 13 UNITS; Start 01/31/19 at 20:00 Quetiapine Fumarate (Seroquel) 100 mg HS GTB Last administered on 02/02/19at 21:33; Admin Dose 100 MG; Start 02/01/19 at 21:00 Dextrose 1,000 ml @ 75 mls/hr [id number] IV Last administered on 02/03/19at 08:28; Admin Dose 75 MLS/HR; Start 02/03/19 at 06:30 VTE Prophylaxis Risk score (from Ns)>0 risk: 12 SCD applied (from Ns): Yes Lines/Catheters IV Catheter Type: Saline Lock Jenkins in Place: Yes Cont'd jenkins catheter reason: pres ulcer contaminated by urine Assessment/Plan Assessment/Plan 63-year-old male with recurrent respiratory failure Bilateral aspiration pneumonia, resolved No chest block, resolved History of hemorrhagic CVA Catatonia Bipolar affective disorder Schizophrenia Stage III chronic kidney disease Recurrent anemia Hypernatremia 1 unit of packed RBC Proceed with tracheostomy Pulmonary and renal follow-up FELICITAS LAZARO MD Feb 03, 2019 11:15
[2019-02-03] MEDS ORDERED: LIDOCAINE 1%/EPI 30 ML INJ ONE (12:14)
[2019-02-03] MEDS ORDERED: MIDAZOLAM 1 MG/ML 2 ML INJ ONE (12:34)
[2019-02-03] MEDS ORDERED: FENTAnyl 50 MCG/ML VIAL ONE ×2 (12:35→12:44)
--- NOTE | 2019-02-03 13:02 | OPR ---
Date/Time of Note Date/Time of Note DATE: 02/03/19 TIME: 13:01 Operative Report Procedure Date: Feb 03, 2019 Preoperative Diagnosis Respiratory failure Postoperative Diagnosis Same Operation/Procedure Performed Tracheostomy Surgeon see signature line Integrity Assessor None Anesthesia Type: general Estimated Blood Loss: none Transfusion none Specimen None Grafts/Implants none Complications none Disposition: other Procedure Description Patient was placed in supine position prepped and draped in usual sterile fashion timeout was called I made a 2 cm incision 1 fingerbreadth superior to the sternal notch in a horizontal fashion incision was taken down to subcutaneous tissue Metzenbaum scissors access was gained into the trachea guidewire was advanced without any difficulty subcutaneous tissues were dilated using progressively larger dilators endotracheal tube was removed 8 cuffed tracheostomy tube was advanced in the trachea secured to skin using 4-0 nylon sutures and a trach tie the foam pad will be placed by the respiratory therapist patient tolerated procedure well LEAH GALE MD Feb 03, 2019 13:02
--- NOTE | 2019-02-03 13:12 | PAC ---
Date/Time of Note Date/Time of Note DATE: 02/03/19 TIME: 13:11 Post-Anesthesia Notes Post-Anesthesia Note Last documented vital signs Vital Signs Date Temp Pulse Resp B/P (MAP) Pulse Ox O2 O2 Flow FiO2 Time Delivery Rate 02/03/19 98 106 15 120/62 100 1300 02/03/19 27 112/71 92 06:00 (85) 02/03/19 30 05:40 02/03/19 99.0 04:00 02/03/19 Mechanical 03:00 Ventilator Activity: WNL Respiratory function: Other (trached on ventilator ) Cardiovascular function: WNL Mental status: Baseline Pain reasonably controlled: Yes Hydration appropriate: Yes Nausea/Vomiting absent: Yes ANJEL DIAMOND DO Feb 03, 2019 13:12
--- NOTE | 2019-02-03 15:56 | CONS ---
Assessment/Plan Assessment/Plan Hospital Course (Demo Recall) Hypoxic respiratory failure status post tracheostomy Left lung collapse status post intubation Hypotension, off IV pressor Sepsis Acute kidney injury Hypernatremia-improved CAD with history of CABG Preserved left ventricular ejection fraction Remains off IV pressors Status post tracheostomy Vent management as per pulmonary Fluid management and diuretics as per nephrology Consultation Date/Type/Reason Admit Date/Time Jan 18, 2019 at 04:19 Initial Consult Date 01/21/19 Type of Consult Cardiology Requesting Provider: FELICITAS LAZARO MD Date/Time of Note DATE: 02/03/19 TIME: 15:55 24 HR Interval Summary Free Text/Dictation Status post tracheostomy today. Remains off IV pressor Exam/Review of Systems Vital Signs Vitals Vital Signs Date Temp Pulse Resp B/P (MAP) Pulse Ox O2 O2 Flow FiO2 Time Delivery Rate 02/03/19 98.0 13:17 02/03/19 105 16 100/65 99 13:00 (77) 02/03/19 30 12:50 02/03/19 Mechanical 07:00 Ventilator Intake and Output 02/02/19 02/02/19 02/03/19 1515:00 23:00 07:00 IntakeIntake Total 0 ml 180 ml 60 ml OutputOutput Total 610 ml 725 ml 340 ml BalanceBalance -610 ml -545 ml -280 ml Exam Exam Awake, looks me when his name is called, no apparent distress Head: normocephalic Respiratory: other (Coarse breath sounds bilaterally, no wheezing) Cardiovascular: regular rate and rhythm (S1-S2 heard) Gastrointestinal: soft, non-tender, bowel sounds Extremities: edema Labs Result Diagram: 02/03/19 0430 02/03/19 0430 Results 24hrs Laboratory Tests Test 02/02/19 17:54 02/02/19 21:21 02/02/19 23:39 02/03/19 04:30 Bedside Glucose 103 147 137 White Blood Count 8.9 Red Blood Count 2.58 L Hemoglobin 7.7 L Hematocrit 25.1 L Mean Corpuscular 97.3 Volume Mean Corpuscular 29.8 Hemoglobin Mean Corpuscular 30.7 L Hemoglobin Concent Red Cell 16.0 H Distribution Width Platelet Count 163 # Mean Platelet Volume 12.3 H Immature 0.500 H Granulocytes % Neutrophils % 66.3 Lymphocytes % 27.0 Monocytes % 4.9 Eosinophils % 1.1 Basophils % 0.2 Nucleated Red Blood 0.0 Cells % Immature 0.040 H Granulocytes # Neutrophils # 5.9 Lymphocytes # 2.4 Monocytes # 0.4 Eosinophils # 0.1 Basophils # 0.0 Nucleated Red Blood 0.0 Cells # Sodium Level 154 H Potassium Level 4.0 Chloride Level 118 H Carbon Dioxide Level 31 Anion Gap 5 Blood Urea Nitrogen 29 H Creatinine 1.41 H Est Glomerular 51 L Filtrat Rate mL/min Glucose Level 96 Calcium Level 9.0 Magnesium Level 2.2 Test 02/03/19 06:01 02/03/19 12:57 Bedside Glucose 90 121 Medications Medications Current Medications Miscellaneous Information 1 ea NOTE XX ; Start 01/18/19 at 23:30 Glucose (Glutose) 15 gm Q15M PRN PO DECREASED GLUCOSE; Start 01/18/19 at 23:30 Glucose (Glutose) 22.5 gm Q15M PRN PO DECREASED GLUCOSE; Start 01/18/19 at 23:30 Dextrose (D50w Syringe) 25 ml Q15M PRN IV DECREASED GLUCOSE; Start 01/18/19 at 23:30 Dextrose (D50w Syringe) 50 ml Q15M PRN IV DECREASED GLUCOSE; Start 01/18/19 at 23:30 Glucagon (Glucagen) 1 mg Q15M PRN IM DECREASED GLUCOSE; Start 01/18/19 at 23:30 Glucose (Glutose) 15 gm Q15M PRN BUCCAL DECREASED GLUCOSE; Start 01/18/19 at 23:30 Miscellaneous Information (Pending [facility] Order For Wound Care) This patient berg... PRN PRN XX WOUND CARE; Start 01/19/19 at 02:00 Acetaminophen (Tylenol Supp) 650 mg Q6H PRN [place] temp > 100.4F Last administered on 01/25/19at 12:35; Admin Dose 650 MG; Start 01/19/19 at 09:00 Sodium Hypochlorite (Dakins Diluted ()) 1 applic BID TP Last administered on 02/03/19at 09:00; Admin Dose 1 APPLIC; Start 01/19/19 at 21:00 Morphine Sulfate (morphine) 2 mg Q4H PRN IV SEVERE PAIN LEVEL 7-10 Last administered on 02/01/19at 21:18; Admin Dose 2 MG; Start 01/21/19 at 08:30 Ascorbic Acid (Vitamin C) 500 mg BID GTB Last administered on 02/02/19 21:33; Admin Dose 500 MG; Start 01/23/19 at 21:00 Zinc Sulfate (Zinc Sulfate) 220 mg DAILY PEG Last administered on 02/01/19 09:13; Admin Dose 220 MG; Start 01/24/19 at 09:00 Acetylcysteine (Mucomyst) 2 ml Q6H RESP THERAPY NEB Last administered on 02/03/19 13:36; Admin Dose 2 ML; Start 01/28/19 at 20:00 Norepinephrine 250 ml @ 1.875 mls/ hr PER PROTOCOL IV Last administered on 01/28/19 21:39; Admin Dose 1.875 MLS/HR; Start 01/28/19 at 17:30 Vasopressin 60 unit/Dextrose 60 ml @ 1.2 mls/hr Q12H IV Last administered on 01/30/19 20:58; Admin Dose 1.2 MLS/HR; Start 01/28/19 at 18:00 Albuterol (Ventolin Hfa) 4 puff Q6H RESP THERAPY INH Last administered on 02/03/19 13:36; Admin Dose 4 PUFF; Start 01/30/19 at 14:00 Ipratropium [place] (Atrovent Hfa) 4 puff Q6H RESP THERAPY INH Last administered on 02/03/19 13:35; Admin Dose 4 PUFF; Start 01/30/19 at 14:00 Lansoprazole (Lansoprazole Oral Susp) 30 mg BID@0600,1800 GTB Last administered on 02/03/19 06:10; Admin Dose 30 MG; Start 01/31/19 at 06:00 Insulin Aspart (Novolog Insulin Pen) NOVOLOG *MODERATE* ALGORI... Q6 SC Last administered on 02/02/19 00:18; Admin Dose 2 UNIT; Start 01/31/19 at 13:00 Insulin Glargine (Lantus) 13 units DAILY@2000 SC Last administered on 02/02/19 21:32; Admin Dose 13 UNITS; Start 01/31/19 at 20:00 Quetiapine Fumarate (Seroquel) 100 mg HS GTB Last administered on 02/02/19 21:33; Admin Dose 100 MG; Start 02/01/19 at 21:00 Dextrose 1,000 ml @ 75 mls/hr [id number] IV Last administered on 02/03/19at 08:28; Admin Dose 75 MLS/HR; Start 02/03/19 at 06:30 Randy Leone DO Feb 03, 2019 15:56
--- NOTE | 2019-02-03 16:50 | CONS ---
Assessment/Plan Assessment/Plan Assessment/Plan (Daily) 1. acute hyperkalemia- now resolved - pt is now hypokalemia 2. acute On chronic renal failure due to ATN from septic shock- Improving 3. acute hypoxemic respiratory failure intubated on ventilator 2/2 Health care associated PNA - s/p extubation on 01/24/19 - then pt again intubated for respiratory failure 4. Septic shock on pressors 5. acute hypernatremia- Improving 6. H/O quadriplegia 7. H/o CAD s/p CABG 8. H/O HTN 9. 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 Plan: BUN/cr 29/1.41, Na 154, K 4.0, - IVF D5W at 75cc/hr IV abx zosyn for PNA coverage, Renally dose all abx and monitor electorlytes Full code as for now, palliative care has been consulted on the case not doing well for Weaning, plan for tracheostomy in AM will follow up Consultation Date/Type/Reason Admit Date/Time Jan 18, 2019 at 04:19 Initial Consult Date Type of Consult NEPHROLOGY Requesting Provider: FELICITAS LAZARO MD Date/Time of Note DATE: 02/03/19 TIME: 16:50 Exam/Review of Systems Exam Vitals Vital Signs Date Temp Pulse Resp B/P (MAP) Pulse Ox O2 O2 Flow FiO2 Time Delivery Rate 02/03/19 106 16:00 02/03/19 98.0 13:17 02/03/19 16 100/65 99 13:00 (77) 02/03/19 30 12:50 02/03/19 Mechanical 07:00 Ventilator Intake and Output 02/02/19 02/02/19 02/03/19 1515:00 23:00 07:00 IntakeIntake Total 0 ml 180 ml 60 ml OutputOutput Total 610 ml 725 ml 340 ml BalanceBalance -610 ml -545 ml -280 ml Results Result Diagram: 02/03/19 0430 02/03/19 0430 Results 24hrs Laboratory Tests Test 02/02/19 17:54 02/02/19 21:21 02/02/19 23:39 02/03/19 04:30 Bedside Glucose 103 147 137 White Blood Count 8.9 Red Blood Count 2.58 L Hemoglobin 7.7 L Hematocrit 25.1 L Mean Corpuscular 97.3 Volume Mean Corpuscular 29.8 Hemoglobin Mean Corpuscular 30.7 L Hemoglobin Concent Red Cell 16.0 H Distribution Width Platelet Count 163 # Mean Platelet Volume 12.3 H Immature 0.500 H Granulocytes % Neutrophils % 66.3 Lymphocytes % 27.0 Monocytes % 4.9 Eosinophils % 1.1 Basophils % 0.2 Nucleated Red Blood 0.0 Cells % Immature 0.040 H Granulocytes # Neutrophils # 5.9 Lymphocytes # 2.4 Monocytes # 0.4 Eosinophils # 0.1 Basophils # 0.0 Nucleated Red Blood 0.0 Cells # Sodium Level 154 H Potassium Level 4.0 Chloride Level 118 H Carbon Dioxide Level 31 Anion Gap 5 Blood Urea Nitrogen 29 H Creatinine 1.41 H Est Glomerular 51 L Filtrat Rate mL/min Glucose Level 96 Calcium Level 9.0 Magnesium Level 2.2 Test 02/03/19 06:01 02/03/19 12:57 Bedside Glucose 90 121 Medications Medication Current Medications Miscellaneous Information 1 ea NOTE XX ; Start 01/18/19 at 23:30 Glucose (Glutose) 15 gm Q15M PRN PO DECREASED GLUCOSE; Start 01/18/19 at 23:30 Glucose (Glutose) 22.5 gm Q15M PRN PO DECREASED GLUCOSE; Start 01/18/19 at 23:30 Dextrose (D50w Syringe) 25 ml Q15M PRN IV DECREASED GLUCOSE; Start 01/18/19 at 23:30 Dextrose (D50w Syringe) 50 ml Q15M PRN IV DECREASED GLUCOSE; Start 01/18/19 at 23:30 Glucagon (Glucagen) 1 mg Q15M PRN IM DECREASED GLUCOSE; Start 01/18/19 at 23:30 Glucose (Glutose) 15 gm Q15M PRN BUCCAL DECREASED GLUCOSE; Start 01/18/19 at 23:30 [facility] This patient berg... PRN PRN XX WOUND CARE; Start 01/19/19 at 02:00 Acetaminophen (Tylenol Supp) 650 mg Q6H PRN [place] temp > 100.4F Last administered on 01/25/19at 12:35; Admin Dose 650 MG; Start 01/19/19 at 09:00 Sodium Hypochlorite (Dakins Diluted ()) 1 applic BID TP Last administered on 02/03/19 09:00; Admin Dose 1 APPLIC; Start 01/19/19 at 21:00 Morphine Sulfate (morphine) 2 mg Q4H PRN IV SEVERE PAIN LEVEL 7-10 Last admi nistered on 02/01/19 21:18; Admin Dose 2 MG; Start 01/21/19 at 08:30 Ascorbic Acid (Vitamin C) 500 mg BID GTB Last administered on 02/02/19 21:33; Admin Dose 500 MG; Start 01/23/19 at 21:00 Zinc Sulfate (Zinc Sulfate) 220 mg DAILY PEG Last administered on 02/01/19 09:13; Admin Dose 220 MG; Start 01/24/19 at 09:00 Acetylcysteine (Mucomyst) 2 ml Q6H RESP THERAPY NEB Last administered on 02/03/19 13:36; Admin Dose 2 ML; Start 01/28/19 at 20:00 Norepinephrine 250 ml @ 1.875 mls/ hr PER PROTOCOL IV Last administered on 01/28/19 21:39; Admin Dose 1.875 MLS/HR; Start 01/28/19 at 17:30 Vasopressin 60 unit/Dextrose 60 ml @ 1.2 mls/hr Q12H IV Last administered on 01/30/19 20:58; Admin Dose 1.2 MLS/HR; Start 01/28/19 at 18:00 Albuterol (Ventolin Hfa) 4 puff Q6H RESP THERAPY INH Last administered on 02/03/19 13:36; Admin Dose 4 PUFF; Start 01/30/19 at 14:00 Ipratropium [place] (Atrovent Hfa) 4 puff Q6H RESP THERAPY INH Last administered on 02/03/19 13:35; Admin Dose 4 PUFF; Start 01/30/19 at 14:00 Lansoprazole (Lansoprazole Oral Susp) 30 mg BID@0600,1800 GTB Last administered on 02/03/19 06:10; Admin Dose 30 MG; Start 01/31/19 at 06:00 Insulin Aspart (Novolog Insulin Pen) NOVOLOG *MODERATE* ALGORI... Q6 SC Last administered on 02/02/19 00:18; Admin Dose 2 UNIT; Start 01/31/19 at 13:00 Insulin Glargine (Lantus) 13 units DAILY@2000 SC Last administered on 02/02/19at 21:32; Admin Dose 13 UNITS; Start 01/31/19 at 20:00 Quetiapine Fumarate (Seroquel) 100 mg HS GTB Last administered on 02/02/19at 21:33; Admin Dose 100 MG; Start 02/01/19 at 21:00 Dextrose 1,000 ml @ 75 mls/hr [id number] IV Last administered on 02/03/19at 08:28; Admin Dose 75 MLS/HR; Start 02/03/19 at 06:30 TONIO SOOD MD Feb 03, 2019 16:50
[2019-02-03] MEDS: ACETAMINOPHEN 650MG/20.3ML CUP NGT PRN (18:10)
[2019-02-03] MEDS: INSULIN GLARGINE [LANTus] (100 UNITS/ML) SYG SC SCH (20:00)
[2019-02-03] MEDS: QUETIAPINE 100 MG TAB GTB SCH (20:52)
[2019-02-04] VITALS (36 sets, daily range): BP systolic 90–124; BP diastolic 51–80; PULSE 89–118; RESP 19–32
[2019-02-04] MEDS: INSULIN ASPART [NOVOLOG] 3 ML PEN SC SCH ×4 (00:01→17:38)
[2019-02-04] MEDS: ALBUTEROL HFA 8 GM INHALER INH SCH ×4 (01:01→19:25)
[2019-02-04] MEDS: ACETYLCYSTEINE 20% 4 ML VIAL NEB SCH ×4 (01:01→19:25)
[2019-02-04] MEDS: IPRATROPIUM (HFA) 12.9 GM INHALER INH SCH ×4 (01:01→19:25)
[2019-02-04] MEDS: LANSOPRAZOLE ORAL SUSP 3 MG/ML (POSYG) GTB SCH ×2 (07:11→18:10)
[2019-02-04] MEDS: ZINC SULFATE 220 MG CAP PEG SCH (09:09)
[2019-02-04] MEDS: DAKINS 0.0125%(1/40) 473 ML SOLUTION TP SCH ×2 (09:09→21:11)
[2019-02-04] MEDS: ASCORBIC ACID 500 MG TAB GTB SCH ×2 (09:09→21:10)
--- NOTE | 2019-02-04 09:40 | CONS ---
Assessment/Plan Assessment/Plan Assessment/Plan (Daily) Ventilator setting; AC of 16, tidal volume 500, PEEP of 5, 30% FiO2. Assessment and recommendations; 1. Patient admitted to ICU because of respiratory failure due to complete left lung atelectasis from left mainstem mucous plug, with marked interval improvement after intubation. 2. Status post tracheostomy yesterday after having failed multiple weaning attempts from ventilator. Indicative of very poor ventilatory drive. 3. History of quadriplegia. 4. Improving hypernatremia. 5. Mild chronic renal insufficiency. 6. Anemia. 7. Thrombocytopenia. 8. Diabetes. 9. Encephalopathy with waxing and waning mental status. Continue current supportive care. Patient can be transferred to telemetry unit. With subsequent transfer to half-way/rehab center. Overall prognosis is poor. Consultation Date/Type/Reason Admit Date/Time Jan 18, 2019 at 04:19 Initial Consult Date 01/21/19 Type of Consult Pulmonary/critical care Patient developed respiratory failure last evening requiring intubation and then transferred to ICU. No CPR was done. Positive time I saw the patient, patient is orally intubated and despite being awake but is noncommunicative which apparently is his baseline mental status. Patient did not appear to be in any distress. General exam; elderly male, orally intubated. Awake. Currently in no distress. Noncommunicative. Requesting Provider: FELICITAS LAZARO MD Date/Time of Note DATE: 02/04/19 TIME: 09:36 24 HR Interval Summary Free Text/Dictation Patient's condition is stable. Underwent tracheostomy yesterday. General exam; elderly male, on ventilator via tracheostomy, lethargic. Currently no distress. Exam/Review of Systems Exam Vitals Vital Signs Date Temp Pulse Resp B/P (MAP) Pulse Ox O2 O2 Flow FiO2 Time Delivery Rate 02/04/19 97.8 101 25 113/62 99 Mechanical 08:00 (79) Ventilator 02/04/19 30 05:23 Intake and Output 02/03/19 02/03/19 02/04/19 1515:00 23:00 07:00 IntakeIntake Total 610 ml 1560 ml 970 ml OutputOutput Total 405 ml 350 ml 380 ml BalanceBalance 205 ml 1210 ml 590 ml Exam H EENT exam; supple neck, no JVD. No lymphadenopathy. Midline trachea. No thyromegaly. Patient is edentulous. Tracheostomy in place. No neck masses. Chest exam; clear to auscultation. S1-S2 audible, no murmurs. Regular rhythm. Abdomen exam; soft, no organomegaly. Nondistended. G-tube in place. Bowel sounds are audible. Extremity exam; no peripheral edema. 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 Results Result Diagram: 02/04/19 0445 02/04/19 0445 Results 24hrs Laboratory Tests Test 02/03/19 12:57 02/03/19 18:23 02/03/19 21:13 02/03/19 23:58 Bedside Glucose 121 194 143 179 Test 02/04/19 04:45 02/04/19 05:00 02/04/19 06:09 White Blood Count 7.8 Red Blood Count 2.71 L Hemoglobin 8.1 L Hematocrit 26.7 L Mean Corpuscular 98.5 Volume Mean Corpuscular 29.9 Hemoglobin Mean Corpuscular 30.3 L Hemoglobin Concen t Red Cell 16.2 H Distribution Width Platelet Count 155 Mean Platelet 11.6 H Volume Immature 0.500 H Granulocytes % Neutrophils % 59.4 Lymphocytes % 32.3 Monocytes % 6.3 Eosinophils % 1.4 Basophils % 0.1 Nucleated Red 0.0 Blood Cells % Immature 0.040 H Granulocytes # Neutrophils # 4.6 Lymphocytes # 2.5 Monocytes # 0.5 Eosinophils # 0.1 Basophils # 0.0 Nucleated Red 0.0 Blood Cells # Sodium Level 147 H Potassium Level 3.5 Chloride Level 114 H Carbon Dioxide 30 Level Anion Gap 3 L Blood Urea 28 H Nitrogen Creatinine 1.54 H Est Glomerular 46 L Filtrat Rate mL/min Glucose Level 172 Calcium Level 8.8 Magnesium Level 2.1 Lab Scanned BLOOD TRANSFUSIO Report N Bedside Glucose 173 Medications Medication Current Medications Miscellaneous Information 1 ea NOTE XX ; Start 01/18/19 at 23:30 Glucose (Glutose) 15 gm Q15M PRN PO DECREASED GLUCOSE; Start 01/18/19 at 23:30 Glucose (Glutose) 22.5 gm Q15M PRN PO DECREASED GLUCOSE; Start 01/18/19 at 23:30 Dextrose (D50w Syringe) 25 ml Q15M PRN IV DECREASED GLUCOSE; Start 01/18/19 at 23:30 Dextrose (D50w Syringe) 50 ml Q15M PRN IV DECREASED GLUCOSE; Start 01/18/19 at 23:30 Glucagon (Glucagen) 1 mg Q15M PRN IM DECREASED GLUCOSE; Start 01/18/19 at 23:30 Glucose (Glutose) 15 gm Q15M PRN BUCCAL DECREASED GLUCOSE; Start 01/18/19 at 23:30 Miscellaneous Information (Pending [facility] Order For Wound Care) This patient berg... PRN PRN XX WOUND CARE; Start 01/19/19 at 02:00 Acetaminophen (Tylenol Supp) 650 mg Q6H PRN [place] temp > 100.4F Last administered on 01/25/19 12:35; Admin Dose 650 MG; Start 01/19/19 at 09:00 Sodium Hypochlorite (Dakins Diluted ()) 1 applic BID TP Last administered on 02/04/19 09:09; Admin Dose 1 APPLIC; Start 01/19/19 at 21:00 Morphine Sulfate (morphine) 2 mg Q4H PRN IV SEVERE PAIN LEVEL 7-10 Last administered on 02/01/19 21:18; Admin Dose 2 MG; Start 01/21/19 at 08:30 Ascorbic Acid (Vitamin C) 500 mg BID GTB Last administered on 02/04/19 09:09; Admin Dose 500 MG; Start 01/23/19 at 21:00 Zinc Sulfate (Zinc Sulfate) 220 mg DAILY PEG Last administered on 02/04/19 09:09; Admin Dose 220 MG; Start 01/24/19 at 09:00 Acetylcysteine (Mucomyst) 2 ml Q6H RESP THERAPY NEB Last administered on 02/04/19 08:37; Admin Dose 2 ML; Start 01/28/19 at 20:00 Norepinephrine 250 ml @ 1.875 mls/ hr PER PROTOCOL IV Last administered on 01/28/19 21:39; Admin Dose 1.875 MLS/HR; Start 01/28/19 at 17:30 Vasopressin 60 unit/Dextrose 60 ml @ 1.2 mls/hr Q12H IV Last administered on 01/30/19 20:58; Admin Dose 1.2 MLS/HR; Start 01/28/19 at 18:00 Albuterol (Ventolin Hfa) 4 puff Q6H RESP THERAPY INH Last administered on 08:36; Admin Dose 4 PUFF; Start 01/30/19 at 14:00 Ipratropium [place] (Atrovent Hfa) 4 puff Q6H RESP THERAPY INH Last administered on 02/04/19 08:36; Admin Dose 4 PUFF; Start 01/30/19 at 14:00 Lansoprazole (Lansoprazole Oral Susp) 30 mg BID@0600,1800 GTB Last administered on 02/04/19 07:11; Admin Dose 30 MG; Start 01/31/19 at 06:00 Insulin Aspart (Novolog Insulin Pen) NOVOLOG *MODERATE* ALGORI... Q6 SC Last administered on 02/04/19 06:16; Admin Dose 2 UNIT; Start 01/31/19 at 13:00 Insulin Glargine (Lantus) 13 units DAILY@2000 SC Last administered on 02/03/19 20:00; Admin Dose 13 UNITS; Start 01/31/19 at 20:00 Quetiapine Fumarate (Seroquel) 100 mg HS GTB Last administered on 02/03/19 20:52; Admin Dose 100 MG; Start 02/01/19 at 21:00 Dextrose 1,000 ml @ 75 mls/hr [id number] IV Last administered on 02/03/19 23:53; Admin Dose 75 MLS/HR; Start 02/03/19 at 06:30 Acetaminophen (Tylenol Liquid) 650 mg Q4H PRN NGT MILD PAIN(1-3)OR ELEVATED TEMP Last administered on 02/03/19 18:10; Admin Dose 650 MG; Start 02/03/19 at 18:00 BOOGIE SAPP Feb 04, 2019 09:40
[2019-02-04] MEDS: DEXTROSE 5% 1,000 ML IV SCH (11:35)
--- NOTE | 2019-02-04 12:25 | PN ---
Date/Time of Note Date/Time of Note DATE: 02/04/19 TIME: 12:23 Assessment/Plan Lines/Catheters IV Catheter Type (from Nrsg): Central Line Garcia in Place (from Nrsg): Yes Assessment/Plan Assessment/Plan Resp Failure SP Tracheostomy Trach site clean Will continue trach care Vent support Pulm troilet Subjective 24 Hr Interval Summary Constitutional: improved Pain Control: mild Exam/Review of Systems Vital Signs Vitals Vital Signs Date Temp Pulse Resp B/P (MAP) Pulse Ox O2 O2 Flow FiO2 Time Delivery Rate 02/04/19 97.8 101 25 113/62 99 Mechanical 08:00 (79) Ventilator 02/04/19 30 05:23 Intake and Output 02/03/19 02/03/19 02/04/19 1515:00 23:00 07:00 IntakeIntake Total 610 ml 1560 ml 1105 ml OutputOutput Total 405 ml 350 ml 450 ml BalanceBalance 205 ml 1210 ml 655 ml Exam Eyes: nl conjunctiva, EOMI, nl lids, nl sclera ENMT: nl external ears & nose, nl lips & teeth, nl nasal mucosa & septum, mucosa pink and moist Neck: supple, non-tender Respiratory: clear to auscultation, normal air movement Cardiovascular: regular rate and rhythm, nl pulses Gastrointestinal: soft, nl liver, spleen, non-tender Musculoskeletal: nl extremities to inspection, nl gait and stance Results Result Diagram: 02/04/19 0445 02/04/19 0445 LEAH GALE MD Feb 04, 2019 12:25
--- NOTE | 2019-02-04 12:52 | PN ---
Date/Time of Note Date/Time of Note DATE: 02/04/19 TIME: 12:49 Subjective Patient has had his tracheostomy. He remains unresponsive Objective Vitals Vital Signs Date Temp Pulse Resp B/P (MAP) Pulse Ox O2 O2 Flow FiO2 Time Delivery Rate 02/04/19 116 12:00 02/04/19 97.8 25 113/62 99 Mechanical 08:00 (79) Ventilator 02/04/19 30 05:23 Intake and Output 02/03/19 02/03/19 02/04/19 1515:00 23:00 07:00 IntakeIntake Total 610 ml 1560 ml 1105 ml OutputOutput Total 405 ml 350 ml 450 ml BalanceBalance 205 ml 1210 ml [address] Bilateral rhonchi Regular rate and rhythm Soft normoactive bowel sounds Mild edema Results Result Diagram: 02/04/19 0445 02/04/19 0445 Medications Medications Current Medications Miscellaneous Information 1 ea NOTE XX ; Start 01/18/19 at 23:30 Glucose (Glutose) 15 gm Q15M PRN PO DECREASED GLUCOSE; Start 01/18/19 at 23:30 Glucose (Glutose) 22.5 gm Q15M PRN PO DECREASED GLUCOSE; Start 01/18/19 at 23:30 Dextrose (D50w Syringe) 25 ml Q15M PRN IV DECREASED GLUCOSE; Start 01/18/19 at 23:30 Dextrose (D50w Syringe) 50 ml Q15M PRN IV DECREASED GLUCOSE; Start 01/18/19 at 23:30 Glucagon (Glucagen) 1 mg Q15M PRN IM DECREASED GLUCOSE; Start 01/18/19 at 23:30 Glucose (Glutose) 15 gm Q15M PRN BUCCAL DECREASED GLUCOSE; Start 01/18/19 at 23:30 Miscellaneous Information (Pending [facility] Order For Wound Care) This patient berg... PRN PRN XX WOUND CARE; Start 01/19/19 at 02:00 Acetaminophen (Tylenol Supp) 650 mg Q6H PRN [place] temp > 100.4F Last administered on 01/25/19at 12:35; Admin Dose 650 MG; Start 01/19/19 at 09:00 Sodium Hypochlorite (Dakins Diluted (40)) 1 applic BID TP Last administered on 02/04/19at 09:09; Admin Dose 1 APPLIC; Start 01/19/19 at 21:00 Morphine Sulfate (morphine) 2 mg Q4H PRN IV SEVERE PAIN LEVEL 7-10 Last administered on 02/01/19 21:18; Admin Dose 2 MG; Start 01/21/19 at 08:30 Ascorbic Acid (Vitamin C) 500 mg BID GTB Last administered on 02/04/19 09:09; Admin Dose 500 MG; Start 01/23/19 at 21:00 Zinc Sulfate (Zinc Sulfate) 220 mg DAILY PEG Last administered on 02/04/19 09:09; Admin Dose 220 MG; Start 01/24/19 at 09:00 Acetylcysteine (Mucomyst) 2 ml Q6H RESP THERAPY NEB Last administered on 02/04 08:37; Admin Dose 2 ML; Start 01/28/19 at 20:00 Norepinephrine 250 ml @ 1.875 mls/ hr PER PROTOCOL IV Last administered on 01/28/19 21:39; Admin Dose 1.875 MLS/HR; Start 01/28/19 at 17:30 Vasopressin 60 unit/Dextrose 60 ml @ 1.2 mls/hr Q12H IV Last administered on 01/30/19 20:58; Admin Dose 1.2 MLS/HR; Start 01/28/19 at 18:00 Albuterol (Ventolin Hfa) 4 puff Q6H RESP THERAPY INH Last administered on 02/04/19 08:36; Admin Dose 4 PUFF; Start 01/30/19 at 14:00 Ipratropium [place] (Atrovent Hfa) 4 puff Q6H RESP THERAPY INH Last administered on 02/04/19 08:36; Admin Dose 4 PUFF; Start 01/30/19 at 14:00 Lansoprazole (Lansoprazole Oral Susp) 30 mg BID@0600,1800 GTB Last administered on 02/04/19 07:11; Admin Dose 30 MG; Start 01/31/19 at 06:00 Insulin Aspart (Novolog Insulin Pen) NOVOLOG *MODERATE* ALGORI... Q6 SC Last administered on 02/04/19 11:55; Admin Dose 2 UNIT; Start 01/31/19 at 13:00 Insulin Glargine (Lantus) 13 units DAILY@2000 SC Last administered on 7/16/19at 20:00; Admin Dose 13 UNITS; Start 01/31/19 at 20:00 Quetiapine Fumarate (Seroquel) 100 mg HS GTB Last administered on 02/03/19at 20:52; Admin Dose 100 MG; Start 02/01/19 at 21:00 Dextrose 1,000 ml @ 75 mls/hr [id number] IV Last administered on 02/04/19at 11:35; Admin Dose 75 MLS/HR; Start 02/03/19 at 06:30 Acetaminophen (Tylenol Liquid) 650 mg Q4H PRN NGT MILD PAIN(1-3)OR ELEVATED TEMP Last administered on 02/03/19at 18:10; Admin Dose 650 MG; Start 02/03/19 at 18:00 VTE Prophylaxis Risk score (from Ns)>0 risk: 10 SCD applied (from Ns): Yes Lines/Catheters IV Catheter Type: Saline Lock Jenkins in Place: Yes Cont'd jenkins catheter reason: pres ulcer contaminated by urine Assessment/Plan Assessment/Plan 63-year-old male with recurrent respiratory failure Mucous plug, resolved Postop day #1 tracheostomy placement Aspiration pneumonia History of hemorrhagic CVA Catatonia Bipolar affective disorder Schizophrenia Stage III chronic kidney disease Hypernatremia Transfer patient to telemetry I repeatedly tried to get psychiatry consultation. We do not have a psychiatrist on staff. However, I was told tele-psych may be available. I will also ask the psych nurse practitioner to evaluate him. Discharge planning to subacute versus LTAC FELICITAS LAZARO MD Feb 04, 2019 12:52
--- NOTE | 2019-02-04 13:06 | CONS ---
Assessment/Plan Assessment/Plan Assessment/Plan (Daily) 1. acute hyperkalemia- now resolved - pt is now hypokalemia 2. acute On chronic renal failure due to ATN from septic shock- Improving 3. acute hypoxemic respiratory failure intubated on ventilator 2/2 Health care associated PNA - s/p extubation on 01/24/19 - then pt again intubated for respiratory failure 4. Septic shock on pressors 5. acute hypernatremia- Improving 6. H/O quadriplegia 7. H/o CAD s/p CABG 8. H/O HTN 9. 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 Plan: BUN/cr 28/1.54, Na improved to 147, K 3.5, - IVF D5W at 75cc/hr IV abx zosyn for PNA coverage, Renally dose all abx and monitor electorlytes Family decided to have tracheostomy will follow up Consultation Date/Type/Reason Admit Date/Time Jan 18, 2019 at 04:19 Initial Consult Date Type of Consult NEPHROLOGY Requesting Provider: FELICITAS LAZARO MD Date/Time of Note DATE: 02/04/19 TIME: 13:06 Exam/Review of Systems Exam Vitals Vital Signs Date Temp Pulse Resp B/P (MAP) Pulse Ox O2 O2 Flow FiO2 Time Delivery Rate 02/04/19 116 12:00 02/04/19 97.8 25 113/62 99 Mechanical 08:00 (79) Ventilator 02/04/19 30 05:23 Intake and Output 02/03/19 02/03/19 02/04/19 1515:00 23:00 07:00 IntakeIntake Total 610 ml 1560 ml 1105 ml OutputOutput Total 405 ml 350 ml 450 ml BalanceBalance 205 ml 1210 ml 655 ml Exam GENERAL: intubated on ventilator , + ET tube NECK: Supple. No JVD or lymphadenopathy. CARDIAC: S1, S2, RRR, no murmur CHEST: Bilateral crackles +, no wheezing ABDOMEN: Soft, nontender. No guarding or rebound. EXTREMITIES: No cyanosis, clubbing of bleeding. + jenkins catheter NEUROLOGIC: sedated on ventilator, uncooperative for neuro exam . Results Result Diagram: 02/04/19 0445 02/04/19 0445 Results 24hrs Laboratory Tests Test 02/03/19 18:23 02/03/19 21:13 02/03/19 23:58 02/04/19 04:45 Bedside Glucose 194 143 179 White Blood Count 7.8 Red Blood Count 2.71 L Hemoglobin 8.1 L Hematocrit 26.7 L Mean Corpuscular 98.5 Volume Mean Corpuscular 29.9 Hemoglobin Mean Corpuscular 30.3 L Hemoglobin Concen t Red Cell 16.2 H Distribution Width Platelet Count 155 Mean Platelet 11.6 H Volume Immature 0.500 H Granulocytes % Neutrophils % 59.4 Lymphocytes % 32.3 Monocytes % 6.3 Eosinophils % 1.4 Basophils % 0.1 Nucleated Red 0.0 Blood Cells % Immature 0.040 H Granulocytes # Neutrophils # 4.6 Lymphocytes # 2.5 Monocytes # 0.5 Eosinophils # 0.1 Basophils # 0.0 Nucleated Red 0.0 Blood Cells # Sodium Level 147 H Potassium Level 3.5 Chloride Level 114 H Carbon Dioxide 30 Level Anion Gap 3 L Blood Urea 28 H Nitrogen Creatinine 1.54 H Est Glomerular 46 L Filtrat Rate mL/min Glucose Level 172 Calcium Level 8.8 Magnesium Level 2.1 Test 02/04/19 05:00 02/04/19 06:09 02/04/19 11:53 Lab Scanned BLOOD TRANSFUSIO Report N Bedside Glucose 173 161 Medications Medication Current Medications Miscellaneous Information 1 ea NOTE XX ; Start 01/18/19 at 23:30 Glucose (Glutose) 15 gm Q15M PRN PO DECREASED GLUCOSE; Start 01/18/19 at 23:30 Glucose (Glutose) 22.5 gm Q15M PRN PO DECREASED GLUCOSE; Start 01/18/19 at 23:30 Dextrose (D50w Syringe) 25 ml Q15M PRN IV DECREASED GLUCOSE; Start 01/18/19 at 23:30 Dextrose (D50w Syringe) 50 ml Q15M PRN IV DECREASED GLUCOSE; Start 01/18/19 at 23:30 Glucagon (Glucagen) 1 mg Q15M PRN IM DECREASED GLUCOSE; Start 01/18/19 at 23:30 Glucose (Glutose) 15 gm Q15M PRN BUCCAL DECREASED GLUCOSE; Start 01/18/19 at 23:30 Miscellaneous Information (Pending [facility] Order For Wound Care) This patient berg... PRN PRN XX WOUND CARE; Start 01/19/19 at 02:00 Acetaminophen (Tylenol Supp) 650 mg Q6H PRN [place] temp > 100.4F Last administered on 01/25/19 12:35; Admin Dose 650 MG; Start 01/19/19 at 09:00 Sodium Hypochlorite (Dakins Diluted ()) 1 applic BID TP Last administered on 02/04/19 09:09; Admin Dose 1 APPLIC; Start 01/19/19 at 21:00 Morphine Sulfate (morphine) 2 mg Q4H PRN IV SEVERE PAIN LEVEL 7-10 Last administered on 02/01/19 21:18; Admin Dose 2 MG; Start 01/21/19 at 08:30 Ascorbic Acid (Vitamin C) 500 mg BID GTB Last administered on 02/04/19 09:09; Admin Dose 500 MG; Start 01/23/19 at 21:00 Zinc Sulfate (Zinc Sulfate) 220 mg DAILY PEG Last administered on 02/04/19 09:09; Admin Dose 220 MG; Start 01/24/19 at 09:00 Acetylcysteine (Mucomyst) 2 ml Q6H RESP THERAPY NEB Last administered on 02/04/19 08:37; Admin Dose 2 ML; Start 01/28/19 at 20:00 Norepinephrine 250 ml @ 1.875 mls/ hr PER PROTOCOL IV Last administered on 01/28/19 21:39; Admin Dose 1.875 MLS/HR; Start 01/28/19 at 17:30 Vasopressin 60 unit/Dextrose 60 ml @ 1.2 mls/hr Q12H IV Last administered on 01/30/19 20:58; Admin Dose 1.2 MLS/HR; Start 01/28/19 at 18:00 Albuterol (Ventolin Hfa) 4 puff Q6H RESP THERAPY INH Last administered on 02/04/19 08:36; Admin Dose 4 PUFF; Start 01/30/19 at 14:00 Ipratropium [place] (Atrovent Hfa) 4 puff Q6H RESP THERAPY INH Last administered on 02/04/19 08:36; Admin Dose 4 PUFF; Start 01/30/19 at 14:00 Lansoprazole (Lansoprazole Oral Susp) 30 mg BID@0600,1800 GTB Last administered on 02/04/19 07:11; Admin Dose 30 MG; Start 01/31/19 at 06:00 Insulin Aspart (Novolog Insulin Pen) NOVOLOG *MODERATE* ALGORI... Q6 SC Last administered on 02/04/19 11:55; Admin Dose 2 UNIT; Start 01/31/19 at 13:00 Insulin Glargine (Lantus) 13 units DAILY@2000 SC Last administered on 02/03/19 20:00; Admin Dose 13 UNITS; Start 01/31/19 at 20:00 Quetiapine Fumarate (Seroquel) 100 mg HS GTB Last administered on 02/03/19at 20:52; Admin Dose 100 MG; Start 02/01/19 at 21:00 Dextrose 1,000 ml @ 75 mls/hr [id number] IV Last administered on 02/04/19 11:35; Admin Dose 75 MLS/HR; Start 02/03/19 at 06:30 Acetaminophen (Tylenol Liquid) 650 mg Q4H PRN NGT MILD PAIN(1-3)OR ELEVATED TEMP Last administered on 02/03/19 18:10; Admin Dose 650 MG; Start 02/03/19 at 18:00 TONIO SOOD MD Feb 04, 2019 13:06
--- NOTE | 2019-02-04 15:35 | PSY ---
Date/Time of Note Date/Time of Note DATE: 02/04/19 TIME: 15:30 Psychiatric Subjective Eval Consent Pt consented to telemedicine: No Subjective Evaluation Patient location: inpatient Chief Complaint: bib ra from intermediate for sob, aloc History of present illness Patient is a 63-year-old male from custodial facility with history of a quadriplegia admitted for hypoxia. On a wyyv-by-mwyw evaluation patient stated blankly, he is currently ventilator dependent with tracheostomy but he cannot process information told him to blink in response to questions, but he did not follow command.Will order ativan to probably help his catatonia. Hospitalization: other Medical history Problems Medical Problems: (1) Acute dehydration Status: Acute (2) Acute kidney injury Status: Acute (3) Acute respiratory failure Status: Acute (4) Healthcare-associated pneumonia Status: Acute (5) Septic shock Status: Acute Allergies: Coded Allergies: Sulfa (Sulfonamide Antibiotics) (Verified Allergy, Unknown, 01/18/19) Substance Abuse Substance use: other Social History Marital status: other DPA/Conservatorship: No Psychiatric Objective Eval Physical Examination: Physical Examination: Not Applicable Mental Status Examination: Appearance: Poor Hygiene Eye Contact: None Psychomotor Activity: Slow Behavior: Guarded Speech: Other (Vent dependence) AFFECT: Flat Orientation: x1 Cognition: Unable to assess due to Laboratory Results Laboratory Tests Test 02/02/19 17:54 02/02/19 21:21 02/02/19 23:39 02/03/19 04:30 Bedside Glucose 103 mg/dL 147 mg/dL 137 mg/dL White Blood 8.9 10^3/ul Count Red Blood Count 2.58 10^6/ul Hemoglobin 7.7 g/dl Hematocrit 25.1 % Mean Corpuscular 97.3 fl Volume Mean Corpuscular 29.8 pg Hemoglobin Mean Corpuscular 30.7 g/dl Hemoglobin Mily nt Red Cell 16.0 % Distribution Width Platelet Count 163 10^3/UL Mean Platelet 12.3 fl Volume Immature 0.500 % Granulocytes % Neutrophils % 66.3 % Lymphocytes % 27.0 % Monocytes % 4.9 % Eosinophils % 1.1 % Basophils % 0.2 % Nucleated Red 0.0 /100WBC Blood Cells % Immature 0.040 10^3/ul Granulocytes # Neutrophils # 5.9 10^3/ul Lymphocytes # 2.4 10^3/ul Monocytes # 0.4 10^3/ul Eosinophils # 0.1 10^3/ul Basophils # 0.0 10^3/ul Nucleated Red 0.0 10^3/ul Blood Cells # Sodium Level 154 mmol/L Potassium Level 4.0 mmol/L Chloride Level 118 mmol/L Carbon Dioxide 31 mmol/L Level Anion Gap 5 Blood Urea 29 mg/dl Nitrogen Creatinine 1.41 mg/dl Est Glomerular 51 mL/min Filtrat Rate mL/min Glucose Level 96 mg/dl Calcium Level 9.0 mg/dl Magnesium Level 2.2 mg/dl Test 02/03/19 06:01 02/03/19 12:57 02/03/19 18:23 02/03/19 21:13 Bedside Glucose 90 mg/dL 121 mg/dL 194 mg/dL 143 mg/dL Test 02/03/19 23:58 02/04/19 04:45 02/04/19 05:00 02/04/19 06:09 Bedside Glucose 179 mg/dL 173 mg/dL White Blood 7.8 10^3/ul Count Red Blood Count 2.71 10^6/ul Hemoglobin 8.1 g/dl Hematocrit 26.7 % Mean Corpuscular 98.5 fl Volume Mean Corpuscular 29.9 pg Hemoglobin Mean Corpuscular 30.3 g/dl Hemoglobin Mily nt Red Cell 16.2 % Distribution Width Platelet Count 155 10^3/UL Mean Platelet 11.6 fl Volume Immature 0.500 % Granulocytes % Neutrophils % 59.4 % Lymphocytes % 32.3 % Monocytes % 6.3 % Eosinophils % 1.4 % Basophils % 0.1 % Nucleated Red 0.0 /100WBC Blood Cells % Immature 0.040 10^3/ul Granulocytes # Neutrophils # 4.6 10^3/ul Lymphocytes # 2.5 10^3/ul Monocytes # 0.5 10^3/ul Eosinophils # 0.1 10^3/ul Basophils # 0.0 10^3/ul Nucleated Red 0.0 10^3/ul Blood Cells # Sodium Level 147 mmol/L Potassium Level 3.5 mmol/L Chloride Level 114 mmol/L Carbon Dioxide 30 mmol/L Level Anion Gap 3 Blood Urea 28 mg/dl Nitrogen Creatinine 1.54 mg/dl Est Glomerular 46 mL/min Filtrat Rate mL/min Glucose Level 172 mg/dl Calcium Level 8.8 mg/dl Magnesium Level 2.1 mg/dl Lab Scanned BLOOD TRANSFUSI Report ON Test 02/04/19 11:53 Bedside Glucose 161 mg/dL Assessment and Plan Assessment/Diagnosis Diagnosis Major depression severe recurrent by history Recommendation/Plan Medication Management We will hold off on antipsychotic for right now until patient is more alert Multiple antipsychotics: No Discharge Disposition: Other (Other) Legal Status: Voluntary (Does not meet criteria for 5150 hold) LAVON WILDE NP Feb 04, 2019 15:35
--- NOTE | 2019-02-04 17:34 | CONS ---
Assessment/Plan Assessment/Plan Hospital Course (Demo Recall) Hypoxic respiratory failure status post tracheostomy Left lung collapse status post intubation Hypotension, off IV pressor Sepsis Acute kidney injury Hypernatremia-improved CAD with history of CABG Preserved left ventricular ejection fraction Remains off IV pressors Status post tracheostomy Vent management as per pulmonary Fluid management and diuretics as per nephrology Consultation Date/Type/Reason Admit Date/Time Jan 18, 2019 at 04:19 Initial Consult Date 01/21/19 Type of Consult Cardiology Requesting Provider: FELICITAS LAZARO MD Date/Time of Note DATE: 02/04/19 TIME: 17:33 24 HR Interval Summary Free Text/Dictation Seen and examined Exam/Review of Systems Vital Signs Vitals Vital Signs Date Temp Pulse Resp B/P (MAP) Pulse Ox O2 O2 Flow FiO2 Time Delivery Rate 02/04/19 97.9 99 22 108/63 98 Mechanical 16:13 (78) Ventilator 02/04/19 30 05:23 Intake and Output 02/03/19 02/03/19 02/04/19 1515:00 23:00 07:00 IntakeIntake Total 610 ml 1560 ml 1105 ml OutputOutput Total 405 ml 350 ml 450 ml BalanceBalance 205 ml 1210 ml 655 ml Exam Exam Opens his eyes to his name, no apparent distress Head: normocephalic Respiratory: other (Coarse breath sounds bilaterally no wheezing) Cardiovascular: regular rate and rhythm (S1-S2 heard) Gastrointestinal: soft, non-tender, bowel sounds Extremities: edema, other Labs Result Diagram: 02/04/19 0445 02/04/19 0445 Results 24hrs Laboratory Tests Test 02/03/19 18:23 02/03/19 21:13 02/03/19 23:58 02/04/19 04:45 Bedside Glucose 194 143 179 White Blood Count 7.8 Red Blood Count 2.71 L Hemoglobin 8.1 L Hematocrit 26.7 L Mean Corpuscular 98.5 Volume Mean Corpuscular 29.9 Hemoglobin Mean Corpuscular 30.3 L Hemoglobin Concen t Red Cell 16.2 H Distribution Width Platelet Count 155 Mean Platelet 11.6 H Volume Immature 0.500 H Granulocytes % Neutrophils % 59.4 Lymphocytes % 32.3 Monocytes % 6.3 Eosinophils % 1.4 Basophils % 0.1 Nucleated Red 0.0 Blood Cells % Immature 0.040 H Granulocytes # Neutrophils # 4.6 Lymphocytes # 2.5 Monocytes # 0.5 Eosinophils # 0.1 Basophils # 0.0 Nucleated Red 0.0 Blood Cells # Sodium Level 147 H Potassium Level 3.5 Chloride Level 114 H Carbon Dioxide 30 Level Anion Gap 3 L Blood Urea 28 H Nitrogen Creatinine 1.54 H Est Glomerular 46 L Filtrat Rate mL/min Glucose Level 172 Calcium Level 8.8 Magnesium Level 2.1 Test 02/04/19 05:00 02/04/19 06:09 02/04/19 11:53 Lab Scanned BLOOD TRANSFUSIO Report N Bedside Glucose 173 161 Medications Medications Current Medications Miscellaneous Information 1 ea NOTE XX ; Start 01/18/19 at 23:30 Glucose (Glutose) 15 gm Q15M PRN PO DECREASED GLUCOSE; Start 01/18/19 at 23:30 Glucose (Glutose) 22.5 gm Q15M PRN PO DECREASED GLUCOSE; Start 01/18/19 at 23:30 Dextrose (D50w Syringe) 25 ml Q15M PRN IV DECREASED GLUCOSE; Start 01/18/19 at 23:30 Dextrose (D50w Syringe) 50 ml Q15M PRN IV DECREASED GLUCOSE; Start 01/18/19 at 23:30 Glucagon (Glucagen) 1 mg Q15M PRN IM DECREASED GLUCOSE; Start 01/18/19 at 23:30 Glucose (Glutose) 15 gm Q15M PRN BUCCAL DECREASED GLUCOSE; Start 01/18/19 at 23:30 Miscellaneous Information (Pending [facility] Order For Wound Care) This patient berg... PRN PRN XX WOUND CARE; Start 01/19/19 at 02:00 Acetaminophen (Tylenol Supp) 650 mg Q6H PRN [place] temp > 100.4F Last administered on 01/25/19at 12:35; Admin Dose 650 MG; Start 01/19/19 at 09:00 Sodium Hypochlorite (Dakins Diluted ()) 1 applic BID TP Last administered on 02/04/19at 09:09; Admin Dose 1 APPLIC; Start 01/19/19 at 21:00 Morphine Sulfate (morphine) 2 mg Q4H PRN IV SEVERE PAIN LEVEL 7-10 Last administered on 02/01/19at 21:18; Admin Dose 2 MG; Start 01/21/19 at 08:30 Ascorbic Acid (Vitamin C) 500 mg BID GTB Last administered on 02/04/19 09:09; Admin Dose 500 MG; Start 01/23/19 at 21:00 Zinc Sulfate (Zinc Sulfate) 220 mg DAILY PEG Last administered on 02/04/19 09:09; Admin Dose 220 MG; Start 01/24/19 at 09:00 Acetylcysteine (Mucomyst) 2 ml Q6H RESP THERAPY NEB Last administered on 02/04/19 13:14; Admin Dose 2 ML; Start 01/28/19 at 20:00 Albuterol (Ventolin Hfa) 4 puff Q6H RESP THERAPY INH Last administered on 02/04/19 13:14; Admin Dose 4 PUFF; Start 01/30/19 at 14:00 Ipratropium [place] (Atrovent Hfa) 4 puff Q6H RESP THERAPY INH Last administered on 02/04/19 13:13; Admin Dose 4 PUFF; Start 01/30/19 at 14:00 Lansoprazole (Lansoprazole Oral Susp) 30 mg BID@0600,1800 GTB Last administered on 02/04/19 07:11; Admin Dose 30 MG; Start 01/31/19 at 06:00 Insulin Aspart (Novolog Insulin Pen) NOVOLOG *MODERATE* ALGORI... Q6 SC Last administered on 02/04/19 11:55; Admin Dose 2 UNIT; Start 01/31/19 at 13:00 Insulin Glargine (Lantus) 13 units DAILY@2000 SC Last administered on 02/03/19 20:00; Admin Dose 13 UNITS; Start 01/31/19 at 20:00 Quetiapine Fumarate (Seroquel) 100 mg HS GTB Last administered on 02/03/19 20:52; Admin Dose 100 MG; Start 02/01/19 at 21:00 Acetaminophen (Tylenol Liquid) 650 mg Q4H PRN NGT MILD PAIN(1-3)OR ELEVATED TEMP Last administered on 02/03/19 18:10; Admin Dose 650 MG; Start 02/03/19 at 18:00 Lorazepam (Ativan) 0.5 mg TID IV ; Start 02/04/19 at 21:00 Randy Leone DO Feb 04, 2019 17:34
[2019-02-04] MEDS: INSULIN GLARGINE [LANTus] (100 UNITS/ML) SYG SC SCH (21:07)
[2019-02-04] MEDS: QUETIAPINE 100 MG TAB GTB SCH (21:10)
[2019-02-04] MEDS: LORAZEPAM 2 MG INJ IV SCH (21:11)
[2019-02-05] VITALS (19 sets, daily range): BP systolic 100–129; BP diastolic 62–72; PULSE 85–99; RESP 16–33
[2019-02-05] MEDS: ACETYLCYSTEINE 20% 4 ML VIAL NEB SCH ×4 (01:48→19:32)
[2019-02-05] MEDS: IPRATROPIUM (HFA) 12.9 GM INHALER INH SCH ×4 (01:49→19:32)
[2019-02-05] MEDS: ALBUTEROL HFA 8 GM INHALER INH SCH ×4 (01:49→19:32)
[2019-02-05] MEDS: ACETAMINOPHEN 650MG/20.3ML CUP NGT PRN ×2 (06:11→16:16)
[2019-02-05] MEDS: INSULIN ASPART [NOVOLOG] 3 ML PEN SC SCH ×4 (06:14→19:04)
[2019-02-05] MEDS: LANSOPRAZOLE ORAL SUSP 3 MG/ML (POSYG) GTB SCH ×2 (06:16→19:12)
[2019-02-05] MEDS: DAKINS 0.0125%(1/40) 473 ML SOLUTION TP SCH ×2 (09:00→21:32)
[2019-02-05] MEDS: ZINC SULFATE 220 MG CAP PEG SCH (09:45)
[2019-02-05] MEDS: ASCORBIC ACID 500 MG TAB GTB SCH ×2 (09:45→21:32)
[2019-02-05] MEDS: LORAZEPAM 2 MG INJ IV SCH ×3 (09:53→21:32)
[2019-02-05] MEDS ORDERED: MUCO4 NEB (11:05)
[2019-02-05] MEDS ORDERED: ALBU18HF INH (11:05)
[2019-02-05] MEDS ORDERED: Insulin Glargine SC (11:05)
[2019-02-05] MEDS ORDERED: QUET100T32 GTB (11:05)
[2019-02-05] MEDS ORDERED: VANCOMYCIN IV PER PHARMACY XX SCH (11:30)
--- NOTE | 2019-02-05 11:40 | PN ---
Date/Time of Note Date/Time of Note DATE: 02/05/19 TIME: 11:38 Subjective Remains unresponsive Objective Vitals Vital Signs Date Temp Pulse Resp B/P (MAP) Pulse Ox O2 O2 Flow FiO2 Time Delivery Rate 02/05/19 104 16 100 28 11:14 02/05/19 99.9 127/66 07:55 (86) 02/05/19 Mechanical 04:24 Ventilator Intake and Output 02/04/19 02/04/19 02/05/19 1515:00 23:00 07:00 IntakeIntake Total 1270 ml 330 ml OutputOutput Total 641 ml 300 ml 900 ml BalanceBalance 629 ml 30 ml -900 ml Bilateral rhonchi Regular rate and rhythm Soft normoactive bowel sounds Minute edema Results Result Diagram: 02/04/195 02/04/19444 Medications Medications Current Medications Miscellaneous Information 1 ea NOTE XX ; Start 01/18/19 at 23:30 Glucose (Glutose) 15 gm Q15M PRN PO DECREASED GLUCOSE; Start 01/18/19 at 23:30 Glucose (Glutose) 22.5 gm Q15M PRN PO DECREASED GLUCOSE; Start 01/18/19 at 23:30 Dextrose (D50w Syringe) 25 ml Q15M PRN IV DECREASED GLUCOSE; Start 01/18/19 at 23:30 Dextrose (D50w Syringe) 50 ml Q15M PRN IV DECREASED GLUCOSE; Start 01/18/19 at 23:30 Glucagon (Glucagen) 1 mg Q15M PRN IM DECREASED GLUCOSE; Start 01/18/19 at 23:30 Glucose (Glutose) 15 gm Q15M PRN BUCCAL DECREASED GLUCOSE; Start 01/18/19 at 23:30 Miscellaneous Information (Pending [facility] Order For Wound Care) This patient berg... PRN PRN XX WOUND CARE; Start 01/19/19 at 02:00 Acetaminophen (Tylenol Supp) 650 mg Q6H PRN [place] temp > 100.4F Last administered on 01/25/19at 12:35; Admin Dose 650 MG; Start 01/19/19 at 09:00 Sodium Hypochlorite (Dakins Diluted (40)) 1 applic BID TP Last administered on 02/04/19at 21:11; Admin Dose 1 APPLIC; Start 01/19/19 at 21:00 Morphine Sulfate (morphine) 2 mg Q4H PRN IV SEVERE PAIN LEVEL 7-10 Last administered on 02/01/19 21:18; Admin Dose 2 MG; Start 01/21/19 at 08:30 Ascorbic Acid (Vitamin C) 500 mg BID GTB Last administered on 02/05/19 09:45; Admin Dose 500 MG; Start 01/23/19 at 21:00 Zinc Sulfate (Zinc Sulfate) 220 mg DAILY PEG Last administered on 02/05/19 09:45; Admin Dose 220 MG; Start 01/24/19 at 09:00 Acetylcysteine (Mucomyst) 2 ml Q6H RESP THERAPY NEB Last administered on 02/05/19 07:39; Admin Dose 2 ML; Start 01/28/19 at 20:00 Albuterol (Ventolin Hfa) 4 puff Q6H RESP THERAPY INH Last administered on 02/05/19 07:54; Admin Dose 4 PUFF; Start 01/30/19 at 14:00 Ipratropium [place] (Atrovent Hfa) 4 puff Q6H RESP THERAPY INH Last admin istered on 02/05/19 07:52; Admin Dose 4 PUFF; Start 01/30/19 at 14:00 Lansoprazole (Lansoprazole Oral Susp) 30 mg BID@0600,1800 GTB Last administered on 02/05/19 06:16; Admin Dose 30 MG; Start 01/31/19 at 06:00 Insulin Aspart (Novolog Insulin Pen) NOVOLOG *MODERATE* ALGORI... Q6 SC Last administered on 02/05/19 06:14; Admin Dose 2 UNIT; Start 01/31/19 at 13:00 Insulin Glargine (Lantus) 13 units DAILY@2000 SC Last administered on 02/04/19 21:07; Admin Dose 13 UNITS; Start 01/31/19 at 20:00 Quetiapine Fumarate (Seroquel) 100 mg HS GTB Last administered on 02/04/19 21:10; Admin Dose 100 MG; Start 02/01/19 at 21:00 Acetaminophen (Tylenol Liquid) 650 mg Q4H PRN NGT MILD PAIN(1-3)OR ELEVATED TEMP Last administered on 02/05/19 06:11; Admin Dose 650 MG; Start 7/16/19 at 18:00 Lorazepam (Ativan) 0.5 mg TID IV Last administered on 02/05/19at 09:53; Admin Dose 0.5 MG; Start 02/04/19 at 21:00 Vancomycin HCl (Vanco Iv Per Pharmacy) VANCOMYCIN PER PHARMACY PER PROTOCOL XX ; Start 02/05/19 at 11:30; Status UNV Piperacillin Sod/ Tazobactam Sod 100 ml @ 25 mls/hr TID@02,,18 IVPB ; Start 02/05/19 at 18:00; Status UNV VTE Prophylaxis Risk score (from Ns)>0 risk: 10 [place] [facility] [place]/Catheters IV Catheter Type: Saline Lock Jenkins in Place: Yes Cont'd jenkins catheter reason: pres ulcer contaminated by urine Assessment/Plan Assessment/Plan 63-year-old male with recurrent respiratory failure Postop day #2 tracheostomy Aspiration pneumonia Fever. Rule out recurrent aspiration versus other sources History of hemorrhagic CVA Catatonic state Bipolar disorder Schizophrenia Stage III chronic kidney disease Type 2 diabetes mellitus Start vancomycin and Zosyn Chest x-ray Blood cultures Urine culture Plan of care was discussed with his son TEJASFELICITAS MD Feb 05, 2019 11:40
--- NOTE | 2019-02-05 11:41 | CONS ---
Consult Date/Type/Reason Admit Date/Time Jan 18, 2019 at 04:19 Initial Consult Date Type of Consult Pulmonary Requesting Provider: FELICITAS LAZARO MD Date/Time of Note DATE: 02/05/19 TIME: 11:40 Subjective Patient appears comfortable this morning mostly somnolent no respiratory distress Objective Vital Signs Date Temp Pulse Resp B/P (MAP) Pulse Ox O2 O2 Flow FiO2 Time Delivery Rate 02/05/19 104 16 100 28 11:14 02/05/19 99.9 127/66 07:55 (86) 02/05/19 Mechanical 04:24 Ventilator Intake and Output 02/04/19 02/04/19 02/05/19 1515:00 23:00 07:00 IntakeIntake Total 1270 ml 330 ml OutputOutput Total 641 ml 300 ml 900 ml BalanceBalance 629 ml 30 ml -900 ml Exam GENERAL: Chronically ill-appearing gentleman VITAL SIGNS: per chart NECK: Supple. No JVD or lymphadenopathy. CARDIAC EXAM: S1, S2. No added sounds or murmurs. CHEST: Diminished air entry bilaterally ABDOMEN: Soft, nontender. No guarding or rebound. EXTREMITIES: No cyanosis, clubbing edema +2 NEUROLOGIC: Generalized weakness. No focal deficits. Vent Setting Ventilator Support Mode: AC Fraction of Inspired Oxygen pe: 28 Positive End Expiratory Pressu: 5.0 Results/Medications Result Diagram: 02/04/19 0445 02/04/19 0445 Results 24 hrs Laboratory Tests Test 02/04/19 11:53 02/04/19 17:34 02/04/19 21:08 02/05/19 00:26 Bedside Glucose 161 173 134 123 Test 02/05/19 06:10 Bedside Glucose 168 Medications Current Medications Miscellaneous Information 1 ea NOTE XX ; Start 01/18/19 at 23:30 Glucose (Glutose) 15 gm Q15M PRN PO DECREASED GLUCOSE; Start 01/18/19 at 23:30 Glucose (Glutose) 22.5 gm Q15M PRN PO DECREASED GLUCOSE; Start 01/18/19 at 23:30 Dextrose (D50w Syringe) 25 ml Q15M PRN IV DECREASED GLUCOSE; Start 01/18/19 at 23:30 Dextrose (D50w Syringe) 50 ml Q15M PRN IV DECREASED GLUCOSE; Start 01/18/19 at 23:30 Glucagon (Glucagen) 1 mg Q15M PRN IM DECREASED GLUCOSE; Start 01/18/19 at 23:30 Glucose (Glutose) 15 gm Q15M PRN BUCCAL DECREASED GLUCOSE; Start 01/18/19 at 23:30 Miscellaneous Information (Pending [facility] Order For Wound Care) This patient berg... PRN PRN XX WOUND CARE; Start 01/19/19 at 02:00 Acetaminophen (Tylenol Supp) 650 mg Q6H PRN [place] temp > 100.4F Last administered on 01/25/19 12:35; Admin Dose 650 MG; Start 01/19/19 at 09:00 Sodium Hypochlorite (Dakins Diluted ()) 1 applic BID TP Last administered on 02/04/19 21:11; Admin Dose 1 APPLIC; Start 01/19/19 at 21:00 Morphine Sulfate (morphine) 2 mg Q4H PRN IV SEVERE PAIN LEVEL 7-10 Last administered on 02/01/19 21:18; Admin Dose 2 MG; Start 01/21/19 at 08:30 Ascorbic Acid (Vitamin C) 500 mg BID GTB Last administered on 02/05/19 09:45; Admin Dose 500 MG; Start 01/23/19 at 21:00 Zinc Sulfate (Zinc Sulfate) 220 mg DAILY PEG Last administered on 02/05/19 09:45; Admin Dose 220 MG; Start 01/24/19 at 09:00 Acetylcysteine (Mucomyst) 2 ml Q6H RESP THERAPY NEB Last administered on 07:39; Admin Dose 2 ML; Start 01/28/19 at 20:00 Albuterol (Ventolin Hfa) 4 puff Q6H RESP THERAPY INH Last administered on 02/05/19 07:54; Admin Dose 4 PUFF; Start 01/30/19 at 14:00 Ipratropium [place] (Atrovent Hfa) 4 puff Q6H RESP THERAPY INH Last administered on 02/05/19 07:52; Admin Dose 4 PUFF; Start 01/30/19 at 14:00 Lansoprazole (Lansoprazole Oral Susp) 30 mg BID@0600,1800 GTB Last administered on 02/05/19 06:16; Admin Dose 30 MG; Start 01/31/19 at 06:00 Insulin Aspart (Novolog Insulin Pen) NOVOLOG *MODERATE* ALGORI... Q6 SC Last administered on 02/05/19 06:14; Admin Dose 2 UNIT; Start 01/31/19 at 13:00 Insulin Glargine (Lantus) 13 units DAILY@2000 SC Last administered on 02/04/19 21:07; Admin Dose 13 UNITS; Start 01/31/19 at 20:00 Quetiapine Fumarate (Seroquel) 100 mg HS GTB Last administered on 02/04/19at 21:10; Admin Dose 100 MG; Start 02/01/19 at 21:00 Acetaminophen (Tylenol Liquid) 650 mg Q4H PRN NGT MILD PAIN(1-3)OR ELEVATED TEMP Last administered on 02/05/19 06:11; Admin Dose 650 MG; Start 02/03/19 at 18:00 Lorazepam (Ativan) 0.5 mg TID IV Last administered on 02/05/19at 09:53; Admin Dose 0.5 MG; Start 02/04/19 at 21:00 Vancomycin HCl (Vanco Iv Per Pharmacy) VANCOMYCIN PER PHARMACY PER PROTOCOL XX ; Start 02/05/19 at 11:30; Status UNV Piperacillin Sod/ Tazobactam Sod 100 ml @ 25 mls/hr TID@02,10,18 IVPB ; Start 02/05/19 at 18:00; Status UNV Assessment/Plan Hospital Course (Demo Recall) IMPRESSION: 1. Likely healthcare-associated pneumonia. 2. Status post septic shock. 3. Functional quadriplegia. 4. History of dysphagia. Status post G-tube 5. Hypoxemic respiratory failure 6. Significant decubitus ulcer status post debridement. 7. Encephalopathy 8. A. fib with RVR 9. Hypernatremia PLAN: 1. Continue broad-spectrum antibiotics. 2. Antibiotics per primary team 3. Tachycardia noted. Consider cardiology evaluation. 4. Tube feeding as tolerated 5. Increase free water per nasogastric tube. BHAVIN BARROW MD, [facility] Feb 05, 2019 11:41
[2019-02-05] MEDS ORDERED: VANCOMYCIN HCL 1.5 GM in SOD CHLORIDE 0.9% 250 ML IVPB SCH (13:00)
[2019-02-05] MEDS: PIPER-TAZO 3.375 GM IV (PMX) 100 ML IVPB SCH ×2 (14:22→21:36)
--- NOTE | 2019-02-05 14:30 | CONS ---
Assessment/Plan Assessment/Plan Assessment/Plan (Daily) 1. acute hyperkalemia- now resolved 2. acute On chronic renal failure due to ATN from septic shock- Improving 3. acute hypoxemic respiratory failure intubated on ventilator 2/2 Health care associated PNA - s/p extubation on 01/24/19 - s/p Tracheostomy in place 4. Septic shock on pressors 5. acute hypernatremia- Improving 6. H/O quadriplegia 7. H/o CAD s/p CABG 8. H/O HTN 9. 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 Plan: BUN/cr 28/1.54, Na improved to 147, K 3.5, - - no labs today to review yet IV abx zosyn and vancomycin for PNA coverage, Renally dose all abx and monitor electorlytes will follow up Consultation Date/Type/Reason Admit Date/Time Jan 18, 2019 at 04:19 Initial Consult Date Type of Consult NEPHROLOGY Requesting Provider: FELICITAS LAZARO MD Date/Time of Note DATE: 02/05/19 TIME: 14:30 24 HR Interval Summary Free Text/Dictation s/p Tracheostomy in place, Downgraded to Tele floor Exam/Review of Systems Exam Vitals Vital Signs Date Temp Pulse Resp B/P (MAP) Pulse Ox O2 O2 Flow FiO2 Time Delivery Rate 02/05/19 104 16 100 30 12:55 02/05/19 99.8 123/67 11:42 (85) 02/05/19 Mechanical 04:24 Ventilator Intake and Output 02/04/19 02/04/19 02/05/19 1515:00 23:00 07:00 IntakeIntake Total 1270 ml 330 ml OutputOutput Total 641 ml 300 ml 900 ml BalanceBalance 629 ml 30 ml -900 ml Exam GENERAL: Non verbal, + tracheostomy in place NECK: Supple. No JVD or lymphadenopathy. CARDIAC: S1, S2, RRR, no murmur CHEST: Bilateral crackles +, no wheezing ABDOMEN: Soft, nontender. No guarding or rebound. EXTREMITIES: No cyanosis, clubbing of bleeding. + jenkins catheter NEUROLOGIC: Nonverbal, uncooperative . Results Result Diagram: 02/04/19 0445 02/04/195 Results 24hrs Laboratory Tests Test 02/04/19 17:34 02/04/19 21:08 02/05/19 00:26 02/05/19 06:10 Bedside Glucose 173 134 123 168 Test 02/05/19 12:38 Bedside Glucose 184 Medications Medication Current Medications Miscellaneous Information 1 ea NOTE XX ; Start 01/18/19 at 23:30 Glucose (Glutose) 15 gm Q15M PRN PO DECREASED GLUCOSE; Start 01/18/19 at 23:30 Glucose (Glutose) 22.5 gm Q15M PRN PO DECREASED GLUCOSE; Start 01/18/19 at 23:30 Dextrose (D50w Syringe) 25 ml Q15M PRN IV DECREASED GLUCOSE; Start 01/18/19 at 23:30 Dextrose (D50w Syringe) 50 ml Q15M PRN IV DECREASED GLUCOSE; Start 01/18/19 at 23:30 Glucagon (Glucagen) 1 mg Q15M PRN IM DECREASED GLUCOSE; Start 01/18/19 at 23:30 Glucose (Glutose) 15 gm Q15M PRN BUCCAL DECREASED GLUCOSE; Start 01/18/19 at 23:30 Miscellaneous Information (Pending [facility] Order For Wound Care) This patient berg... PRN PRN XX WOUND CARE; Start 01/19/19 at 02:00 Acetaminophen (Tylenol Supp) 650 mg Q6H PRN [place] temp > 100.4F Last administered on 01/25/19at 12:35; Admin Dose 650 MG; Start 01/19/19 at 09:00 Sodium Hypochlorite (Dakins Diluted (40)) 1 applic BID TP Last administered on 02/04/19at 21:11; Admin Dose 1 APPLIC; Start 01/19/19 at 21:00 Morphine Sulfate (morphine) 2 mg Q4H PRN IV SEVERE PAIN LEVEL 7-10 Last administered on 02/01/19at 21:18; Admin Dose 2 MG; Start 01/21/19 at 08:30 Ascorbic Acid (Vitamin C) 500 mg BID GTB Last administered on 02/05/19at 09:45; Admin Dose 500 MG; Start 01/23/19 at 21:00 Zinc Sulfate (Zinc Sulfate) 220 mg DAILY PEG Last administered on 02/05/19at 09:45; Admin Dose 220 MG; Start 01/24/19 at 09:00 Acetylcysteine (Mucomyst) 2 ml Q6H RESP THERAPY NEB Last administered on 02/05/19 13:33; Admin Dose 2 ML; Start 01/28/19 at 20:00 Albuterol (Ventolin Hfa) 4 puff Q6H RESP THERAPY INH Last administered on 02/05/19 13:39; Admin Dose 4 PUFF; Start 01/30/19 at 14:00 Ipratropium [place] (Atrovent Hfa) 4 puff Q6H RESP THERAPY INH Last admin istered on 02/05/19 13:39; Admin Dose 4 PUFF; Start 01/30/19 at 14:00 Lansoprazole (Lansoprazole Oral Susp) 30 mg BID@0600,1800 GTB Last administered on 02/05/19 06:16; Admin Dose 30 MG; Start 01/31/19 at 06:00 Insulin Aspart (Novolog Insulin Pen) NOVOLOG *MODERATE* ALGORI... Q6 SC Last administered on 02/05/19 12:43; Admin Dose 2 UNIT; Start 01/31/19 at 13:00 Insulin Glargine (Lantus) 13 units DAILY@2000 SC Last administered on 02/04/19 21:07; Admin Dose 13 UNITS; Start 01/31/19 at 20:00 Quetiapine Fumarate (Seroquel) 100 mg HS GTB Last administered on 02/04/19 21:10; Admin Dose 100 MG; Start 02/01/19 at 21:00 Acetaminophen (Tylenol Liquid) 650 mg Q4H PRN NGT MILD PAIN(1-3)OR ELEVATED TEMP Last administered on 02/05/19 06:11; Admin Dose 650 MG; Start 02/03/19 at 18:00 Lorazepam (Ativan) 0.5 mg TID IV Last administered on 02/05/19 09:53; Admin Dose 0.5 MG; Start 02/04/19 at 21:00 Vancomycin HCl (Vanco Iv Per Pharmacy) VANCOMYCIN PER PHARMACY PER PROTOCOL XX ; Start 02/05/19 at 11:30 Vancomycin HCl 1.5 gm/Sodium Chloride 250 ml @ 83.333 mls/ hr ONCE IVPB ; Start 02/05/19 at 13:00; Stop 02/05/19 at 19:00 Piperacillin Sod/ Tazobactam Sod 100 ml @ 200 mls/hr Q8H IVPB ; Start 02/05/19 at 12:00 Vancomycin HCl 250 ml @ 125 mls/hr Q48H IVPB ; Start 02/07/19 at 13:00 TONIO SOOD MD Feb 05, 2019 14:30
--- NOTE | 2019-02-05 16:48 | CONS ---
Assessment/Plan Assessment/Plan Hospital Course (Demo Recall) Hypoxic respiratory failure status post tracheostomy Left lung collapse status post intubation Hypotension, off IV pressor Sepsis Acute kidney injury Hypernatremia-improved CAD with history of CABG Preserved left ventricular ejection fraction Remains off IV pressors Status post tracheostomy Vent management as per pulmonary Fluid management and diuretics as per nephrology Consultation Date/Type/Reason Admit Date/Time Jan 18, 2019 at 04:19 Initial Consult Date 01/21/19 Type of Consult Cardiology Requesting Provider: FELICITAS LAZARO MD Date/Time of Note DATE: 02/05/19 TIME: 16:47 24 HR Interval Summary Free Text/Dictation Seen and examined Exam/Review of Systems Vital Signs Vitals Vital Signs Date Temp Pulse Resp B/P (MAP) Pulse Ox O2 O2 Flow FiO2 Time Delivery Rate 02/05/19 101.3 16:16 02/05/19 89 18 108/67 98 15:56 (81) 02/05/19 32 15:15 02/05/19 Mechanica 04:24 l Ventilato r Intake and Output 02/04/19 02/04/19 02/05/19 1515:00 23:00 07:00 IntakeIntake Total 1270 ml 330 ml OutputOutput Total 641 ml 300 ml 900 ml BalanceBalance 629 ml 30 ml -900 ml Exam Exam Looks me when his name is called, tries to mouth certain words, no apparent distress Head: normocephalic Respiratory: other (Coarse breath sounds bilaterally, no wheezing) Cardiovascular: regular rate and rhythm (S1-S2 heard) Gastrointestinal: soft, non-tender, bowel sounds Extremities: edema Labs Result Diagram: 02/04/195 02/04/19 0445 Results 24hrs Laboratory Tests Test 02/04/19 17:34 02/04/19 21:08 02/05/19 00:26 02/05/19 06:10 Bedside Glucose 173 134 123 168 Test 02/05/19 12:38 Bedside Glucose 184 Medications Medications Current Medications Miscellaneous Information 1 ea NOTE XX ; Start 01/18/19 at 23:30 Glucose (Glutose) 15 gm Q15M PRN PO DECREASED GLUCOSE; Start 01/18/19 at 23:30 Glucose (Glutose) 22.5 gm Q15M PRN PO DECREASED GLUCOSE; Start 01/18/19 at 23:30 Dextrose (D50w Syringe) 25 ml Q15M PRN IV DECREASED GLUCOSE; Start 01/18/19 at 23:30 Dextrose (D50w Syringe) 50 ml Q15M PRN IV DECREASED GLUCOSE; Start 01/18/19 at 23:30 Glucagon (Glucagen) 1 mg Q15M PRN IM DECREASED GLUCOSE; Start 01/18/19 at 23:30 Glucose (Glutose) 15 gm Q15M PRN BUCCAL DECREASED GLUCOSE; Start 01/18/19 at 23:30 Miscellaneous Information [facility] This patient berg... PRN PRN XX WOUND CARE; Start 01/19/19 at 02:00 Acetaminophen (Tylenol Supp) 650 mg Q6H PRN [place] temp > 100.4F Last administered on 01/25/19 12:35; Admin Dose 650 MG; Start 01/19/19 at 09:00 Sodium Hypochlorite (Dakins Diluted ()) 1 applic BID TP Last administered on 02/04/19 21:11; Admin Dose 1 APPLIC; Start 01/19/19 at 21:00 Morphine Sulfate (morphine) 2 mg Q4H PRN IV SEVERE PAIN LEVEL 7-10 Last administered on 02/01/19 21:18; Admin Dose 2 MG; Start 01/21/19 at 08:30 Ascorbic Acid (Vitamin C) 500 mg BID GTB Last administered on 02/05/19 09:45; Admin Dose 500 MG; Start 01/23/19 at 21:00 Zinc Sulfate (Zinc Sulfate) 220 mg DAILY PEG Last administered on 02/05/19 09:45; Admin Dose 220 MG; Start 01/24/19 at 09:00 Acetylcysteine (Mucomyst) 2 ml Q6H RESP THERAPY NEB Last administered on 02/05/19 13:33; Admin Dose 2 ML; Start 01/28/19 at 20:00 Albuterol (Ventolin Hfa) 4 puff Q6H RESP THERAPY INH Last administered on 02/05/19 13:39; Admin Dose 4 PUFF; Start 01/30/19 at 14:00 Ipratropium [place] (Atrovent Hfa) 4 puff Q6H RESP THERAPY INH Last a dministered on 02/05/19 13:39; Admin Dose 4 PUFF; Start 01/30/19 at 14:00 Lansoprazole (Lansoprazole Oral Susp) 30 mg BID@0600,1800 GTB Last administered on 02/05/19 06:16; Admin Dose 30 MG; Start 01/31/19 at 06:00 Insulin Aspart (Novolog Insulin Pen) NOVOLOG *MODERATE* ALGORI... Q6 SC Last administered on 02/05/19 12:43; Admin Dose 2 UNIT; Start 01/31/19 at 13:00 Insulin Glargine (Lantus) 13 units DAILY@2000 SC Last administered on 02/04/19 21:07; Admin Dose 13 UNITS; Start 01/31/19 at 20:00 Quetiapine Fumarate (Seroquel) 100 mg HS GTB Last administered on 02/04/19 21:10; Admin Dose 100 MG; Start 02/01/19 at 21:00 Acetaminophen (Tylenol Liquid) 650 mg Q4H PRN NGT MILD PAIN(1-3)OR ELEVATED TEMP Last administered on 02/05/19 16:16; Admin Dose 650 MG; Start 02/03/19 at 18:00 Lorazepam (Ativan) 0.5 mg TID IV Last administered on 02/05/19 14:29; Admin Dose 0.5 MG; Start 02/04/19 at 21:00 Vancomycin HCl (Vanco Iv Per Pharmacy) VANCOMYCIN PER PHARMACY PER PROTOCOL XX ; Start 02/05/19 at 11:30 Vancomycin HCl 1.5 gm/Sodium Chloride 250 ml @ 83.333 mls/ hr ONCE IVPB Last administered on 02/05/19 14:39; Admin Dose 83.333 MLS/HR; Start 02/05/19 at 13:00; Stop 02/05/19 at 19:00 Piperacillin Sod/ Tazobactam Sod 100 ml @ 200 mls/hr Q8H IVPB Last administered on 02/05/19 14:22; Admin Dose 200 MLS/HR; Start 02/05/19 at 12:00 Vancomycin HCl 250 ml @ 125 mls/hr Q48H IVPB ; Start 02/07/19 at 13:00 Randy Leone DO Feb 05, 2019 16:48
[2019-02-05] MEDS ORDERED: PIPER-TAZO 3.375 GM IV (PMX) 100 ML IVPB SCH (18:00)
--- NOTE | 2019-02-05 19:30 | PN ---
Date/Time of Note Date/Time of Note DATE: 02/05/19 TIME: 19:30 Assessment/Plan Lines/Catheters IV Catheter Type (from Nrsg): Saline Lock Garcia in Place (from Nrsg): Yes Assessment/Plan Assessment/Plan Resp Failure SP Tracheostomy Trach site clean Will continue trach care Vent support Pulm troilet Subjective 24 Hr Interval Summary Constitutional: improved Pain Control: mild Exam/Review of Systems Vital Signs Vitals Vital Signs Date Temp Pulse Resp B/P (MAP) Pulse Ox O2 O2 Flow FiO2 Time Delivery Rate 02/05/19 100.9 18:07 02/05/19 92 16 98 27 17:37 02/05/19 108/67 15:56 (81) 02/05/19 Mechanica 04:24 l Ventilato r Intake and Output 02/04/19 02/04/19 02/05/19 1515:00 23:00 07:00 IntakeIntake Total 1270 ml 330 ml OutputOutput Total 641 ml 300 ml 900 ml BalanceBalance 629 ml 30 ml -900 ml Exam ENMT: nl external ears & nose, nl lips & teeth, nl nasal mucosa & septum, mucosa pink and moist Neck: supple, non-tender Respiratory: clear to auscultation, normal air movement Cardiovascular: regular rate and rhythm, nl pulses Gastrointestinal: soft, nl liver, spleen, non-tender Musculoskeletal: nl extremities to inspection, nl gait and stance Results Result Diagram: 02/04/19 0445 02/04/19 0445 LEAH GALE MD Feb 05, 2019 19:30
[2019-02-05] MEDS: QUETIAPINE 100 MG TAB GTB SCH (21:32)
[2019-02-05] MEDS: INSULIN GLARGINE [LANTus] (100 UNITS/ML) SYG SC SCH (21:53)
[2019-02-06] VITALS (18 sets, daily range): BP systolic 98–124; BP diastolic 54–72; PULSE 88–113; RESP 21–30
[2019-02-06] MEDS: INSULIN ASPART [NOVOLOG] 3 ML PEN SC SCH ×4 (01:07→17:01)
[2019-02-06] MEDS: ACETAMINOPHEN 650MG/20.3ML CUP NGT PRN ×2 (01:08→16:51)
[2019-02-06] MEDS: ACETYLCYSTEINE 20% 4 ML VIAL NEB SCH ×4 (01:19→19:28)
[2019-02-06] MEDS: IPRATROPIUM (HFA) 12.9 GM INHALER INH SCH ×4 (01:22→19:29)
[2019-02-06] MEDS: ALBUTEROL HFA 8 GM INHALER INH SCH ×4 (01:22→19:28)
[2019-02-06] MEDS: PIPER-TAZO 3.375 GM IV (PMX) 100 ML IVPB SCH ×3 (04:56→21:07)
[2019-02-06] MEDS: LANSOPRAZOLE ORAL SUSP 3 MG/ML (POSYG) GTB SCH ×2 (06:41→17:01)
--- NOTE | 2019-02-06 08:19 | CONS ---
Assessment/Plan Assessment/Plan Assessment/Plan (Daily) 1. acute hyperkalemia- now resolved 2. acute On chronic renal failure due to ATN from septic shock- Improving 3. acute hypoxemic respiratory failure intubated on ventilator 2/2 Health care associated PNA - s/p extubation on 01/24/19 - s/p Tracheostomy in place 4. Septic shock on pressors 5. acute hypernatremia- Improving 6. H/O quadriplegia 7. H/o CAD s/p CABG 8. H/O HTN 9. 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 Plan: BUN/cr 301.27, Na improved to 147, K 3.5, - IV abx zosyn and vancomycin for PNA coverage, Renally dose all abx and monitor electorlytes will follow up Consultation Date/Type/Reason Admit Date/Time Jan 18, 2019 at 04:19 Initial Consult Date Type of Consult NEPHROLOGY Requesting Provider: FELICITAS LAZARO MD Date/Time of Note DATE: 02/06/19 TIME: 08:19 Exam/Review of Systems Exam Vitals Vital Signs Date Temp Pulse Resp B/P (MAP) Pulse Ox O2 O2 Flow FiO2 Time Delivery Rate 02/06/19 100.3 88 21 109/67 100 Mechanica 07:39 (81) l Ventilato r 02/06/19 30 05:05 Intake and Output 02/05/19 02/05/19 02/06/19 1515:00 23:00 07:00 IntakeIntake Total 1100 ml OutputOutput Total 900 ml 1250 ml BalanceBalance -900 ml -150 ml Exam GENERAL: Non verbal, + tracheostomy in place NECK: Supple. No JVD or lymphadenopathy. CARDIAC: S1, S2, RRR, no murmur CHEST: Bilateral crackles +, no wheezing ABDOMEN: Soft, nontender. No guarding or rebound. EXTREMITIES: No cyanosis, clubbing of bleeding. + jenkins catheter NEUROLOGIC: Nonverbal, uncooperative . Results Result Diagram: 02/06/19 0552 02/06/19 0552 Results 24hrs Laboratory Tests Test 02/05/19 12:38 02/05/19 19:03 02/05/19 21:43 02/06/19 01:02 Bedside Glucose 184 122 114 144 Test 02/06/19 05:08 02/06/19 05:52 Bedside Glucose 132 White Blood Count 9.5 # Red Blood Count 2.60 L Hemoglobin 7.8 L Hematocrit 25.7 L Mean Corpuscular 98.8 Volume Mean Corpuscular 30.0 Hemoglobin Mean Corpuscular 30.4 L Hemoglobin Concent Red Cell 15.9 H Distribution Width Platelet Count 146 Mean Platelet Volume 11.9 H Immature 0.400 Granulocytes % Neutrophils % 68.3 Lymphocytes % 23.8 Monocytes % 4.8 Eosinophils % 2.4 Basophils % 0.3 Nucleated Red Blood 0.0 Cells % Immature 0.040 H Granulocytes # Neutrophils # 6.5 Lymphocytes # 2.3 Monocytes # 0.5 Eosinophils # 0.2 Basophils # 0.0 Nucleated Red Blood 0.0 Cells # Sodium Level 147 H Potassium Level 3.5 Chloride Level 112 H Carbon Dioxide Level 29 Anion Gap 6 Blood Urea Nitrogen 30 H Creatinine 1.27 H Est Glomerular 57 L Filtrat Rate mL/min Glucose Level 115 Calcium Level 8.5 Medications Medication Current Medications Miscellaneous Information 1 ea NOTE XX ; Start 01/18/19 at 23:30 Glucose (Glutose) 15 gm Q15M PRN PO DECREASED GLUCOSE; Start 01/18/19 at 23:30 Glucose (Glutose) 22.5 gm Q15M PRN PO DECREASED GLUCOSE; Start 01/18/19 at 23:30 Dextrose (D50w Syringe) 25 ml Q15M PRN IV DECREASED GLUCOSE; Start 01/18/19 at 23:30 Dextrose (D50w Syringe) 50 ml Q15M PRN IV DECREASED GLUCOSE; Start 01/18/19 at 23:30 Glucagon (Glucagen) 1 mg Q15M PRN IM DECREASED GLUCOSE; Start 01/18/19 at 23:30 Glucose (Glutose) 15 gm Q15M PRN BUCCAL DECREASED GLUCOSE; Start 01/18/19 at 23:30 Miscellaneous Information [facility] This patient berg... PRN PRN XX WOUND CARE; Start 01/19/19 at 02:00 Acetaminophen (Tylenol Supp) 650 mg Q6H PRN [place] temp > 100.4F Last administered on 01/25/19at 12:35; Admin Dose 650 MG; Start 01/19/19 at 09:00 Sodium Hypochlorite (Dakins Diluted ()) 1 applic BID TP Last administered on 02/05/19 21:32; Admin Dose 1 APPLIC; Start 01/19/19 at 21:00 Morphine Sulfate (morphine) 2 mg Q4H PRN IV SEVERE PAIN LEVEL 7-10 Last administered on 02/01/19 21:18; Admin Dose 2 MG; Start 01/21/19 at 08:30 Ascorbic Acid (Vitamin C) 500 mg BID GTB Last administered on 02/05/19 21:32; Admin Dose 500 MG; Start 01/23/19 at 21:00 Zinc Sulfate (Zinc Sulfate) 220 mg DAILY PEG Last administered on 02/05/19 09:45; Admin Dose 220 MG; Start 01/24/19 at 09:00 Acetylcysteine (Mucomyst) 2 ml Q6H RESP THERAPY NEB Last administered on 02/06/19 08:13; Admin Dose 2 ML; Start 01/28/19 at 20:00 Albuterol (Ventolin Hfa) 4 puff Q6H RESP THERAPY INH Last administered on 02/06/19 08:12; Admin Dose 4 PUFF; Start 01/30/19 at 14:00 Ipratropium [place] (Atrovent Hfa) 4 puff Q6H RESP THERAPY INH Last administered on 02/06/19 08:12; Admin Dose 4 PUFF; Start 01/30/19 at 14:00 Lansoprazole (Lansoprazole Oral Susp) 30 mg BID@0600,1800 GTB Last administered on 02/06/19 06:41; Admin Dose 30 MG; Start 01/31/19 at 06:00 Insulin Aspart (Novolog Insulin Pen) NOVOLOG *MODERATE* ALGORI... Q6 SC Last administered on 02/06/19 01:07; Admin Dose 2 UNIT; Start 01/31/19 at 13:00 Insulin Glargine (Lantus) 13 units DAILY@2000 SC Last administered on 02/05/19 21:53; Admin Dose 13 UNITS; Start 01/31/19 at 20:00 Quetiapine Fumarate (Seroquel) 100 mg HS GTB Last administered on 02/05/19 21:32; Admin Dose 100 MG; Start 02/01/19 at 21:00 Acetaminophen (Tylenol Liquid) 650 mg Q4H PRN NGT MILD PAIN(1-3)OR ELEVATED TEMP Last administered on 02/06/19at 01:08; Admin Dose 650 MG; Start 02/03/19 at 18:00 Lorazepam (Ativan) 0.5 mg TID IV Last administered on 02/05/19at 21:32; Admin Do se 0.5 MG; Start 02/04/19 at 21:00 Vancomycin HCl (Vanco Iv Per Pharmacy) VANCOMYCIN PER PHARMACY PER PROTOCOL XX ; Start 02/05/19 at 11:30 Piperacillin Sod/ Tazobactam Sod 100 ml @ 200 mls/hr Q8H IVPB Last administered on 02/06/19at 04:56; Admin Dose 200 MLS/HR; Start 02/05/19 at 12:00 Vancomycin HCl 250 ml @ 125 mls/hr Q48H IVPB ; Start 02/07/19 at 13:00 TONIO SOOD MD Feb 06, 2019 08:19
[2019-02-06] MEDS: DAKINS 0.0125%(1/40) 473 ML SOLUTION TP SCH ×2 (08:34→21:08)
[2019-02-06] MEDS: ZINC SULFATE 220 MG CAP PEG SCH (08:37)
[2019-02-06] MEDS: ASCORBIC ACID 500 MG TAB GTB SCH ×2 (08:37→21:07)
[2019-02-06] MEDS: LORAZEPAM 2 MG INJ IV SCH ×3 (08:38→21:08)
--- NOTE | 2019-02-06 12:37 | PN ---
Date/Time of Note Date/Time of Note DATE: 02/06/19 TIME: 12:34 Subjective Remains unresponsive Objective Vitals Vital Signs Date Temp Pulse Resp B/P (MAP) Pulse Ox O2 O2 Flow FiO2 Time Delivery Rate 02/06/19 107 25 100 30 11:59 02/06/19 99.9 112/70 Mechanical 11:34 (84) Ventilator Intake and Output 02/05/19 02/05/19 02/06/19 1515:00 23:00 07:00 IntakeIntake Total 1100 ml OutputOutput Total 900 ml 1250 ml BalanceBalance -900 ml -150 ml Neck with tracheostomy in place Bilateral rhonchi. Decreased breath sounds at the bases Regular rate and rhythm Soft normoactive bowel sounds Diffuse edema Results Result Diagram: 02/06/19 0552 02/06/19 0552 Medications Medications Current Medications Miscellaneous Information 1 ea NOTE XX ; Start 01/18/19 at 23:30 Glucose (Glutose) 15 gm Q15M PRN PO DECREASED GLUCOSE; Start 01/18/19 at 23:30 Glucose (Glutose) 22.5 gm Q15M PRN PO DECREASED GLUCOSE; Start 01/18/19 at 23:30 Dextrose (D50w Syringe) 25 ml Q15M PRN IV DECREASED GLUCOSE; Start 01/18/19 at 23:30 Dextrose (D50w Syringe) 50 ml Q15M PRN IV DECREASED GLUCOSE; Start 01/18/19 at 23:30 Glucagon (Glucagen) 1 mg Q15M PRN IM DECREASED GLUCOSE; Start 01/18/19 at 23:30 Glucose (Glutose) 15 gm Q15M PRN BUCCAL DECREASED GLUCOSE; Start 01/18/19 at 23:30 Miscellaneous Information [facility] This patient berg... PRN PRN XX WOUND CARE; Start 01/19/19 at 02:00 Acetaminophen (Tylenol Supp) 650 mg Q6H PRN [place] temp > 100.4F Last administered on 01/25/19at 12:35; Admin Dose 650 MG; Start 01/19/19 at 09:00 Sodium Hypochlorite (Dakins Diluted (/40)) 1 applic BID TP Last administered on 02/06/19at 08:34; Admin Dose 1 APPLIC; Start 01/19/19 at 21:00 Morphine Sulfate (morphine) 2 mg Q4H PRN IV SEVERE PAIN LEVEL 7-10 Last administered on 02/01/19 21:18; Admin Dose 2 MG; Start 01/21/19 at 08:30 Ascorbic Acid (Vitamin C) 500 mg BID GTB Last administered on 02/06/19 08:37; Admin Dose 500 MG; Start 01/23/19 at 21:00 Zinc Sulfate (Zinc Sulfate) 220 mg DAILY PEG Last administered on 02/06/19 08:37; Admin Dose 220 MG; Start 01/24/19 at 09:00 Acetylcysteine (Mucomyst) 2 ml Q6H RESP THERAPY NEB Last administered on 02/06/19 08:13; Admin Dose 2 ML; Start 01/28/19 at 20:00 Albuterol (Ventolin Hfa) 4 puff Q6H RESP THERAPY INH Last administered on 08:12; Admin Dose 4 PUFF; Start 01/30/19 at 14:00 Ipratropium [place] (Atrovent Hfa) 4 puff Q6H RESP THERAPY INH Last administered on 02/06/19 08:12; Admin Dose 4 PUFF; Start 01/30/19 at 14:00 Lansoprazole (Lansoprazole Oral Susp) 30 mg BID@0600,1800 GTB Last administered on 02/06/19 06:41; Admin Dose 30 MG; Start 01/31/19 at 06:00 Insulin Aspart (Novolog Insulin Pen) NOVOLOG *MODERATE* ALGORI... Q6 SC Last administered on 02/06/19 11:55; Admin Dose 2 UNIT; Start 01/31/19 at 13:00 Insulin Glargine (Lantus) 13 units DAILY@2000 SC Last administered on 02/05/19 21:53; Admin Dose 13 UNITS; Start 01/31/19 at 20:00 Quetiapine Fumarate (Seroquel) 100 mg HS GTB Last administered on 02/05/19 21:32; Admin Dose 100 MG; Start 02/01/19 at 21:00 Acetaminophen (Tylenol Liquid) 650 mg Q4H PRN NGT MILD PAIN(1-3)OR ELEVATED TEMP Last administered on 02/06/19 01:08; Admin Dose 650 MG; Start 02/03/19 at 18:00 Lorazepam (Ativan) 0.5 mg TID IV Last administered on 02/06/19at 08:38; Admin Dose 0.5 MG; Start 02/04/19 at 21:00 Vancomycin HCl (Vanco Iv Per Pharmacy) VANCOMYCIN PER PHARMACY PER PROTOCOL XX ; Start 02/05/19 at 11:30 Piperacillin Sod/ Tazobactam Sod 100 ml @ 200 mls/hr Q8H IVPB Last administered on 02/06/19at 11:54; Admin Dose 200 MLS/HR; Start 02/05/19 at 12:00 Vancomycin HCl 250 ml @ 125 mls/hr Q48H IVPB ; Start 02/07/19 at 13:00 VTE Prophylaxis Risk score (from Ns)>0 risk: 10 SCD applied (from Ns): Yes Lines/Catheters IV Catheter Type: Saline Lock Jenkins in Place: Yes Cont'd jenkins catheter reason: pres ulcer contaminated by urine Assessment/Plan Assessment/Plan 63-year-old male with recurrent respiratory failure Status post tracheostomy placement Recurrent pneumonia possibly due to aspiration 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
--- NOTE | 2019-02-06 14:06 | CONS ---
Assessment/Plan Assessment/Plan Hospital Course (Demo Recall) Hypoxic respiratory failure status post tracheostomy Left lung collapse status post intubation Hypotension, off IV pressor Sepsis Acute kidney injury Hypernatremia-improved CAD with history of CABG Preserved left ventricular ejection fraction Remains off IV pressors Status post tracheostomy Vent management as per pulmonary Fluid management and diuretics as per nephrology Consultation Date/Type/Reason Admit Date/Time Jan 18, 2019 at 04:19 Initial Consult Date 01/21/19 Type of Consult Cardiology Requesting Provider: FELICITAS LAZARO MD Date/Time of Note DATE: 02/06/19 TIME: 14:06 24 HR Interval Summary Free Text/Dictation Patient seen and examined Exam/Review of Systems Vital Signs Vitals Vital Signs Date Temp Pulse Resp B/P (MAP) Pulse Ox O2 O2 Flow FiO2 Time Delivery Rate 02/06/19 109 26 100 30 13:54 02/06/19 99.9 112/70 Mechanical 11:34 (84) Ventilator Intake and Output 02/05/19 02/05/19 02/06/19 1515:00 23:00 07:00 IntakeIntake Total 1100 ml OutputOutput Total 900 ml 1250 ml BalanceBalance -900 ml -150 ml Exam Exam Awake, looks me when his name is called, no apparent distress Head: normocephalic Respiratory: other (Coarse breath sounds bilaterally, no wheezing) Cardiovascular: regular rate and rhythm (S1-S2 heard) Gastrointestinal: soft, non-tender, bowel sounds Extremities: edema Labs Result Diagram: 02/06/19 0552 02/06/19 0552 Results 24hrs Laboratory Tests Test 02/05/19 19:03 02/05/19 21:43 02/06/19 01:02 02/06/19 05:08 Bedside Glucose 122 114 144 132 Test 02/06/19 05:52 02/06/19 11:50 White Blood Count 9.5 # Red Blood Count 2.60 L Hemoglobin 7.8 L Hematocrit 25.7 L Mean Corpuscular 98.8 Volume Mean Corpuscular 30.0 Hemoglobin Mean Corpuscular 30.4 L Hemoglobin Concent Red Cell 15.9 H Distribution Width Platelet Count 146 Mean Platelet Volume 11.9 H Immature 0.400 Granulocytes % Neutrophils % 68.3 Segmented 52 Neutrophils % (Manual) Lymphocytes % 23.8 Lymphocytes % 41 (Manual) Reactive Lymphocytes 1 H % (Manual) Monocytes % 4.8 Monocytes % (Manual) 4 Eosinophils % 2.4 Eosinophils % 2 (Manual) Basophils % 0.3 Nucleated Red Blood 0.0 Cells % Immature 0.040 H Granulocytes # Neutrophils # 6.5 Lymphocytes (Manual) 3.8 H Lymphocytes # 2.3 Reactive Lymphocytes 0.0 # Monocytes # 0.5 Monocytes # (Manual) 0.3 Eosinophils # 0.2 Basophils # 0.0 Nucleated Red Blood 0.0 Cells # Platelet Estimate NORMAL Giant Platelets 2 H Hypochromasia 1+ Poikilocytosis 1+ Sodium Level 147 H Potassium Level 3.5 Chloride Level 112 H Carbon Dioxide Level 29 Anion Gap 6 Blood Urea Nitrogen 30 H Creatinine 1.27 H Est Glomerular 57 L Filtrat Rate mL/min Glucose Level 115 Calcium Level 8.5 Bedside Glucose 141 Medications Medications Current Medications Miscellaneous Information 1 ea NOTE XX ; Start 01/18/19 at 23:30 Glucose (Glutose) 15 gm Q15M PRN PO DECREASED GLUCOSE; Start 01/18/19 at 23:30 Glucose (Glutose) 22.5 gm Q15M PRN PO DECREASED GLUCOSE; Start 01/18/19 at 23:30 Dextrose (D50w Syringe) 25 ml Q15M PRN IV DECREASED GLUCOSE; Start 01/18/19 at 23:30 Dextrose (D50w Syringe) 50 ml Q15M PRN IV DECREASED GLUCOSE; Start 01/18/19 at 23:30 Glucagon (Glucagen) 1 mg Q15M PRN IM DECREASED GLUCOSE; Start 01/18/19 at 23:30 Glucose (Glutose) 15 gm Q15M PRN BUCCAL DECREASED GLUCOSE; Start 01/18/19 at 23:30 Miscellaneous Information (Pending [facility] Order For Wound Care) This patient berg... PRN PRN XX WOUND CARE; Start 01/19/19 at 02:00 Acetaminophen (Tylenol Supp) 650 mg Q6H PRN [place] temp > 100.4F Last administered on 01/25/19at 12:35; Admin Dose 650 MG; Start 01/19/19 at 09:00 Sodium Hypochlorite (Dakins Diluted ()) 1 applic BID TP Last administered on 02/06/19at 08:34; Admin Dose 1 APPLIC; Start 01/19/19 at 21:00 Morphine Sulfate (morphine) 2 mg Q4H PRN IV SEVERE PAIN LEVEL 7-10 Last administered on 02/01/19 21:18; Admin Dose 2 MG; Start 01/21/19 at 08:30 Ascorbic Acid (Vitamin C) 500 mg BID GTB Last administered on 02/06/19 08:37; Admin Dose 500 MG; Start 01/23/19 at 21:00 Zinc Sulfate (Zinc Sulfate) 220 mg DAILY PEG Last administered on 02/06/19 08:37; Admin Dose 220 MG; Start 01/24/19 at 09:00 Acetylcysteine (Mucomyst) 2 ml Q6H RESP THERAPY NEB Last administered on 02/06/19 13:57; Admin Dose 2 ML; Start 01/28/19 at 20:00 Albuterol (Ventolin Hfa) 4 puff Q6H RESP THERAPY INH Last administered on 02/06/19 13:53; Admin Dose 4 PUFF; Start 01/30/19 at 14:00 Ipratropium [place] (Atrovent Hfa) 4 puff Q6H RESP THERAPY INH Last administered on 02/06/19 13:53; Admin Dose 4 PUFF; Start 01/30/19 at 14:00 Lansoprazole (Lansoprazole Oral Susp) 30 mg BID@0600,1800 GTB Last administered on 02/06/19 06:41; Admin Dose 30 MG; Start 01/31/19 at 06:00 Insulin Aspart (Novolog Insulin Pen) NOVOLOG *MODERATE* ALGORI... Q6 SC Last administered on 02/06/19 11:55; Admin Dose 2 UNIT; Start 01/31/19 at 13:00 Insulin Glargine (Lantus) 13 units DAILY@2000 SC Last administered on 02/05/19 21:53; Admin Dose 13 UNITS; Start 01/31/19 at 20:00 Quetiapine Fumarate (Seroquel) 100 mg HS GTB Last administered on 02/05/19 21:32; Admin Dose 100 MG; Start 02/01/19 at 21:00 Acetaminophen (Tylenol Liquid) 650 mg Q4H PRN NGT MILD PAIN(1-3)OR ELEVATED TEMP Last administered on 02/06/19 01:08; Admin Dose 650 MG; Start 02/03/19 at 18:00 Lorazepam (Ativan) 0.5 mg TID IV Last administered on 02/06/19at 13:15; Admin Dose 0.5 MG; Start 02/04/19 at 21:00 Vancomycin HCl (Vanco Iv Per Pharmacy) VANCOMYCIN PER PHARMACY PER PROTOCOL XX ; Start 02/05/19 at 11:30 Piperacillin Sod/ Tazobactam Sod 100 ml @ 200 mls/hr Q8H IVPB Last administered on 02/06/19at 11:54; Admin Dose 200 MLS/HR; Start 02/05/19 at 12:00 Vancomycin HCl 250 ml @ 125 mls/hr Q48H IVPB ; Start 02/07/19 at 13:00 Randy Leone DO Feb 06, 2019 14:06
--- NOTE | 2019-02-06 14:29 | PN ---
Date/Time of Note Date/Time of Note DATE: 02/06/19 TIME: 14:27 Assessment/Plan Lines/Catheters IV Catheter Type (from Nrsg): Saline Lock Garcia in Place (from Nrsg): Yes Assessment/Plan Assessment/Plan A/P Resp Failure SP Tracheostomy Trach site clean Will continue trach care Vent support Pulm troilet Subjective 24 Hr Interval Summary Constitutional: improved Pain Control: mild Exam/Review of Systems Vital Signs Vitals Vital Signs Date Temp Pulse Resp B/P (MAP) Pulse Ox O2 O2 Flow FiO2 Time Delivery Rate 02/06/19 109 26 100 30 13:54 02/06/19 99.9 112/70 Mechanical 11:34 (84) Ventilator Intake and Output 02/05/19 02/05/19 02/06/19 1515:00 23:00 07:00 IntakeIntake Total 1100 ml OutputOutput Total 900 ml 1250 ml BalanceBalance -900 ml -150 ml Exam Eyes: nl conjunctiva, EOMI, nl lids, nl sclera ENMT: nl external ears & nose, nl lips & teeth, nl nasal mucosa & septum, mucosa pink and moist Neck: supple, non-tender Respiratory: clear to auscultation, normal air movement Cardiovascular: regular rate and rhythm, nl pulses Gastrointestinal: soft, nl liver, spleen, non-tender Musculoskeletal: nl extremities to inspection, nl gait and stance Results Result Diagram: 02/06/19 0552 02/06/19 0552 LEAH GALE MD Feb 06, 2019 14:29
[2019-02-06] MEDS: QUETIAPINE 100 MG TAB GTB SCH (21:07)
[2019-02-06] MEDS: INSULIN GLARGINE [LANTus] (100 UNITS/ML) SYG SC SCH (21:52)
[2019-02-07] VITALS (18 sets, daily range): BP systolic 89–107; BP diastolic 52–65; PULSE 87–105; RESP 18–32
[2019-02-07] MEDS: INSULIN ASPART [NOVOLOG] 3 ML PEN SC SCH ×5 (00:33→23:56)
[2019-02-07] MEDS: ACETYLCYSTEINE 20% 4 ML VIAL NEB SCH ×4 (01:14→20:45)
[2019-02-07] MEDS: ALBUTEROL HFA 8 GM INHALER INH SCH ×4 (01:14→20:45)
[2019-02-07] MEDS: IPRATROPIUM (HFA) 12.9 GM INHALER INH SCH ×4 (01:14→20:45)
[2019-02-07] MEDS: PIPER-TAZO 3.375 GM IV (PMX) 100 ML IVPB SCH ×3 (03:47→20:54)
[2019-02-07] MEDS: ACETAMINOPHEN 650MG/20.3ML CUP NGT PRN ×2 (06:04→06:52)
[2019-02-07] MEDS: LANSOPRAZOLE ORAL SUSP 3 MG/ML (POSYG) GTB SCH ×2 (06:52→17:50)
--- NOTE | 2019-02-07 08:47 | CONS ---
Assessment/Plan Assessment/Plan Assessment/Plan (Daily) 1. acute hyperkalemia- now resolved 2. acute On chronic renal failure due to ATN from septic shock- Improving 3. acute hypoxemic respiratory failure intubated on ventilator 2/2 Health care associated PNA - s/p extubation on 01/24/19 - s/p Tracheostomy in place 4. Septic shock on pressors 5. acute hypernatremia- Improving 6. H/O quadriplegia 7. H/o CAD s/p CABG 8. H/O HTN 9. 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 Plan: BUN/cr 29/1.36, Na , Na 148, K 3.4--if Na continues to trend up then we will consider D5W IVF IV abx zosyn and vancomycin for PNA coverage, Renally dose all abx and monitor electorlytes will follow up Consultation Date/Type/Reason Admit Date/Time Jan 18, 2019 at 04:19 Initial Consult Date Type of Consult NEPHROLOGY Requesting Provider: FELICITAS LAZARO MD Date/Time of Note DATE: 02/07/19 TIME: 08:47 Exam/Review of Systems Exam Vitals Vital Signs Date Temp Pulse Resp B/P (MAP) Pulse Ox O2 O2 Flow FiO2 Time Delivery Rate 02/07/19 90 27 99 30 07:57 02/07/19 98.0 07:52 02/07/19 97/56 (70) 07:29 02/06/19 Mechanical 15:41 Ventilator Intake and Output 02/06/19 02/06/19 02/07/19 1515:00 23:00 07:00 IntakeIntake Total 1120 ml OutputOutput Total 1175 ml 1610 ml BalanceBalance -1175 ml -490 ml Results Result Diagram: 02/07/19 0545 02/07/19 0539 Results 24hrs Laboratory Tests Test 02/06/19 11:50 02/06/19 16:59 02/06/19 21:16 02/07/19 00:29 Bedside Glucose 141 132 139 141 Test 02/07/19 05:39 02/07/19 05:45 02/07/19 06:06 Sodium Level 148 H Potassium Level 3.4 L Chloride Level 115 H Carbon Dioxide Level 28 Anion Gap 5 Blood Urea Nitrogen 29 H Creatinine 1.36 H Est Glomerular 53 L Filtrat Rate mL/min Glucose Level 138 Calcium Level 8.8 White Blood Count 9.6 Red Blood Count 2.59 L Hemoglobin 7.7 L Hematocrit 24.9 L Mean Corpuscular 96.1 Volume Mean Corpuscular 29.7 Hemoglobin Mean Corpuscular 30.9 L Hemoglobin Concent Red Cell 16.0 H Distribution Width Platelet Count 146 Mean Platelet Volume 11.5 H Immature 0.600 H Granulocytes % Neutrophils % 64.1 Lymphocytes % 27.7 Monocytes % 4.5 Eosinophils % 2.9 Basophils % 0.2 Nucleated Red Blood 0.0 Cells % Immature 0.060 H Granulocytes # Neutrophils # 6.2 Lymphocytes # 2.7 Monocytes # 0.4 Eosinophils # 0.3 Basophils # 0.0 Nucleated Red Blood 0.0 Cells # Bedside Glucose 146 Medications Medication Current Medications Miscellaneous Information 1 ea NOTE XX ; Start 01/18/19 at 23:30 Glucose (Glutose) 15 gm Q15M PRN PO DECREASED GLUCOSE; Start 01/18/19 at 23:30 Glucose (Glutose) 22.5 gm Q15M PRN PO DECREASED GLUCOSE; Start 01/18/19 at 23:30 Dextrose (D50w Syringe) 25 ml Q15M PRN IV DECREASED GLUCOSE; Start 01/18/19 at 23:30 Dextrose (D50w Syringe) 50 ml Q15M PRN IV DECREASED GLUCOSE; Start 01/18/19 at 23:30 Glucagon (Glucagen) 1 mg Q15M PRN IM DECREASED GLUCOSE; Start 01/18/19 at 23:30 Glucose (Glutose) 15 gm Q15M PRN BUCCAL DECREASED GLUCOSE; Start 01/18/19 at 23:30 Miscellaneous Information (Pending [facility] Order For Wound Care) This patient berg... PRN PRN XX WOUND CARE; Start 01/19/19 at 02:00 Acetaminophen (Tylenol Supp) 650 mg Q6H PRN [place] temp > 100.4F Last administered on 01/25/19at 12:35; Admin Dose 650 MG; Start 01/19/19 at 09:00 Sodium Hypochlorite (Dakins Diluted ()) 1 applic BID TP Last administered on 02/06/19at 21:08; Admin Dose 1 APPLIC; Start 01/19/19 at 21:00 Morphine Sulfate (morphine) 2 mg Q4H PRN IV SEVERE PAIN LEVEL 7-10 Last administered on 02/01/19 21:18; Admin Dose 2 MG; Start 01/21/19 at 08:30 Ascorbic Acid (Vitamin C) 500 mg BID GTB Last administered on 02/06/19 21:07; Admin Dose 500 MG; Start 01/23/19 at 21:00 Zinc Sulfate (Zinc Sulfate) 220 mg DAILY PEG Last administered on 02/06/19 08:37; Admin Dose 220 MG; Start 01/24/19 at 09:00 Acetylcysteine (Mucomyst) 2 ml Q6H RESP THERAPY NEB Last administered on 02/07/19 07:59; Admin Dose 2 ML; Start 01/28/19 at 20:00 Albuterol (Ventolin Hfa) 4 puff Q6H RESP THERAPY INH Last administered on 02/07/19 07:59; Admin Dose 4 PUFF; Start 01/30/19 at 14:00 Ipratropium [place] (Atrovent Hfa) 4 puff Q6H RESP THERAPY INH Last administered on 02/07/19 07:59; Admin Dose 4 PUFF; Start 01/30/19 at 14:00 Lansoprazole (Lansoprazole Oral Susp) 30 mg BID@0600,1800 GTB Last administered on 02/07/19 06:52; Admin Dose 30 MG; Start 01/31/19 at 06:00 Insulin Aspart (Novolog Insulin Pen) NOVOLOG *MODERATE* ALGORI... Q6 SC Last administered on 02/07/19 06:18; Admin Dose 2 UNIT; Start 01/31/19 at 13:00 Insulin Glargine (Lantus) 13 units DAILY@2000 SC Last administered on 02/06/19 21:52; Admin Dose 13 UNITS; Start 01/31/19 at 20:00 Quetiapine Fumarate (Seroquel) 100 mg HS GTB Last administered on 02/06/19 21:07; Admin Dose 100 MG; Start 02/01/19 at 21:00 Acetaminophen (Tylenol Liquid) 650 mg Q4H PRN NGT MILD PAIN(1-3)OR ELEVATED TEMP Last administered on 02/07/19 06:52; Admin Dose 650 MG; Start 02/03/19 at 18:00 Lorazepam (Ativan) 0.5 mg TID IV Last administered on 02/06/19at 21:08; Admin Dose 0.5 MG; Start 02/04/19 at 21:00 Vancomycin HCl (Vanco Iv Per Pharmacy) VANCOMYCIN PER PHARMACY PER PROTOCOL XX ; Start 02/05/19 at 11:30 Piperacillin Sod/ Tazobactam Sod 100 ml @ 200 mls/hr Q8H IVPB Last administered on 02/07/19at 03:47; Admin Dose 200 MLS/HR; Start 02/05/19 at 12:00 Vancomycin HCl 250 ml @ 125 mls/hr Q48H IVPB ; Start 02/07/19 at 13:00 TONIO SOOD MD Feb 07, 2019 08:47
[2019-02-07] MEDS: ZINC SULFATE 220 MG CAP PEG SCH (09:33)
[2019-02-07] MEDS: ASCORBIC ACID 500 MG TAB GTB SCH ×2 (09:34→21:02)
[2019-02-07] MEDS: DAKINS 0.0125%(1/40) 473 ML SOLUTION TP SCH ×2 (09:34→21:04)
[2019-02-07] MEDS: LORAZEPAM 2 MG INJ IV SCH ×3 (09:34→21:04)
--- NOTE | 2019-02-07 11:50 | CONS ---
Consult Date/Type/Reason Admit Date/Time Jan 18, 2019 at 04:19 Initial Consult Date Type of Consult Pulmonary Requesting Provider: FELICITAS LAZARO MD Date/Time of Note DATE: 02/07/19 TIME: 11:50 Subjective No significant changes. Objective Vital Signs Date Temp Pulse Resp B/P (MAP) Pulse Ox O2 O2 Flow FiO2 Time Delivery Rate 02/07/19 93 25 97 30 11:04 02/07/19 99.2 96/65 (75) Mechanical 10:56 Ventilator Intake and Output 02/06/19 02/06/19 02/07/19 1515:00 23:00 07:00 IntakeIntake Total 1120 ml OutputOutput Total 1175 ml 1610 ml BalanceBalance -1175 ml -490 ml Exam GENERAL: Chronically ill-appearing gentleman VITAL SIGNS: per chart NECK: Supple. No JVD or lymphadenopathy. CARDIAC EXAM: S1, S2. No added sounds or murmurs. CHEST: Diminished air entry bilaterally ABDOMEN: Soft, nontender. No guarding or rebound. EXTREMITIES: No cyanosis, clubbing edema +2 NEUROLOGIC: Generalized weakness. No focal deficits. Vent Setting Ventilator Support Mode: AC Fraction of Inspired Oxygen pe: 30 Positive End Expiratory Pressu: 5.0 Results/Medications Result Diagram: 02/07/19 0545 02/07/19 0539 Results 24 hrs Laboratory Tests Test 02/06/19 16:59 02/06/19 21:16 02/07/19 00:29 02/07/19 05:39 Bedside Glucose 132 139 141 Sodium Level 148 H Potassium Level 3.4 L Chloride Level 115 H Carbon Dioxide Level 28 Anion Gap 5 Blood Urea Nitrogen 29 H Creatinine 1.36 H Est Glomerular 53 L Filtrat Rate mL/min Glucose Level 138 Calcium Level 8.8 Test 02/07/19 05:45 02/07/19 06:06 White Blood Count 9.6 Red Blood Count 2.59 L Hemoglobin 7.7 L Hematocrit 24.9 L Mean Corpuscular 96.1 Volume Mean Corpuscular 29.7 Hemoglobin Mean Corpuscular 30.9 L Hemoglobin Concent Red Cell 16.0 H Distribution Width Platelet Count 146 Mean Platelet Volume 11.5 H Immature 0.600 H Granulocytes % Neutrophils % 64.1 Lymphocytes % 27.7 Monocytes % 4.5 Eosinophils % 2.9 Basophils % 0.2 Nucleated Red Blood 0.0 Cells % Immature 0.060 H Granulocytes # Neutrophils # 6.2 Lymphocytes # 2.7 Monocytes # 0.4 Eosinophils # 0.3 Basophils # 0.0 Nucleated Red Blood 0.0 Cells # Bedside Glucose 146 Medications Current Medications Miscellaneous Information 1 ea NOTE XX ; Start 01/18/19 at 23:30 Glucose (Glutose) 15 gm Q15M PRN PO DECREASED GLUCOSE; Start 01/18/19 at 23:30 Glucose (Glutose) 22.5 gm Q15M PRN PO DECREASED GLUCOSE; Start 01/18/19 at 23:30 Dextrose (D50w Syringe) 25 ml Q15M PRN IV DECREASED GLUCOSE; Start 01/18/19 at 23:30 Dextrose (D50w Syringe) 50 ml Q15M PRN IV DECREASED GLUCOSE; Start 01/18/19 at 23:30 Glucagon (Glucagen) 1 mg Q15M PRN IM DECREASED GLUCOSE; Start 01/18/19 at 23:30 Glucose (Glutose) 15 gm Q15M PRN BUCCAL DECREASED GLUCOSE; Start 01/18/19 at 23:30 Miscellaneous Information (Pending [facility] Order For Wound Care) This patient berg... PRN PRN XX WOUND CARE; Start 01/19/19 at 02:00 Acetaminophen (Tylenol Supp) 650 mg Q6H PRN [place] temp > 100.4F Last administered on 01/25/19at 12:35; Admin Dose 650 MG; Start 01/19/19 at 09:00 Sodium Hypochlorite (Dakins Diluted ()) 1 applic BID TP Last administered on 02/07/19 09:34; Admin Dose 1 APPLIC; Start 01/19/19 at 21:00 Morphine Sulfate (morphine) 2 mg Q4H PRN IV SEVERE PAIN LEVEL 7-10 Last administered on 02/01/19at 21:18; Admin Dose 2 MG; Start 01/21/19 at 08:30 Ascorbic Acid (Vitamin C) 500 mg BID GTB Last administered on 02/07/19at 09:34; Admin Dose 500 MG; Start 01/23/19 at 21:00 Zinc Sulfate (Zinc Sulfate) 220 mg DAILY PEG Last administered on 02/07/19at 09:33; Admin Dose 220 MG; Start 01/24/19 at 09:00 Acetylcysteine (Mucomyst) 2 ml Q6H RESP THERAPY NEB Last administered on 02/07/19 07:59; Admin Dose 2 ML; Start 01/28/19 at 20:00 Albuterol (Ventolin Hfa) 4 puff Q6H RESP THERAPY INH Last administered on 02/07/19 07:59; Admin Dose 4 PUFF; Start 01/30/19 at 14:00 Ipratropium [place] (Atrovent Hfa) 4 puff Q6H RESP THERAPY INH Last administer ed on 02/07/19 07:59; Admin Dose 4 PUFF; Start 01/30/19 at 14:00 Lansoprazole (Lansoprazole Oral Susp) 30 mg BID@0600,1800 GTB Last administered on 02/07/19 06:52; Admin Dose 30 MG; Start 01/31/19 at 06:00 Insulin Aspart (Novolog Insulin Pen) NOVOLOG *MODERATE* ALGORI... Q6 SC Last administered on 02/07/19 06:18; Admin Dose 2 UNIT; Start 01/31/19 at 13:00 Insulin Glargine (Lantus) 13 units DAILY@2000 SC Last administered on 02/06/19 21:52; Admin Dose 13 UNITS; Start 01/31/19 at 20:00 Quetiapine Fumarate (Seroquel) 100 mg HS GTB Last administered on 02/06/19 21:07; Admin Dose 100 MG; Start 02/01/19 at 21:00 Acetaminophen (Tylenol Liquid) 650 mg Q4H PRN NGT MILD PAIN(1-3)OR ELEVATED TEMP Last administered on 02/07/19 06:52; Admin Dose 650 MG; Start 02/03/19 at 18:00 Lorazepam (Ativan) 0.5 mg TID IV Last administered on 02/07/19 09:34; Admin Dose 0.5 MG; Start 02/04/19 at 21:00 Vancomycin HCl (Vanco Iv Per Pharmacy) VANCOMYCIN PER PHARMACY PER PROTOCOL XX ; Start 02/05/19 at 11:30 Piperacillin Sod/ Tazobactam Sod 100 ml @ 200 mls/hr Q8H IVPB Last administered on 02/07/19 03:47; Admin Dose 200 MLS/HR; Start 02/05/19 at 12:00 Vancomycin HCl 250 ml @ 125 mls/hr Q48H IVPB ; Start 02/07/19 at 13:00 Assessment/Plan Hospital Course (Demo Recall) IMPRESSION: 1. Likely healthcare-associated pneumonia. 2. Status post septic shock. 3. Functional quadriplegia. 4. History of dysphagia. Status post G-tube 5. Hypoxemic respiratory failure 6. Significant decubitus ulcer status post debridement. 7. Encephalopathy 8. A. fib with RVR 9. Hypernatremia PLAN: 1. Continue broad-spectrum antibiotics. 2. Antibiotics per primary team 3. Tachycardia noted. Consider cardiology evaluation. 4. Tube feeding as tolerated 5. Increase free water per nasogastric tube. DC planning okay from pulmonary standpoint BHAVIN BARROW MD, [facility] Feb 07, 2019 11:50
[2019-02-07] MEDS ORDERED: VANCOMYCIN 1 GM 250 ML IVPB SCH (13:00)
--- NOTE | 2019-02-07 13:45 | PN ---
Date/Time of Note Date/Time of Note DATE: 02/07/19 TIME: 13:40 Assessment/Plan VTE Prophylaxis [place] [facility] [place] risk: 8 [place]CD [place] [facility] [place] Yes Pharmacological prophylaxis: NA/contraindicated Pharm contraindication: renal impairment Lines/Catheters [facility] (from [facility] Mid Line Urinary Cath still in place: Yes Reason Cath still needed: other (indicate) (critical illness) Assessment/Plan Assessment/Plan [facility] [facility] 1. Mr. Ellsworth is a 63-year-old man with hypoxic respiratory failure status post tracheostomy with vent-dependence 2. Left lung collapse status post intubation, now improved with no pneumothorax on chest film two days ago (02/05/19) 3. Admitted with aspiration pneumonia/sepsis, now with fever 36 hours ago and diaphoresis this morning and CXR showing left lung base consolidation and right lung base atelectasis with increased interstitial markings but no pleural effusion. Urine showing GNR (02/05/19), but no-growth on blood cultures. 4. Stable hypotension, off IV pressors now 5. Acute kidney injury, now improving with creatinine 1.36 (peak 2.09) 6. Hypernatremia, at 148 today 7. Hypokalemia 8. CAD with history of CABG but with preserved left ventricular ejection fraction (60% on 01/29/19) 9. Normochromic normocytic anemia, with Hct stable at 24.9% * Continue vancomycin and Zosyn while awaiting urine culture results * Remain off IV pressors * Potassium replacement * Status post tracheostomy * Vent management with AC12, TV 500, FiO2 30%, peep 5 * Continued free water for hypernatremia * DVT/GI prophylaxis with SCDs/lansoprazole respectively; will poll other providers why he is not on Lovenox or other anti-coagulant * Disposition: anticipate placement in subacute care; son involved in decision- making Gerardo Lopes MD PhD [phone] Result Diagram: 02/07/19 0545 02/07/19 0539 Results 24hrs Laboratory Tests Test 02/06/19 16:59 02/06/19 21:16 02/07/19 00:29 02/07/19 05:39 Bedside Glucose 132 139 141 Sodium Level 148 H Potassium Level 3.4 L Chloride Level 115 H Carbon Dioxide Level 28 Anion Gap 5 Blood Urea Nitrogen 29 H Creatinine 1.36 H Est Glomerular 53 L Filtrat Rate mL/min Glucose Level 138 Calcium Level 8.8 Test 02/07/19 05:45 02/07/19 06:06 02/07/19 11:59 White Blood Count 9.6 Red Blood Count 2.59 L Hemoglobin 7.7 L Hematocrit 24.9 L Mean Corpuscular 96.1 Volume Mean Corpuscular 29.7 Hemoglobin Mean Corpuscular 30.9 L Hemoglobin Concent Red Cell 16.0 H Distribution Width Platelet Count 146 Mean Platelet Volume 11.5 H Immature 0.600 H Granulocytes % Neutrophils % 64.1 Lymphocytes % 27.7 Monocytes % 4.5 Eosinophils % 2.9 Basophils % 0.2 Nucleated Red Blood 0.0 Cells % Immature 0.060 H Granulocytes # Neutrophils # 6.2 Lymphocytes # 2.7 Monocytes # 0.4 Eosinophils # 0.3 Basophils # 0.0 Nucleated Red Blood 0.0 Cells # Bedside Glucose 146 122 Subjective 24 Hr Interval Summary Free Text/Dictation Alone, ventilated via trach, following suggestions. Exam/Review of Systems Exam Vitals Vital Signs Date Temp Pulse Resp B/P (MAP) Pulse Ox O2 O2 Flow FiO2 Time Delivery Rate 02/07/19 100 26 95 30 13:27 02/07/19 99.2 96/65 (75) Mechanical 10:56 Ventilator Intake and Output 02/06/19 02/06/19 02/07/19 1515:00 23:00 07:00 IntakeIntake Total 1120 ml OutputOutput Total 1175 ml 1610 ml BalanceBalance -1175 ml -490 ml Exam GENERAL: Pale, diaphoretic, neutral affect, comfortable but with occasional deep cough on vent HEENT: PERRL, EOMI, moist oral mucosa without thrush NECK: Moderate rigidity, no JVD or lymphadenopathy. CVS: Regular rhythm, normal rate, no murmur, good perfusion. Chest: Anterior rhonchi throughout, ventilated via tracheostomy Abd: Soft, non-tender. No guarding or rebound. Ext/Msk: no arthritis, severe muscle atrophy, no cords or nodularity Neuro: Alert, following suggestions (eg. open mouth), good eye contact, not moving extremities. No posturing. Symmetric 1+ patellar reflexes. Toes downgoing. Results Results 24hrs Laboratory Tests Test 02/06/19 16:59 02/06/19 21:16 02/07/19 00:29 02/07/19 05:39 Bedside Glucose 132 139 141 Sodium Level 148 H Potassium Level 3.4 L Chloride Level 115 H Carbon Dioxide Level 28 Anion Gap 5 Blood Urea Nitrogen 29 H Creatinine 1.36 H Est Glomerular 53 L Filtrat Rate mL/min Glucose Level 138 Calcium Level 8.8 Test 02/07/19 05:45 02/07/19 06:06 02/07/19 11:59 White Blood Count 9.6 Red Blood Count 2.59 L Hemoglobin 7.7 L Hematocrit 24.9 L Mean Corpuscular 96.1 Volume Mean Corpuscular 29.7 Hemoglobin Mean Corpuscular 30.9 L Hemoglobin Concent Red Cell 16.0 H Distribution Width Platelet Count 146 Mean Platelet Volume 11.5 H Immature 0.600 H Granulocytes % Neutrophils % 64.1 Lymphocytes % 27.7 Monocytes % 4.5 Eosinophils % 2.9 Basophils % 0.2 Nucleated Red Blood 0.0 Cells % Immature 0.060 H Granulocytes # Neutrophils # 6.2 Lymphocytes # 2.7 Monocytes # 0.4 Eosinophils # 0.3 Basophils # 0.0 Nucleated Red Blood 0.0 Cells # Bedside Glucose 146 122 Medications Medication Current Medications Miscellaneous Information 1 ea NOTE XX ; Start 01/18/19 at 23:30 Glucose (Glutose) 15 gm Q15M PRN PO DECREASED GLUCOSE; Start 01/18/19 at 23:30 Glucose (Glutose) 22.5 gm Q15M PRN PO DECREASED GLUCOSE; Start 01/18/19 at 23:30 Dextrose (D50w Syringe) 25 ml Q15M PRN IV DECREASED GLUCOSE; Start 01/18/19 at 23:30 Dextrose (D50w Syringe) 50 ml Q15M PRN IV DECREASED GLUCOSE; Start 01/18/19 at 23:30 Glucagon (Glucagen) 1 mg Q15M PRN IM DECREASED GLUCOSE; Start 01/18/19 at 23:30 Glucose (Glutose) 15 gm Q15M PRN BUCCAL DECREASED GLUCOSE; Start 01/18/19 at 23:30 Miscellaneous [facility] This patient berg... PRN PRN XX WOUND CARE; Start 01/19/19 at 02:00 Acetaminophen (Tylenol Supp) 650 mg Q6H PRN IN temp > 100.4F Last administered on 01/25/19 12:35; Admin Dose 650 MG; Start 01/19/19 at 09:00 Sodium Hypochlorite (Dakins Diluted ()) 1 applic BID TP Last administered o n 02/07/19 09:34; Admin Dose 1 APPLIC; Start 01/19/19 at 21:00 Morphine Sulfate (morphine) 2 mg Q4H PRN IV SEVERE PAIN LEVEL 7-10 Last administered on 02/01/19 21:18; Admin Dose 2 MG; Start 01/21/19 at 08:30 Ascorbic Acid (Vitamin C) 500 mg BID GTB Last administered on 02/07/19 09:34; Admin Dose 500 MG; Start 01/23/19 at 21:00 Zinc Sulfate (Zinc Sulfate) 220 mg DAILY PEG Last administered on 02/07/19 09:33; Admin Dose 220 MG; Start 01/24/19 at 09:00 Acetylcysteine (Mucomyst) 2 ml Q6H RESP THERAPY NEB Last administered on 02/07/19 07:59; Admin Dose 2 ML; Start 01/28/19 at 20:00 Albuterol (Ventolin Hfa) 4 puff Q6H RESP THERAPY INH Last administered on 02/07/19 07:59; Admin Dose 4 PUFF; Start 01/30/19 at 14:00 Ipratropium [place] (Atrovent Hfa) 4 puff Q6H RESP THERAPY INH Last admi nistered on 02/07/19 07:59; Admin Dose 4 PUFF; Start 01/30/19 at 14:00 Lansoprazole (Lansoprazole Oral Susp) 30 mg BID@0600,1800 GTB Last administered on 02/07/19 06:52; Admin Dose 30 MG; Start 01/31/19 at 06:00 Insulin Aspart (Novolog Insulin Pen) NOVOLOG *MODERATE* ALGORI... Q6 SC Last administered on 02/07/19 06:18; Admin Dose 2 UNIT; Start 01/31/19 at 13:00 Insulin Glargine (Lantus) 13 units DAILY@2000 SC Last administered on 02/06/19 21:52; Admin Dose 13 UNITS; Start 01/31/19 at 20:00 Quetiapine Fumarate (Seroquel) 100 mg HS GTB Last administered on 02/06/19 21:07; Admin Dose 100 MG; Start 02/01/19 at 21:00 Acetaminophen (Tylenol Liquid) 650 mg Q4H PRN NGT MILD PAIN(1-3)OR ELEVATED TEMP Last administered on 02/07/19 06:52; Admin Dose 650 MG; Start 02/03/19 at 18:00 Lorazepam (Ativan) 0.5 mg TID IV Last administered on 02/07/19at 13:21; Admin Dose 0.5 MG; Start 02/04/19 at 21:00 Vancomycin HCl (Vanco Iv Per Pharmacy) VANCOMYCIN PER PHARMACY PER PROTOCOL XX ; Start 02/05/19 at 11:30 Piperacillin Sod/ Tazobactam Sod 100 ml @ 200 mls/hr Q8H IVPB Last administered on 02/07/19 12:03; Admin Dose 200 MLS/HR; Start 02/05/19 at 12:00 Vancomycin HCl 250 ml @ 125 mls/hr Q48H IVPB Last administered on 02/07/19at 13:26; Admin Dose 125 MLS/HR; Start 02/07/19 at 13:00 SARAH LOPES M.D. Feb 07, 2019 13:45
[2019-02-07] MEDS: INSULIN GLARGINE [LANTus] (100 UNITS/ML) SYG SC SCH (21:00)
[2019-02-07] MEDS: QUETIAPINE 100 MG TAB GTB SCH (21:02)
[2019-02-08] VITALS (18 sets, daily range): BP systolic 109–136; BP diastolic 62–70; PULSE 72–92; RESP 17–24
[2019-02-08] MEDS: ACETAMINOPHEN 650MG/20.3ML CUP NGT PRN (00:37)
[2019-02-08] MEDS: ALBUTEROL HFA 8 GM INHALER INH SCH ×4 (02:47→20:41)
[2019-02-08] MEDS: IPRATROPIUM (HFA) 12.9 GM INHALER INH SCH ×4 (02:48→20:41)
[2019-02-08] MEDS: ACETYLCYSTEINE 20% 4 ML VIAL NEB SCH ×4 (02:48→20:41)
[2019-02-08] MEDS: PIPER-TAZO 3.375 GM IV (PMX) 100 ML IVPB SCH ×2 (04:26→12:11)
[2019-02-08] MEDS: LANSOPRAZOLE ORAL SUSP 3 MG/ML (POSYG) GTB SCH ×2 (05:44→18:33)
[2019-02-08] MEDS: INSULIN ASPART [NOVOLOG] 3 ML PEN SC SCH ×4 (05:46→23:55)
[2019-02-08] MEDS: ZINC SULFATE 220 MG CAP PEG SCH (09:50)
[2019-02-08] MEDS: LORAZEPAM 2 MG INJ IV SCH ×3 (09:50→20:22)
[2019-02-08] MEDS: ASCORBIC ACID 500 MG TAB GTB SCH ×2 (09:50→20:22)
[2019-02-08] MEDS: DAKINS 0.0125%(1/40) 473 ML SOLUTION TP SCH ×2 (09:55→20:22)
--- NOTE | 2019-02-08 10:26 | PN ---
Date/Time of Note Date/Time of Note DATE: 02/08/19 TIME: 10:25 Assessment/Plan Lines/Catheters IV Catheter Type (from Nrsg): Mid Line Garcia in Place (from Nrsg): Yes Assessment/Plan Assessment/Plan Status post tracheostomy No signs of active bleeding Continue vent support Tracheostomy care Pulmonary toilet Subjective 24 Hr Interval Summary Constitutional: improved Pain Control: mild Exam/Review of Systems Vital Signs Vitals Vital Signs Date Temp Pulse Resp B/P (MAP) Pulse Ox O2 O2 Flow FiO2 Time Delivery Rate 02/08/19 83 22 100 30 09:23 02/08/19 98.6 115/63 Mechanical 07:59 (80) Ventilator Trach Collar Intake and Output 02/07/19 02/07/19 02/08/19 1515:00 23:00 07:00 IntakeIntake Total 970 ml 920 ml OutputOutput Total 700 ml 800 ml BalanceBalance 270 ml 120 ml Exam ENMT: nl external ears & nose, nl lips & teeth, nl nasal mucosa & septum, muc maksim pink and moist Neck: supple, non-tender Respiratory: clear to auscultation, normal air movement Cardiovascular: regular rate and rhythm, nl pulses Gastrointestinal: soft, nl liver, spleen, non-tender Results Result Diagram: 02/07/19 0545 02/07/19 0539 LEAH GALE MD Feb 08, 2019 10:26
--- NOTE | 2019-02-08 16:57 | PN ---
Date/Time of Note Date/Time of Note DATE: 02/08/19 TIME: 16:52 Assessment/Plan VTE Prophylaxis Risk score (from [facility])>0 risk: 9 SCD applied (from [facility]): Yes Pharmacological prophylaxis: LMWH Lines/Catheters IV [facility] Type (from [facility] Mid Line Urinary Cath still in place: Yes Reason Cath still needed: other (indicate) (critical illness) Assessment/Plan Assessment/Plan [facility] 1. Mr. Ellsworth is a 63-year-old man with hypoxic respiratory failure status post tracheostomy with vent-dependence. Sepsis resolved, but may have sustained hy poxic injury to the brain, with marked cortical atrophy on MRI last week (reviewed with his son) 2. Left lung collapse status post intubation, now improved with no pneumothorax on portable chest x-ray (02/05/19) 3. Admitted with aspiration pneumonia/sepsis, afebrile x 48 hours. CXR showed left lung base consolidation and right lung base atelectasis with increased interstitial markings but no pleural effusion. 4. Urine tested positive for MDR Pseudomonas (02/05/19) sensitive only to tobramycin and meropenem. No-growth on blood cultures. 5. Stable hypotension, off IV pressors now 6. Acute kidney injury, now improving with creatinine 1.36 (peak 2.09) 7. Hypernatremia, at 148 yesterday 8. Hypokalemia 9. CAD with history of CABG but with preserved left ventricular ejection fraction (60% on 01/29/19) 10. Normochromic normocytic anemia, with Hct stable at 24.9% yesterday 11. Type 2 diabetes, stable on insulin regimen 12. Rigidity of neck and arms. Possibly Parkinsonian, with implications for communication and use of extremities? 13. Possible mild tardive dyskinesia with steady chewing movement. Seroquel is thought to be less likely to cause, but TD can be a late manifestation. * Discontinue vancomycin and Zosyn, replace with meropenem 500mg IV q6h * Repeat labs tomorrow AM, with repeat INR (elevated at 1.27 on 01/22/19) * Remain off IV pressors * Potassium replacement as needed * Status post tracheostomy * Vent management with AC12, TV 500, FiO2 30%, peep 5 * Continued free water for hypernatremia * DVT/GI prophylaxis with SCDs/lansoprazole respectively * Start renally dose-adjusted Lovenox for DVT prevention and paroxysmal atrial fibrillation. Thrombocytopenia is resolved, and no evidence for any bleeding in the stool. High risk for DVT/PE with immobility * Consider new neurology consultation to evaluate for benefit of anti- Parkinson's medication * Disposition: anticipate placement in subacute care; son involved in decision- making CharlesJuan Antonio Lopes MD PhD [phone] Result Diagram: 02/07/19 0545 02/07/19 0539 Results 24hrs Laboratory Tests Test 02/07/19 17:49 02/07/19 20:56 02/07/19 23:55 02/08/19 05:45 Bedside Glucose 159 126 138 129 Test 02/08/19 12:09 Bedside Glucose 153 Subjective 24 Hr Interval Summary Free Text/Dictation Son (and his girlfriend) at bedside. He makes eye contact and responds appropriately to requests. Some clear comprehension. Nurse reports that he has had some loose stooling the last two days. Exam/Review of Systems Exam Vitals Vital Signs Date Temp Pulse Resp B/P (MAP) Pulse Ox O2 O2 Flow FiO2 Time Delivery Rate 02/08/19 88 22 100 30 16:43 02/08/19 99.3 121/69 Mechanical 16:16 (86) Ventilator Trach Collar Intake and Output 02/07/19 02/07/19 02/08/19 1515:00 23:00 07:00 IntakeIntake Total 970 ml 920 ml OutputOutput Total 700 ml 800 ml BalanceBalance 270 ml 120 ml Exam GENERAL: Pale, neutral affect, comfortable-appearing HEENT: PERRL, EOMI, moist oral mucosa without thrush NECK: Moderate rigidity, no JVD or lymphadenopathy. CVS: Regular rhythm, normal rate, no murmur, good perfusion. Chest: Anterior rhonchi throughout, ventilated via tracheostomy Abd: Soft, non-tender. No guarding or rebound. Ext/Msk: no arthritis, severe muscle atrophy, no cords or nodularity Neuro: Alert, following suggestions, good eye contact, not moving extremities. No posturing. Symmetric 1+ patellar reflexes. Toes downgoing. Results Results 24hrs Laboratory Tests Test 02/07/19 17:49 02/07/19 20:56 02/07/19 23:55 02/08/19 05:45 Bedside Glucose 159 126 138 129 Test 02/08/19 12:09 Bedside Glucose 153 Medications Medication Current Medications Miscellaneous Information 1 ea NOTE XX ; Start 01/18/19 at 23:30 Glucose (Glutose) 15 gm Q15M PRN PO DECREASED GLUCOSE; Start 01/18/19 at 23:30 Glucose (Glutose) 22.5 gm Q15M PRN PO DECREASED GLUCOSE; Start 01/18/19 at 23:30 Dextrose (D50w Syringe) 25 ml Q15M PRN IV DECREASED GLUCOSE; Start 01/18/19 at 23:30 Dextrose (D50w Syringe) 50 ml Q15M PRN IV DECREASED GLUCOSE; Start 01/18/19 at 23:30 Glucagon (Glucagen) 1 mg Q15M PRN IM DECREASED GLUCOSE; Start 01/18/19 at 23:30 Glucose (Glutose) 15 gm Q15M PRN BUCCAL DECREASED GLUCOSE; Start 01/18/19 at 23:30 Miscellaneous Information (Pending [facility] Order For Wound Care) This patient berg... PRN PRN XX WOUND CARE; Start 01/19/19 at 02:00 Acetaminophen (Tylenol Supp) 650 mg Q6H PRN OR temp > 100.4F Last administered on 01/25/19at 12:35; Admin Dose 650 MG; Start 01/19/19 at 09:00 Sodium Hypochlorite (Dakins Diluted (40)) 1 applic BID TP Last administered on 02/08/19at 09:55; Admin Dose 1 APPLIC; Start 01/19/19 at 21:00 Morphine Sulfate (morphine) 2 mg Q4H PRN IV SEVERE PAIN LEVEL 7-10 Last administered on 02/01/19at 21:18; Admin Dose 2 MG; Start 01/21/19 at 08:30 Ascorbic Acid (Vitamin C) 500 mg BID GTB Last administered on 02/08/19at 09:50; Admin Dose 500 MG; Start 01/23/19 at 21:00 Zinc Sulfate (Zinc Sulfate) 220 mg DAILY PEG Last administered on 02/08/19at 09:50; Admin Dose 220 MG; Start 01/24/19 at 09:00 Acetylcysteine (Mucomyst) 2 ml Q6H RESP THERAPY NEB Last administered on 02/08/19at 13:18; Admin Dose 2 ML; Start 01/28/19 at 20:00 Albuterol (Ventolin Hfa) 4 puff Q6H RESP THERAPY INH Last administered on 02/08/19 13:18; Admin Dose 4 PUFF; Start 01/30/19 at 14:00 Ipratropium [place] (Atrovent Hfa) 4 puff Q6H RESP THERAPY INH Last administered on 02/08/19 13:18; Admin Dose 4 PUFF; Start 01/30/19 at 14:00 Lansoprazole (Lansoprazole Oral Susp) 30 mg BID@0600,1800 GTB Last administered on 02/08/19 05:44; Admin Dose 30 MG; Start 01/31/19 at 06:00 Insulin Aspart (Novolog Insulin Pen) NOVOLOG *MODERATE* ALGORI... Q6 SC Last administered on 02/08/19 12:20; Admin Dose 2 UNIT; Start 01/31/19 at 13:00 Insulin Glargine (Lantus) 13 units DAILY@2000 SC Last administered on 02/07/19 21:00; Admin Dose 13 UNITS; Start 01/31/19 at 20:00 Quetiapine Fumarate (Seroquel) 100 mg HS GTB Last administered on 02/07/19 21:02; Admin Dose 100 MG; Start 02/01/19 at 21:00 Acetaminophen (Tylenol Liquid) 650 mg Q4H PRN NGT MILD PAIN(1-3)OR ELEVATED TEMP Last administered on 02/08/19at 00:37; Admin Dose 650 MG; Start 02/03/19 at 18:00 Lorazepam (Ativan) 0.5 mg TID IV Last administered on 02/08/19 12:11; Admin Dose 0.5 MG; Start 02/04/19 at 21:00 Vancomycin HCl (Vanco Iv Per Pharmacy) VANCOMYCIN PER PHARMACY PER PROTOCOL XX ; Start 02/05/19 at 11:30 Piperacillin Sod/ Tazobactam Sod 100 ml @ 200 mls/hr Q8H IVPB Last administered on 02/08/19at 12:11; Admin Dose 200 MLS/HR; Start 02/05/19 at 12:00 Vancomycin HCl 250 ml @ 125 mls/hr Q48H IVPB Last administered on 02/07/19 13:26; Admin Dose 125 MLS/HR; Start 02/07/19 at 13:00 SARAH LOPES M.D. Feb 08, 2019 16:57
[2019-02-08] MEDS: MEROPENEM 500MG/50 ML (PMX) 50 ML IVPB SCH ×2 (17:52→23:56)
[2019-02-08] MEDS: ENOXAPARIN 30 MG/0.3 ML SYG SC SCH (18:08)
[2019-02-08] MEDS: QUETIAPINE 100 MG TAB GTB SCH (20:21)
[2019-02-08] MEDS: INSULIN GLARGINE [LANTus] (100 UNITS/ML) SYG SC SCH (20:38)
--- NOTE | 2019-02-08 20:51 | CONS ---
Assessment/Plan Assessment/Plan Assessment/Plan (Daily) 1. acute hyperkalemia- now resolved 2. acute On chronic renal failure due to ATN from septic shock- Improving 3. acute hypoxemic respiratory failure intubated on ventilator 2/2 Health care associated PNA - s/p extubation on 01/24/19 - s/p Tracheostomy in place 4. Septic shock on pressors 5. acute hypernatremia- Improving 6. H/O quadriplegia 7. H/o CAD s/p CABG 8. H/O HTN 9. 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 Plan: BUN/cr 29/1.36, Na , Na 148, K 3.4 yesterday, NO labs today yet --if Na continues to trend up then we will consider D5W IVF Urine Cx grew Pseudomonas, Abx changed to Meropenema, renally dose all abx and monitor electrolytes will follow up Consultation Date/Type/Reason Admit Date/Time Jan 18, 2019 at 04:19 Initial Consult Date Type of Consult NEPHROLOGY Requesting Provider: FELICITAS LAZARO MD Date/Time of Note DATE: 02/08/19 TIME: 20:51 Exam/Review of Systems Exam Vitals Vital Signs Date Temp Pulse Resp B/P (MAP) Pulse Ox O2 O2 Flow FiO2 Time Delivery Rate 02/08/19 88 22 100 30 16:43 02/08/19 99.3 121/69 Mechanical 16:16 (86) Ventilator Trach Collar Intake and Output 02/07/19 02/07/19 02/08/19 1515:00 23:00 07:00 IntakeIntake Total 970 ml 920 ml OutputOutput Total 700 ml 800 ml BalanceBalance 270 ml 120 ml Exam GENERAL: Non verbal, + tracheostomy in place NECK: Supple. No JVD or lymphadenopathy. CARDIAC: S1, S2, RRR, no murmur CHEST: Bilateral crackles +, no wheezing ABDOMEN: Soft, nontender. No guarding or rebound. EXTREMITIES: No cyanosis, clubbing of bleeding. + jenkins catheter NEUROLOGIC: Nonverbal, uncooperative . Results Result Diagram: 02/07/19 0545 02/07/19 0539 Results 24hrs Laboratory Tests Test 02/07/19 20:56 02/07/19 23:55 02/08/19 05:45 02/08/19 12:09 Bedside Glucose 126 138 129 153 Test 02/08/19 17:12 02/08/19 20:19 Bedside Glucose 119 131 Medications Medication Current Medications Miscellaneous Information 1 ea NOTE XX ; Start 01/18/19 at 23:30 Glucose (Glutose) 15 gm Q15M PRN PO DECREASED GLUCOSE; Start 01/18/19 at 23:30 Glucose (Glutose) 22.5 gm Q15M PRN PO DECREASED GLUCOSE; Start 01/18/19 at 23:30 Dextrose (D50w Syringe) 25 ml Q15M PRN IV DECREASED GLUCOSE; Start 01/18/19 at 23:30 Dextrose (D50w Syringe) 50 ml Q15M PRN IV DECREASED GLUCOSE; Start 01/18/19 at 23:30 Glucagon (Glucagen) 1 mg Q15M PRN IM DECREASED GLUCOSE; Start 01/18/19 at 23:30 Glucose (Glutose) 15 gm Q15M PRN BUCCAL DECREASED GLUCOSE; Start 01/18/19 at 23:30 Miscellaneous Information (Pending [facility] Order For Wound Care) This patient berg... PRN PRN XX WOUND CARE; Start 01/19/19 at 02:00 Acetaminophen (Tylenol Supp) 650 mg Q6H PRN HI temp > 100.4F Last administered on 01/25/19at 12:35; Admin Dose 650 MG; Start 01/19/19 at 09:00 Sodium Hypochlorite (Dakins Diluted ()) 1 applic BID TP Last administered on 02/08/19 20:22; Admin Dose 1 APPLIC; Start 01/19/19 at 21:00 Morphine Sulfate (morphine) 2 mg Q4H PRN IV SEVERE PAIN LEVEL 7-10 Last administered on 02/01/19at 21:18; Admin Dose 2 MG; Start 01/21/19 at 08:30 Ascorbic Acid (Vitamin C) 500 mg BID GTB Last administered on 02/08/19at 20:22; Admin Dose 500 MG; Start 01/23/19 at 21:00 Zinc Sulfate (Zinc Sulfate) 220 mg DAILY PEG Last administered on 02/08/19at 09:50; Admin Dose 220 MG; Start 01/24/19 at 09:00 Acetylcysteine (Mucomyst) 2 ml Q6H RESP THERAPY NEB Last administered on 02/08/19at 20:41; Admin Dose 2 ML; Start 01/28/19 at 20:00 Albuterol (Ventolin Hfa) 4 puff Q6H RESP THERAPY INH Last administered on 02/08/19 20:41; Admin Dose 4 PUFF; Start 01/30/19 at 14:00 Ipratropium [place] (Atrovent Hfa) 4 puff Q6H RESP THERAPY INH Last administered on 02/08/19 20:41; Admin Dose 4 PUFF; Start 01/30/19 at 14:00 Lansoprazole (Lansoprazole Oral Susp) 30 mg BID@0600,1800 GTB Last administered on 02/08/19 18:33; Admin Dose 30 MG; Start 01/31/19 at 06:00 Insulin Aspart (Novolog Insulin Pen) NOVOLOG *MODERATE* ALGORI... Q6 SC Last administered on 02/08/19 12:20; Admin Dose 2 UNIT; Start 01/31/19 at 13:00 Insulin Glargine (Lantus) 13 units DAILY@2000 SC Last administered on 02/08/19 20:38; Admin Dose 13 UNITS; Start 01/31/19 at 20:00 Quetiapine Fumarate (Seroquel) 100 mg HS GTB Last administered on 02/08/19 20:21; Admin Dose 100 MG; Start 02/01/19 at 21:00 Acetaminophen (Tylenol Liquid) 650 mg Q4H PRN NGT MILD PAIN(1-3)OR ELEVATED TEMP Last administered on 02/08/19 00:37; Admin Dose 650 MG; Start 02/03/19 at 18:00 Lorazepam (Ativan) 0.5 mg TID IV Last administered on 02/08/19 20:22; Admin Dose 0.5 MG; Start 02/04/19 at 21:00 Enoxaparin Sodium (Lovenox) 30 mg DAILY SC Last administered on 02/08/19 18:08; Admin Dose 30 MG; Start 02/08/19 at 17:00 Meropenem/Sodium Chloride 50 ml @ 100 mls/hr Q6 IVPB Last administered on 02/08/19 17:52; Admin Dose 100 MLS/HR; Start 02/08/19 at 18:00 TONIO SOOD MD Feb 08, 2019 20:51
[2019-02-09] VITALS (19 sets, daily range): BP systolic 109–135; BP diastolic 62–71; PULSE 83–90; RESP 18–25
[2019-02-09] MEDS: IPRATROPIUM (HFA) 12.9 GM INHALER INH SCH ×4 (01:38→19:57)
[2019-02-09] MEDS: ALBUTEROL HFA 8 GM INHALER INH SCH ×4 (01:39→19:57)
[2019-02-09] MEDS: ACETYLCYSTEINE 20% 4 ML VIAL NEB SCH ×4 (01:39→19:58)
[2019-02-09] MEDS: INSULIN ASPART [NOVOLOG] 3 ML PEN SC SCH ×3 (06:00→18:00)
[2019-02-09] MEDS: LANSOPRAZOLE ORAL SUSP 3 MG/ML (POSYG) GTB SCH ×2 (06:13→18:10)
[2019-02-09] MEDS: MEROPENEM 500MG/50 ML (PMX) 50 ML IVPB SCH ×2 (06:13→12:25)
[2019-02-09] MEDS ORDERED: ERTA1VIA3 IM (09:06)
--- NOTE | 2019-02-09 09:12 | PN ---
DATE: 02/06/2019 REASON FOR FOLLOWUP: Respiratory failure. HISTORY OF PRESENT ILLNESS: The patient remains largely unchanged, continues to remain afebrile. PHYSICAL EXAMINATION: VITAL SIGNS: T-max was 102.1, pulse is 113, blood pressure 124/72, O2 saturation 96%. NECK: Supple. No JVD or lymphadenopathy. CARDIAC: S1, S2, no added sounds or murmurs. CHEST: Diminished air entry bilaterally. ABDOMEN: Soft, nontender. No guarding or rebound. EXTREMITIES: No cyanosis, clubbing, or edema. NEUROLOGIC: Generalized weakness. LABORATORY DATA: White count 9.5, hemoglobin 7.8, platelets of 146. BUN 30, creatinine 1.27. IMPRESSION AND PLAN: 1. Status post respiratory failure. 2. Tracheostomy. 3. Dysphagia with G-tube. 4. Recurrent ongoing sepsis. The patient will require: 1. Continued antibiotics, currently on vancomycin and piperacillin/tazobactam. 2. Continue mucolytics. 3. Continue tube feeding. 4. DVT and GI prophylaxis. Dictated By: BHAVIN BARROW MD SV/NTS Conf#: [id number] DID#: [id number] CC: FELICITAS LAZARO MD;*EndCC*
[2019-02-09] MEDS: ASCORBIC ACID 500 MG TAB GTB SCH ×2 (10:05→21:34)
[2019-02-09] MEDS: ZINC SULFATE 220 MG CAP PEG SCH (10:05)
[2019-02-09] MEDS: LORAZEPAM 2 MG INJ IV SCH ×3 (10:05→21:34)
[2019-02-09] MEDS: DAKINS 0.0125%(1/40) 473 ML SOLUTION TP SCH ×2 (10:05→21:35)
[2019-02-09] MEDS: ENOXAPARIN 30 MG/0.3 ML SYG SC SCH (10:47)
--- NOTE | 2019-02-09 11:51 | CONS ---
Assessment/Plan Assessment/Plan Assessment/Plan (Daily) 1. acute hyperkalemia- now resolved 2. acute On chronic renal failure due to ATN from septic shock- Improving 3. acute hypoxemic respiratory failure intubated on ventilator 2/2 Health care associated PNA - s/p extubation on 01/24/19 - s/p Tracheostomy in place 4. Septic shock on pressors 5. acute hypernatremia- Improving 6. H/O quadriplegia 7. H/o CAD s/p CABG 8. H/O HTN 9. H/o sacral decubitus s/p debridement before 10. [employer] Plan: BUN/cr 27/1.2, Na , Na 149, K 3.1-- IVF D5W with 20mEQ KCL to run at 75 cc/h rx 2liter then stop IV abx Meropenem, Renally dose all abx and monitor electorlytes will follow up Consultation Date/Type/Reason Admit Date/Time Jan 18, 2019 at 04:19 Initial Consult Date Type of Consult NEPHROLOGY Requesting Provider: FELICITAS LAZARO MD Date/Time of Note DATE: 02/09/19 TIME: 11:51 Exam/Review of Systems Exam Vitals Vital Signs Date Temp Pulse Resp B/P (MAP) Pulse Ox O2 O2 Flow FiO2 Time Delivery Rate 02/09/19 98.1 84 20 122/65 100 Trach 11:15 (84) Collar 02/09/19 30 11:04 Intake and Output 02/08/19 02/08/19 02/09/19 1515:00 23:00 07:00 IntakeIntake Total 920 ml 660 ml OutputOutput Total 1300 ml 875 ml BalanceBalance -380 ml -215 ml Exam GENERAL: Non verbal, + tracheostomy in place NECK: Supple. No JVD or lymphadenopathy. CARDIAC: S1, S2, RRR, no murmur CHEST: Bilateral crackles +, no wheezing ABDOMEN: Soft, nontender. No guarding or rebound. EXTREMITIES: No cyanosis, clubbing of bleeding. + jenkins catheter NEUROLOGIC: Nonverbal, uncooperative . Results Result Diagram: 02/09/19 0609 02/09/19 0609 Results 24hrs Laboratory Tests Test 02/08/19 12:09 02/08/19 17:12 02/08/19 20:19 02/08/19 23:54 Bedside Glucose 153 119 131 125 Test 02/09/19 06:09 02/09/19 06:13 White Blood Count 9.6 Red Blood Count 2.48 L Hemoglobin 7.3 L Hematocrit 24.7 L Mean Corpuscular 99.6 Volume Mean Corpuscular 29.4 Hemoglobin Mean Corpuscular 29.6 L Hemoglobin Concent Red Cell 15.8 H Distribution Width Platelet Count 166 Mean Platelet Volume 11.6 H Immature 0.500 H Granulocytes % Neutrophils % 70.1 Lymphocytes % 22.5 Monocytes % 4.1 Eosinophils % 2.6 Basophils % 0.2 Nucleated Red Blood 0.0 Cells % Immature 0.050 H Granulocytes # Neutrophils # 6.7 Lymphocytes # 2.2 Monocytes # 0.4 Eosinophils # 0.3 Basophils # 0.0 Nucleated Red Blood 0.0 Cells # Prothrombin Time 16.3 H Prothrombin Time 1.3 Ratio INR International 1.30 Normalized Ratio Sodium Level 149 H Potassium Level 3.1 L Chloride Level 115 H Carbon Dioxide Level 30 Anion Gap 4 L Blood Urea Nitrogen 27 H Creatinine 1.20 Est Glomerular > 60 Filtrat Rate mL/min Glucose Level 123 Calcium Level 8.8 Bedside Glucose 131 Medications Medication Current Medications Miscellaneous Information 1 ea NOTE XX ; Start 01/18/19 at 23:30 Glucose (Glutose) 15 gm Q15M PRN PO DECREASED GLUCOSE; Start 01/18/19 at 23:30 Glucose (Glutose) 22.5 gm Q15M PRN PO DECREASED GLUCOSE; Start 01/18/19 at 23:30 Dextrose (D50w Syringe) 25 ml Q15M PRN IV DECREASED GLUCOSE; Start 01/18/19 at 23:30 Dextrose (D50w Syringe) 50 ml Q15M PRN IV DECREASED GLUCOSE; Start 01/18/19 at 23:30 Glucagon (Glucagen) 1 mg Q15M PRN IM DECREASED GLUCOSE; Start 01/18/19 at 23:30 Glucose (Glutose) 15 gm Q15M PRN BUCCAL DECREASED GLUCOSE; Start 01/18/19 at 23:30 Miscellaneous Information [facility] This patient berg... PRN PRN XX WOUND CARE; Start 01/19/19 at 02:00 Acetaminophen (Tylenol Supp) 650 mg Q6H PRN [place] temp > 100.4F Last administered on 01/25/19at 12:35; Admin Dose 650 MG; Start 01/19/19 at 09:00 Sodium Hypochlorite (Dakins Diluted ()) 1 applic BID TP Last administered on 02/09/19 10:05; Admin Dose 1 APPLIC; Start 01/19/19 at 21:00 Morphine Sulfate (morphine) 2 mg Q4H PRN IV SEVERE PAIN LEVEL 7-10 Last administered on 02/01/19 21:18; Admin Dose 2 MG; Start 01/21/19 at 08:30 Ascorbic Acid (Vitamin C) 500 mg BID GTB Last administered on 02/09/19 10:05; Admin Dose 500 MG; Start 01/23/19 at 21:00 Zinc Sulfate (Zinc Sulfate) 220 mg DAILY PEG Last administered on 02/09/19 10:05; Admin Dose 220 MG; Start 01/24/19 at 09:00 Acetylcysteine (Mucomyst) 2 ml Q6H RESP THERAPY NEB Last administered on 07:42; Admin Dose 2 ML; Start 01/28/19 at 20:00 Albuterol (Ventolin Hfa) 4 puff Q6H RESP THERAPY INH Last administered on 02/09/19 07:42; Admin Dose 4 PUFF; Start 01/30/19 at 14:00 Ipratropium [place] (Atrovent Hfa) 4 puff Q6H RESP THERAPY INH Last administered on 02/09/19 07:42; Admin Dose 4 PUFF; Start 01/30/19 at 14:00 Lansoprazole (Lansoprazole Oral Susp) 30 mg BID@0600,1800 GTB Last administered on 02/09/19 06:13; Admin Dose 30 MG; Start 01/31/19 at 06:00 Insulin Aspart (Novolog Insulin Pen) NOVOLOG *MODERATE* ALGORI... Q6 SC Last administered on 02/08/19 12:20; Admin Dose 2 UNIT; Start 01/31/19 at 13:00 Insulin Glargine (Lantus) 13 units DAILY@2000 SC Last administered on 02/08/19 20:38; Admin Dose 13 UNITS; Start 01/31/19 at 20:00 Quetiapine Fumarate (Seroquel) 100 mg HS GTB Last administered on 02/08/19 20:21; Admin Dose 100 MG; Start 02/01/19 at 21:00 Acetaminophen (Tylenol Liquid) 650 mg Q4H PRN NGT MILD PAIN(1-3)OR ELEVATED TEMP Last administered on 02/08/19at 00:37; Admin Dose 650 MG; Start 02/03/19 at 18:00 Lorazepam (Ativan) 0.5 mg TID IV Last administered on 02/09/19at 10:05; Admin Dose 0.5 MG; Start 02/04/19 at 21:00 Enoxaparin Sodium (Lovenox) 30 mg DAILY SC Last administered on 02/09/19at 10:47; Admin Dose 30 MG; Start 02/08/19 at 17:00 Meropenem/Sodium Chloride 50 ml @ 100 mls/hr Q6 IVPB Last administered on 02/09/19at 06:13; Admin Dose 100 MLS/HR; Start 02/08/19 at 18:00; Stop 02/09/19 at 15:00 Meropenem/Sodium Chloride 50 ml @ 100 mls/hr Q12 IVPB ; Start 02/09/19 at 21:00 TONIO SOOD MD Feb 09, 2019 11:51
[2019-02-09] MEDS ORDERED: SOD CHLORIDE 0.9% 250 ML IV* ONE (13:37)
[2019-02-09] MEDS: COLLAGENASE 5 GM (UD JAR) TOP SCH (16:30)
--- NOTE | 2019-02-09 16:46 | PN ---
Date/Time of Note Date/Time of Note DATE: 02/09/19 TIME: 16:46 Assessment/Plan Lines/Catheters IV Catheter Type (from Nrsg): Mid Line Garcia in Place (from Nrsg): Yes Assessment/Plan Assessment/Plan Status post tracheostomy We will continue vent support Trach care Pulmonary toilet Subjective 24 Hr Interval Summary Constitutional: improved Pain Control: mild Exam/Review of Systems Vital Signs Vitals Vital Signs Date Temp Pulse Resp B/P (MAP) Pulse Ox O2 O2 Flow FiO2 Time Delivery Rate 02/09/19 99.4 86 22 114/62 100 Trach 15:16 (79) Collar 02/09/19 30 11:04 Intake and Output 02/08/19 02/08/19 02/09/19 1515:00 23:00 07:00 IntakeIntake Total 920 ml 660 ml OutputOutput Total 1300 ml 875 ml BalanceBalance -380 ml -215 ml Exam Eyes: nl conjunctiva, EOMI, nl lids, nl sclera ENMT: nl external ears & nose, nl lips & teeth, nl nasal mucosa & septum, mucosa pink and moist Neck: supple, non-tender Respiratory: clear to auscultation, normal air movement Cardiovascular: regular rate and rhythm, nl pulses Gastrointestinal: soft, nl liver, spleen, non-tender Results Result Diagram: 02/09/1909 02/09/1909 LEAH GALE MD Feb 09, 2019 16:46
--- NOTE | 2019-02-09 17:07 | CONS ---
Assessment/Plan Assessment/Plan Hospital Course (Demo Recall) Hypoxic respiratory failure status post tracheostomy Left lung collapse status post intubation Hypotension, off IV pressor Sepsis Acute kidney injury Hypernatremia-improved CAD with history of CABG Preserved left ventricular ejection fraction BP trend stable Status post tracheostomy Vent management as per pulmonary Fluid management and diuretics as per nephrology Will order KCL Consider blood transfusion Consultation Date/Type/Reason Admit Date/Time Jan 18, 2019 at 04:19 Initial Consult Date 01/21/19 Type of Consult Cardiology Requesting Provider: FELICITAS LAZARO MD Date/Time of Note DATE: 02/09/19 TIME: 17:04 24 HR Interval Summary Free Text/Dictation more awake Exam/Review of Systems Vital Signs Vitals Vital Signs Date Temp Pulse Resp B/P (MAP) Pulse Ox O2 O2 Flow FiO2 Time Delivery Rate 02/09/19 99.4 86 22 114/62 100 Trach 15:16 (79) Collar 02/09/19 30 11:04 Intake and Output 02/08/19 02/08/19 02/09/19 1515:00 23:00 07:00 IntakeIntake Total 920 ml 660 ml OutputOutput Total 1300 ml 875 ml BalanceBalance -380 ml -215 ml Exam Constitutional: alert (follows some commands) Head: normocephalic Respiratory: other (course bs, no wheeze) Cardiovascular: regular rate and rhythm (s1s2) Gastrointestinal: soft, non-tender, bowel sounds Extremities: edema Labs Result Diagram: 02/09/19 0609 02/09/19 0609 Results 24hrs Laboratory Tests Test 02/08/19 17:12 02/08/19 20:19 02/08/19 23:54 02/09/19 06:09 Bedside Glucose 119 131 125 White Blood Count 9.6 Red Blood Count 2.48 L Hemoglobin 7.3 L Hematocrit 24.7 L Mean Corpuscular 99.6 Volume Mean Corpuscular 29.4 Hemoglobin Mean Corpuscular 29.6 L Hemoglobin Concent Red Cell 15.8 H Distribution Width Platelet Count 166 Mean Platelet Volume 11.6 H Immature 0.500 H Granulocytes % Neutrophils % 70.1 Lymphocytes % 22.5 Monocytes % 4.1 Eosinophils % 2.6 Basophils % 0.2 Nucleated Red Blood 0.0 Cells % Immature 0.050 H Granulocytes # Neutrophils # 6.7 Lymphocytes # 2.2 Monocytes # 0.4 Eosinophils # 0.3 Basophils # 0.0 Nucleated Red Blood 0.0 Cells # Prothrombin Time 16.3 H Prothrombin Time 1.3 Ratio INR International 1.30 Normalized Ratio Sodium Level 149 H Potassium Level 3.1 L Chloride Level 115 H Carbon Dioxide Level 30 Anion Gap 4 L Blood Urea Nitrogen 27 H Creatinine 1.20 Est Glomerular > 60 Filtrat Rate mL/min Glucose Level 123 Calcium Level 8.8 Test 02/09/19 06:13 02/09/19 12:24 Bedside Glucose 131 135 Medications Medications Current Medications Miscellaneous Information 1 ea NOTE XX ; Start 01/18/19 at 23:30 Glucose (Glutose) 15 gm Q15M PRN PO DECREASED GLUCOSE; Start 01/18/19 at 23:30 Glucose (Glutose) 22.5 gm Q15M PRN PO DECREASED GLUCOSE; Start 01/18/19 at 23:30 Dextrose (D50w Syringe) 25 ml Q15M PRN IV DECREASED GLUCOSE; Start 01/18/19 at 23:30 Dextrose (D50w Syringe) 50 ml Q15M PRN IV DECREASED GLUCOSE; Start 01/18/19 at 23:30 Glucagon (Glucagen) 1 mg Q15M PRN IM DECREASED GLUCOSE; Start 01/18/19 at 23:30 Glucose (Glutose) 15 gm Q15M PRN BUCCAL DECREASED GLUCOSE; Start 01/18/19 at 23:30 [facility] This patient berg... PRN PRN XX WOUND CARE; Start 01/19/19 at 02:00 Acetaminophen (Tylenol Supp) 650 mg Q6H PRN [place] temp > 100.4F Last administered on 01/25/19at 12:35; Admin Dose 650 MG; Start 01/19/19 at 09:00 Sodium Hypochlorite (Dakins Diluted ()) 1 applic BID TP Last administered on 02/09/19at 10:05; Admin Dose 1 APPLIC; Start 01/19/19 at 21:00 Morphine Sulfate (morphine) 2 mg Q4H PRN IV SEVERE PAIN LEVEL 7-10 Last administered on 02/01/19at 21:18; Admin Dose 2 MG; Start 01/21/19 at 08:30 Ascorbic Acid (Vitamin C) 500 mg BID GTB Last administered on 02/09/19at 10:05; Admin Dose 500 MG; Start 01/23/19 at 21:00 Zinc Sulfate (Zinc Sulfate) 220 mg DAILY PEG Last administered on 02/09/19 10:05; Admin Dose 220 MG; Start 01/24/19 at 09:00 Acetylcysteine (Mucomyst) 2 ml Q6H RESP THERAPY NEB Last administered on 02/09/19 13:43; Admin Dose 2 ML; Start 01/28/19 at 20:00 Albuterol (Ventolin Hfa) 4 puff Q6H RESP THERAPY INH Last administered on 02/09/19 13:43; Admin Dose 4 PUFF; Start 01/30/19 at 14:00 Ipratropium [place] (Atrovent Hfa) 4 puff Q6H RESP THERAPY INH Last administered on 02/09/19 13:43; Admin Dose 4 PUFF; Start 01/30/19 at 14:00 Lansoprazole (Lansoprazole Oral Susp) 30 mg BID@0600,1800 GTB Last administered on 02/09/19 06:13; Admin Dose 30 MG; Start 01/31/19 at 06:00 Insulin Aspart (Novolog Insulin Pen) NOVOLOG *MODERATE* ALGORI... Q6 SC Last administered on 02/08/19 12:20; Admin Dose 2 UNIT; Start 01/31/19 at 13:00 Insulin Glargine (Lantus) 13 units DAILY@2000 SC Last administered on 02/08/19 20:38; Admin Dose 13 UNITS; Start 01/31/19 at 20:00 Quetiapine Fumarate (Seroquel) 100 mg HS GTB Last administered on 02/08/19 20:21; Admin Dose 100 MG; Start 02/01/19 at 21:00 Acetaminophen (Tylenol Liquid) 650 mg Q4H PRN NGT MILD PAIN(1-3)OR ELEVATED TEMP Last administered on 02/08/19 00:37; Admin Dose 650 MG; Start 02/03/19 at 18:00 Lorazepam (Ativan) 0.5 mg TID IV Last administered on 02/09/19 14:24; Admin Dose 0.5 MG; Start 02/04/19 at 21:00 Enoxaparin Sodium (Lovenox) 30 mg DAILY SC Last administered on 7/22/19at 10:47; Admin Dose 30 MG; Start 02/08/19 at 17:00 Meropenem/Sodium Chloride 50 ml @ 100 mls/hr Q12 IVPB ; Start 02/09/19 at 21:00 Collagenase (Santyl) 1 applic DAILY TOP ; Start 02/09/19 at 16:30 Randy Leone DO Feb 09, 2019 17:07
[2019-02-09] MEDS: POTASSIUM CHLORIDE 20 MEQ POWDER FOR ORAL SOLN PO SCH ×2 (18:10→23:40)
[2019-02-09] MEDS: QUETIAPINE 100 MG TAB GTB SCH (21:34)
[2019-02-09] MEDS: INSULIN GLARGINE [LANTus] (100 UNITS/ML) SYG SC SCH (21:47)
[2019-02-09] MEDS: MEROPENEM 1 GM/50ML(PMX) 50 ML IVPB SCH (22:04)
[2019-02-10] VITALS (18 sets, daily range): BP systolic 115–134; BP diastolic 65–73; PULSE 83–97; RESP 17–32
[2019-02-10] MEDS: INSULIN ASPART [NOVOLOG] 3 ML PEN SC SCH ×4 (00:08→17:05)
[2019-02-10] MEDS: ALBUTEROL HFA 8 GM INHALER INH SCH ×4 (01:07→20:24)
[2019-02-10] MEDS: ACETYLCYSTEINE 20% 4 ML VIAL NEB SCH ×4 (01:07→20:25)
[2019-02-10] MEDS: IPRATROPIUM (HFA) 12.9 GM INHALER INH SCH ×4 (01:07→20:24)
--- NOTE | 2019-02-10 02:39 | DS ---
DATE OF ADMISSION: 01/18/2019 DATE OF DISCHARGE: 02/09/2019 DISCHARGE DIAGNOSES: 1. A 63-year-old male with aspiration pneumonia, resolved. 2. Recurrent respiratory failure requiring reintubation. 3. Status full saw tracheostomy. 4. Pseudomonas urinary tract infection. 5. 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 6. Catatonic state. 7. Bipolar affective disorder. 8. Schizophrenia. 9. Chronic hypernatremia. 10. Type 2 diabetes mellitus. HOSPITAL COURSE: A 63-year-old male with history of hemorrhagic CVA several months prior to admissio and chronic debilitation [facility] after he was noted to have p rogressive shortness of breath. The patient was diagnosed with aspiration pneumonia. Initially, he was intubated and successfully extubated. The patient developed recurrent respiratory failure which required intubation. Initially, he had muc ous plug that was resolved. The patient had very poor respiratory effort. He required a tracheostom y placement by Dr. Castellanos. Despite his poor prognosis, family insisted on a full code status. Th e patient also had acute kidney injury which gradually improved during the hospitalization. He was f ollowed by Dr. Mccoy. The patient was in a catatonic state. He was not following commands. The patient has a history of b ipolar affective disorder and schizophrenia. His medications were resumed. At this point, he is in a stable condition for transition to a subacute facility. The patient will remain on IV ertapenem fo r additional 7 days. Pseudomonas UTI was resistant to ceftazidime and Zosyn. MEDICATIONS ON DISCHARGE: 1. Ertapenem 1 gram daily x7 days. 2. Glargine insulin 13 units subq daily. 3. Seroquel 100 mg at bedtime. 4. Aspirin 81 mg daily. 5. Lipitor 40 mg at bedtime. 6. Divalproex sodium 750 mg b.i.d. 7. Lexapro 10 mg daily. 8. Ferrous sulfate 325 mg daily. 9. Lactulose 20 gram b.i.d. 10. Lamotrigine 25 mg b.i.d. 11. Flomax 0.4 mg at bedtime. Discharge planning was discussed with his son. Dictated By: FELICITAS GRECO/HEMAL Conf#: [id number] DID#: [id number] CC: TONIO MCCOY MD; CHAPO DENTON DPM; ARIES GORDON DO; BHAVIN BARROW MD; LEAH DELGADO MD;*End*
[2019-02-10] MEDS: D5W + KCL 20 MEQ 1,000 ML IV SCH ×3 (04:13→16:53)
[2019-02-10] MEDS: LANSOPRAZOLE ORAL SUSP 3 MG/ML (POSYG) GTB SCH ×2 (06:44→17:00)
[2019-02-10] MEDS: ASCORBIC ACID 500 MG TAB GTB SCH ×2 (08:31→21:12)
[2019-02-10] MEDS: DAKINS 0.0125%(1/40) 473 ML SOLUTION TP SCH ×2 (08:31→21:22)
[2019-02-10] MEDS: COLLAGENASE 5 GM (UD JAR) TOP SCH (08:31)
[2019-02-10] MEDS: MEROPENEM 1 GM/50ML(PMX) 50 ML IVPB SCH ×2 (08:31→21:13)
[2019-02-10] MEDS: ZINC SULFATE 220 MG CAP PEG SCH (08:31)
[2019-02-10] MEDS: ENOXAPARIN 30 MG/0.3 ML SYG SC SCH (08:34)
[2019-02-10] MEDS: LORAZEPAM 2 MG INJ IV SCH ×3 (10:45→21:13)
--- NOTE | 2019-02-10 11:10 | CONS ---
Assessment/Plan Assessment/Plan Assessment/Plan (Daily) 1. acute hyperkalemia- now resolved 2. acute On chronic renal failure due to ATN from septic shock- Improving 3. acute hypoxemic respiratory failure intubated on ventilator 2/2 Health care associated PNA - s/p extubation on 01/24/19 - s/p Tracheostomy in place 4. Septic shock on pressors 5. acute hypernatremia- Improving 6. H/O quadriplegia 7. H/o CAD s/p CABG 8. H/O HTN 9. H/o sacral decubitus s/p debridement before 10. [employer] Plan: BUN/cr 27/1.04 Na , Na 149, K 4.4-- IVF D5W with 20mEQ KCL to run at 75 cc/h rx 2liter then stop -BMP check in SNF in 1 week IV abx Meropenem 1 gram IV BID- Renally dose all abx and monitor electorlytes will follow up Consultation Date/Type/Reason Admit Date/Time Jan 18, 2019 at 04:19 Initial Consult Date Type of Consult NEPHROLOGY Requesting Provider: FELICITAS LAZARO MD Date/Time of Note DATE: 02/10/19 TIME: 11:10 Exam/Review of Systems Exam Vitals Vital Signs Date Temp Pulse Resp B/P (MAP) Pulse Ox O2 O2 Flow FiO2 Time Delivery Rate 02/10/19 30 08:54 02/10/19 98.4 83 18 132/69 99 07:55 (90) 02/09/19 Trach 15:16 Collar Intake and Output 02/09/19 02/09/19 02/10/19 1515:00 23:00 07:00 IntakeIntake Total 660 ml OutputOutput Total 950 ml 700 ml BalanceBalance -950 ml -40 ml Exam GENERAL: Non verbal, + tracheostomy in place NECK: Supple. No JVD or lymphadenopathy. CARDIAC: S1, S2, RRR, no murmur CHEST: Bilateral crackles +, no wheezing ABDOMEN: Soft, nontender. No guarding or rebound. EXTREMITIES: No cyanosis, clubbing of bleeding. + jenkins catheter NEUROLOGIC: Nonverbal, uncooperative . Results Result Diagram: 02/10/19 0536 02/10/19 0536 Results 24hrs Laboratory Tests Test 02/09/19 12:24 02/09/19 18:14 02/09/19 21:33 02/09/19 23:34 Bedside Glucose 135 129 113 150 Test 02/10/19 05:36 02/10/19 06:30 White Blood Count 8.9 Red Blood Count 3.21 #L Hemoglobin 9.5 #L Hematocrit 30.7 #L Mean Corpuscular 95.6 Volume Mean Corpuscular 29.6 Hemoglobin Mean Corpuscular 30.9 L Hemoglobin Concent Red Cell 16.9 H Distribution Width Platelet Count 168 Mean Platelet Volume 11.2 H Immature 0.400 Granulocytes % Neutrophils % 63.5 Lymphocytes % 28.3 Monocytes % 4.9 Eosinophils % 2.5 Basophils % 0.4 Nucleated Red Blood 0.0 Cells % Immature 0.040 H Granulocytes # Neutrophils # 5.6 Lymphocytes # 2.5 Monocytes # 0.4 Eosinophils # 0.2 Basophils # 0.0 Nucleated Red Blood 0.0 Cells # Sodium Level 149 H Potassium Level 4.4 Chloride Level 115 H Carbon Dioxide Level 30 Anion Gap 4 L Blood Urea Nitrogen 27 H Creatinine 1.04 Est Glomerular > 60 Filtrat Rate mL/min Glucose Level 124 Calcium Level 9.0 Magnesium Level 1.9 Bedside Glucose 146 Medications Medication Current Medications Miscellaneous Information 1 ea NOTE XX ; Start 01/18/19 at 23:30 Glucose (Glutose) 15 gm Q15M PRN PO DECREASED GLUCOSE; Start 01/18/19 at 23:30 Glucose (Glutose) 22.5 gm Q15M PRN PO DECREASED GLUCOSE; Start 01/18/19 at 23:30 Dextrose (D50w Syringe) 25 ml Q15M PRN IV DECREASED GLUCOSE; Start 01/18/19 at 23:30 Dextrose (D50w Syringe) 50 ml Q15M PRN IV DECREASED GLUCOSE; Start 01/18/19 at 23:30 Glucagon (Glucagen) 1 mg Q15M PRN IM DECREASED GLUCOSE; Start 01/18/19 at 23:30 Glucose (Glutose) 15 gm Q15M PRN BUCCAL DECREASED GLUCOSE; Start 01/18/19 at 23:30 Miscellaneous Information (Pending Santyl Order For Wound Care) This patient berg... PRN PRN XX WOUND CARE; Start 01/19/19 at 02:00 Acetaminophen (Tylenol Supp) 650 mg Q6H PRN [place] temp > 100.4F Last administered on 01/25/19at 12:35; Admin Dose 650 MG; Start 01/19/19 at 09:00 Sodium Hypochlorite (Dakins Diluted ()) 1 applic BID TP Last administered on 02/10/19 08:31; Admin Dose 1 APPLIC; Start 01/19/19 at 21:00 Morphine Sulfate (morphine) 2 mg Q4H PRN IV SEVERE PAIN LEVEL 7-10 Last administered on 02/01/19 21:18; Admin Dose 2 MG; Start 01/21/19 at 08:30 Ascorbic Acid (Vitamin C) 500 mg BID GTB Last administered on 02/10/19 08:31; Admin Dose 500 MG; Start 01/23/19 at 21:00 Zinc Sulfate (Zinc Sulfate) 220 mg DAILY PEG Last administered on 02/10/19 08:31; Admin Dose 220 MG; Start 01/24/19 at 09:00 Acetylcysteine (Mucomyst) 2 ml Q6H RESP THERAPY NEB Last administered on 02/10/19 09:11; Admin Dose 2 ML; Start 01/28/19 at 20:00 Albuterol (Ventolin Hfa) 4 puff Q6H RESP THERAPY INH Last administered on 02/10/19 09:11; Admin Dose 4 PUFF; Start 01/30/19 at 14:00 Ipratropium [place] (Atrovent Hfa) 4 puff Q6H RESP THERAPY INH Last administered on 02/10/19 09:11; Admin Dose 4 PUFF; Start 01/30/19 at 14:00 Lansoprazole (Lansoprazole Oral Susp) 30 mg BID@0600,1800 GTB Last administered on 02/10/19 06:44; Admin Dose 30 MG; Start 01/31/19 at 06:00 Insulin Aspart (Novolog Insulin Pen) NOVOLOG *MODERATE* ALGORI... Q6 SC Last administered on 02/10/19 06:52; Admin Dose 2 UNIT; Start 01/31/19 at 13:00 Insulin Glargine (Lantus) 13 units DAILY@2000 SC Last administered on 02/09/19 21:47; Admin Dose 13 UNITS; Start 01/31/19 at 20:00 Quetiapine Fumarate (Seroquel) 100 mg HS GTB Last administered on 02/09/19 21:34; Admin Dose 100 MG; Start 02/01/19 at 21:00 Acetaminophen (Tylenol Liquid) 650 mg Q4H PRN NGT MILD PAIN(1-3)OR ELEVATED TEMP Last administered on 02/08/19at 00:37; Admin Dose 650 MG; Start 02/03/19 at 18:00 Lorazepam (Ativan) 0.5 mg TID IV Last administered on 02/10/19 10:45; Admin Dose 0.5 MG; Start 02/04/19 at 21:00 Enoxaparin Sodium (Lovenox) 30 mg DAILY SC Last administered on 02/10/19 08:34; Admin Dose 30 MG; Start 02/08/19 at 17:00 Meropenem/Sodium Chloride 50 ml @ 100 mls/hr Q12 IVPB Last administered on 02/10/19 08:31; Admin Dose 100 MLS/HR; Start 02/09/19 at 21:00 Collagenase (Santyl) 1 applic DAILY TOP Last administered on 02/10/19 08:31; Admin Dose 1 APPLIC; Start 02/09/19 at 16:30 Potassium Chloride/Dextrose 1,000 ml @ 75 mls/hr [id number] IV Last administered on 02/10/19 04:13; Admin Dose 75 MLS/HR; Start 02/09/19 at 23:30 TONIO SOOD MD Feb 10, 2019 11:10
--- NOTE | 2019-02-10 14:34 | CONSI ---
Assessment/Plan Assessment/Plan Assessment/Plan (Recall) 63 M c/ quadriparesis NOS..and other comorbidities, who is admitted for management of respiratory Sx.. He is noted to be rigid, for which neurology is consulted.. The patient's neurologic examination confirms mild-moderate parkinsonism.. His current psychotropic exposures raise concern for secondary parkinsonism.. Idiopathic parkinson's disease is, though, not entirely excluded.. P: Monitor for progression of parkinsonism Consider trial of cogentin should the patient's symptoms begin to interfere w/ his quality of life PT/OT as tolerated Other management and supportive care per primary Will follow clinically Consultation Date/Type/Reason Admit Date/Time Jan 18, 2019 at 04:19 Type of Consult Neurology Reason for Consultation rigidity Requesting Provider: FELICITAS LAZARO MD Date/Time of Note DATE: 02/10/19 TIME: 14:29 Hx of Present Illness Patient is unable to contribute a Hx. It is elsewhere noted: A 63-year-old male residing at group home facility with history of a quadriplegia was brought in by the paramedics after he was noted to have hypoxia and altered mental status. Initial systolic blood pressure was 70 and oxygen saturation was in the mid 80s. The patient has bilateral lower extremity contractures, multiple sacral decubiti, type 2 diabetes mellitus and hypertension. Initial evaluation revealed acute hypoxemic respiratory failure and evidence of sepsis. The patient was intubated. White blood cell count was 14.6 and hemoglobin was low at 7. Serum sodium was 169 with BUN of 39 and creatinine of 3.08. Initial serum lactate was 2.7 and repeat serum lactate was 2.1. Chest x- ray showed dense left lower lobe infiltrate and possible effusion. Neurology is consulted to evaluate rigidity. Limited by respiratory failure Objective Exam Vitals Vital Signs Date Temp Pulse Resp B/P (MAP) Pulse Ox O2 O2 Flow FiO2 Time Delivery Rate 02/10/19 93 26 99 30 13:40 02/10/19 99.0 134/73 11:46 (93) 02/09/19 Trach 15:16 Collar Intake and Output 02/09/19 02/09/19 02/10/19 1515:00 23:00 07:00 IntakeIntake Total 660 ml OutputOutput Total 950 ml 700 ml BalanceBalance -950 ml -40 ml Exam PE: Gen Appearance: No Apparent Distress HEENT: Trach Cardiovascular: Regular rate Abdomen: Soft Extremities: Dry; R foot dressed NE: The patient was alert, able to nod and mouth words appropriately.. Cranial nerve examination was limited by mental status. Pupils were equal and reactive to light. There was no afferent pupillary defect. Funduscopic examination was limited. Face was grossly symmetric, w/ present corneal and cough reflexes. Tone was increased w/ cogwheeling.. Muscle bulk was normal. I did not see fasciculations. The patient moved his right arm w/ mild-moderate weakness... His other limbs were severely weak. Coordination and gait testing was limited. Arm and leg reflexes were symmetric. Gong's sign was absent. Plantar responses were flexor. Results Result Diagram: 02/10/19 0536 02/10/19 0536 Results 24hrs Laboratory Tests Test 02/09/19 18:14 02/09/19 21:33 02/09/19 23:34 02/10/19 05:36 Bedside Glucose 129 113 150 White Blood Count 8.9 Red Blood Count 3.21 #L Hemoglobin 9.5 #L Hematocrit 30.7 #L Mean Corpuscular 95.6 Volume Mean Corpuscular 29.6 Hemoglobin Mean Corpuscular 30.9 L Hemoglobin Concent Red Cell 16.9 H Distribution Width Platelet Count 168 Mean Platelet Volume 11.2 H Immature 0.400 Granulocytes % Neutrophils % 63.5 Lymphocytes % 28.3 Monocytes % 4.9 Eosinophils % 2.5 Basophils % 0.4 Nucleated Red Blood 0.0 Cells % Immature 0.040 H Granulocytes # Neutrophils # 5.6 Lymphocytes # 2.5 Monocytes # 0.4 Eosinophils # 0.2 Basophils # 0.0 Nucleated Red Blood 0.0 Cells # Sodium Level 149 H Potassium Level 4.4 Chloride Level 115 H Carbon Dioxide Level 30 Anion Gap 4 L Blood Urea Nitrogen 27 H Creatinine 1.04 Est Glomerular > 60 Filtrat Rate mL/min Glucose Level 124 Calcium Level 9.0 Magnesium Level 1.9 Test 02/10/19 06:30 02/10/19 12:19 Bedside Glucose 146 144 Past Medical History Medical History: other (quadriplegia, CAD H/o DC, h/o HTN, h/o possibel CKD ) Home Meds Active Scripts Ertapenem Sodium (Invanz) 1 Gm Vial, 1 GM IM DAILY for 7 Days, VIAL Prov:FELICITAS LAZARO MD 02/09/19 [Insulin Glargine] 100 UNITS/ML SOLN No Conflict Check, 13 UNITS SC DAILY@2000 for 30 Days Prov:FELICITAS LAZARO MD 02/05/19 Acetylcysteine* (Mucomyst*) 4 Ml Soln, 2 ML NEB Q6H RESP THERAPY for 30 Days Prov:FELICITAS LAZARO MD 02/05/19 Quetiapine Fumarate* (Quetiapine Fumarate*) 100 Mg Tablet, 100 MG GTB HS for 30 Days, TAB Prov:FELICITAS LAZARO MD 02/05/19 Albuterol Sulfate* (Ventolin HFA*) 18 Gm Hfa.aer.ad, 4 PUFF INH Q6H RESP THERAPY for 30 Days Prov:FELICITAS LAZARO MD 02/05/19 Quetiapine Fumarate* (Seroquel*) 100 Mg Tablet, 100 MG PO HS, #30 TAB Prov:FELICITAS LAZARO MD 01/27/19 Reported Medications Saccharomyces Boulardii* (Florastor*) 250 Mg Cap, 250 MG PO BID, CAP 01/18/19 Insulin Glargine* (Lantus*) 100 Unit/Ml Soln, 6 UNIT SC QHS, #1 VIAL 01/18/19 Ipratropium-Albuterol (Ipratropium-Albuterol) 0.5-3 Mg/3 Ml Ampul.neb, 3 ML INHALATION Q6 PRN for WHEEZING AND SOB, #30 VIAL 01/18/19 Lactulose* (Lactulose*) 20 Gm/30 Ml Solution, 20 GM PO BID, ML 01/18/19 Lamotrigine* (Lamotrigine*) 25 Mg Tablet, 25 MG PO BID, TAB 01/18/19 Escitalopram Oxalate* (Lexapro*) 10 Mg Tablet, 10 MG PO DAILY, #30 TAB 01/18/19 Magnesium Oxide* (Mag-Oxide*) 400 Mg Tablet, 400 MG PO TID, TAB 01/18/19 Multivitamin with Minerals (Daily Vitamin Formula-Minerals) 1 Each Tablet, 1 EACH PO DAILY, TAB 01/18/19 Tamsulosin Hcl* (Flomax*) 0.4 Mg Cap.er.24h, 0.4 MG PO HS, CAP 01/18/19 Ascorbic Acid* (Vitamin C*) 500 Mg Capsule.sa, 500 MG PO DAILY, CAP 01/18/19 Levalbuterol Hcl* (Levalbuterol Hcl*) 0.63 Mg/3 Ml Vial.neb, 0.63 MG INHALATION Q6H PRN for WHEEZING AND SOB, VIAL 01/18/19 Sodium Phosphate,[place]-Dibasic (Enema Ready To Use) 133 Ml Enema, 133 ML RC EVERY 3 DAYS PRN for CONSTIPATION, ENEMA 01/18/19 Calcium Carbonate* (Calcium Carbonate*) 600 MG Ca Tab, 600 MG PO BID, TAB 01/18/19 Divalproex Sodium* (Divalproex Sodium*) 250 Mg Tablet.dr, 750 MG PO BID, #90 TAB 01/18/19 Ferrous Sulfate* (Ferrous Sulfate*) 325 Mg Tabec, 325 MG PO DAILY, TAB 01/18/19 Magnesium Hydroxide* (Milk Of Magnesia*) 400 Mg/5 Ml Oral.susp, 30 ML PO DAILY PRN for CONSTIPATION, ML 01/18/19 Atorvastatin* (Atorvastatin*) 40 Mg Tablet, 40 MG PO QHS, #30 TAB 01/18/19 Aspirin (Low Dose Aspirin) 81 Mg Tablet.dr, 81 MG PO DAILY, #30 TAB 01/18/19 Acetaminophen* (Acetaminophen*) 650 Mg Tablet, 650 MG PO Q6H PRN for ELEVATED TEMPERATURE, #30 TAB OVER 101 01/18/19 Discontinued Reported Medications Twmbmdenfxnx-Jcjy-Vbwjtrdd,Iso (ZOSYN 3.375 GM GALAXY BAG) 3.375 Gm/50 Ml Froz.piggy, 3.375 GM IVPB Q6, EA 01/18/19 Vancomycin HCl (Vancomycin HCl) 1 Gm Vial, 1 GM IV DAILY PRN for FEVER, VIAL 01/18/19 Ceftriaxone Sod* (Rocephin* 1GM/50ML (PMX)) 1 Gm/50 Ml Iv.soln., 1 GM IVPB QHS, EA 01/18/19 Medications Current Medications Miscellaneous Information 1 ea NOTE XX ; Start 01/18/19 at 23:30 Glucose (Glutose) 15 gm Q15M PRN PO DECREASED GLUCOSE; Start 01/18/19 at 23:30 Glucose (Glutose) 22.5 gm Q15M PRN PO DECREASED GLUCOSE; Start 01/18/19 at 23:30 Dextrose (D50w Syringe) 25 ml Q15M PRN IV DECREASED GLUCOSE; Start 01/18/19 at 23:30 Dextrose (D50w Syringe) 50 ml Q15M PRN IV DECREASED GLUCOSE; Start 01/18/19 at 23:30 Glucagon (Glucagen) 1 mg Q15M PRN IM DECREASED GLUCOSE; Start 01/18/19 at 23:30 Glucose (Glutose) 15 gm Q15M PRN BUCCAL DECREASED GLUCOSE; Start 01/18/19 at 23:30 Miscellaneous Information (Pending Santyl Order For Wound Care) This patient berg... PRN PRN XX WOUND CARE; Start 01/19/19 at 02:00 Acetaminophen (Tylenol Supp) 650 mg Q6H PRN [place] temp > 100.4F Last administered on 01/25/19 12:35; Admin Dose 650 MG; Start 01/19/19 at 09:00 Sodium Hypochlorite (Dakins Diluted ()) 1 applic BID TP Last administered on 02/10/19 08:31; Admin Dose 1 APPLIC; Start 01/19/19 at 21:00 Morphine Sulfate (morphine) 2 mg Q4H PRN IV SEVERE PAIN LEVEL 7-10 Last administered on 02/01/19 21:18; Admin Dose 2 MG; Start 01/21/19 at 08:30 Ascorbic Acid (Vitamin C) 500 mg BID GTB Last administered on 02/10/19 08:31; Admin Dose 500 MG; Start 01/23/19 at 21:00 Zinc Sulfate (Zinc Sulfate) 220 mg DAILY PEG Last administered on 02/10/19 08:31; Admin Dose 220 MG; Start 01/24/19 at 09:00 Acetylcysteine (Mucomyst) 2 ml Q6H RESP THERAPY NEB Last administered on 02/10/19 13:25; Admin Dose 2 ML; Start 01/28/19 at 20:00 Albuterol (Ventolin Hfa) 4 puff Q6H RESP THERAPY INH Last administered on 02/10/19 13:24; Admin Dose 4 PUFF; Start 01/30/19 at 14:00 Ipratropium [place] (Atrovent Hfa) 4 puff Q6H RESP THERAPY INH Last administered on 02/10/19 13:23; Admin Dose 4 PUFF; Start 01/30/19 at 14:00 Lansoprazole (Lansoprazole Oral Susp) 30 mg BID@0600,1800 GTB Last administered on 02/10/19 06:44; Admin Dose 30 MG; Start 01/31/19 at 06:00 Insulin Aspart (Novolog Insulin Pen) NOVOLOG *MODERATE* ALGORI... Q6 SC Last administered on 02/10/19 12:23; Admin Dose 2 UNIT; Start 01/31/19 at 13:00 Insulin Glargine (Lantus) 13 units DAILY@2000 SC Last administered on 02/09/19 21:47; Admin Dose 13 UNITS; Start 01/31/19 at 20:00 Quetiapine Fumarate (Seroquel) 100 mg HS GTB Last administered on 02/09/19 21:34; Admin Dose 100 MG; Start 02/01/19 at 21:00 Acetaminophen (Tylenol Liquid) 650 mg Q4H PRN NGT MILD PAIN(1-3)OR ELEVATED TEMP Last administered on 02/08/19 00:37; Admin Dose 650 MG; Start 02/03/19 at 18:00 Lorazepam (Ativan) 0.5 mg TID IV Last administered on 02/10/19 10:45; Admin Dose 0.5 MG; Start 02/04/19 at 21:00 Enoxaparin Sodium (Lovenox) 30 mg DAILY SC Last administered on 02/10/19 08:34 ; Admin Dose 30 MG; Start 02/08/19 at 17:00 Meropenem/Sodium Chloride 50 ml @ 100 mls/hr Q12 IVPB Last administered on 02/10/19 08:31; Admin Dose 100 MLS/HR; Start 02/09/19 at 21:00 Collagenase (Santyl) 1 applic DAILY TOP Last administered on 02/10/19 08:31; Admin Dose 1 APPLIC; Start 02/09/19 at 16:30 Potassium Chloride/Dextrose 1,000 ml @ 75 mls/hr [id number] IV Last administered on 02/10/19 04:13; Admin Dose 75 MLS/HR; Start 02/09/19 at 23:30 Allergies: Coded Allergies: Sulfa (Sulfonamide Antibiotics) (Verified Allergy, Unknown, 01/18/19) Past Surgical History Past Surgical Hx: coronary bypass surgery, other (CABG, H/o Debridement for sacral decubitus ) Social History Alcohol Use: none Smoking Status: Former smoker Drug Use: none ALEX GARCIA Feb 10, 2019 14:34
--- NOTE | 2019-02-10 18:51 | CONS ---
Assessment/Plan Assessment/Plan Hospital Course (Demo Recall) Hypoxic respiratory failure status post tracheostomy Left lung collapse status post intubation Hypotension, off IV pressor Sepsis Acute kidney injury Hypernatremia-improved CAD with history of CABG Preserved left ventricular ejection fraction Hemoglobin improved BP trend stable Status post tracheostomy Vent management as per pulmonary Fluid management and diuretics as per nephrology Consultation Date/Type/Reason Admit Date/Time Jan 18, 2019 at 04:19 Initial Consult Date 01/21/19 Type of Consult Cardiology Requesting Provider: FELICITAS LAZARO MD Date/Time of Note DATE: 02/10/19 TIME: 18:50 24 HR Interval Summary Free Text/Dictation Seen and examined. Exam/Review of Systems Vital Signs Vitals Vital Signs Date Temp Pulse Resp B/P (MAP) Pulse Ox O2 O2 Flow FiO2 Time Delivery Rate 02/10/19 94 29 100 30 17:10 02/10/19 99.4 117/65 15:48 (82) 02/09/19 Trach 15:16 Collar Intake and Output 02/09/19 02/09/19 02/10/19 1515:00 23:00 07:00 IntakeIntake Total 660 ml OutputOutput Total 950 ml 700 ml BalanceBalance -950 ml -40 ml Exam Constitutional: alert (Following some commands, no apparent distress) Head: normocephalic Respiratory: other (Coarse breath sounds bilaterally, no wheezing) Cardiovascular: regular rate and rhythm (S1-S2 heard) Gastrointestinal: soft, non-tender, bowel sounds Extremities: edema Labs Result Diagram: 02/10/19 0536 02/10/19 0536 Results 24hrs Laboratory Tests Test 02/09/19 21:33 02/09/19 23:34 02/10/19 05:36 02/10/19 06:30 Bedside Glucose 113 150 146 White Blood Count 8.9 Red Blood Count 3.21 #L Hemoglobin 9.5 #L Hematocrit 30.7 #L Mean Corpuscular 95.6 Volume Mean Corpuscular 29.6 Hemoglobin Mean Corpuscular 30.9 L Hemoglobin Concent Red Cell 16.9 H Distribution Width Platelet Count 168 Mean Platelet Volume 11.2 H Immature 0.400 Granulocytes % Neutrophils % 63.5 Lymphocytes % 28.3 Monocytes % 4.9 Eosinophils % 2.5 Basophils % 0.4 Nucleated Red Blood 0.0 Cells % Immature 0.040 H Granulocytes # Neutrophils # 5.6 Lymphocytes # 2.5 Monocytes # 0.4 Eosinophils # 0.2 Basophils # 0.0 Nucleated Red Blood 0.0 Cells # Sodium Level 149 H Potassium Level 4.4 Chloride Level 115 H Carbon Dioxide Level 30 Anion Gap 4 L Blood Urea Nitrogen 27 H Creatinine 1.04 Est Glomerular > 60 Filtrat Rate mL/min Glucose Level 124 Calcium Level 9.0 Magnesium Level 1.9 Test 02/10/19 12:19 02/10/19 17:00 Bedside Glucose 144 141 Medications Medications Current Medications Miscellaneous Information 1 ea NOTE XX ; Start 01/18/19 at 23:30 Glucose (Glutose) 15 gm Q15M PRN PO DECREASED GLUCOSE; Start 01/18/19 at 23:30 Glucose (Glutose) 22.5 gm Q15M PRN PO DECREASED GLUCOSE; Start 01/18/19 at 23:30 Dextrose (D50w Syringe) 25 ml Q15M PRN IV DECREASED GLUCOSE; Start 01/18/19 at 23:30 Dextrose (D50w Syringe) 50 ml Q15M PRN IV DECREASED GLUCOSE; Start 01/18/19 at 23:30 Glucagon (Glucagen) 1 mg Q15M PRN IM DECREASED GLUCOSE; Start 01/18/19 at 23:30 Glucose (Glutose) 15 gm Q15M PRN BUCCAL DECREASED GLUCOSE; Start 01/18/19 at 23:30 Miscellaneous Information (Pending [facility] Order For Wound Care) This patient berg... PRN PRN XX WOUND CARE; Start 01/19/19 at 02:00 Acetaminophen (Tylenol Supp) 650 mg Q6H PRN [place] temp > 100.4F Last administered on 01/25/19at 12:35; Admin Dose 650 MG; Start 01/19/19 at 09:00 Sodium Hypochlorite (Dakins Diluted (40)) 1 applic BID TP Last administered on 02/10/19at 08:31; Admin Dose 1 APPLIC; Start 01/19/19 at 21:00 Morphine Sulfate (morphine) 2 mg Q4H PRN IV SEVERE PAIN LEVEL 7-10 Last administered on 02/01/19at 21:18; Admin Dose 2 MG; Start 01/21/19 at 08:30 Ascorbic Acid (Vitamin C) 500 mg BID GTB Last administered on 02/10/19at 08:31; Admin Dose 500 MG; Start 01/23/19 at 21:00 Zinc Sulfate (Zinc Sulfate) 220 mg DAILY PEG Last administered on 02/10/19 08:31; Admin Dose 220 MG; Start 01/24/19 at 09:00 Acetylcysteine (Mucomyst) 2 ml Q6H RESP THERAPY NEB Last administered on 02/10/19 13:25; Admin Dose 2 ML; Start 01/28/19 at 20:00 Albuterol (Ventolin Hfa) 4 puff Q6H RESP THERAPY INH Last administered on 02/10/19 13:24; Admin Dose 4 PUFF; Start 01/30/19 at 14:00 Ipratropium [place] (Atrovent Hfa) 4 puff Q6H RESP THERAPY INH Last administered on 02/10/19 13:23; Admin Dose 4 PUFF; Start 01/30/19 at 14:00 Lansoprazole (Lansoprazole Oral Susp) 30 mg BID@0600,1800 GTB Last administered on 02/10/19 17:00; Admin Dose 30 MG; Start 01/31/19 at 06:00 Insulin Aspart (Novolog Insulin Pen) NOVOLOG *MODERATE* ALGORI... Q6 SC Last ad ministered on 02/10/19 17:05; Admin Dose 2 UNIT; Start 01/31/19 at 13:00 Insulin Glargine (Lantus) 13 units DAILY@2000 SC Last administered on 02/09/19 21:47; Admin Dose 13 UNITS; Start 01/31/19 at 20:00 Quetiapine Fumarate (Seroquel) 100 mg HS GTB Last administered on 02/09/19 21:34; Admin Dose 100 MG; Start 02/01/19 at 21:00 Acetaminophen (Tylenol Liquid) 650 mg Q4H PRN NGT MILD PAIN(1-3)OR ELEVATED TEMP Last administered on 02/08/19 00:37; Admin Dose 650 MG; Start 02/03/19 at 18:00 Lorazepam (Ativan) 0.5 mg TID IV Last administered on 02/10/19 16:53; Admin Dose 0.5 MG; Start 02/04/19 at 21:00 Enoxaparin Sodium (Lovenox) 30 mg DAILY SC Last administered on 02/10/19 08:34; Admin Dose 30 MG; Start 02/08/19 at 17:00 Meropenem/Sodium Chloride 50 ml @ 100 mls/hr Q12 IVPB Last administered on 02/10/19 08:31; Admin Dose 100 MLS/HR; Start 02/09/19 at 21:00 Collagenase (Santyl) 1 applic DAILY TOP Last administered on 02/10/19 08:31; Admin Dose 1 APPLIC; Start 02/09/19 at 16:30 Potassium Chloride/Dextrose 1,000 ml @ 75 mls/hr [id number] IV Last administered on 02/10/19 16:53; Admin Dose 75 MLS/HR; Start 02/09/19 at 23:30 Randy Leone DO Feb 10, 2019 18:51
[2019-02-10] MEDS: QUETIAPINE 100 MG TAB GTB SCH (21:12)
[2019-02-10] MEDS: INSULIN GLARGINE [LANTus] (100 UNITS/ML) SYG SC SCH (21:43)
[2019-02-11] VITALS (12 sets, daily range): BP systolic 108–131; BP diastolic 68–79; PULSE 87–101; RESP 20–28
[2019-02-11] MEDS: ALBUTEROL HFA 8 GM INHALER INH SCH ×3 (01:19→13:25)
[2019-02-11] MEDS: ACETYLCYSTEINE 20% 4 ML VIAL NEB SCH ×3 (01:19→13:25)
[2019-02-11] MEDS: IPRATROPIUM (HFA) 12.9 GM INHALER INH SCH ×3 (01:19→13:25)
[2019-02-11] MEDS: ACETAMINOPHEN 650MG/20.3ML CUP NGT PRN (03:26)
[2019-02-11] MEDS ORDERED: LANSOPRAZOLE ORAL SUSP 3 MG/ML (POSYG) GTB SCH (06:00)
[2019-02-11] MEDS: INSULIN ASPART [NOVOLOG] 3 ML PEN SC SCH ×3 (06:00→12:00)
[2019-02-11] MEDS: ZINC SULFATE 220 MG CAP PEG SCH (08:42)
[2019-02-11] MEDS: ASCORBIC ACID 500 MG TAB GTB SCH (08:42)
[2019-02-11] MEDS: LORAZEPAM 2 MG INJ IV SCH ×2 (08:42→13:55)
[2019-02-11] MEDS: ENOXAPARIN 30 MG/0.3 ML SYG SC SCH (08:45)
[2019-02-11] MEDS: MEROPENEM 1 GM/50ML(PMX) 50 ML IVPB SCH (08:46)
[2019-02-11] MEDS: DAKINS 0.0125%(1/40) 473 ML SOLUTION TP SCH (09:00)
--- NOTE | 2019-02-11 09:24 | CONS ---
Assessment/Plan Assessment/Plan Assessment/Plan (Recall) 63 M c/ quadriparesis NOS..and other comorbidities, who is admitted for management of respiratory Sx.. He is noted to be rigid, for which neurology is consulted.. The patient's neurologic examination confirms mild-moderate parkinsonism.. His current psychotropic exposures raise concern for secondary parkinsonism.. Idiopathic parkinson's disease is, though, not entirely excluded.. P: Monitor for progression of parkinsonism Consider trial of cogentin should the patient's symptoms begin to interfere w/ his quality of life PT/OT as tolerated Other management and supportive care per primary Will sign off for now; please call w/ adnl questions Consultation Date/Type/Reason Admit Date/Time Jan 18, 2019 at 04:19 Type of Consult Neurology Reason for Consultation rigidity Requesting Provider: FELICITAS LAZARO MD Date/Time of Note DATE: 02/11/19 TIME: 09:23 24 HR Interval Summary Free Text/Dictation Continues acute care Exam/Review of Systems Exam Vitals Vital Signs Date Temp Pulse Resp B/P (MAP) Pulse Ox O2 O2 Flow FiO2 Time Delivery Rate 02/11/19 90 21 97 30 07:57 02/11/19 99.4 123/75 Mechanical 07:41 (91) Ventilator Intake and Output 02/10/19 02/10/19 02/11/19 1515:00 23:00 07:00 IntakeIntake Total 50 ml OutputOutput Total 1700 ml 1550 ml BalanceBalance -1650 ml -1550 ml Results Result Diagram: 02/10/19 0536 02/10/19 0536 Results 24hrs Laboratory Tests Test 02/10/19 12:19 02/10/19 17:00 02/10/19 21:36 02/11/19 00:35 Bedside Glucose 144 141 126 133 Test 02/11/19 06:01 02/11/19 07:00 Bedside Glucose 122 Lab Scanned BLOOD TRANSFUSIO Report N Medications Medication Current Medications Miscellaneous Information 1 ea NOTE XX ; Start 01/18/19 at 23:30 Glucose (Glutose) 15 gm Q15M PRN PO DECREASED GLUCOSE; Start 01/18/19 at 23:30 Glucose (Glutose) 22.5 gm Q15M PRN PO DECREASED GLUCOSE; Start 01/18/19 at 23:30 Dextrose (D50w Syringe) 25 ml Q15M PRN IV DECREASED GLUCOSE; Start 01/18/19 at 23:30 Dextrose (D50w Syringe) 50 ml Q15M PRN IV DECREASED GLUCOSE; Start 01/18/19 at 23:30 Glucagon (Glucagen) 1 mg Q15M PRN IM DECREASED GLUCOSE; Start 01/18/19 at 23:30 Glucose (Glutose) 15 gm Q15M PRN BUCCAL DECREASED GLUCOSE; Start 01/18/19 at 23:30 Miscellaneous Information (Pending [facility] Order For Wound Care) This patient berg... PRN PRN XX WOUND CARE; Start 01/19/19 at 02:00 Acetaminophen (Tylenol Supp) 650 mg Q6H PRN [place] temp > 100.4F Last administered on 01/25/19 12:35; Admin Dose 650 MG; Start 01/19/19 at 09:00 Sodium Hypochlorite (Dakins Diluted ()) 1 applic BID TP Last administered on 02/10/19 21:22; Admin Dose 1 APPLIC; Start 01/19/19 at 21:00 Morphine Sulfate (morphine) 2 mg Q4H PRN IV SEVERE PAIN LEVEL 7-10 Last administered on 02/01/19 21:18; Admin Dose 2 MG; Start 01/21/19 at 08:30 Ascorbic Acid (Vitamin C) 500 mg BID GTB Last administered on 02/11/19 08:42; Admin Dose 500 MG; Start 01/23/19 at 21:00 Zinc Sulfate (Zinc Sulfate) 220 mg DAILY PEG Last administered on 02/11/19 08:42; Admin Dose 220 MG; Start 01/24/19 at 09:00 Acetylcysteine (Mucomyst) 2 ml Q6H RESP THERAPY NEB Last administered on 02/11/19 08:04; Admin Dose 2 ML; Start 01/28/19 at 20:00 Albuterol (Ventolin Hfa) 4 puff Q6H RESP THERAPY INH Last administered on 02/11/19 08:04; Admin Dose 4 PUFF; Start 01/30/19 at 14:00 Ipratropium [place] (Atrovent Hfa) 4 puff Q6H RESP THERAPY INH Last administered on 02/11/19 08:04; Admin Dose 4 PUFF; Start 01/30/19 at 14:00 Insulin Aspart (Novolog Insulin Pen) NOVOLOG *MODERATE* ALGORI... Q6 SC Last administered on 02/10/19 17:05; Admin Dose 2 UNIT; Start 01/31/19 at 13:00 Insulin Glargine (Lantus) 13 units DAILY@2000 SC Last administered on 02/10/19 21:43; Admin Dose 13 UNITS; Start 01/31/19 at 20:00 Quetiapine Fumarate (Seroquel) 100 mg HS GTB Last administered on 02/10/19 21:12; Admin Dose 100 MG; Start 02/01/19 at 21:00 Acetaminophen (Tylenol Liquid) 650 mg Q4H PRN NGT MILD PAIN(1-3)OR ELEVATED TEMP Last administered on 02/11/19 03:26; Admin Dose 650 MG; Start 02/03/19 at 18:00 Lorazepam (Ativan) 0.5 mg TID IV Last administered on 02/11/19 08:42; Admin Dose 0.5 MG; Start 02/04/19 at 21:00 Enoxaparin Sodium (Lovenox) 30 mg DAILY SC Last administered on 02/11/19 08:45; Admin Dose 30 MG; Start 02/08/19 at 17:00 Meropenem/Sodium Chloride 50 ml @ 100 mls/hr Q12 IVPB Last administered on 02/11/19 08:46; Admin Dose 100 MLS/HR; Start 02/09/19 at 21:00 Collagenase (Santyl) 1 applic DAILY TOP Last administered on 02/10/19 08:31; Admin Dose 1 APPLIC; Start 02/09/19 at 16:30 Potassium Chloride/Dextrose 1,000 ml @ 75 mls/hr [id number] IV Last administered on 02/10/19 16:53; Admin Dose 75 MLS/HR; Start 02/09/19 at 23:30 Lansoprazole (Lansoprazole Oral Susp) 30 mg BID@0600,1800 GTB Last administered on 02/11/19 06:03; Admin Dose 30 MG; Start 02/11/19 at 06:00 ALEX GARCIA Feb 11, 2019 09:24
[2019-02-11] MEDS: COLLAGENASE 5 GM (UD JAR) TOP SCH (12:01)
--- NOTE | 2019-02-11 13:16 | CONS ---
Assessment/Plan Assessment/Plan Assessment/Plan (Daily) 1. acute hyperkalemia- now resolved 2. acute On chronic renal failure due to ATN from septic shock- Improving 3. acute hypoxemic respiratory failure intubated on ventilator 2/2 Health care associated PNA - s/p extubation on 01/24/19 - s/p Tracheostomy in place 4. Septic shock on pressors 5. acute hypernatremia- Improving 6. H/O quadriplegia 7. H/o CAD s/p CABG 8. H/O HTN 9. H/o sacral decubitus s/p debridement before 10. [employer] operations vice president Plan: BUN/cr 27/1.04 Na , Na 149, K 4.4-- no labs today to review yet IVF D5W with 20mEQ KCL to run at 75 cc/h rx 2liter then stop -BMP check in SNF in 1 week IV abx Meropenem 1 gram IV BID- Renally dose all abx and monitor electorlytes will follow up Consultation Date/Type/Reason Admit Date/Time Jan 18, 2019 at 04:19 Initial Consult Date Type of Consult NEPHROLOGY Requesting Provider: FELICITAS LAZARO MD Date/Time of Note DATE: 02/11/19 TIME: 13:15 Exam/Review of Systems Exam Vitals Vital Signs Date Temp Pulse Resp B/P (MAP) Pulse Ox O2 O2 Flow FiO2 Time Delivery Rate 02/11/19 99.3 87 20 124/69 100 Mechanical 11:00 (87) Ventilator 02/11/19 30 07:57 Intake and Output 02/10/19 02/10/19 02/11/19 1515:00 23:00 07:00 IntakeIntake Total 50 ml OutputOutput Total 1700 ml 1550 ml BalanceBalance -1650 ml -1550 ml Results Result Diagram: 02/10/19 0536 02/10/19 0536 Results 24hrs Laboratory Tests Test 02/10/19 17:00 02/10/19 21:36 02/11/19 00:35 02/11/19 06:01 Bedside Glucose 141 126 133 122 Test 02/11/19 07:00 02/11/19 12:00 Lab Scanned BLOOD TRANSFUSIO Report N Bedside Glucose 125 Medications Medication Current Medications Miscellaneous Information 1 ea NOTE XX ; Start 01/18/19 at 23:30 Glucose (Glutose) 15 gm Q15M PRN PO DECREASED GLUCOSE; Start 01/18/19 at 23:30 Glucose (Glutose) 22.5 gm Q15M PRN PO DECREASED GLUCOSE; Start 01/18/19 at 23:30 Dextrose (D50w Syringe) 25 ml Q15M PRN IV DECREASED GLUCOSE; Start 01/18/19 at 23:30 Dextrose (D50w Syringe) 50 ml Q15M PRN IV DECREASED GLUCOSE; Start 01/18/19 at 23:30 Glucagon (Glucagen) 1 mg Q15M PRN IM DECREASED GLUCOSE; Start 01/18/19 at 23:30 Glucose (Glutose) 15 gm Q15M PRN BUCCAL DECREASED GLUCOSE; Start 01/18/19 at 23:30 Miscellaneous Information (Pending [facility] Order For Wound Care) This patient berg... PRN PRN XX WOUND CARE; Start 01/19/19 at 02:00 Acetaminophen (Tylenol Supp) 650 mg Q6H PRN NE temp > 100.4F Last administered on 01/25/19 12:35; Admin Dose 650 MG; Start 01/19/19 at 09:00 Sodium Hypochlorite (Dakins Diluted (40)) 1 applic BID TP Last administered on 02/10/19 21:22; Admin Dose 1 APPLIC; Start 01/19/19 at 21:00 Morphine Sulfate (morphine) 2 mg Q4H PRN IV SEVERE PAIN LEVEL 7-10 Last administered on 02/01/19 21:18; Admin Dose 2 MG; Start 01/21/19 at 08:30 Ascorbic Acid (Vitamin C) 500 mg BID GTB Last administered on 02/11/19 08:42; Admin Dose 500 MG; Start 01/23/19 at 21:00 Zinc Sulfate (Zinc Sulfate) 220 mg DAILY PEG Last administered on 02/11/19 08:42; Admin Dose 220 MG; Start 01/24/19 at 09:00 Acetylcysteine (Mucomyst) 2 ml Q6H RESP THERAPY NEB Last administered on 02/11/19 08:04; Admin Dose 2 ML; Start 01/28/19 at 20:00 Albuterol (Ventolin Hfa) 4 puff Q6H RESP THERAPY INH Last administered on 02/11/19 08:04; Admin Dose 4 PUFF; Start 01/30/19 at 14:00 Ipratropium [place] (Atrovent Hfa) 4 puff Q6H RESP THERAPY INH Last ad ministered on 02/11/19 08:04; Admin Dose 4 PUFF; Start 01/30/19 at 14:00 Insulin Aspart (Novolog Insulin Pen) NOVOLOG *MODERATE* ALGORI... Q6 SC Last administered on 02/10/19 17:05; Admin Dose 2 UNIT; Start 01/31/19 at 13:00 Insulin Glargine (Lantus) 13 units DAILY@2000 SC Last administered on 02/10/19 21:43; Admin Dose 13 UNITS; Start 01/31/19 at 20:00 Quetiapine Fumarate (Seroquel) 100 mg HS GTB Last administered on 02/10/19 21:12; Admin Dose 100 MG; Start 02/01/19 at 21:00 Acetaminophen (Tylenol Liquid) 650 mg Q4H PRN NGT MILD PAIN(1-3)OR ELEVATED TEMP Last administered on 02/11/19 03:26; Admin Dose 650 MG; Start 02/03/19 at 18:00 Lorazepam (Ativan) 0.5 mg TID IV Last administered on 02/11/19 08:42; Admin Dose 0.5 MG; Start 02/04/19 at 21:00 Enoxaparin Sodium (Lovenox) 30 mg DAILY SC Last administered on 02/11/19 08:45; Admin Dose 30 MG; Start 02/08/19 at 17:00 Meropenem/Sodium Chloride 50 ml @ 100 mls/hr Q12 IVPB Last administered on 02/11/19 08:46; Admin Dose 100 MLS/HR; Start 02/09/19 at 21:00 Collagenase (Santyl) 1 applic DAILY TOP Last administered on 02/11/19 12:01; Admin Dose 1 APPLIC; Start 02/09/19 at 16:30 Lansoprazole (Lansoprazole Oral Susp) 30 mg BID@0600,1800 GTB Last administered on 02/11/19 06:03; Admin Dose 30 MG; Start 02/11/19 at 06:00 TONIO SOOD MD Feb 11, 2019 13:16
--- NOTE | 2019-02-11 17:19 | CONS ---
Assessment/Plan Assessment/Plan Hospital Course (Demo Recall) Hypoxic respiratory failure status post tracheostomy Left lung collapse status post intubation Hypotension, off IV pressor Sepsis Acute kidney injury Hypernatremia-improved CAD with history of CABG Preserved left ventricular ejection fraction BP trend stable Status post tracheostomy Vent management as per pulmonary Fluid management and diuretics as per nephrology Consultation Date/Type/Reason Admit Date/Time Jan 18, 2019 at 04:19 Initial Consult Date 01/21/19 Type of Consult Cardiology Requesting Provider: FELICITAS LAZARO MD Date/Time of Note DATE: 02/11/19 TIME: 17:18 24 HR Interval Summary Free Text/Dictation no sob Exam/Review of Systems Vital Signs Vitals Vital Signs Date Temp Pulse Resp B/P (MAP) Pulse Ox O2 O2 Flow FiO2 Time Delivery Rate 02/11/19 98.9 93 20 131/79 20 Mechanical 15:00 (96) Ventilator 02/11/19 30 13:25 Intake and Output 02/10/19 02/10/19 02/11/19 1414:59 22:59 06:59 IntakeIntake Total 50 ml OutputOutput Total 1700 ml 1550 ml BalanceBalance -1650 ml -1550 ml Exam Constitutional: alert (nad) Head: normocephalic Respiratory: other (course bs, no wheeze) Cardiovascular: regular rate and rhythm (s1s2) Gastrointestinal: soft, non-tender, bowel sounds Extremities: edema Labs Result Diagram: 02/10/19 0536 02/10/19 0536 Results 24hrs Laboratory Tests Test 02/10/19 21:36 02/11/19 00:35 02/11/19 06:01 02/11/19 07:00 Bedside Glucose 126 133 122 Lab Scanned BLOOD TRANSFUSIO Report N Test 02/11/19 12:00 Bedside Glucose 125 Randy Leone DO Feb 11, 2019 17:19
== END 2019-02-11 16:40 | DRG 3 ==
LOC: E/R 03:02 → ICU 04:19 → 6WM 01-25 02:19 → PP2 01-26 12:28 → ICU 01-28 16:16 → TEL 02-04 22:21
PROVIDERS: ADMIT Internal Medicine; ATTEND Internal Medicine
PROC: 5A1955Z Respiratory Ventilation, Greater than 96 Consecutive Hours (ICD-10-PCS; 2019-01-18)
PROC: 0BH18EZ Insertion of Endotracheal Airway into Trachea, Via Natural or Artificial Opening Endoscopic (ICD-10-PCS; 2019-01-18)
PROC: 30233N1 Transfusion of Nonautologous Red Blood Cells into Peripheral Vein, Percutaneous Approach (ICD-10-PCS; 2019-01-18)
PROC: 0QB10ZZ Excision of Sacrum, Open Approach (ICD-10-PCS; 2019-01-19)
PROC: 0DH63UZ Insertion of Feeding Device into Stomach, Percutaneous Approach (ICD-10-PCS; 2019-01-23)
PROC: 0DB68ZX Excision of Stomach, Via Natural or Artificial Opening Endoscopic, Diagnostic (ICD-10-PCS; 2019-01-23)
PROC: 5A1955Z Respiratory Ventilation, Greater than 96 Consecutive Hours (ICD-10-PCS; 2019-01-24)
PROC: 0BH18EZ Insertion of Endotracheal Airway into Trachea, Via Natural or Artificial Opening Endoscopic (ICD-10-PCS; 2019-01-28)
PROC: 0B110F4 Bypass Trachea to Cutaneous with Tracheostomy Device, Open Approach (ICD-10-PCS; principal; 2019-02-03 10:30)
DX: A41.9 Sepsis, unspecified organism (principal); L89.154 Pressure ulcer of sacral region, stage 4; R65.21 Severe sepsis with septic shock; J96.01 Acute respiratory failure with hypoxia; R53.2 Functional quadriplegia; J69.0 Pneumonitis due to inhalation of food and vomit; N17.0 Acute kidney failure with tubular necrosis; K25.6 Chronic or unspecified gastric ulcer with both hemorrhage and perforation; E87.0 Hyperosmolality and hypernatremia; L08.1 Erythrasma; D62 Acute posthemorrhagic anemia; G93.40 Encephalopathy, unspecified; J98.19 Other pulmonary collapse; E86.0 Dehydration; I25.10 Atherosclerotic heart disease of native coronary artery without angina pectoris; M24.50 Contracture, unspecified joint; F20.9 Schizophrenia, unspecified; L89.611 Pressure ulcer of right heel, stage 1; L89.620 Pressure ulcer of left heel, unstageable; E87.6 Hypokalemia; N18.3 Chronic kidney disease, stage 3 (moderate); R53.81 Other malaise; I12.9 Hypertensive chronic kidney disease with stage 1 through stage 4 chronic kidney disease, or unspecified chronic kidney disease; E11.22 Type 2 diabetes mellitus with diabetic chronic kidney disease; T17.990A Other foreign object in respiratory tract, part unspecified in causing asphyxiation, initial encounter; X58.XXXA Exposure to other specified factors, initial encounter; E78.5 Hyperlipidemia, unspecified; F06.1 Catatonic disorder due to known physiological condition; F32.9 Major depressive disorder, single episode, unspecified; G20 Parkinson's disease; B35.1 Tinea unguium; Z86.73 Personal history of transient ischemic attack (TIA), and cerebral infarction without residual deficits; Z95.1 Presence of aortocoronary bypass graft; Z79.4 Long term (current) use of insulin
CPT/HCPCS: 31500; 36415; 36430; 36600; 70450; 70551; 71045; 74181; 76775; 76937; 80048; 80053; 80202; 81001; 81003; 82270; 82550; 82570; 82803; 82962; 83605; 83690; 83735; 84100; 84300; 84484; 84560; 85014; 85018; 85025; 85610; 85730; 86078; 86850; 86900; 86901; 86920; 87070; 87081; 87086; 88305; 88312; 88313; 89190; 93005; 93306; 94002; 94003; 94640; 94664; 94770; 95819; 96365; 96375; J0690; J0692; J1650; J1815; J1885; J1940; J2060; J2185; J2250; J2270; J2543; J3010; J3370; J3475; J3480; J7030; J7040; J7050; J7070; P9016